=== PATIENT | male | born 1945 | race Caucasian/White ===

== ENCOUNTER 2016-04-30 01:26 | Inpatient (IN) | payer OTHER, BC ==
[2016-04-30 01:40] VITALS: BMI 26.6
--- NOTE | 2016-04-30 01:59 | PDOC ---
History of Present Illness - General Chief Complaint: Shortness of Breath Stated Complaint: DIFFICULTY BREATHING Time Seen by Provider: 04/30/16 01:44 History Source: Patient Exam Limitations: No Limitations - History of Present Illness Initial Comments: CHIEF COMPLAINT: 70 y/o afebrile male with PMH HTN, HLD c/o worsening SOB for the past few days. HISTORY OF PRESENT ILLNESS: He states he's had a dry cough and his legs are becoming more swollen. He denies f/c, n/v/d, CP, palpitations, abd pain, back pain, hematuria, dysuria. Vital signs on arrival are notable for RR of 28. REVIEW OF SYSTEMS: GENERAL/CONSTITUTIONAL: No fever/chills. No weakness. No weight change. HEAD, EYES, EARS, NOSE AND THROAT: No change in vision. No ear pain or discharge. No sore throat. CARDIOVASCULAR: No chest pain. +SOB RESPIRATORY: +cough. No wheezing, or hemoptysis. GASTROINTESTINAL: no abd pain, nausea, vomiting, diarrhea. GENITOURINARY: No dysuria, frequency, or change in urination. MUSCULOSKELETAL: +lower extremity swelling. No neck or back pain. SKIN: No rash or easy bruising. NEUROLOGIC: No headache, vertigo, loss of consciousness, or loss of sensation. PSYCHIATRIC: No depression or anxiety. ENDOCRINE: No increased thirst. No abnormal weight change. HEMATOLOGIC/LYMPHATIC: No anemia, easy bleeding, or history of blood clots. ALLERGIC/IMMUNOLOGIC: No hives or skin allergy. No latex allergy. PHYSICAL EXAM: GENERAL: The patient is awake, alert, and fully oriented, in moderate respiratory distress. He can speak 3 words per sentence. HEAD: Normal with no signs of trauma. ENT: Pupils equal, round and reactive to light, extraocular movements intact, sclera anicteric, conjunctiva clear. Neck supple. LUNGS: Clear to auscultation bilaterally. Normal excursion. No respiratory distress or use of accessory muscles. CV: RRR, S1/S2, no MRG. Cap refill < 2 sec. ABDOMEN: Soft, non-distended, non-tender even to deep palpation, no hepatomegaly or splenomegaly, no masses. EXTREMITIES: Normal range of motion. 2+ pitting edema b/l LEs. NEUROLOGICAL: Normal speech, normal gait. CN II-XII grossly intact. PSYCH: Normal mood, normal affect. SKIN: Warm, dry, normal turgor, no rashes or lesions noted. Past History - Past Medical History Allergies/Adverse Reactions: Allergies Allergy/AdvReac Type Severity Reaction Status Date / Time No Known Allergies Allergy Verified 04/30/16 01:35 Home Medications: Ambulatory Orders Colchicine [Colcrys -] 10 mg PO DAILY 04/30/16 Naproxen/Esomeprazole Mag [Vimovo Dr 375-20 mg Tablet] 1 each PO ASDIR PRN 04/30 Rosuvastatin Calcium [Crestor] 10 mg PO DAILY 04/30/16 HTN: Yes - Immunization History Immunization Up to Date: Yes - Psycho/Social/Smoking Cessation Hx Suicidal Ideation: No Smoking History: Unknown if ever smoked Information on smoking cessation initiated: No Hx Alcohol Use: No Drug/Substance Use Hx: No Substance Use Type: None *Physical Exam - Vital Signs Last Vital Signs Temp Pulse Resp BP Pulse Ox 97.8 F 96 H 25 H 166/79 97 04/30/16 01:48 04/30/16 01:48 04/30/16 01:48 04/30/16 01:48 04/30/16 01:48 Heart Score/ECG Review - History History: Slightly suspicious - Electrocardiogram EKG: Non specific repolarization disturbance - Age Age: >/= 65 - Risk Factors Risk Factors Heart Score: Yes Hx Hypercholesterolemia, Yes Hx Hypertension, Yes Smoking History Based on the list above the patient has:: >/=3 risk factors or Hx atherosclerotic disease - Troponin Troponin: </= normal limit - Score Heart Score - Total: 5 - ECG Intrepretation Comment:: Twelve-lead EKG was performed and reviewed by Dr. Orozco. There is atrial fibrillation. Nonspecific ST and T wave abnormality. Impression: Abnormal twelve-lead EKG ED Treatment Course - LABORATORY CBC & Chemistry Diagram: 04/30/16 02:29 04/30/16 04:52 Medical Decision Making - Medical Decision Making A/p: 70 y/o male with possible new onset CHF. Plan is as follows: 1. EKG 2. CXR 3. Labs 4. O2 via NRB EKG shows afib. Pt states he has no hx of afib and is not on blood thinner. CXR IMPRESSION: Moderate right and small left pleural effusion. Underlying consolidation cannot be excluded. Perihilar and interstitial lung markings suggestive of pulmonary vascular congestion. Ordered IV lasix CHEST CT IMPRESSION: Moderate to large right and [id number] left pleural effusion with adjacent atelectasis. Consolidative changes seen in bilateral lower lobes posteriorly. Coexisting pneumonia cannot be excluded. There is no pneumothorax. Mediastinal lipomatosis. Heart is upper limits of normal in size. No pathologic pericardial effusion.. Coronary artery calcifications. Prominent central pulmonary arteries. Correlate for possible pulmonary care hypertension. Aorta is normal in caliber. No mediastinal hematoma. Right renal cyst is partially imaged. Bilateral renal cortical atrophy. No hydronephrosis. BNP - 5300 New onset afib and CHF Will admit to [facility]. Spoke with Dr. Nathan, enterprise application administrator for Dr. Centeno, and he accepts admission. he requested Dr. Ward as Cardiology consult. Informed the patient and his of the plan. the patient states he feels better. His RR has decreased. *DC/Admit/Observation/Transfer Diagnosis at time of Disposition: New onset a-fib, SOB (shortness of breath) CHF, acute Qualifiers: Congestive heart failure type: unspecified congestive heart failure type Qualified Code(s): I50.9 - Heart failure, unspecified - Discharge Dispostion Admit: Yes - Referrals Referrals: Cindy Centeno MD [Primary Care Provider] -
[2016-04-30 02:49] LABS: BASOPHIL 0.8 % (0-2.0); EOSINOPHIL 0.5 % (0-4.5); MCH 31.8 pg (25.7-33.7); MCHC 34.5 g/dl (32.0-35.9); MEAN CELL VOLUME 92.2 fl (80-96); PLATELET COUNT 215 K/MM3 (134-434); RDW 13.2 % (11.9-15.9)
--- NOTE | 2016-04-30 04:44 | PDOC ---
*Physical Exam - Vital Signs Last Vital Signs Temp Pulse Resp BP Pulse Ox 97.8 F 88 22 163/77 98 04/30/16 01:48 04/30/16 04:21 04/30/16 04:21 04/30/16 04:21 04/30/16 04:21 ED Treatment Course - LABORATORY CBC & Chemistry Diagram: 05/03/16 05:35 05/03/16 05:35 - ADDITIONAL ORDERS Additional order review: Laboratory Results 04/30/16 02:07 Sodium Cancelled Potassium Cancelled Chloride Cancelled Carbon Dioxide Cancelled Anion Gap Cancelled BUN Cancelled Creatinine Cancelled Creat Clearance w eGFR Cancelled Random Glucose Cancelled Calcium Cancelled Total Bilirubin Cancelled AST Cancelled ALT Cancelled Alkaline Phosphatase Cancelled Creatine Kinase Cancelled Troponin I Cancelled B-Natriuretic Peptide Cancelled Total Protein Cancelled Albumin Cancelled 04/30/16 02:29 RBC 4.00 MCV 92.2 MCHC 34.5 RDW 13.2 MPV 7.0 L Neutrophils % 91.0 H Lymphocytes % 4.3 L Monocytes % 3.4 L Eosinophils % 0.5 Basophils % 0.8 Medical Decision Making - Medical Decision Making 04/30/16 04:43 agree with care from ABHI Napoles *DC/Admit/Observation/Transfer Diagnosis at time of Disposition: New onset a-fib, SOB (shortness of breath), CHF, acute - Discharge Dispostion Disposition: HOME - Prescriptions
[2016-04-30] MEDS ORDERED: FUROSEMIDE 40 MG/4 ML INJECTABLE VIAL IVPUSH ONE (04:50)
[2016-04-30] MEDS ORDERED: FUROSEMIDE 40 MG/4 ML INJECTABLE VIAL ONE (05:00)
[2016-04-30 05:39] LABS: ALBUMIN 3.8 g/dl (3.4-5.0); ANION GAP 14 (8-16); CALCIUM 8.5 mg/dL (8.5-10.1); CO2 20 mmol/L (21-32); GLUCOSE,RANDOM 111 mg/dL (74-106); SGOT/AST 27 U/L (15-37); SGPT/ALT 25 U/L (12-78)
[2016-04-30 05:42] LABS: ALK PHOS 89 U/L (45-117); TROPONIN I < 0.02 ng/ml (0.00-0.05)
[2016-04-30 06:22] LABS: URINE APPEARANCE CLEAR; URINE BILIRUBIN NEGATIVE (NEGATIVE); URINE BLOOD 2+ (NEGATIVE); URINE COLOR STRAW; URINE GLUCOSE (UA) NEGATIVE (NEGATIVE); URINE KETONE NEGATIVE (NEGATIVE); URINE LEUK ESTERASE NEGATIVE (NEGATIVE); URINE NITRITE NEGATIVE (NEGATIVE); URINE PROTEIN 2+ (NEGATIVE); URINE UROBILINOGEN NEGATIVE E.U./dl (0.2-1.0)
[2016-04-30 06:24] LABS: URINE RBC 9 /hpf (0-3); URINE WBC 1 /hpf (3-5)
[2016-04-30] MEDS ORDERED: ACETAMINOPHEN 325 MG TABLET (FP) PO PRN (06:47)
[2016-04-30] MEDS ORDERED: HEPARIN NA (PORCINE) 5,000 UNITS/ML 1ML VIAL IVPUSH PRN ×2 (06:52)
--- NOTE | 2016-04-30 06:54 | HP ---
Admitting History and Physical - Primary Care Physician PCP: Cindy Centeno - Admission Chief Complaint: NEW ONSET AFIB & AE CHF History Source: Medical Record - Smoking History Smoking history: Unknown if ever smoked - Alcohol/Substance Use Hx Alcohol Use: No Home Medications - Allergies Allergies/Adverse Reactions: Allergies Allergy/AdvReac Type Severity Reaction Status Date / Time No Known Allergies Allergy Verified 04/30/16 01:35 - Home Medications Home Medications: Ambulatory Orders Colchicine [Colcrys -] 10 mg PO DAILY 04/30/16 Naproxen/Esomeprazole Mag [Vimovo Dr 375-20 mg Tablet] 1 each PO ASDIR PRN 04/30 Rosuvastatin Calcium [Crestor] 10 mg PO DAILY 04/30/16 Review of Systems - Review of Systems Constitutional: denies: Chills, Fever Cardiovascular: denies: Chest Pain Respiratory: reports: SOB Gastrointestinal: denies: Abdominal Pain Physical Examination Vital Signs: Vital Signs Temperature 97.8 F 04/30/16 01:48 Pulse Rate 76 04/30/16 06:45 Respiratory Rate 20 04/30/16 06:45 Blood Pressure 158/69 04/30/16 06:45 O2 Sat by Pulse Oximetry (%) 100 04/30/16 06:45 Constitutional: Yes: Calm Cardiovascular: Yes: Regular Rate and Rhythm, S1, S2 Respiratory: Yes: CTA Bilaterally Gastrointestinal: Yes: Normal Bowel Sounds, Soft Edema: No Imaging - Results Chest X-ray: Report Reviewed Cat Scan: Report Reviewed Problem List - Problems (1) CHF, acute Code(s): I50.9 - HEART FAILURE, UNSPECIFIED Qualifiers: Congestive heart failure type: unspecified congestive heart failure type Qualified Code(s): I50.9 - Heart failure, unspecified (2) New onset a-fib Code(s): I48.91 - UNSPECIFIED ATRIAL FIBRILLATION (3) SOB (shortness of breath) Code(s): R06.02 - SHORTNESS OF BREATH (4) HTN (hypertension) Code(s): I10 - ESSENTIAL (PRIMARY) HYPERTENSION (5) Gout Code(s): M10.9 - GOUT, UNSPECIFIED (6) Pleural effusion Code(s): J90 - PLEURAL EFFUSION, NOT ELSEWHERE CLASSIFIED Assessment/Plan CHIEF COMPLAINT: 70 y/o afebrile male with PMH HTN, HLD c/o worsening SOB for the past few days. HISTORY OF PRESENT ILLNESS: He states he's had a dry cough and his legs are becoming more swollen. He denies f/c, n/v/d, CP, palpitations, abd pain, back pain, hematuria, dysuria. (1) CHF, acute Code(s): I50.9 - HEART FAILURE, UNSPECIFIED Qualifiers: Congestive heart failure type: unspecified congestive heart failure type Qualified Code(s): I50.9 - Heart failure, unspecified BNP 5400 TROP NEG -> F/U CARDIO CONSULTED TELE (2) New onset a-fib Code(s): I48.91 - UNSPECIFIED ATRIAL FIBRILLATION - FOBT -> THEN START IV HEPARIN (3) SOB (shortness of breath) Code(s): R06.02 - SHORTNESS OF BREATH (4) HTN (hypertension) Code(s): I10 - ESSENTIAL (PRIMARY) HYPERTENSION (5) Gout Code(s): M10.9 - GOUT, UNSPECIFIED COLCHICINE (6) Pleural effusion Code(s): J90 - PLEURAL EFFUSION, NOT ELSEWHERE CLASSIFIED CXr & CT NOTE PULM & CARDIO CONSULTED PASTOR CHAPARRO
[2016-04-30] MEDS ORDERED: HEPARIN INFUSION - 500 ML IVPB SCH (07:00)
[2016-04-30] MEDS ORDERED: HEPARIN INFUSION - 500 ML IVPB ONE (07:45)
--- NOTE | 2016-04-30 10:27 | EKG ---
Test Reason : Blood Pressure : / mmHG Vent. Rate : 073 BPM Atrial Rate : 067 BPM P-R Int : 000 ms QRS Dur : 080 ms QT Int : 390 ms P-R-T Axes : 000 091 093 degrees QTc Int : 429 ms POOR DATA QUALITY, INTERPRETATION MAY BE ADVERSELY AFFECTED ATRIAL FIBRILLATION RIGHTWARD AXIS NONSPECIFIC ST AND T WAVE ABNORMALITY ABNORMAL ECG WHEN COMPARED WITH ECG OF 12-NOV-2010 20:11, ATRIAL FIBRILLATION HAS REPLACED SINUS RHYTHM NONSPECIFIC T WAVE ABNORMALITY NOW EVIDENT IN INFERIOR LEADS NONSPECIFIC T WAVE ABNORMALITY, WORSE IN LATERAL LEADS Confirmed by VILMA MCLAIN MD ([id number]) on 04/30/2016 10:26:35 AM Referred By: Confirmed By:VILMA MCLAIN MD
[2016-04-30] MEDS: RAMIPRIL 2.5 MG CAPSULE (FP) PO SCH (10:54)
[2016-04-30] MEDS: COLCHICINE 0.6 MG TABLET (FP) PO SCH (10:54)
[2016-04-30] MEDS: FUROSEMIDE 40 MG/4 ML INJECTABLE VIAL IVPB SCH ×2 (10:54→12:13)
[2016-04-30 11:49] LABS: TROPONIN I < 0.02 ng/ml (0.00-0.05)
[2016-04-30 11:51] LABS: OSMOLALITY,SERUM 261 mosm/kg (278-305)
--- NOTE | 2016-04-30 12:30 | CONSULT ---
Consultation: REQUESTING PROVIDER: CONSULT REQUEST: We have been asked to medically evaluate this patient for ( hyponatremia). HISTORY OF PRESENT ILLNESS: Patient came to hospital with a complaint of difficulty in breathing from few days which was progressively increasing. He also states that he has hyponatremia before and his pcp asked him to increase salt intake. Denies lightheadedness, chest pain. REVIEW OF SYSTEMS: CONSTITUTIONAL: Absent: fever, chills, diaphoresis, generalized weakness, malaise, loss of appetite, HEENT: Absent: rhinorrhea, nasal congestion, throat pain, throat swelling, difficulty swallowing, mouth swelling, ear pain, eye pain, visual changes CARDIOVASCULAR: palpitations present Absent: chest pain, syncope, lightheadedness, peripheral edema RESPIRATORY: present dry cough, sob, orthopnea Absent: dyspnea with exertion, wheezing, stridor, hemoptysis GASTROINTESTINAL: Absent: abdominal pain, abdominal distension, nausea, vomiting, diarrhea, constipation, melena, hematochezia GENITOURINARY: Absent: dysuria, frequency, urgency, hesitancy, hematuria, flank pain, genital pain MUSCULOSKELETAL: Absent: myalgia, arthralgia, joint swelling, back pain, neck pain NEUROLOGIC: Absent: headache, focal weakness or paresthesias, dizziness, unsteady gait, seizure, mental status changes, bladder or bowel incontinence PHYSICAL EXAMINATION Vital Signs - 24 hr 04/30/16 04/30/16 04/30/16 06:43 06:45 07:30 Pulse Rate [ 78 Apical] Pulse Rate [ 79 76 Radial] Respiratory 18 20 26 H Rate Blood Pressure 158/69 158/69 153/84 [Right Arm] O2 Sat by Pulse 99 100 93 L Oximetry (%) 04/30/16 04/30/16 08:50 09:30 Pulse Rate [ 83 75 Apical] Pulse Rate [ Radial] Respiratory 20 20 Rate Blood Pressure 148/81 146/85 [Right Arm] O2 Sat by Pulse 99 99 Oximetry (%) PHYSICAL EXAM: GENERAL: The patient is awake, alert, and fully oriented, in moderate respiratory distress. He can speak 3 words per sentence. HEAD: Normal with no signs of trauma. ENT: Pupils equal, round and reactive to light, extraocular movements intact, sclera anicteric, conjunctiva clear. Neck supple. LUNGS: Clear to auscultation bilaterally. Normal excursion. No respiratory distress or use of accessory muscles. CV: RRR, S1/S2, no MRG. Cap refill < 2 sec. ABDOMEN: Soft, non-distended, non-tender even to deep palpation, no hepatomegaly or splenomegaly, no masses. EXTREMITIES: Normal range of motion. 2+ pitting edema b/l LEs. NEUROLOGICAL: Normal speech, normal gait. CN II-XII grossly intact. PSYCH: Normal mood, normal affect. SKIN: Warm, dry, normal turgor, no rashes or lesions noted. Laboratory Results - last 24 hr 04/30/16 04/30/16 04/30/16 07:45 10:55 10:55 Serum Osmolality 261 L Cancelled Creatine Kinase 170 Creatine Kinase Index 3.1 CK-MB (CK-2) 5.271 H CK-MB (CK-2) Rel Index Troponin I < 0.02 Stool Occult Blood Negative 04/30/16 10:55 Serum Osmolality Creatine Kinase Creatine Kinase Index CK-MB (CK-2) CK-MB (CK-2) Rel Index Cancelled Troponin I Stool Occult Blood Active Medications Generic Name Dose Route Start Last Admin Trade Name Freq PRN Reason Stop Dose Admin Acetaminophen 650 mg 04/30/16 06:47 Tylenol - PO Q6H PRN FEVER OR PAIN Colchicine 0.6 mg 04/30/16 10:00 04/30/16 10:54 Colcrys - PO 0.6 mg DAILY ILYA Administration Furosemide 40 mg 04/30/16 10:00 04/30/16 12:13 Lasix Injection - IVPB 40 mg DAILY ILYA Administration Heparin Sodium (Porcine) 1,000 unit 04/30/16 06:52 Heparin - IVPUSH PRN PRN Heparin Heparin Sodium (Porcine) 5,000 unit 04/30/16 06:52 Heparin - IVPUSH PRN PRN Heparin Heparin Sodium/Dextrose 500 mls @ 20 mls/hr 04/30/16 07:00 04/30/16 08:15 Heparin Infusion - IVPB 20 mls/hr TITR ILYA Administration Protocol 1,000 UNITS/HR Ramipril 2.5 mg 04/30/16 10:00 04/30/16 10:54 Altace - PO 2.5 mg DAILY ILYA Administration Rosuvastatin Calcium 10 mg 04/30/16 22:00 Crestor - PO HS ILYA ASSESSMENT/PLAN: impression new onset afib, chf HTN HLD Hyponatremia pleural effusion Plan continue with lasix 40mg Iv daily Keep free water intake below 1L increase Na at rate of 0.5meq/hr follow urine electrolyte, urine creat, urine osmo hyponatremia is probably due to hypervolemic hyponatremia serum osmo 261 daily weight repeat sodium after six hour Dispo: We will continue to follow the patient. Thank you for this consultative opportunity. Visit type - Emergency Visit Emergency Visit: Yes ED Registration Date: 04/30/16 Care time: The patient presented to the Emergency Department on the above date and was hospitalized for further evaluation of their emergent condition. - New Patient This patient is new to me today: Yes Date on this admission: 04/30/16 - Critical Care Critical Care patient: No
[2016-04-30] MEDS ORDERED: ALBUTEROL SO4 2.5/IPRATROPIUM 0.5 INH SOL 3 ML VIAL.NEB. NEB PRN (12:52)
--- NOTE | 2016-04-30 12:52 | PN ---
Progress Note (short form) - Note Progress Note: PULMONARY CONSULTATION DICTATED 04/30/16 IMP CHF NEW ONSET A-FIB BILATERAL PLEURAL EFFUSIONS HYPONATREMIA HTN HLD GOUT PLAN IV LASIX SUPPLEMENTAL O2 INHALED BRONCHODILATORS DAILY WTS ECHO RATE CONTROL F/U CHEST X-RAY IF NO CHANGE PLEURAL EFFUSIONS THORACENTESIS MONITOR VIRGEN DEMARCO DR Problem List - Problems (1) CHF, acute Code(s): I50.9 - HEART FAILURE, UNSPECIFIED Qualifiers: Congestive heart failure type: unspecified congestive heart failure type Qualified Code(s): I50.9 - Heart failure, unspecified (2) Gout Code(s): M10.9 - GOUT, UNSPECIFIED (3) HTN (hypertension) Code(s): I10 - ESSENTIAL (PRIMARY) HYPERTENSION (4) New onset a-fib Code(s): I48.91 - UNSPECIFIED ATRIAL FIBRILLATION (5) Pleural effusion Code(s): J90 - PLEURAL EFFUSION, NOT ELSEWHERE CLASSIFIED (6) SOB (shortness of breath) Code(s): R06.02 - SHORTNESS OF BREATH (7) Hyponatremia Code(s): E87.1 - HYPO-OSMOLALITY AND HYPONATREMIA
--- NOTE | 2016-04-30 14:02 | CONS ---
DATE OF CONSULTATION: 04/30/2016 REFERRING PHYSICIAN: Vishal Dennis MD The patient is a 70-year-old white male with past medical history of hypertension, hyperlipidemia, history of tobacco use approximately 1 pack per day, about 20 years, quit in 1981, admitted to [facility] with complaint of 1-week history of increasing shortness of breath, cough, and lower extremity edema. The patient states that he started developing shortness of breath on Tuesday. He started to notice progressive dyspnea on exertion. He also noted that his legs were becoming more and more swollen. He initially did not seek medical attention. Yesterday his symptoms continued to worsen, at which time he presented to the emergency room. He also complains of some wheezing when he laid down. He denied any chest pain or palpitations, nausea, vomiting, or diaphoresis. In the emergency room he is noted to be tachypneic, but a respiratory rate is 22. He is also noted to be in atrial fibrillation, which is new. He had chest x-ray performed which revealed bilateral pleural effusions, right greater than left, with bilateral pulmonary vascular congestion. BNP was greater than 5000. He was admitted to the telemetry unit for further monitoring. He denies any history of atrial fibrillation. He denies any history of ASHD, denies any history of occupational exposure to chemicals or fumes. Denies any fevers, weight loss, night sweats. No history of recent URI. PAST MEDICAL HISTORY: Again includes hypertension, hyperlipidemia. REVIEW OF SYSTEMS: Positive dyspnea, positive orthopnea, positive palpitations, positive wheezing. No chest pain, no nausea, no vomiting, no abdominal pain. Positive lower extremity edema. CURRENT MEDICATIONS: Include heparin, Altace, Lasix, Crestor, and colchicine. PHYSICAL EXAMINATION: General: The patient is a well-developed, well-nourished male, awake, alert, in no acute distress. Vital Signs: He is afebrile. Blood pressure is 146/85. Respiratory rate is 20. O2 saturation is 99% on 4 L. HEENT: His head is normocephalic, atraumatic. Neck: Supple. Heart: Irregularly irregular with normal S1, S2. Chest: Bilateral crackles and diminished breath sounds in the right base. Abdomen: Soft. Bowel sounds are positive. Extremities: Bilateral lower extremity edema. LABORATORY: WBCs 8, hemoglobin 12.7, hematocrit 36.9, platelet count of 215, 000. There are 91 polys, 4 lymphs, and 3 monos. Sodium is 125. BUN is 9, creatinine 1.0. BNP is 5393. MB fraction 7.178. Troponin is less than 0.2. Chest x-ray reveals bilateral pulmonary vascular congestion. Chest CT reveals compressive atelectasis, bilateral pleural effusions. IMPRESSION: 1. Dyspnea, most likely secondary to diastolic congestive heart failure. 2. New-onset atrial fibrillation. 3. Bilateral pleural effusions, likely secondary to congestive heart failure. 4. Hypertension. 5. Hyperlipidemia. PLAN: Continue IV Lasix. Daily weights. Follow up chest x-ray. Rate control. Echocardiogram. Supplemental O2. BEBETO BROWNE M.D. [id number] MTDD
--- NOTE | 2016-04-30 14:59 | CONSULT ---
Consult Consult Specialty:: Cardiology Referred by:: Dr Dennis Reason for Consultation:: New afib, CHF - History of Present Illness Chief Complaint: Dyspnea, wheezing, edema History of Present Illness: 70 yo male, remote smoker, hx of HTN, HLD, hyponatremia, gout, here with 2 wk history of dyspnea, wheezing and worsening MESFIN. Patient has no hx of KS, CHF or CP syndrome. However, he has had mild MESFIN. He also has had intermittent palpitations/tachycardia for years, but never kavitha dhe had afib. Over the last 2 weeks, he's noticed worsening MILLER/wheezing. He denies worsening MESFIN, PND or orthopnea. He denies any recent illness. Here, he's found in afib and congestion/effusion. He's received IV lasix and feels better. - History Source History Provided By: Patient - Past Medical History Cardio/Vascular: Yes: HTN, Hyperlipdemia, Other (edema) Musculoskeletal: Yes: Osteoarthritis Additional Medical History: gout - Past Surgical History Past Surgical History: Yes: Cataract Removal (b/l), Joint Replacement (right hip replacement X 3), Tonsillectomy - Alcohol/Substance Use Hx Alcohol Use: Yes (4-5 beers daily) History of Substance Use: reports: None - Smoking History Smoking history: Former smoker (quit in 1981, smoked a ppd for 25-30 yrs) Have you smoked in the past 12 months: No If you are a former smoker, when did you quit?: 1981 - Social History Usual Living Arrangement: With Spouse 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 Home Medications - Allergies Allergies/Adverse Reactions: Allergies Allergy/AdvReac Type Severity Reaction Status Date / Time No Known Allergies Allergy Verified 04/30/16 01:35 - Home Medications Home Medications: Ambulatory Orders Colchicine [Colcrys -] 10 mg PO DAILY 04/30/16 Naproxen/Esomeprazole Mag [Vimovo Dr 375-20 mg Tablet] 1 each PO ASDIR PRN 04/30 Rosuvastatin Calcium [Crestor] 10 mg PO DAILY 04/30/16 Family Disease History - Family Disease History Family History: Denies (premature CAD) Review of Systems - Review of Systems Constitutional: reports: Weakness Eyes: reports: No Symptoms HENT: reports: No Symptoms Neck: reports: No Symptoms Cardiovascular: reports: Edema, Shortness of Breath Respiratory: reports: SOB, SOB on Exertion, Wheezing Gastrointestinal: reports: No Symptoms Genitourinary: reports: No Symptoms Musculoskeletal: reports: Other Neurological: reports: Unsteady Gait Endocrine: reports: No Symptoms Psychiatric: reports: No Symptoms Physical Exam Vital Signs: Vital Signs Temperature 98.2 F 04/30/16 06:10 Pulse Rate 88 04/30/16 14:00 Respiratory Rate 20 04/30/16 14:00 Blood Pressure 125/70 04/30/16 14:00 O2 Sat by Pulse Oximetry (%) 99 04/30/16 09:30 Constitutional: Yes: No Distress Eyes: Yes: Conjunctiva Clear HENT: Yes: Atraumatic Neck: Yes: Supple Cardiovascular: Yes: Regular Rate and Rhythm. No: Murmur Respiratory: Yes: Other (decreased BS at bases). No: Rales, Rhonchi, Wheezes Gastrointestinal: Yes: Normal Bowel Sounds, Soft. No: Tenderness Edema: Yes Edema: LLE: Trace, RLE: Trace Peripheral Pulses WNL: Yes Neurological: Yes: Alert, Oriented Psychiatric: Yes: Alert, Oriented Imaging - Results Chest X-ray: Report Reviewed, Image Reviewed EKG: Report Reviewed, Image Reviewed, Other (afib) Other: Other (Echo(04/30/16) -> Mild LVE with normal EF, Mild LAE, mild MR, mild- mod TR, PASP 50-60) Assessment/Plan 70 yo male wit the above history, here with new onset afib and CHF. There is no evidence of ACS. The CHF may be from diastolic dysfunction in setting of rapid afib. Pt with mild LVE on echo -. ? from rapid afib (though rate has been controlled, likely because of bystolic) vs etoh. He is responding to IV lasix He has mild hyponatremaia (reports prior history) -. hypervolemic hyponatremia?\ Rec: Continue lasix 40 IV daily -> follow Is/Os, renal function and lytes Follow CXR Cont BOBBY-I Defer BB for today as pt was wheezing -. should be on it once stabalizes Check TFTs Cont crestor. Check lipids and adjust prn Switch to lovenox (pt with nl renal function) Once comfortable that pt wont need thoracentesis, start eliquis 5 bid Thanks! we'll follow! D/w pt and at bedside
[2016-04-30] MEDS ORDERED: ENOXAPARIN NA (PORCINE) 80 MG/0.8 ML DISP.SYRIN SQ SCH (16:00)
[2016-04-30 17:48] LABS: TROPONIN I < 0.02 ng/ml (0.00-0.05)
--- NOTE | 2016-04-30 19:09 | PN ---
Teaching Attending Note Name of Resident: Uriel London (Nephrology) ATTENDING PHYSICIAN STATEMENT I saw and evaluated the patient. I reviewed the resident's note and discussed the case with the resident. I agree with the resident's findings and plan as documented. Nephrology Consult Pt is a 70 year old male with pmhx of CHF, HTN and cholesterol who presents to the ER with worsening shortness of breath. He was found to be hyponatremic and I was called to evaluate him. He says he has had hyponatremia in the past. He complains of lower extremity edema. He tries not to drink much water. He denies chest pain. He was also found to be in a-fib. PMHX chf htn chol gout hyponatremia nkda ros shortness of breath family hx denies Current Active Problems CHF, acute (Acute) Gout (Acute) HTN (hypertension) (Acute) Hyponatremia (Acute) New onset a-fib (Acute) Pleural effusion (Acute) SOB (shortness of breath) (Acute) Last Vital Signs Temp Pulse Resp BP Pulse Ox 98.2 F 88 20 125/70 99 04/30/16 06:10 04/30/16 14:00 04/30/16 14:00 04/30/16 14:00 04/30/16 09:30 Laboratory Tests 04/30/16 04/30/16 04/30/16 04:52 10:55 16:15 Sodium 125 L Potassium 4.7 Chloride 91 L Carbon Dioxide 20 L Anion Gap 14 Serum Osmolality 261 L Troponin I < 0.02 < 0.02 Current Medications Generic Name Dose Route Start Last Admin Trade Name Freq PRN Reason Stop Dose Admin Acetaminophen 650 mg 04/30/16 06:47 Tylenol - PO Q6H PRN FEVER OR PAIN Albuterol/Ipratropium 1 amp 04/30/16 12:52 Duoneb - NEB Q4H PRN SHORTNESS OF BREATH Colchicine 0.6 mg 04/30/16 10:00 04/30/16 10:54 Colcrys - PO 0.6 mg DAILY ILYA Administration Enoxaparin Sodium 80 mg 04/30/16 16:00 04/30/16 15:48 Lovenox - SQ 80 mg Q12H ILYA Administration Furosemide 40 mg 04/30/16 10:00 04/30/16 12:13 Lasix Injection - IVPB 40 mg DAILY ILYA Administration Ramipril 2.5 mg 04/30/16 10:00 04/30/16 10:54 Altace - PO 2.5 mg DAILY ILYA Administration Rosuvastatin Calcium 10 mg 04/30/16 22:00 Crestor - PO HS ILYA cardio s1s2 irreg pulm crackles GI soft extplus 2 edema skin venous stasis changes neuro awake and alert Impression 1. Hyponatremia 2. new onset a-fib 3. pleural effusion 4. HLD 5. CHF 6. HTN 7. Gout Plan - check urine osm, urine sodium (will likely be affected from diuretics) - restric free water intake - check cortisol and tsh - repeat sodium in am - mix heparin in saline instead of d5w - etiology of hyponatremia is likely from CHF and fluid overload - will follow Dr Rodríguez
[2016-04-30] MEDS: ROSUVASTATIN CA 10 MG TABLET (FP) PO SCH (22:00)
[2016-05-01 07:47] LABS: BASOPHIL 1.1 % (0-2.0); EOSINOPHIL 5.5 % (0-4.5); MCH 32.1 pg (25.7-33.7); MCHC 34.2 g/dl (32.0-35.9); MEAN CELL VOLUME 93.7 fl (80-96); MEAN PLT VOLUME 6.9 fl (7.5-11.1); NEUTROPHILS 70.3 % (42.8-82.8); PLATELET COUNT 184 K/MM3 (134-434); RDW 13.5 % (11.9-15.9); WHITE BLOOD COUNT 5.3 K/mm3 (4.0-10.0)
[2016-05-01 08:21] LABS: ALBUMIN 3.4 g/dl (3.4-5.0); ANION GAP 11 (8-16); CALCIUM 8.6 mg/dL (8.5-10.1); CO2 26 mmol/L (21-32); GLUCOSE,RANDOM 87 mg/dL (74-106); MAGNESIUM 1.8 mg/dL (1.8-2.4)
[2016-05-01 08:33] LABS: ALK PHOS 82 U/L (45-117); BILIRUBIN,TOTAL 0.8 mg/dL (0.2-1.0); CREATININE 0.9 mg/dL (0.7-1.3); SGOT/AST 28 U/L (15-37); SGPT/ALT 25 U/L (12-78); THYROID STIMULATING HORMONE 1.75 uIU/ml (0.358-3.74); TOT PROT 7.2 g/dl (6.4-8.2)
[2016-05-01] MEDS: ENOXAPARIN NA (PORCINE) 80 MG/0.8 ML DISP.SYRIN SQ SCH ×2 (09:23→21:50)
[2016-05-01] MEDS: RAMIPRIL 2.5 MG CAPSULE (FP) PO SCH (09:23)
[2016-05-01] MEDS: COLCHICINE 0.6 MG TABLET (FP) PO SCH (09:23)
[2016-05-01] MEDS: FUROSEMIDE 40 MG/4 ML INJECTABLE VIAL IVPB SCH (09:23)
[2016-05-01 09:25] LABS: CHOLESTEROL 160 mg/dL (50-200); LDL CHOLESTEROL (ONLY SJRH) 64 mg/dL (5-100)
--- NOTE | 2016-05-01 09:41 | PN ---
Progress Note, Physician History of Present Illness: SOB improved. Denies chest pain or palpitations. - Current Medication List Current Medications: Active Medications Acetaminophen (Tylenol -) 650 mg PO Q6H PRN PRN Reason: FEVER OR PAIN Albuterol/Ipratropium (Duoneb -) 1 amp NEB Q4H PRN PRN Reason: SHORTNESS OF BREATH Colchicine (Colcrys -) 0.6 mg PO DAILY [facility] Last Admin: 05/01/16 09:23 Dose: 0.6 mg Enoxaparin Sodium (Lovenox -) 80 mg SQ BID [facility] Last Admin: 05/01/16 09:23 Dose: 80 mg Furosemide (Lasix Injection -) 40 mg IVPB DAILY [facility] Last Admin: 05/01/16 09:23 Dose: 40 mg Metoprolol Succinate (Toprol Xl -) 25 mg PO DAILY [facility] Rosuvastatin Calcium (Crestor -) 10 mg PO HS [facility] Last Admin: 04/30/16 22:00 Dose: 10 mg - Objective Vital Signs: Vital Signs Temperature 97.7 F 05/01/16 05:30 Pulse Rate 88 05/01/16 05:30 Respiratory Rate 18 05/01/16 05:30 Blood Pressure 142/77 05/01/16 05:30 O2 Sat by Pulse Oximetry (%) 99 04/30/16 21:00 Constitutional: Yes: Well Nourished, No Distress Eyes: Yes: Conjunctiva Clear, EOM Intact Cardiovascular: Yes: Regular Rate and Rhythm. No: JVD Respiratory: Yes: CTA Bilaterally Gastrointestinal: Yes: Normal Bowel Sounds, Soft. No: Tenderness Edema: No Neurological: Yes: Alert, Oriented, Cran Nerves II-XII Intact Labs: CBC, BMP 05/01/16 05:55 05/01/16 05:55 Assessment/Plan 70 yo male, remote smoker, hx of HTN, HLD, hyponatremia, gout. Admitted with 2 wk history of dyspnea and worsening leg edema. Found to be in new onset atrial fibrillation and acute diastolic CHF. Clinically improved with IV lasix. Afib currently rate controlled. Moderate bilateral pleural effusions per 2/ chest CT. 04/30/16 Echo: Midly dilated LV. Normal LV systolic function. Mild LAE. Mild MR. Mild to mod TR. RVSP 50-60 mmHg. Mild MI. Trivial pericardial effusion. Patient with history of mild hyponatremaia -> hypervolemic hyponatremia? RECS: Will continue lasix 40 IV daily for now. Follow renal function and lytes. Will increase ramipril to 5 mg po daily. Will start metoprolol succinate 25 mg po daily. Continue Crestor. Currently on Lovenox for afib thromboembolic prophylaxis. If no plans for thoracentesis, may start Eliquis 5 mg po bid (if patient's insurance covers this medication or other NOACs). Otherwise patient will need coumadin.
[2016-05-01] MEDS: METOPROLOL SUCCINATE 25 MG TAB.SR.24H (FP) PO SCH (10:15)
[2016-05-01] MEDS: RAMIPRIL 5 MG CAPSULE (FP) PO SCH (10:16)
--- NOTE | 2016-05-01 11:07 | PN ---
Progress Note, Physician Chief Complaint: FEELS BETTER LOOKS BETTER - Current Medication List Current Medications: Active Medications Acetaminophen (Tylenol -) 650 mg PO Q6H PRN PRN Reason: FEVER OR PAIN Albuterol/Ipratropium (Duoneb -) 1 amp NEB Q4H PRN PRN Reason: SHORTNESS OF BREATH Colchicine (Colcrys -) 0.6 mg PO DAILY [facility] Last Admin: 05/01/16 09:23 Dose: 0.6 mg Enoxaparin Sodium (Lovenox -) 80 mg SQ BID [facility] Last Admin: 05/01/16 09:23 Dose: 80 mg Furosemide (Lasix Injection -) 40 mg IVPB DAILY [facility] Last Admin: 05/01/16 09:23 Dose: 40 mg Metoprolol Succinate (Toprol Xl -) 25 mg PO DAILY [facility] Last Admin: 05/01/16 10:15 Dose: 25 mg Ramipril (Altace -) 5 mg PO DAILY [facility] Last Admin: 05/01/16 10:16 Dose: Not Given Rosuvastatin Calcium (Crestor -) 10 mg PO [facility] Last Admin: 04/30/16 22:00 Dose: 10 mg - Objective Vital Signs: Vital Signs Temperature 98.2 F 05/01/16 10:00 Pulse Rate 95 H 05/01/16 10:00 Respiratory Rate 20 05/01/16 10:00 Blood Pressure 146/71 05/01/16 10:00 O2 Sat by Pulse Oximetry (%) 97 05/01/16 09:00 Constitutional: Yes: Calm Cardiovascular: Yes: S1, S2 Respiratory: Yes: CTA Bilaterally Gastrointestinal: Yes: Normal Bowel Sounds, Soft Edema: Yes Labs: CBC, BMP 05/01/16 05:55 05/01/16 05:55 Problem List - Problems (1) CHF, acute Code(s): I50.9 - HEART FAILURE, UNSPECIFIED Qualifiers: Congestive heart failure type: unspecified congestive heart failure type Qualified Code(s): I50.9 - Heart failure, unspecified (2) New onset a-fib Code(s): I48.91 - UNSPECIFIED ATRIAL FIBRILLATION (3) SOB (shortness of breath) Code(s): R06.02 - SHORTNESS OF BREATH (4) HTN (hypertension) Code(s): I10 - ESSENTIAL (PRIMARY) HYPERTENSION (5) Gout Code(s): M10.9 - GOUT, UNSPECIFIED (6) Pleural effusion Code(s): J90 - PLEURAL EFFUSION, NOT ELSEWHERE CLASSIFIED (7) Hyponatremia Code(s): E87.1 - HYPO-OSMOLALITY AND HYPONATREMIA Assessment/Plan CHIEF COMPLAINT: 70 y/o afebrile male with PMH HTN, HLD c/o worsening SOB for the past few days. HISTORY OF PRESENT ILLNESS: He states he's had a dry cough and his legs are becoming more swollen. He denies f/c, n/v/d, CP, palpitations, abd pain, back pain, hematuria, dysuria. (1) CHF, acute Code(s): I50.9 - HEART FAILURE, UNSPECIFIED Qualifiers: Congestive heart failure type: unspecified congestive heart failure type Qualified Code(s): I50.9 - Heart failure, unspecified BNP 5400 NO ACS CARDIO CONSULT APPRECIATED BP Rx ADJUSTED TELE ECHO SHOW NL LVEF (2) New onset a-fib Code(s): I48.91 - UNSPECIFIED ATRIAL FIBRILLATION FOBT -jaxson LOVENOX CARDIO RECOMMEND ELIQUIS IF PULM NOT DOING PLEURAL TAP (3) SOB (shortness of breath) Code(s): R06.02 - SHORTNESS OF BREATH (4) HTN (hypertension) Code(s): I10 - ESSENTIAL (PRIMARY) HYPERTENSION (5) Gout Code(s): M10.9 - GOUT, UNSPECIFIED COLCHICINE (6) Pleural effusion Code(s): J90 - PLEURAL EFFUSION, NOT ELSEWHERE CLASSIFIED CXr & CT NOTED PULM & CARDIO CONSULTS APRRECIATED F/U REPEAT CXr -> POSSIBLE TAP IF DEPENDING ON REPEAT CXr NO FEVER WBC NEG (7) Hyponatremia Code(s): E87.1 - HYPO-OSMOLALITY AND HYPONATREMIA APPRECIATE RENAL CONSULT -> 2/2 CHF and fluid overload Na 130 F/U RENAL W/U DISCHARGE PLANNING IF NO PLEURAL TAP 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
--- NOTE | 2016-05-01 12:21 | PN ---
Progress Note (short form) - Note Progress Note: Feels better. No wheezing today. Ambulating on RA. Intake & Output 04/28/16 04/29/16 04/30/16 05/01/16 23:59 23:59 23:59 23:59 Intake Total 200 265 Output Total 950 1150 Balance -750 -885 Weight 180 lb 184 lb 9.6 oz Last Vital Signs Temp Pulse Resp BP Pulse Ox 98.2 F 95 H 20 146/71 97 05/01/16 10:00 05/01/16 10:00 05/01/16 10:00 05/01/16 10:00 05/01/16 09:00 Active Medications Acetaminophen (Tylenol -) 650 mg PO Q6H PRN PRN Reason: FEVER OR PAIN Albuterol/Ipratropium (Duoneb -) 1 amp NEB Q4H PRN PRN Reason: SHORTNESS OF BREATH Colchicine (Colcrys -) 0.6 mg PO DAILY [facility] Last Admin: 05/01/16 09:23 Dose: 0.6 mg Enoxaparin Sodium (Lovenox -) 80 mg SQ BID [facility] Last Admin: 05/01/16 09:23 Dose: 80 mg Furosemide (Lasix Injection -) 40 mg IVPB DAILY [facility] Last Admin: 05/01/16 09:23 Dose: 40 mg Metoprolol Succinate (Toprol Xl -) 25 mg PO DAILY [facility] Last Admin: 05/01/16 10:15 Dose: 25 mg Ramipril (Altace -) 5 mg PO DAILY [facility] Last Admin: 05/01/16 10:16 Dose: Not Given Rosuvastatin Calcium (Crestor -) 10 mg PO [facility] Last Admin: 04/30/16 22:00 Dose: 10 mg Constitutional: Yes: No Distress Eyes: Yes: Conjunctiva Clear, EOM Intact Cardiovascular: Yes: Regular Rate and Rhythm. No: JVD Respiratory: Yes: basilar rhonchi Gastrointestinal: Yes: Normal Bowel Sounds, Soft. No: Tenderness Edema: No Neurological: Yes: non-focal Labs: Problem List - Problems (1) CHF, acute Code(s): I50.9 - HEART FAILURE, UNSPECIFIED Qualifiers: Congestive heart failure type: unspecified congestive heart failure type Qualified Code(s): I50.9 - Heart failure, unspecified (2) Gout Code(s): M10.9 - GOUT, UNSPECIFIED (3) HTN (hypertension) Code(s): I10 - ESSENTIAL (PRIMARY) HYPERTENSION (4) New onset a-fib Code(s): I48.91 - UNSPECIFIED ATRIAL FIBRILLATION (5) Pleural effusion Code(s): J90 - PLEURAL EFFUSION, NOT ELSEWHERE CLASSIFIED (6) SOB (shortness of breath) Code(s): R06.02 - SHORTNESS OF BREATH (7) Hyponatremia Code(s): E87.1 - HYPO-OSMOLALITY AND HYPONATREMIA IMP CHF NEW ONSET A-FIB BILATERAL PLEURAL EFFUSIONS HYPONATREMIA HTN HLD GOUT PLAN IV LASIX SUPPLEMENTAL O2 INHALED BRONCHODILATORS DAILY WTS RATE CONTROL DO NOT FEEL THERE IS AN INDICATION FOR THORACENTESIS PATIENT IS CLINICALLY IMPROVING WITH DIURETICS NO PULMONARY CONTRAINDICATION FOR D/C DR GODINEZ
--- NOTE | 2016-05-01 19:54 | PN ---
Progress Note, Physician History of Present Illness: Pt seen and examined at bedside. He is awake and alert. He says he feels better today. His shortness of breath is improving. - Current Medication List Current Medications: Active Medications Acetaminophen (Tylenol -) 650 mg PO Q6H PRN PRN Reason: FEVER OR PAIN Albuterol/Ipratropium (Duoneb -) 1 amp NEB Q4H PRN PRN Reason: SHORTNESS OF BREATH Colchicine (Colcrys -) 0.6 mg PO DAILY [facility] Last Admin: 05/01/16 09:23 Dose: 0.6 mg Enoxaparin Sodium (Lovenox -) 80 mg SQ BID [facility] Last Admin: 05/01/16 09:23 Dose: 80 mg Furosemide (Lasix Injection -) 40 mg IVPB DAILY [facility] Last Admin: 05/01/16 09:23 Dose: 40 mg Metoprolol Succinate (Toprol Xl -) 25 mg PO DAILY [facility] Last Admin: 05/01/16 10:15 Dose: 25 mg Ramipril (Altace -) 5 mg PO DAILY [facility] Last Admin: 05/01/16 10:16 Dose: Not Given Rosuvastatin Calcium (Crestor -) 10 mg PO HS [facility] Last Admin: 04/30/16 22:00 Dose: 10 mg - Objective Vital Signs: Vital Signs Temperature 97.9 F 05/01/16 17:00 Pulse Rate 90 05/01/16 17:00 Respiratory Rate 20 05/01/16 17:00 Blood Pressure 156/89 05/01/16 17:00 O2 Sat by Pulse Oximetry (%) 97 05/01/16 09:00 Constitutional: Yes: Calm Eyes: Yes: Conjunctiva Clear HENT: Yes: Atraumatic Neck: Yes: Supple Cardiovascular: Yes: Pulse Irregular, S1, S2 Respiratory: Yes: CTA Bilaterally Gastrointestinal: Yes: Normal Bowel Sounds, Soft Genitourinary: Yes: WNL Musculoskeletal: Yes: WNL Edema: Yes Edema: LLE: 2+, RLE: 2+ Neurological: Yes: Oriented Psychiatric: Yes: Oriented Labs: CBC, BMP 05/01/16 05:55 05/01/16 05:55 Assessment/Plan Current Medications Generic Name Dose Route Start Last Admin Trade Name Freq PRN Reason Stop Dose Admin Acetaminophen 650 mg 04/30/16 06:47 Tylenol - PO Q6H PRN FEVER OR PAIN Albuterol/Ipratropium 1 amp 04/30/16 12:52 Duoneb - NEB Q4H PRN SHORTNESS OF BREATH Colchicine 0.6 mg 04/30/16 10:00 05/01/16 09:23 Colcrys - PO 0.6 mg DAILY ILYA Administration Enoxaparin Sodium 80 mg 04/30/16 22:19 05/01/16 09:23 Lovenox - SQ 80 mg BID ILYA Administration Furosemide 40 mg 04/30/16 10:00 05/01/16 09:23 Lasix Injection - IVPB 40 mg DAILY ILYA Administration Metoprolol Succinate 25 mg 05/01/16 10:00 05/01/16 10:15 Toprol Xl - PO 25 mg DAILY ILYA Administration Ramipril 5 mg 05/01/16 10:00 05/01/16 10:16 Altace - PO Not Given DAILY ILYA Rosuvastatin Calcium 10 mg 04/30/16 22:00 04/30/16 22:00 Crestor - PO 10 mg HS ILYA Administration Impression 1. Hyponatremia 2. new onset a-fib 3. pleural effusion 4. HLD 5. CHF 6. HTN 7. Gout Plan - cont with lasix, will re-assess dose in am - cont fluid restriction - hypervolemic hyponatremia likely from CHF - repeat labs in am - check cortisol and tsh - mix heparin in saline instead of d5w - etiology of hyponatremia is likely from CHF and fluid overload - will follow Dr Rodríguez
[2016-05-01] MEDS: ROSUVASTATIN CA 10 MG TABLET (FP) PO SCH (21:47)
[2016-05-02 08:19] LABS: BASOPHIL 0.7 % (0-2.0); EOSINOPHIL 8.4 % (0-4.5); MCHC 34.2 g/dl (32.0-35.9); MEAN CELL VOLUME 93.5 fl (80-96); MEAN PLT VOLUME 6.8 fl (7.5-11.1); NEUTROPHILS 67.9 % (42.8-82.8); PLATELET COUNT 194 K/MM3 (134-434); RDW 13.5 % (11.9-15.9)
[2016-05-02 08:47] LABS: CALCIUM 8.6 mg/dL (8.5-10.1)
[2016-05-02 08:53] LABS: ALBUMIN 3.4 g/dl (3.4-5.0); ALK PHOS 80 U/L (45-117); ANION GAP 13 (8-16); BILIRUBIN,TOTAL 0.7 mg/dL (0.2-1.0); CO2 24 mmol/L (21-32); GLUCOSE,RANDOM 81 mg/dL (74-106); SGOT/AST 23 U/L (15-37); SGPT/ALT 26 U/L (12-78); TOT PROT 7.2 g/dl (6.4-8.2)
--- NOTE | 2016-05-02 08:58 | PN ---
Progress Note, Physician Chief Complaint: C/O R ANKLE AE GOUT FEELS BETTER VERY CONCERNED ABOUT HEART CONDITION - Current Medication List Current Medications: Active Medications Acetaminophen (Tylenol -) 650 mg PO Q6H PRN PRN Reason: FEVER OR PAIN Albuterol/Ipratropium (Duoneb -) 1 amp NEB Q4H PRN PRN Reason: SHORTNESS OF BREATH Colchicine (Colcrys -) 0.6 mg PO DAILY [facility] Last Admin: 05/01/16 09:23 Dose: 0.6 mg Enoxaparin Sodium (Lovenox -) 80 mg SQ BID [facility] Last Admin: 05/01/16 21:50 Dose: 80 mg Furosemide (Lasix Injection -) 40 mg IVPB DAILY [facility] Last Admin: 05/01/16 09:23 Dose: 40 mg Metoprolol Succinate (Toprol Xl -) 25 mg PO DAILY [facility] Last Admin: 05/01/16 10:15 Dose: 25 mg Ramipril (Altace -) 5 mg PO DAILY [facility] Last Admin: 05/01/16 10:16 Dose: Not Given Rosuvastatin Calcium (Crestor -) 10 mg PO [facility] Last Admin: 05/01/16 21:47 Dose: 10 mg - Objective Vital Signs: Vital Signs Temperature 97.0 F L 05/02/16 01:38 Pulse Rate 92 H 05/02/16 08:32 Respiratory Rate 20 05/02/16 08:32 Blood Pressure 130/80 05/02/16 08:32 O2 Sat by Pulse Oximetry (%) 97 05/01/16 21:00 Constitutional: Yes: Calm Cardiovascular: Yes: WNL Respiratory: Yes: WNL Gastrointestinal: Yes: WNL Musculoskeletal: Yes: Joint Swelling (R ANKLE WARM & TENDER) Edema: Yes Labs: CBC, BMP 05/02/16 05:50 Problem List - Problems (1) CHF, acute Code(s): I50.9 - HEART FAILURE, UNSPECIFIED Qualifiers: Congestive heart failure type: unspecified congestive heart failure type Qualified Code(s): I50.9 - Heart failure, unspecified (2) New onset a-fib Code(s): I48.91 - UNSPECIFIED ATRIAL FIBRILLATION (3) SOB (shortness of breath) Code(s): R06.02 - SHORTNESS OF BREATH (4) HTN (hypertension) Code(s): I10 - ESSENTIAL (PRIMARY) HYPERTENSION (5) Gout Code(s): M10.9 - GOUT, UNSPECIFIED (6) Pleural effusion Code(s): J90 - PLEURAL EFFUSION, NOT ELSEWHERE CLASSIFIED (7) Hyponatremia Code(s): E87.1 - HYPO-OSMOLALITY AND HYPONATREMIA Assessment/Plan CHIEF COMPLAINT: 70 y/o afebrile male with PMH HTN, HLD c/o worsening SOB for the past few days. HISTORY OF PRESENT ILLNESS: He states he's had a dry cough and his legs are becoming more swollen. He denies f/c, n/v/d, CP, palpitations, abd pain, back pain, hematuria, dysuria. (1) CHF, acute Code(s): I50.9 - HEART FAILURE, UNSPECIFIED Qualifiers: Congestive heart failure type: unspecified congestive heart failure type Qualified Code(s): I50.9 - Heart failure, unspecified BNP 5400 NO ACS CARDIO CONSULT APPRECIATED BP Rx ADJUSTED TELE ECHO SHOW NL LVEF TACHY WHEN AMBULATE (2) New onset a-fib Code(s): I48.91 - UNSPECIFIED ATRIAL FIBRILLATION FOBT -jaxson LAST LOVENOX DOSE THIS AM -> THEN WILL START ELIQUIS TONIGHT CARDIO RECOMMEND ELIQUIS IF PULM NOT DOING PLEURAL TAP -> NOAC ORDERED (3) SOB (shortness of breath) Code(s): R06.02 - SHORTNESS OF BREATH (4) HTN (hypertension) Code(s): I10 - ESSENTIAL (PRIMARY) HYPERTENSION (5) Gout Code(s): M10.9 - GOUT, UNSPECIFIED COLCHICINE (6) Pleural effusion Code(s): J90 - PLEURAL EFFUSION, NOT ELSEWHERE CLASSIFIED CXr & CT NOTED PULM & CARDIO CONSULTS APRRECIATED NO PLEURAL TAP PLANNED NO FEVER WBC NEG (7) Hyponatremia Code(s): E87.1 - HYPO-OSMOLALITY AND HYPONATREMIA APPRECIATE RENAL CONSULT -> 2/2 CHF and fluid overload F/U RENAL W/U DISCHARGE PLANNING IF NO PLEURAL TAP 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
[2016-05-02] MEDS ORDERED: ENOXAPARIN NA (PORCINE) 80 MG/0.8 ML DISP.SYRIN SQ SCH (09:06)
[2016-05-02] MEDS: COLCHICINE 0.6 MG TABLET (FP) PO SCH (09:33)
[2016-05-02] MEDS: RAMIPRIL 5 MG CAPSULE (FP) PO SCH (09:33)
[2016-05-02] MEDS: METOPROLOL SUCCINATE 25 MG TAB.SR.24H (FP) PO SCH (09:33)
[2016-05-02] MEDS: FUROSEMIDE 40 MG/4 ML INJECTABLE VIAL IVPB SCH (09:34)
--- NOTE | 2016-05-02 10:32 | PN ---
Progress Note, Physician History of Present Illness: SOB improved. Denies chest pain or palpitations. - Current Medication List Current Medications: Active Medications Acetaminophen (Tylenol -) 650 mg PO Q6H PRN PRN Reason: FEVER OR PAIN Albuterol/Ipratropium (Duoneb -) 1 amp NEB Q4H PRN PRN Reason: SHORTNESS OF BREATH Apixaban (Eliquis -) 5 mg PO BID [facility] Colchicine (Colcrys -) 0.6 mg PO DAILY [facility] Last Admin: 05/02/16 09:33 Dose: 0.6 mg Furosemide (Lasix Injection -) 40 mg IVPB DAILY [facility] Last Admin: 05/02/16 09:34 Dose: 40 mg Metoprolol Succinate (Toprol Xl -) 50 mg PO DAILY [facility] Ramipril (Altace -) 5 mg PO DAILY [facility] Last Admin: 05/02/16 09:33 Dose: 5 mg Rosuvastatin Calcium (Crestor -) 10 mg PO HS [facility] Last Admin: 05/01/16 21:47 Dose: 10 mg - Objective Vital Signs: Vital Signs Temperature 97.0 F L 05/02/16 01:38 Pulse Rate 92 H 05/02/16 08:32 Respiratory Rate 20 05/02/16 08:32 Blood Pressure 130/80 05/02/16 08:32 O2 Sat by Pulse Oximetry (%) 97 05/01/16 21:00 Constitutional: Yes: No Distress Eyes: Yes: Conjunctiva Clear, EOM Intact Cardiovascular: Yes: Regular Rate and Rhythm. No: JVD Respiratory: Yes: CTA Bilaterally Gastrointestinal: Yes: Normal Bowel Sounds, Soft. No: Tenderness Edema: No Neurological: Yes: Alert, Oriented, Cran Nerves II-XII Intact Labs: CBC, BMP 05/02/16 05:50 05/02/16 05:50 Assessment/Plan 70 yo male, remote smoker, hx of HTN, HLD, hyponatremia, gout. Admitted with 2 wk history of dyspnea and worsening leg edema. Found to be in new onset atrial fibrillation and acute diastolic CHF. Clinically improved with IV lasix. Afib currently rate controlled. Moderate bilateral pleural effusions per 2/ chest CT. 04/30/16 Echo: Midly dilated LV. Normal LV systolic function. Mild LAE. Mild MR. Mild to mod TR. RVSP 50-60 mmHg. Mild DE. Trivial pericardial effusion. Patient with history of mild hyponatremaia -> hypervolemic hyponatremia? RECS: Will discontinue lasix 40 IV daily. Will start furosemide 20 mg po daily. Follow renal function and lytes. Will increase ramipril to 5 mg po daily. Will increase metoprolol to 50 mg po daily given elevated HR when patient walking to bathroom with HR 140s. Continue Crestor. No plans for thoracentesis. Will start Eliquis 5 mg po bid. However, if patient is unable to afford this medication based on insurance coverage, will need to change to coumadin.
[2016-05-02] MEDS ORDERED: METOPROLOL SUCCINATE 25 MG TAB.SR.24H (FP) PO ONE (11:00)
[2016-05-02] MEDS ORDERED: NAPROXEN 500 MG TABLET (FP) PO SCH (12:00)
[2016-05-02] MEDS: predniSONE 20 MG TABLET (UD) PO SCH (12:39)
[2016-05-02] MEDS ORDERED: POTASSIUM CHLORIDE TABS 20 MEQ TABLET.ER (FP) PO ONE (13:15)
--- NOTE | 2016-05-02 13:49 | PN ---
Progress Note (short form) - Note Progress Note: Breathing feels better. (+) gout attack. Intake & Output 04/29/16 04/30/16 05/01/16 05/02/16 23:59 23:59 23:59 23:59 Intake Total 200 565 Output Total 950 2200 800 Balance -750 -1635 -800 Weight 180 lb 184 lb 9.6 oz 181 lb 9.6 oz Last Vital Signs Temp Pulse Resp BP Pulse Ox 97.0 F L 92 H 20 130/80 97 05/02/16 01:38 05/02/16 08:32 05/02/16 08:32 05/02/16 08:32 05/01/16 21:00 Active Medications Acetaminophen (Tylenol -) 650 mg PO Q6H PRN PRN Reason: FEVER OR PAIN Albuterol/Ipratropium (Duoneb -) 1 amp NEB Q4H PRN PRN Reason: SHORTNESS OF BREATH Apixaban (Eliquis -) 5 mg PO BID [facility] Colchicine (Colcrys -) 0.6 mg PO DAILY [facility] Last Admin: 05/02/16 09:33 Dose: 0.6 mg Furosemide (Lasix -) 20 mg PO DAILY [facility] Metoprolol Succinate (Toprol Xl -) 50 mg PO DAILY [facility] Naproxen (Naprosyn -) 500 mg PO BID [facility] Stop: 05/02/16 22:01 Prednisone (Deltasone -) 40 mg PO DAILY [facility] Stop: 05/04/16 10:01 Last Admin: 05/02/16 12:39 Dose: 40 mg Ramipril (Altace -) 5 mg PO DAILY [facility] Last Admin: 05/02/16 09:33 Dose: 5 mg Rosuvastatin Calcium (Crestor -) 10 mg PO [facility] Last Admin: 05/01/16 21:47 Dose: 10 mg Constitutional: Yes: No Distress Eyes: Yes: Conjunctiva Clear, EOM Intact Cardiovascular: Yes: Regular Rate and Rhythm. No: JVD Respiratory: Yes: few basilar rhonchi Gastrointestinal: Yes: Normal Bowel Sounds, Soft. No: Tenderness Edema: No Neurological: Yes: non-focal Labs: Laboratory Results - last 24 hr 05/01/16 05/02/16 05/02/16 05:55 05:50 05:50 WBC RBC Hgb Hct MCV MCHC RDW Plt Count MPV Neutrophils % Lymphocytes % Monocytes % Eosinophils % Basophils % PTT (Actin FS) 36.9 H D Sodium 134 L Potassium 3.3 L Chloride 97 L Carbon Dioxide 24 Anion Gap 13 BUN 16 D Creatinine 1.0 Creat Clearance w eGFR > 60 Random Glucose 81 Calcium 8.6 Total Bilirubin 0.7 AST 23 ALT 26 Alkaline Phosphatase 80 Total Protein 7.2 Albumin 3.4 Cortisol AM Sample 14.7 05/02/16 05:50 WBC 7.0 D RBC 3.96 L Hgb 12.7 Hct 37.0 MCV 93.5 MCHC 34.2 RDW 13.5 Plt Count 194 MPV 6.8 L Neutrophils % 67.9 Lymphocytes % 11.3 Monocytes % 11.7 H Eosinophils % 8.4 H Basophils % 0.7 PTT (Actin FS) Sodium Potassium Chloride Carbon Dioxide Anion Gap BUN Creatinine Creat Clearance w eGFR Random Glucose Calcium Total Bilirubin AST ALT Alkaline Phosphatase Total Protein Albumin Cortisol AM Sample Problem List - Problems (1) CHF, acute Code(s): I50.9 - HEART FAILURE, UNSPECIFIED Qualifiers: Congestive heart failure type: unspecified congestive heart failure type Qualified Code(s): I50.9 - Heart failure, unspecified (2) Gout Code(s): M10.9 - GOUT, UNSPECIFIED (3) HTN (hypertension) Code(s): I10 - ESSENTIAL (PRIMARY) HYPERTENSION (4) New onset a-fib Code(s): I48.91 - UNSPECIFIED ATRIAL FIBRILLATION (5) Pleural effusion Code(s): J90 - PLEURAL EFFUSION, NOT ELSEWHERE CLASSIFIED (6) SOB (shortness of breath) Code(s): R06.02 - SHORTNESS OF BREATH (7) Hyponatremia Code(s): E87.1 - HYPO-OSMOLALITY AND HYPONATREMIA IMP CHF NEW ONSET A-FIB BILATERAL PLEURAL EFFUSIONS HYPONATREMIA HTN HLD GOUT PLAN LASIX NEEDED SUPPLEMENTAL O2 INHALED BRONCHODILATORS DAILY WTS RATE CONTROL GOUT TREATMENT DO NOT FEEL THERE IS AN INDICATION FOR THORACENTESIS PATIENT IS CLINICALLY IMPROVING WITH DIURETICS NO PULMONARY CONTRAINDICATION FOR D/C DR GODINEZ
--- NOTE | 2016-05-02 15:51 | PN ---
Progress Note, Physician History of Present Illness: Pt seen and examined at bedside. He feels that his breathing is improved. He feels that the lower extremity edema is improving. - Current Medication List Current Medications: Active Medications Acetaminophen (Tylenol -) 650 mg PO Q6H PRN PRN Reason: FEVER OR PAIN Albuterol/Ipratropium (Duoneb -) 1 amp NEB Q4H PRN PRN Reason: SHORTNESS OF BREATH Apixaban (Eliquis -) 5 mg PO BID [facility] Colchicine (Colcrys -) 0.6 mg PO DAILY [facility] Last Admin: 05/02/16 09:33 Dose: 0.6 mg Furosemide (Lasix -) 20 mg PO DAILY [facility] Metoprolol Succinate (Toprol Xl -) 50 mg PO DAILY [facility] Naproxen (Naprosyn -) 500 mg PO BID [facility] Stop: 05/02/16 22:01 Prednisone (Deltasone -) 40 mg PO DAILY [facility] Stop: 05/04/16 10:01 Last Admin: 05/02/16 12:39 Dose: 40 mg Ramipril (Altace -) 5 mg PO DAILY [facility] Last Admin: 05/02/16 09:33 Dose: 5 mg Rosuvastatin Calcium (Crestor -) 10 mg PO HS [facility] Last Admin: 05/01/16 21:47 Dose: 10 mg - Objective Vital Signs: Vital Signs Temperature 98 F 05/02/16 14:25 Pulse Rate 101 H 05/02/16 14:25 Respiratory Rate 20 05/02/16 14:25 Blood Pressure 132/74 05/02/16 14:25 O2 Sat by Pulse Oximetry (%) 97 05/01/16 21:00 Constitutional: Yes: Calm Eyes: Yes: Conjunctiva Clear HENT: Yes: Atraumatic Neck: Yes: Supple Cardiovascular: Yes: S1, S2 Respiratory: Yes: On Nasal O2 Gastrointestinal: Yes: Soft Genitourinary: Yes: WNL Musculoskeletal: Yes: WNL Edema: Yes Edema: LLE: 1+, RLE: 1+ Neurological: Yes: Oriented Psychiatric: Yes: Oriented Labs: CBC, BMP 05/02/16 05:50 05/02/16 05:50 Assessment/Plan Current Medications Generic Name Dose Route Start Last Admin Trade Name Freq PRN Reason Stop Dose Admin Acetaminophen 650 mg 04/30/16 06:47 Tylenol - PO Q6H PRN FEVER OR PAIN Albuterol/Ipratropium 1 amp 04/30/16 12:52 Duoneb - NEB Q4H PRN SHORTNESS OF BREATH Apixaban 5 mg 05/02/16 22:00 Eliquis - PO BID [facility] Colchicine 0.6 mg 04/30/16 10:00 05/02/16 09:33 Colcrys - PO 0.6 mg DAILY [facility] Administration Furosemide 20 mg 05/03/16 10:00 Lasix - PO DAILY [facility] Metoprolol Succinate 50 mg 05/03/16 10:00 Toprol Xl - PO DAILY [facility] Naproxen 500 mg 05/02/16 12:00 Naprosyn - PO 05/02/16 22:01 BID [facility] Prednisone 40 mg 05/02/16 12:00 05/02/16 12:39 Deltasone - PO 05/04/16 10:01 40 mg DAILY [facility] Administration Ramipril 5 mg 05/01/16 10:00 05/02/16 09:33 Altace - PO 5 mg DAILY [facility] Administration Rosuvastatin Calcium 10 mg 04/30/16 22:00 05/01/16 21:47 Crestor - PO 10 mg HS [facility] Administration Laboratory Tests 05/01/16 05/01/16 05:55 05:55 TSH 1.75 Cortisol AM Sample 14.7 Impression 1. Hyponatremia 2. new onset a-fib 3. pleural effusion 4. HLD 5. CHF 6. HTN 7. Gout Plan - cont with lasix. will likely need a higher dose than 20 mg - please stop naproxen and avoid nsaids - cont fluid restriction - hypervolemic hyponatremia likely from CHF - mix heparin in saline instead of d5w - etiology of hyponatremia is likely from CHF and fluid overload - will follow Dr Rodríguez
[2016-05-02] MEDS: APIXABAN 5 MG TABLET PO SCH (22:08)
[2016-05-02] MEDS: ROSUVASTATIN CA 10 MG TABLET (FP) PO SCH (22:08)
[2016-05-03 06:12] VITALS: PULSE 92
[2016-05-03 07:09] LABS: BASOPHIL 0.5 % (0-2.0); EOSINOPHIL 1.5 % (0-4.5); MCH 31.7 pg (25.7-33.7); MCHC 33.5 g/dl (32.0-35.9); MEAN CELL VOLUME 94.6 fl (80-96); MEAN PLT VOLUME 6.7 fl (7.5-11.1); NEUTROPHILS 77.2 % (42.8-82.8); PLATELET COUNT 211 K/MM3 (134-434); RDW 13.3 % (11.9-15.9); WHITE BLOOD COUNT 6.6 K/mm3 (4.0-10.0)
[2016-05-03 07:45] LABS: ALBUMIN 3.6 g/dl (3.4-5.0); ANION GAP 12 (8-16); CO2 25 mmol/L (21-32); GLUCOSE,RANDOM 107 mg/dL (74-106)
[2016-05-03 07:49] LABS: ALK PHOS 76 U/L (45-117); BILIRUBIN,TOTAL 0.6 mg/dL (0.2-1.0); CREATININE 1.1 mg/dL (0.7-1.3); SGOT/AST 22 U/L (15-37); SGPT/ALT 26 U/L (12-78); TOT PROT 7.9 g/dl (6.4-8.2)
[2016-05-03] MEDS: APIXABAN 5 MG TABLET PO SCH (09:27)
[2016-05-03] MEDS: RAMIPRIL 5 MG CAPSULE (FP) PO SCH (09:27)
[2016-05-03] MEDS: predniSONE 20 MG TABLET (UD) PO SCH (09:27)
[2016-05-03] MEDS: COLCHICINE 0.6 MG TABLET (FP) PO SCH (09:27)
--- NOTE | 2016-05-03 09:47 | CONSULT ---
Consultation: REQUESTING PROVIDER: CONSULT REQUEST: We have been asked to medically evaluate this patient for ( hyponatremia). HISTORY OF PRESENT ILLNESS: patient feels better, breathing has improved swelling in b/l legs has decreased REVIEW OF SYSTEMS: CONSTITUTIONAL: Absent: fever, chills, diaphoresis, generalized weakness, malaise, loss of appetite, HEENT: Absent: rhinorrhea, nasal congestion, throat pain, throat swelling, difficulty swallowing, mouth swelling, ear pain, eye pain, visual changes CARDIOVASCULAR: palpitations present Absent: chest pain, syncope, lightheadedness, peripheral edema RESPIRATORY: Absent: dyspnea with exertion, wheezing, stridor, hemoptysis GASTROINTESTINAL: Absent: abdominal pain, abdominal distension, nausea, vomiting, diarrhea, constipation, melena, hematochezia GENITOURINARY: Absent: dysuria, frequency, urgency, hesitancy, hematuria, flank pain, genital pain MUSCULOSKELETAL: Absent: myalgia, arthralgia, joint swelling, back pain, neck pain NEUROLOGIC: Absent: headache, focal weakness or paresthesias, dizziness, unsteady gait, seizure, mental status changes, bladder or bowel incontinence PHYSICAL EXAMINATION Vital Signs - 24 hr 05/02/16 05/02/16 05/02/16 14:25 17:00 20:24 Temperature 98 F 97.0 F L Pulse Rate 101 H 108 H Respiratory 20 20 Rate Blood Pressure 132/74 144/98 O2 Sat by Pulse 98 Oximetry (%) 05/02/16 05/03/16 05/03/16 22:00 02:00 06:00 Temperature 97.7 F 98 F Pulse Rate 101 H 99 H 92 H Respiratory 20 20 20 Rate Blood Pressure 146/89 156/87 136/75 O2 Sat by Pulse Oximetry (%) PHYSICAL EXAM: GENERAL: The patient is awake, alert, and fully oriented, in moderate respiratory distress. He can speak 3 words per sentence. HEAD: Normal with no signs of trauma. ENT: Pupils equal, round and reactive to light, extraocular movements intact, sclera anicteric, conjunctiva clear. Neck supple. LUNGS: Clear to auscultation bilaterally. Normal excursion. No respiratory distress or use of accessory muscles. CV: RRR, S1/S2, no MRG. Cap refill < 2 sec. ABDOMEN: Soft, non-distended, non-tender even to deep palpation, no hepatomegaly or splenomegaly, no masses. EXTREMITIES: Normal range of motion. b/l pitting edema decreased NEUROLOGICAL: Normal speech, normal gait. CN II-XII grossly intact. PSYCH: Normal mood, normal affect. SKIN: Warm, dry, normal turgor, no rashes or lesions n Laboratory Results - last 24 hr 05/03/16 05/03/16 05/03/16 05:35 05:35 05:35 WBC 6.6 RBC 4.25 Hgb 13.5 Hct 40.2 MCV 94.6 MCHC 33.5 RDW 13.3 Plt Count 211 MPV 6.7 L Neutrophils % 77.2 Lymphocytes % 10.1 Monocytes % 10.7 H Eosinophils % 1.5 D Basophils % 0.5 PTT (Actin FS) 37.9 H Sodium 136 Potassium 3.4 L Chloride 99 Carbon Dioxide 25 Anion Gap 12 BUN 24 H D Creatinine 1.1 Creat Clearance w eGFR > 60 Random Glucose 107 H D Calcium 9.0 Total Bilirubin 0.6 AST 22 ALT 26 Alkaline Phosphatase 76 Total Protein 7.9 Albumin 3.6 Active Medications Generic Name Dose Route Start Last Admin Trade Name Freq PRN Reason Stop Dose Admin Acetaminophen 650 mg 04/30/16 06:47 Tylenol - PO Q6H PRN FEVER OR PAIN Albuterol/Ipratropium 1 amp 04/30/16 12:52 Duoneb - NEB Q4H PRN SHORTNESS OF BREATH Apixaban 5 mg 05/02/16 22:00 05/03/16 09:27 Eliquis - PO 5 mg BID [facility] Administration Colchicine 0.6 mg 04/30/16 10:00 05/03/16 09:27 Colcrys - PO 0.6 mg DAILY [facility] Administration Furosemide 40 mg 05/03/16 10:00 05/03/16 09:27 Lasix - PO 40 mg DAILY [facility] Administration Metoprolol Succinate 50 mg 05/03/16 10:00 05/03/16 09:27 Toprol Xl - PO 50 mg DAILY [facility] Administration Prednisone 40 mg 05/02/16 12:00 05/03/16 09:27 Deltasone - PO 05/04/16 10:01 40 mg DAILY [facility] Administration Ramipril 5 mg 05/01/16 10:00 05/03/16 09:27 Altace - PO 5 mg DAILY [facility] Administration Rosuvastatin Calcium 10 mg 04/30/16 22:00 05/02/16 22:08 Crestor - PO 10 mg HS [facility] Administration ASSESSMENT/PLAN: impression new onset afib, chf HTN HLD Hyponatremia pleural effusion Plan continue with lasix 40mg Iv daily Keep free water intake below 1L hyponatremia resolved Na 136 hyponatremia is probably due to chf causing hypervolemic hyponatremia daily weight 80.51 kg repeat labs in morning Dispo: We will continue to follow the patient. Thank you for this consultative opportunity. Visit type - Emergency Visit Emergency Visit: Yes ED Registration Date: 04/30/16 Care time: The patient presented to the Emergency Department on the above date and was hospitalized for further evaluation of their emergent condition. - New Patient This patient is new to me today: No - Critical Care Critical Care patient: No
[2016-05-03] MEDS ORDERED: METOPROLOL SUCCINATE 50 MG TAB.SR.24H (FP) PO SCH (10:00)
[2016-05-03] MEDS ORDERED: FUROSEMIDE 40 MG TABLET (FP) PO SCH (10:00)
[2016-05-03] MEDS ORDERED: FUROSEMIDE 20 MG TABLET (FP) PO SCH (10:00)
[2016-05-03] MEDS ORDERED: METOPROLOL SUCCINATE 50 MG TAB.SR.24H (FP) PO ONE (10:40)
--- NOTE | 2016-05-03 10:45 | PN ---
Progress Note, Physician History of Present Illness: Doing well. Denies dyspnea, chest pain, or palpitations. - Current Medication List Current Medications: Active Medications Acetaminophen (Tylenol -) 650 mg PO Q6H PRN PRN Reason: FEVER OR PAIN Albuterol/Ipratropium (Duoneb -) 1 amp NEB Q4H PRN PRN Reason: SHORTNESS OF BREATH Apixaban (Eliquis -) 5 mg PO BID [facility] Last Admin: 05/03/16 09:27 Dose: 5 mg Colchicine (Colcrys -) 0.6 mg PO DAILY [facility] Last Admin: 05/03/16 09:27 Dose: 0.6 mg Furosemide (Lasix -) 40 mg PO DAILY [facility] Last Admin: 05/03/16 09:27 Dose: 40 mg Metoprolol Succinate (Toprol Xl -) 50 mg PO DAILY [facility] Last Admin: 05/03/16 09:27 Dose: 50 mg Prednisone (Deltasone -) 40 mg PO DAILY [facility] Stop: 05/04/16 10:01 Last Admin: 05/03/16 09:27 Dose: 40 mg Ramipril (Altace -) 5 mg PO DAILY [facility] Last Admin: 05/03/16 09:27 Dose: 5 mg Rosuvastatin Calcium (Crestor -) 10 mg PO HS [facility] Last Admin: 05/02/16 22:08 Dose: 10 mg - Objective Vital Signs: Vital Signs Temperature 98 F 05/03/16 02:00 Pulse Rate 92 H 05/03/16 06:00 Respiratory Rate 20 05/03/16 06:00 Blood Pressure 136/75 05/03/16 06:00 O2 Sat by Pulse Oximetry (%) 98 05/02/16 20:24 Constitutional: Yes: Well Nourished, No Distress Eyes: Yes: Conjunctiva Clear, EOM Intact HENT: Yes: Atraumatic, Normocephalic Neck: Yes: Trachea Midline Cardiovascular: Yes: Regular Rate and Rhythm, Pulse Irregular, JVD. No: Murmur Respiratory: Yes: CTA Bilaterally Gastrointestinal: Yes: Normal Bowel Sounds, Soft. No: Tenderness Edema: No Neurological: Yes: Alert, Oriented ...Motor Strength: WNL Labs: CBC, BMP 05/03/16 05:35 05/03/16 05:35 Assessment/Plan 70 yo male, remote smoker, hx of HTN, HLD, hyponatremia, gout. Admitted with 2 wk history of dyspnea and worsening leg edema. Found to be in new onset atrial fibrillation and acute diastolic CHF. Clinically improved with IV lasix. Afib currently rate controlled. Moderate bilateral pleural effusions per 04/[address] 04/30/16 Echo: Midly dilated LV. Normal LV systolic function. Mild LAE. Mild MR. Mild to mod TR. RVSP 50-60 mmHg. Mild MT. Trivial pericardial effusion. Patient with history of mild hyponatremaia -> hypervolemic hyponatremia? RECS: Continue furosemide 40 mg po daily, ramipril 5 mg po daily, and Crestor. Patient with HR 90s at rest, but increases to 120s with walking. Will increase metoprolol succinate to 100 mg po daily given elevated HR when walking. Continue Eliquis 5 mg po bid. However, if patient is unable to afford this medication based on insurance coverage, may change to coumadin. Patient may be discharged with outpatient cardiology follow-up on current medications as noted above. Patient is requesting to see a music engraver closer to [place] in [place]. Will defer referral to closer music engraver to patient's PMD (Dr. Centeno)/primary team. Will see prn. Call with questions.
--- NOTE | 2016-05-03 10:46 | PN ---
Progress Note, Physician History of Present Illness: PULMONARY ALERT,NO C/O CP,-SOB - Current Medication List Current Medications: Active Medications Acetaminophen (Tylenol -) 650 mg PO Q6H PRN PRN Reason: FEVER OR PAIN Albuterol/Ipratropium (Duoneb -) 1 amp NEB Q4H PRN PRN Reason: SHORTNESS OF BREATH Apixaban (Eliquis -) 5 mg PO BID [facility] Last Admin: 05/03/16 09:27 Dose: 5 mg Colchicine (Colcrys -) 0.6 mg PO DAILY [facility] Last Admin: 05/03/16 09:27 Dose: 0.6 mg Furosemide (Lasix -) 40 mg PO DAILY [facility] Last Admin: 05/03/16 09:27 Dose: 40 mg Metoprolol Succinate (Toprol Xl -) 50 mg PO ONCE ONE Stop: 05/03/16 10:41 Prednisone (Deltasone -) 40 mg PO DAILY [facility] Stop: 05/04/16 10:01 Last Admin: 05/03/16 09:27 Dose: 40 mg Ramipril (Altace -) 5 mg PO DAILY [facility] Last Admin: 05/03/16 09:27 Dose: 5 mg Rosuvastatin Calcium (Crestor -) 10 mg PO HS [facility] Last Admin: 05/02/16 22:08 Dose: 10 mg - Objective Vital Signs: Vital Signs Temperature 98 F 05/03/16 02:00 Pulse Rate 92 H 05/03/16 06:00 Respiratory Rate 20 05/03/16 06:00 Blood Pressure 136/75 05/03/16 06:00 O2 Sat by Pulse Oximetry (%) 98 05/02/16 20:24 Constitutional: Yes: Well Nourished, Calm Eyes: Yes: WNL HENT: Yes: WNL Neck: Yes: WNL Cardiovascular: Yes: Pulse Irregular, S1, S2 Respiratory: Yes: CTA Bilaterally Gastrointestinal: Yes: WNL Extremities: Yes: WNL Edema: No Labs: CBC, BMP 05/03/16 05:35 05/03/16 05:35 - ....Imaging Chest X-ray: Report Reviewed, Image Reviewed (IMPROVED CONGESTION,-EFFUSION,- INFITRATES) Problem List - Problems (1) CHF, acute Code(s): I50.9 - HEART FAILURE, UNSPECIFIED Qualifiers: Qualified Code(s): I50.9 - Heart failure, unspecified (2) Gout Code(s): M10.9 - GOUT, UNSPECIFIED (3) HTN (hypertension) Code(s): I10 - ESSENTIAL (PRIMARY) HYPERTENSION (4) New onset a-fib Code(s): I48.91 - UNSPECIFIED ATRIAL FIBRILLATION (5) Pleural effusion Code(s): J90 - PLEURAL EFFUSION, NOT ELSEWHERE CLASSIFIED (6) SOB (shortness of breath) Code(s): R06.02 - SHORTNESS OF BREATH (7) Hyponatremia Code(s): E87.1 - HYPO-OSMOLALITY AND HYPONATREMIA Assessment/Plan IMP CHF NEW ONSET A-FIB BILATERAL PLEURAL EFFUSIONS IMPROVED HYPONATREMIA IMPROVED HTN HLD GOUT PLAN LASIX PO SUPPLEMENTAL O2 INHALED BRONCHODILATORS DAILY WTS RATE CONTROL MONITOR VIRGEN DEMARCO DR Problem List - Problems (1) CHF, acute Code(s): I50.9 - HEART FAILURE, UNSPECIFIED Qualifiers: Congestive heart failure type: unspecified congestive heart failure type Qualified Code(s): I50.9 - Heart failure, unspecified (2) Gout Code(s): M10.9 - GOUT, UNSPECIFIED (3) HTN (hypertension) Code(s): I10 - ESSENTIAL (PRIMARY) HYPERTENSION (4) New onset a-fib Code(s): I48.91 - UNSPECIFIED ATRIAL FIBRILLATION (5) Pleural effusion Code(s): J90 - PLEURAL EFFUSION, NOT ELSEWHERE CLASSIFIED (6) SOB (shortness of breath) Code(s): R06.02 - SHORTNESS OF BREATH (7) Hyponatremia Code(s): E87.1 - HYPO-OSMOLALITY AND HYPONATREMIA
[2016-05-03] MEDS ORDERED: POTASSIUM CHLORIDE TABS 20 MEQ TABLET.ER (FP) PO ONE (12:00)
[2016-05-03 12:09] VITALS: BP 137/78; TEMP 97.4
--- NOTE | 2016-05-03 13:11 | PN ---
Teaching Attending Note Name of Resident: Uriel London (Nephrology) ATTENDING PHYSICIAN STATEMENT I saw and evaluated the patient. I reviewed the resident's note and discussed the case with the resident. I agree with the resident's findings and plan as documented. cardio s1s2 pulm clear GI soft ext plus 1 edema neuro awake and alert Impression 1. Hyponatremia 2. new onset a-fib 3. pleural effusion 4. HLD 5. CHF 6. HTN 7. Gout Plan - sodium improving - will see on office - cont with lasix - please stop naproxen and avoid nsaids - cont fluid restriction - hypervolemic hyponatremia likely from CHF - will follow
[2016-05-04] MEDS ORDERED: METOPROLOL SUCCINATE 100 MG TAB.SR.24H (FP) PO SCH (10:00)
== END 2016-05-03 12:51 | disposition home or self-care (01) | DRG 308 ==
LOC: JER 01:26 → JERBED 06:10 → J4W 10:05
PROVIDERS: ADMIT Family Medicine; ATTEND Family Medicine
DX: I48.91 Unspecified atrial fibrillation (principal); I50.31 Acute diastolic (congestive) heart failure; E87.1 Hypo-osmolality and hyponatremia; I11.0 Hypertensive heart disease with heart failure; I10 Essential (primary) hypertension; M10.9 Gout, unspecified; E78.5 Hyperlipidemia, unspecified
CPT/HCPCS: 36415; 71010-TC; 71250-TC; 80048; 80053; 80061; 81003; 81015; 82272; 82533; 82550; 82553; 83721; 83735; 83880; 83930; 83935; 84443; 84484; 85025; 85730; 87040; 93005; 93010; 93306-TC; 99285-25; J1644

== ENCOUNTER 2018-05-08 10:07 | Emergency (ER) | payer OTHER, BC | END 2018-05-08 13:37 | disposition home or self-care (01) | LOC: JER 10:07 ==

== ENCOUNTER 2018-05-10 09:57 | Inpatient (IN) | payer OTHER, BC ==
--- NOTE | 2018-05-10 10:07 | PDOC ---
History of Present Illness - General History Source: Patient Exam Limitations: No Limitations - History of Present Illness Initial Comments: 05/10/18 12:08 The patient is a 72-year-old male, with a past medical history of HTN, afib, CHF , and gout, who was sent to the ED via EMS for lightheadedness. The was seen in the ED recently for an infected bunion to his LT great toe. Patient was planning to come in today for a wound recheck and reports that every time he stands up he feels like he is going to pass out. He also reports experiencing black stools since Tuesday. He has not taken his Eliquis since Tuesday. On exam, patient is complaining of nausea. The patient denies any fever, chills, cough, vomiting or abdominal pain. Denies any chest pain or shortness of breath. Denies any urinary symptoms. Allergies: NKA Social History: None reported. Surgical history: right total hip replacement (x3), tonsillectomy. PCP: Dr. Centeno <Patricia Wilhelm - Last Filed: 05/10/18 14:34> <Navi Ha - Last Filed: 05/10/18 16:29> - General Chief Complaint: Weakness Stated Complaint: DIZZINESS Time Seen by Provider: 05/10/18 10:07 Past History <Patricia Wilhelm - Last Filed: 05/10/18 14:34> - Past Medical History Cardiac Disorders: Yes COPD: No HTN: Yes Hypercholesterolemia: Yes - Surgical History Orthopedic Surgery: Yes (R Hip x3) - Immunization History Immunization Up to Date: Yes - Suicide/Smoking/Psychosocial Hx Smoking History: Never smoked Have you smoked in the past 12 months: No If you are a former smoker, when did you quit?: 1981 Hx Alcohol Use: No Drug/Substance Use Hx: No Substance Use Type: None <Navi Ha - Last Filed: 05/10/18 16:29> - Past Medical History Allergies/Adverse Reactions: Allergies Allergy/AdvReac Type Severity Reaction Status Date / Time No Known Allergies Allergy Verified 04/30/16 01:35 Home Medications: Ambulatory Orders Apixaban [Eliquis] 5 mg PO DAILY 05/10/18 Diltiazem HCl [Cartia Xt] 180 mg PO BID 05/10/18 Furosemide 40 mg PO DAILY 05/10/18 Hydroxyzine HCl 25 mg PO HS 05/10/18 Metoprolol Succinate 25 mg PO DAILY 05/10/18 Sulfamethoxazole/Trimethoprim [Sulfamethoxazole-Tmp Ds Tablet] 1 each PO DAILY 05/10/18 Review of Systems - Review of Systems Able to Perform ROS?: Yes Comments:: 05/10/18 12:09 CONSTITUTIONAL: No fever, no chills, no fatigue EYES: No visual changes ENT: No ear pain, no sore throat CARDIOVASCULAR: (+)Lightheadedness. No chest pain, no palpitations RESPIRATORY: No cough, no SOB GI: (+)Nausea. No abdominal pain, no vomiting, no constipation, no diarrhea GENITOURINARY: No dysuria, no frequency, no hematuria MUSKULOSKELETAL: No backpain, no joint pain, no myalgias SKIN: (+)LT great toe wound. NEURO: No headache <Patricia Wilhelm - Last Filed: 05/10/18 14:34> *Physical Exam - Vital Signs Last Vital Signs Temp Pulse Resp BP Pulse Ox 99.2 F 123 H 24 H 128/66 100 05/10/18 10:11 05/10/18 10:06 05/10/18 10:06 05/10/18 10:06 05/10/18 10:09 <Patricia Wilhelm - Last Filed: 05/10/18 14:34> - Physical Exam Comments: 05/10/18 16:17 Patient seen and evaluated immediately upon arrival. This physical exam is being recorded prior to transfer up to telemetry. EXAMINATION CONSTITUTIONAL: Alert and awake; well-nourished; in no apparent distress HEAD: Normocephalic; atraumatic EYES: PERRL; EOM intact; conjunctiva are pink ENMT: External appears normal; normal oropharynx NECK: Supple; non-tender; no cervical lymphadenopathy CARD: Irregularly irregular, tachycardic Normal S1, S2; no murmurs, rubs, or gallops RESP: Normal chest excursion with respiration; breath sounds clear and equal bilaterally; no wheezes, rhonchi, or rales ABD: Soft, non-distended; non-tender; no palpable organomegaly, no palpable hernias VA: No external lesions, melena noted. EXT: Normal ROM in all four extremities; non-tender to palpation; distal pulses intact SKIN: Warm, dry, no rash NEURO: No focal neurological deficiencies. <Navi Ha - Last Filed: 05/10/18 16:29> Moderate Sedation - Procedure Monitoring Vital Signs: Procedure Monitoring Vital Signs Temperature 99.2 F 05/10/18 10:11 Pulse Rate 123 H 05/10/18 10:06 Respiratory Rate 24 H 05/10/18 10:06 Blood Pressure 128/66 05/10/18 10:06 O2 Sat by Pulse Oximetry (%) 100 05/10/18 10:09 <Patricia Wilhelm - Last Filed: 05/10/18 14:34> ED Treatment Course - LABORATORY CBC & Chemistry Diagram: 05/10/18 11:00 05/10/18 11:00 - ADDITIONAL ORDERS Additional order review: Laboratory Results 05/10/18 05/10/18 05/10/18 11:00 11:00 11:00 PT with INR INR Sodium 135 L Potassium 5.3 H Chloride 104 Carbon Dioxide 20 L Anion Gap 12 BUN 67 H Creatinine 2.5 H Creat Clearance w eGFR 25.37 Random Glucose 112 H Lactic Acid 4.3 H* Calcium 9.0 Total Bilirubin 0.3 AST 10 L ALT 15 Alkaline Phosphatase 102 Creatine Kinase 132 Troponin I < 0.02 C-Reactive Protein 3.7 H Total Protein 7.5 Albumin 3.5 05/10/18 11:00 PT with INR 13.50 H INR 1.14 H Sodium Potassium Chloride Carbon Dioxide Anion Gap BUN Creatinine Creat Clearance w eGFR Random Glucose Lactic Acid Calcium Total Bilirubin AST ALT Alkaline Phosphatase Creatine Kinase Troponin I C-Reactive Protein Total Protein Albumin - Medications Given in the ED: ED Medications Discontinued Medications Generic Name Dose Route Start Last Admin Trade Name Freq PRN Reason Stop Dose Admin Sodium Chloride 500 mls @ 500 mls/hr 05/10/18 10:56 05/10/18 11:15 Normal Saline - IV 05/10/18 11:55 500 mls/hr ASDIR STA Administration Ondansetron HCl 4 mg 05/10/18 11:27 05/10/18 11:36 Zofran Injection IVPUSH 05/10/18 11:28 4 mg ONCE ONE Administration <Patricia Wilhelm - Last Filed: 05/10/18 14:34> - LABORATORY CBC & Chemistry Diagram: 05/10/18 11:00 05/10/18 11:00 <Navi Ha - Last Filed: 05/10/18 16:29> Medical Decision Making - Medical Decision Making 05/10/18 14:34 Dr. Hendrickson was paged and notified via phone service. <Patricia Wilhelm - Last Filed: 05/10/18 14:34> - Medical Decision Making 05/10/18 16:18 Patient is a 72-year-old male with multiple comorbidities, history of atrial fibrillation on and liquids who presents to the ER with painful left foot, dark stools for the past 3 days, dizziness and weakness. Patient has a low-grade fever and is intermittently tachycardic with underlying rhythm being atrial fibrillation. EKG shows no evidence of acute ischemia. Chest x-ray reveals cardiomegaly but no evidence of CHF. Patient's hematocrit is noted to be 34 ( baseline 44). BUN and creatinine also noted to be elevated. Patient is noted to be stool guaiac positive. I suspect upper GI bleed. We'll administer protonix. We'll consult GI. No indications for packed RBCs at this time. Patient endorses that he has not taken eliquis and 72 hours. Will withhold eliquis at this time given upper GI bleeding. We'll cover the diabetic foot ulcer to the left foot with IV Zosyn. Will admit to telemetry. 05/10/18 16:29 Patient having several episodes of coffee-ground emesis. He had no further episodes of melena in the ED. Case discussed with Dr. Hendrickson. He agrees with the plan of care. Will repeat CBC. <Navi Ha - Last Filed: 05/10/18 16:29> *DC/Admit/Observation/Transfer - Attestations Scribe Attestion: 05/10/18 12:10 Documentation prepared by Patricia Wilhelm, acting as medical education coordinator for Navi Ha MD. 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
[2018-05-10] MEDS ORDERED: SODIUM CHLORIDE 500 ML IV STA (10:56)
[2018-05-10] MEDS ORDERED: ONDANSETRON 4 MG/2 ML VIAL ONE (11:12)
[2018-05-10 11:18] LABS: BASO % 0.4 % (0-2.0); EOS % 0.7 % (0-4.5); HEMATOCRIT 34.4 % (35.4-49); HEMOGLOBIN 11.4 GM/dL (11.7-16.9); LYMPH % 11.4 % (8-40); MCH 29.7 pg (25.7-33.7); MCHC 33.2 g/dl (32.0-35.9); MEAN CELL VOLUME 89.3 fl (80-96); MEAN PLT VOLUME 7.4 fl (7.5-11.1); MONO % 4.7 % (3.8-10.2); NEUT % 82.8 % (42.8-82.8); PLATELET COUNT 310 K/MM3 (134-434); RBC 3.85 M/mm3 (4.00-5.60); RDW 14.3 % (11.9-15.9); WHITE BLOOD COUNT 14.1 K/mm3 (4.0-10.0)
[2018-05-10] MEDS ORDERED: ONDANSETRON 4 MG/2 ML VIAL IVPUSH ONE (11:27)
[2018-05-10 11:30] LABS: INR 1.14 (0.83-1.09); PROTHROMBIN TIME (PATIENT) 13.5 SEC (9.7-13.0)
[2018-05-10 11:47] LABS: ALBUMIN 3.5 g/dl (3.4-5.0); ALK PHOS 102 U/L (45-117); ANION GAP 12 MMOL/L (8-16); BILIRUBIN,TOTAL 0.3 mg/dL (0.2-1); BLOOD UREA NITROGEN 67 mg/dL (7-18); CHLORIDE 104 mmol/L (98-107); CO2 20 mmol/L (21-32); CREATININE 2.5 mg/dL (0.55-1.3); GLUCOSE,RANDOM 112 mg/dL (74-106); POTASSIUM 5.3 mmol/L (3.5-5.1); SGOT/AST 10 U/L (15-37); SGPT/ALT 15 U/L (13-61); SODIUM 135 mmol/L (136-145); TOT PROT 7.5 g/dl (6.4-8.2)
[2018-05-10] MEDS ORDERED: PANTOPRAZOLE SODIUM 40 MG VIAL IVPUSH ONE (12:29)
[2018-05-10 14:32] LABS: ERYTHROCYTE SEDIMENTATION RATE 68 mm/hr (0-20)
[2018-05-10] MEDS ORDERED: PANTOPRAZOLE SODIUM 40 MG/100 ML BAG IVPB ONE ×2 (14:41→19:39)
--- NOTE | 2018-05-10 14:55 | EKG ---
Test Reason : Blood Pressure : / mmHG Vent. Rate : 125 BPM Atrial Rate : 100 BPM P-R Int : 000 ms QRS Dur : 076 ms QT Int : 312 ms P-R-T Axes : 000 046 -54 degrees QTc Int : 450 ms ATRIAL FIBRILLATION WITH RAPID VENTRICULAR RESPONSE WITH PREMATURE VENTRICULAR OR ABERRANTLY CONDUCTED COMPLEXES CANNOT RULE OUT ANTERIOR INFARCT , AGE UNDETERMINED ABNORMAL ECG WHEN COMPARED WITH ECG OF 30-APR-2016 01:48, VENT. RATE HAS INCREASED BY 52 BPM NONSPECIFIC T WAVE ABNORMALITY, WORSE IN INFERIOR LEADS NONSPECIFIC T WAVE ABNORMALITY, IMPROVED IN ANTERIOR LEADS Confirmed by JEAN CLAUDE SCHAFER MD ([id number]) on 05/10/2018 2:54:48 PM Referred By: Confirmed By:JEAN CLAUDE SCHAFER MD
[2018-05-10] MEDS ORDERED: METOCLOPRAMIDE HCL INJECTION 10 MG/2 ML VIAL IVPUSH ONE (15:55)
[2018-05-10] MEDS ORDERED: METOCLOPRAMIDE HCL INJECTION 10 MG/2 ML VIAL ONE (15:58)
--- NOTE | 2018-05-10 16:21 | HP ---
Admitting History and Physical - Primary Care Physician PCP: Cindy Centeno - Admission Chief Complaint: ABDOMINAL PAIN AND BURNING History of Present Illness: The patient is a 72-year-old male, with a past medical history of HTN, afib, CHF , and gout, who was sent to the ED via EMS for lightheadedness. The was seen in the ED recently for an infected bunion to his LT great toe. Patient was planning to come in today for a wound recheck and reports that every time he stands up he feels like he is going to pass out. He also reports experiencing black stools since Tuesday. He has not taken his Eliquis since Tuesday. On exam, patient is complaining of nausea. The patient denies any fever, chills, cough, vomiting or abdominal pain. Denies any chest pain or shortness of breath. Denies any urinary symptoms. 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 Home Medications - Allergies Allergies/Adverse Reactions: Allergies Allergy/AdvReac Type Severity Reaction Status Date / Time No Known Allergies Allergy Verified 04/30/16 01:35 - Home Medications Home Medications: Ambulatory Orders Apixaban [Eliquis] 5 mg PO DAILY 05/10/18 Diltiazem HCl [Cartia Xt] 180 mg PO BID 05/10/18 Furosemide 40 mg PO DAILY 05/10/18 Hydroxyzine HCl 25 mg PO HS 05/10/18 Metoprolol Succinate 25 mg PO DAILY 05/10/18 Sulfamethoxazole/Trimethoprim [Sulfamethoxazole-Tmp Ds Tablet] 1 each PO DAILY 05/10/18 Review of Systems - Review of Systems Constitutional: reports: Diaphoresis, Weakness Eyes: reports: No Symptoms HENT: reports: No Symptoms Neck: reports: No Symptoms Cardiovascular: reports: Palpitations, Shortness of Breath Respiratory: reports: Orthopnea Gastrointestinal: reports: Abdominal Pain, Indigestion, Melena Genitourinary: reports: No Symptoms Musculoskeletal: reports: No Symptoms Integumentary: reports: No Symptoms Neurological: reports: No Symptoms Endocrine: reports: No Symptoms Hematology/Lymphatic: reports: No Symptoms Psychiatric: reports: No Symptoms Physical Examination Vital Signs: Vital Signs Temperature 99.2 F 05/10/18 10:11 Pulse Rate 96 H 05/10/18 11:03 Respiratory Rate 20 05/10/18 11:03 Blood Pressure 115/72 05/10/18 11:03 O2 Sat by Pulse Oximetry (%) 100 05/10/18 11:03 Constitutional: Yes: Mild Distress Eyes: Yes: WNL HENT: Yes: WNL Neck: Yes: WNL Cardiovascular: Yes: Pulse Irregular Respiratory: Yes: WNL Gastrointestinal: Yes: Tenderness ...Rectal Exam: Yes: Guaiac Positive Musculoskeletal: Yes: Muscle Weakness Extremities: Yes: Deformity Edema: Yes Integumentary: Yes: Pressure Ulcer, Rash Wound/Incision: Yes: Dressing Dry and Intact (LEFT FOOT) Neurological: Yes: Pre-Existing Deficit ...Motor Strength: LLE Psychiatric: Yes: WNL Labs: CBC, BMP 05/10/18 11:00 05/10/18 11:00 Problem List - Problems (1) Atrial fibrillation Code(s): I48.91 - UNSPECIFIED ATRIAL FIBRILLATION Qualifiers: Atrial fibrillation type: chronic Qualified Code(s): I48.2 - Chronic atrial fibrillation (2) GI bleed Code(s): K92.2 - GASTROINTESTINAL HEMORRHAGE, UNSPECIFIED Qualifiers: GI bleed type/associated pathology: melena Qualified Code(s): K92.1 - Melena (3) Bunion of great toe of left foot Code(s): M21.612 - BUNION OF LEFT FOOT (4) Cellulitis of left foot Code(s): L03.116 - CELLULITIS OF LEFT LOWER LIMB (5) Gout Code(s): M10.9 - GOUT, UNSPECIFIED (6) HTN (hypertension) Code(s): I10 - ESSENTIAL (PRIMARY) HYPERTENSION Assessment/Plan GI CONSULT NPO PROTONIX IV ID/PODIATRY EVAL LEFT FOOT ULCER WOUND CARE HOLD CARDIO EVAL DR HENRY
[2018-05-10] MEDS ORDERED: ONDANSETRON 4 MG/2 ML VIAL IVPUSH PRN (16:23)
[2018-05-10] MEDS: DEXTROSE 5%-LACTATED RINGERS 1,000 ML IV SCH (16:38)
[2018-05-10 17:09] LABS: URINE APPEARANCE CLEAR; URINE BILIRUBIN NEGATIVE (<2.0 mg/dL); URINE COLOR LTYELLOW; URINE GLUCOSE (UA) NEGATIVE (NEGATIVE); URINE KETONE TRACE (NEGATIVE); URINE LEUK ESTERASE NEGATIVE (NEGATIVE); URINE NITRITE NEGATIVE (NEGATIVE); URINE PROTEIN NEGATIVE (NEGATIVE); URINE UROBILINOGEN NEGATIVE mg/dL (0.2-1.0)
[2018-05-10] MEDS ORDERED: morphine SULFATE 4 MG/ML VIAL IVPUSH PRN (18:50)
--- NOTE | 2018-05-10 19:07 | CON.GI ---
Consult Consult Specialty:: GI - History of Present Illness History of Present Illness: 72 y/o male with history of afib on Eliquis was dooing well until this 2 days ago when he developed recurrent episodes of melena associated with progressive nausea and weakness,and SOB. He denies LOC, chest pain, In the ER he had episodes of rapid ventricular rate. His hematocrit was 34, On rectal examination he was noted to have black stool. 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 Home Medications - Allergies Allergies/Adverse Reactions: Allergies Allergy/AdvReac Type Severity Reaction Status Date / Time No Known Allergies Allergy Verified 04/30/16 01:35 - Home Medications Home Medications: Ambulatory Orders Apixaban [Eliquis] 5 mg PO DAILY 05/10/18 Diltiazem HCl [Cartia Xt] 180 mg PO BID 05/10/18 Furosemide 40 mg PO DAILY 05/10/18 Hydroxyzine HCl 25 mg PO HS 05/10/18 Metoprolol Succinate 25 mg PO DAILY 05/10/18 Sulfamethoxazole/Trimethoprim [Sulfamethoxazole-Tmp Ds Tablet] 1 each PO DAILY 05/10/18 Physical Exam-GI Vital Signs: Vital Signs Temperature 99.2 F 05/10/18 10:11 Pulse Rate 96 H 05/10/18 11:03 Respiratory Rate 20 05/10/18 11:03 Blood Pressure 115/72 05/10/18 11:03 O2 Sat by Pulse Oximetry (%) 100 05/10/18 11:03 Constitutional: Yes: Obese Eyes: Yes: Conjunctiva Clear HENT: Yes: Atraumatic Neck: Yes: Trachea Midline Cardiovascular: Yes: Regular Rate and Rhythm Respiratory: Yes: Diminished (at bases) ...Palpate: Yes: Soft. No: Firm/Rigid, Guarding, Hepatomegaly, Mass, Pulsatile Mass, Splenomegaly, Tenderness Labs: CBC, BMP 05/10/18 11:00 05/10/18 11:00 INR, PTT INR 1.14 (0.83-1.09) H 05/10/18 11:00 Hepatic Panel Total Bilirubin 0.3 mg/dL (0.2-1) 05/10/18 11:00 AST 10 U/L (15-37) L 05/10/18 11:00 ALT 15 U/L (13-61) 05/10/18 11:00 Alkaline Phosphatase 102 U/L (45-117) 05/10/18 11:00 Albumin 3.5 g/dl (3.4-5.0) 05/10/18 11:00 Problem List - Problems (1) GI bleed Code(s): K92.2 - GASTROINTESTINAL HEMORRHAGE, UNSPECIFIED Qualifiers: GI bleed type/associated pathology: melena Qualified Code(s): K92.1 - Melena (2) Osteomyelitis of ankle and foot Code(s): M86.9 - OSTEOMYELITIS, UNSPECIFIED (3) Cellulitis of left foot Code(s): L03.116 - CELLULITIS OF LEFT LOWER LIMB
[2018-05-10 19:09] LABS: HEMATOCRIT 30.6 % (35.4-49); HEMOGLOBIN 10.4 GM/dL (11.7-16.9); MCH 30.8 pg (25.7-33.7); MCHC 34.1 g/dl (32.0-35.9); MEAN CELL VOLUME 90.4 fl (80-96); MEAN PLT VOLUME 7.4 fl (7.5-11.1); PLATELET COUNT 272 K/MM3 (134-434); RBC 3.39 M/mm3 (4.00-5.60); RDW 14.8 % (11.9-15.9); WHITE BLOOD COUNT 14.4 K/mm3 (4.0-10.0)
[2018-05-10] MEDS ORDERED: PANTOPRAZOLE SODIUM 80 MG in SODIUM CHLORIDE 100 ML IVPB SCH (19:15)
[2018-05-10] MEDS ORDERED: PANTOPRAZOLE SODIUM 40 MG VIAL ONE (19:41)
[2018-05-10] MEDS ORDERED: CEFAZOLIN 1 GM in DEXTROSE 5%-WATER - 50 ML IVPB ONE (21:04)
[2018-05-10] MEDS ORDERED: CEFAZOLIN 1 GM/D5W 1 GM/50 ML BAG ONE (21:08)
[2018-05-10] MEDS ORDERED: PANTOPRAZOLE SODIUM 40 MG VIAL IVPUSH SCH (22:00)
[2018-05-11] MEDS: DEXTROSE 5%-LACTATED RINGERS 1,000 ML IV SCH ×2 (04:00→15:55)
[2018-05-11] MEDS: PANTOPRAZOLE SODIUM 80 MG in SODIUM CHLORIDE 100 ML IVPB SCH ×2 (04:00→15:55)
[2018-05-11] MEDS ORDERED: METOPROLOL TARTRATE 5 MG/5 ML VIAL IVPUSH ONE (06:10)
[2018-05-11 06:12] LABS: ALBUMIN 3.2 g/dl (3.4-5.0); ALK PHOS 85 U/L (45-117); ANION GAP 9 MMOL/L (8-16); BILIRUBIN,TOTAL 0.2 mg/dL (0.2-1); BLOOD UREA NITROGEN 50 mg/dL (7-18); CALCIUM 7.9 mg/dL (8.5-10.1); CHLORIDE 112 mmol/L (98-107); CO2 19 mmol/L (21-32); GLUCOSE,RANDOM 138 mg/dL (74-106); POTASSIUM 4.5 mmol/L (3.5-5.1); SGOT/AST 16 U/L (15-37); SGPT/ALT 17 U/L (13-61); SODIUM 140 mmol/L (136-145); TOT PROT 6.7 g/dl (6.4-8.2)
[2018-05-11 06:50] LABS: HEMATOCRIT 27.2 % (35.4-49); HEMOGLOBIN 9.1 GM/dL (11.7-16.9); MCH 30.2 pg (25.7-33.7); MCHC 33.6 g/dl (32.0-35.9); MEAN PLT VOLUME 7.7 fl (7.5-11.1); PLATELET COUNT 242 K/MM3 (134-434); RBC 3.02 M/mm3 (4.00-5.60); RDW 14.6 % (11.9-15.9); WHITE BLOOD COUNT 13.5 K/mm3 (4.0-10.0)
[2018-05-11] MEDS ORDERED: METOCLOPRAMIDE HCL INJECTION 10 MG/2 ML VIAL IVPB PRN (08:21)
--- NOTE | 2018-05-11 08:21 | PN ---
Progress Note, Physician History of Present Illness: Patient examined and case discussed with Dr. Hendrickson GI FOLLOW UP NOTE Patient examined lying in bed. As per night RN no episodes of melena or hematemesis reported. Hg dropped from 10.4 to 9.1. Patient states nausea has subsided from yesterday. Denies abdominal pain, nausea, vomiting, diarrhea. - Current Medication List Current Medications: Active Medications Acetaminophen (Ofirmev Injection -) 1,000 mg IVPB Q6H PRN PRN Reason: PAIN OR FEVER Dextrose/Lactated Ringer's (D5-Lr -) 1,000 mls @ 100 mls/hr IV ASDIR [facility] Last Admin: 05/11/18 04:00 Dose: 100 mls/hr Pantoprazole Sodium 80 mg/ (Sodium Chloride) 100 mls @ 10 mls/hr IVPB Q10H [facility] Last Admin: 05/11/18 04:00 Dose: 10 mls/hr Metoprolol Tartrate (Lopressor Injection -) 5 mg IVPUSH Q6H PRN PRN Reason: TACHYCARDIA (HR OVER 120) Morphine Sulfate (Morphine Sulfate) 4 mg IVPUSH Q6H PRN PRN Reason: PAIN LEVEL 7 - 10 Ondansetron HCl (Zofran Injection) 4 mg IVPUSH Q6H PRN PRN Reason: NAUSEA AND/OR VOMITING - Objective Vital Signs: Vital Signs Temperature 98.2 F 05/11/18 03:34 Pulse Rate 103 H 05/11/18 06:33 Respiratory Rate 16 05/11/18 06:33 Blood Pressure 107/73 05/11/18 06:33 O2 Sat by Pulse Oximetry (%) 100 05/11/18 04:00 Constitutional: Yes: No Distress, Calm Eyes: Yes: Conjunctiva Clear Cardiovascular: Yes: Tachycardia, Pulse Irregular Respiratory: Yes: Regular, Diminished Gastrointestinal: Yes: Normal Bowel Sounds, Soft, Other (tympany). No: WNL, Abdomen, Obese, Ascites, Distention, Hematemesis, Hemorrhoids, Hepatomegaly, Hernia, Hyperactive Bowel Sounds, Hypoactive Bowel Sounds, Melena, Palpable Mass , Pulsatile Mass, Rectal Bleeding, Splenomegaly, Tenderness, Tenderness, Epigastrium, Tenderness, Rebound, Vomiting ...Rectal Exam: Yes: Guaiac Positive Wound/Incision: Yes: Open to air (L foot bunion) Neurological: Yes: Alert, Oriented Psychiatric: Yes: Alert, Oriented Labs: CBC, BMP 05/11/18 05:15 05/11/18 05:15 INR, PTT INR 1.14 (0.83-1.09) H 05/10/18 11:00 Home Medication List Medication Instructions Recorded Confirmed Type Apixaban [Eliquis] 5 mg PO DAILY 05/10/18 05/10/18 History Diltiazem HCl [Cartia Xt] 180 mg PO BID 05/10/18 05/10/18 History Furosemide 40 mg PO DAILY 05/10/18 05/10/18 History Hydroxyzine HCl 25 mg PO HS 05/10/18 05/10/18 History Metoprolol Succinate 25 mg PO DAILY 05/10/18 05/10/18 History Sulfamethoxazole/Trimethoprim 1 each PO DAILY 05/10/18 05/10/18 History [Sulfamethoxazole-Tmp Ds Tablet] Active Medications Generic Name Dose Route Start Last Admin Trade Name Freq PRN Reason Stop Dose Admin Acetaminophen 1,000 mg 05/10/18 16:23 Ofirmev Injection - IVPB Q6H PRN PAIN OR FEVER Dextrose/Lactated Ringer's 1,000 mls @ 100 mls/hr 05/10/18 16:00 05/11/18 04: 00 D5-Lr - IV 100 mls/hr ASDIR ILYA Administration Pantoprazole Sodium 80 mg/ 100 mls @ 10 mls/hr 05/11/18 04:00 05/11/18 04:00 Sodium Chloride IVPB 10 mls/hr Q10H ILYA Administration 8 MG/HR Metoprolol Tartrate 5 mg 05/11/18 06:12 Lopressor Injection - IVPUSH Q6H PRN TACHYCARDIA (HR OVER 120) Morphine Sulfate 4 mg 05/10/18 18:50 Morphine Sulfate IVPUSH Q6H PRN PAIN LEVEL 7 - 10 Ondansetron HCl 4 mg 05/10/18 16:23 Zofran Injection IVPUSH Q6H PRN NAUSEA AND/OR VOMITING Problem List - Problems (1) GI bleed Assessment/Plan: -will start on Ancef 1g IVPB q8h -advance diet to clear liquids -pending cardiac clearance for endoscopy -start on reglan 10mg IVPB q8h prn for nausea -continue pantoprazole drip -monitor H/H trend Code(s): K92.2 - GASTROINTESTINAL HEMORRHAGE, UNSPECIFIED Qualifiers: GI bleed type/associated pathology: melena Qualified Code(s): K92.1 - Melena
--- NOTE | 2018-05-11 09:01 | PN ---
Progress Note, Physician Chief Complaint: IN ICU BED AWAKE ALERT TACHYCARDIA/IRREGULAR DENIES CHEST PAIN OR SOB B/L FOOT PAIN - Current Medication List Current Medications: Active Medications Acetaminophen (Ofirmev Injection -) 1,000 mg IVPB Q6H PRN PRN Reason: PAIN OR FEVER Dextrose/Lactated Ringer's (D5-Lr -) 1,000 mls @ 100 mls/hr IV ASDIR [facility] Last Admin: 05/11/18 04:00 Dose: 100 mls/hr Pantoprazole Sodium 80 mg/ (Sodium Chloride) 100 mls @ 10 mls/hr IVPB Q10H [facility] Last Admin: 05/11/18 04:00 Dose: 10 mls/hr Cefazolin Sodium (Ancef 1 Gm Premixed Ivpb -) 1 gm in 50 mls @ 100 mls/hr IVPB DAILY [facility] Cefazolin Sodium (Ancef 1 Gm Premixed Ivpb -) 1 gm in 50 mls @ 100 mls/hr IVPB ONCE ONE Stop: 05/11/18 10:29 Metoclopramide HCl (Reglan Injection -) 10 mg IVPB Q8H PRN PRN Reason: NAUSEA AND/OR VOMITING Metoprolol Tartrate (Lopressor Injection -) 5 mg IVPUSH Q6H PRN PRN Reason: TACHYCARDIA (HR OVER 120) Morphine Sulfate (Morphine Sulfate) 4 mg IVPUSH Q6H PRN PRN Reason: PAIN LEVEL 7 - 10 Ondansetron HCl (Zofran Injection) 4 mg IVPUSH Q6H PRN PRN Reason: NAUSEA AND/OR VOMITING - Objective Vital Signs: Vital Signs Temperature 98.2 F 05/11/18 03:34 Pulse Rate 103 H 05/11/18 06:33 Respiratory Rate 16 05/11/18 06:33 Blood Pressure 107/73 05/11/18 06:33 O2 Sat by Pulse Oximetry (%) 100 05/11/18 04:00 Constitutional: Yes: Mild Distress Eyes: Yes: WNL HENT: Yes: WNL Neck: Yes: WNL Cardiovascular: Yes: Tachycardia, Pulse Irregular Respiratory: Yes: WNL Gastrointestinal: Yes: Soft, Abdomen, Obese Genitourinary: Yes: WNL Musculoskeletal: Yes: WNL Extremities: Yes: Deformity Edema: Yes Integumentary: Yes: Pressure Ulcer Wound/Incision: Yes: Open to air (LEFT FOOT BUNYON INFECTION) Neurological: Yes: Pre-Existing Deficit ...Motor Strength: LLE Psychiatric: Yes: WNL Labs: CBC, BMP 05/11/18 05:15 05/11/18 05:15 INR, PTT INR 1.14 (0.83-1.09) H 05/10/18 11:00 Problem List - Problems (1) Atrial fibrillation Code(s): I48.91 - UNSPECIFIED ATRIAL FIBRILLATION Qualifiers: Atrial fibrillation type: chronic Qualified Code(s): I48.2 - Chronic atrial fibrillation (2) GI bleed Code(s): K92.2 - GASTROINTESTINAL HEMORRHAGE, UNSPECIFIED Qualifiers: GI bleed type/associated pathology: melena Qualified Code(s): K92.1 - Melena (3) Bunion of great toe of left foot Code(s): M21.612 - BUNION OF LEFT FOOT (4) Cellulitis of left foot Code(s): L03.116 - CELLULITIS OF LEFT LOWER LIMB (5) Gout Code(s): M10.9 - GOUT, UNSPECIFIED (6) HTN (hypertension) Code(s): I10 - ESSENTIAL (PRIMARY) HYPERTENSION Assessment/Plan IV CARDIZEM 5MG X [address] MONITOR BP GI BLE[address] DURBIN FOLLOWING ON PPI IV PROTONIX HOLD AC ELIQUIS PODIATRY CONSULT WITH ID FOR LEFT FOOT INFECTION CHECK BLOOD AND URINE CX
[2018-05-11] MEDS ORDERED: dilTIAZem HCL 125 MG/25 ML - 25 ML VIAL ONE (09:14)
[2018-05-11] MEDS ORDERED: dilTIAZem HCL 25 MG/5 ML - 5 ML VIAL IVPUSH ONE (09:15)
[2018-05-11] MEDS ORDERED: CEFAZOLIN 1 GM/D5W 1 GM/50 ML BAG IVPB SCH ×2 (10:00)
[2018-05-11] MEDS ORDERED: CEFAZOLIN 1 GM/D5W 1 GM/50 ML BAG IVPB ONE (10:00)
--- NOTE | 2018-05-11 11:49 | CON.CARD ---
Cardiology Consult (text) - Consultation Consultation Note: cc: lightheaded hpi: 72 m hx htn, hld, dchf, afib, here with lightheadedness. Has LH sx for few days and noticed dark stool as well. Came to ER and found to have anemia, likely GIB. No cp sob palps loc pnd orthopnea le edema. Sees dr olea for cardio. pmh: per hpi psh: hip surgery social: ex tob fam: no premature cad, scd ros: per hpi, no nvd hematuria dysuira wt loss vision changes abd pain meds: Home Medications Medication Instructions Recorded Apixaban [Eliquis] 5 mg PO DAILY 05/10/18 Diltiazem HCl [Cartia Xt] 180 mg PO BID 05/10/18 Furosemide 40 mg PO DAILY 05/10/18 Hydroxyzine HCl 25 mg PO HS 05/10/18 Metoprolol Succinate 25 mg PO DAILY 05/10/18 Sulfamethoxazole/Trimethoprim 1 each PO DAILY 05/10/18 [Sulfamethoxazole-Tmp Ds Tablet] pe: Vital Signs Period Temp Pulse Resp BP Sys/Lomeli Pulse Ox Last 24 Hr 98.1 F-99.1 F 98-138 13-20 107-149/67-89 100-100 nad no jvd irreg, s1s2 no mrg cta bl nl eff aao3 no le e/c/c abd nt nd pos bs no jaundice diaphoresis pos dp pt Laboratory Last Values WBC 13.5 K/mm3 (4.0-10.0) H 05/11/18 05:15 RBC 3.02 M/mm3 (4.00-5.60) L 05/11/18 05:15 Hgb 9.1 GM/dL (11.7-16.9) L 05/11/18 05:15 Hct 27.2 % (35.4-49) L 05/11/18 05:15 MCV 90.0 fl (80-96) 05/11/18 05:15 MCH 30.2 pg (25.7-33.7) 05/11/18 05:15 MCHC 33.6 g/dl (32.0-35.9) 05/11/18 05:15 RDW 14.6 % (11.9-15.9) 05/11/18 05:15 Plt Count 242 K/MM3 (134-434) 05/11/18 05:15 MPV 7.7 fl (7.5-11.1) 05/11/18 05:15 Absolute Neuts (auto) 11.6 K/mm3 (1.5-8.0) H 05/10/18 11:00 Neutrophils % 82.8 % (42.8-82.8) 05/10/18 11:00 Lymphocytes % 11.4 % (8-40) 05/10/18 11:00 Monocytes % 4.7 % (3.8-10.2) 05/10/18 11:00 Eosinophils % 0.7 % (0-4.5) 05/10/18 11:00 Basophils % 0.4 % (0-2.0) 05/10/18 11:00 Nucleated RBC % 0 % (0-0) 05/10/18 11:00 ESR 68 mm/hr (0-20) H 05/10/18 11:00 PT with INR 13.50 SEC (9.7-13.0) H 05/10/18 11:00 INR 1.14 (0.83-1.09) H 05/10/18 11:00 Sodium 140 mmol/L (136-145) 05/11/18 05:15 Potassium 4.5 mmol/L (3.5-5.1) 05/11/18 05:15 Chloride 112 mmol/L (98-107) H 05/11/18 05:15 Carbon Dioxide 19 mmol/L (21-32) L 05/11/18 05:15 Anion Gap 9 MMOL/L (8-16) 05/11/18 05:15 BUN 50 mg/dL (7-18) H 05/11/18 05:15 Creatinine 2.0 mg/dL (0.55-1.3) H 05/11/18 05:15 Creat Clearance w eGFR 32.82 (>60) 05/11/18 05:15 Random Glucose 138 mg/dL (74-106) H 05/11/18 05:15 Lactic Acid 4.3 mmol/L (0.4-2.0) H* 05/10/18 11:00 Calcium 7.9 mg/dL (8.5-10.1) L 05/11/18 05:15 Total Bilirubin 0.2 mg/dL (0.2-1) 05/11/18 05:15 AST 16 U/L (15-37) 05/11/18 05:15 ALT 17 U/L (13-61) 05/11/18 05:15 Alkaline Phosphatase 85 U/L (45-117) 05/11/18 05:15 Creatine Kinase 132 U/L (26-308) 05/10/18 11:00 Troponin I < 0.02 ng/ml (0.00-0.05) 05/11/18 05:15 C-Reactive Protein 3.7 MG/DL (0.00-0.3) H 05/10/18 11:00 Total Protein 6.7 g/dl (6.4-8.2) 05/11/18 05:15 Albumin 3.2 g/dl (3.4-5.0) L 05/11/18 05:15 Urine Color Ltyellow 05/10/18 16:51 Urine Appearance Clear 05/10/18 16:51 Urine pH 7.0 (5.0-8.0) D 05/10/18 16:51 Ur Specific [place] 1.018 (1.010-1.035) 05/10/18 16:51 Urine Protein Negative (NEGATIVE) 05/10/18 16:51 Urine Glucose (UA) Negative (NEGATIVE) 05/10/18 16:51 Urine Ketones Trace (NEGATIVE) H 05/10/18 16:51 Urine Blood Negative (NEGATIVE) 05/10/18 16:51 Urine Nitrite Negative (NEGATIVE) 05/10/18 16:51 Urine Bilirubin Negative (<2.0 mg/dL) 05/10/18 16:51 Urine Urobilinogen Negative mg/dL (0.2-1.0) 05/10/18 16:51 Ur Leukocyte Esterase Negative (NEGATIVE) 05/10/18 16:51 Stool Occult Blood Positive (NEGATIVE) 05/10/18 11:58 Influenza A (Rapid) Negative 05/10/18 11:08 Influenza B (Rapid) Negative 05/10/18 11:08 Blood Type B POSITIVE 05/10/18 11:00 Antibody Screen Positive 05/10/18 11:00 Antibody Identification Anti-k 05/10/18 11:00 Antigen Identification No Result Required. 05/10/18 11:00 cxr: clear lungs ecg: afib 120s, nl qtc, nonspec tw chagnes tele: afib, 110s-120s echo 04/2016: mild lve, nl lvef, mild lae, mild mr, mild-mod tr, mild pr, rvsp 50-60 a/p: 72 m hx htn, hld, dchf, afib, here with lightheadedness. dizzy, anemia, gib: -holding AC for now, npo -GI following -no cardiac contradindications to egd, foc htn: -home meds on hold as he is npo, monitor bp for now chronic diastolic chf: -vol stable. holding po lasix 2/2 npo, gib. kaveh: -improving with ivfs afib: -npo so holding home meds, cont iv bb prn -holding eliquis due to gib
--- NOTE | 2018-05-11 11:52 | CONSULT ---
Consult Consult Specialty:: Nephrology Reason for Consultation:: PHILL - History of Present Illness Chief Complaint: sent to ER with light headedness and black stool History of Present Illness: Pt is a 72 year old male with pmhx of htn, a-fib, chf, and gout who was sent in for light-headness. He reports having black stools as well. He was found to be in acute renal failure and I was called to evaluate him. He denies lower ext edema or shortness of breath. He denies dysuria or hematuria. He was started on fluids and his renal function started to improve. He had held his eliquis prior to a podiatry procedure. He denies abdominal pain. - History Source History Provided By: Patient, Medical Record - Past Medical History Cardio/Vascular: Yes: HTN, Hyperlipdemia, Other (edema) Musculoskeletal: Yes: Osteoarthritis Additional Medical History: gout - Past Surgical History Past Surgical History: Yes: Cataract Removal (b/l), Joint Replacement (right hip replacement X 3), Tonsillectomy - Alcohol/Substance Use Hx Alcohol Use: No History of Substance Use: reports: None - Smoking History Smoking history: Former smoker Have you smoked in the past 12 months: No If you are a former smoker, when did you quit?: 1981 - Social History Usual Living Arrangement: With Spouse 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 Home Medications - Allergies Allergies/Adverse Reactions: Allergies Allergy/AdvReac Type Severity Reaction Status Date / Time No Known Allergies Allergy Verified 04/30/16 01:35 - Home Medications Home Medications: Ambulatory Orders Apixaban [Eliquis] 5 mg PO DAILY 05/10/18 Diltiazem HCl [Cartia Xt] 180 mg PO BID 05/10/18 Furosemide 40 mg PO DAILY 05/10/18 Hydroxyzine HCl 25 mg PO HS 05/10/18 Metoprolol Succinate 25 mg PO DAILY 05/10/18 Sulfamethoxazole/Trimethoprim [Sulfamethoxazole-Tmp Ds Tablet] 1 each PO DAILY 05/10/18 Family Disease History - Family Disease History Family History: Denies Review of Systems - Review of Systems Constitutional: reports: Loss of Appetite, Malaise. denies: Chills, Fever Eyes: reports: No Symptoms HENT: reports: No Symptoms Neck: reports: No Symptoms Cardiovascular: reports: No Symptoms Respiratory: reports: No Symptoms Gastrointestinal: reports: No Symptoms Genitourinary: reports: No Symptoms Musculoskeletal: reports: No Symptoms Integumentary: reports: No Symptoms Neurological: reports: No Symptoms Endocrine: reports: No Symptoms Hematology/Lymphatic: reports: No Symptoms Psychiatric: reports: No Symptoms Physical Exam Vital Signs: Vital Signs Temperature 98.2 F 05/11/18 03:34 Pulse Rate 102 H 05/11/18 10:17 Respiratory Rate 16 05/11/18 10:17 Blood Pressure 120/67 05/11/18 10:17 O2 Sat by Pulse Oximetry (%) 100 05/11/18 04:00 Constitutional: Yes: Calm Eyes: Yes: Conjunctiva Clear HENT: Yes: Atraumatic Cardiovascular: Yes: Tachycardia, Pulse Irregular, S1, S2 Respiratory: Yes: CTA Bilaterally Gastrointestinal: Yes: Soft Renal/: Yes: WNL Musculoskeletal: Yes: WNL Edema: No Neurological: Yes: Oriented Psychiatric: Yes: Oriented Labs: CBC, BMP 05/11/18 05:15 05/11/18 05:15 Laboratory Tests 05/01/16 05/02/16 05/03/16 05:55 05:50 05:35 WBC Hgb Sodium Potassium Chloride Carbon Dioxide Anion Gap BUN Creatinine 0.9 1.0 1.1 Lactic Acid Creatine Kinase Urine Protein Urine Ketones Urine Blood Stool Occult Blood Influenza A (Rapid) Influenza B (Rapid) 05/10/18 05/10/18 05/10/18 11:00 11:00 11:00 WBC Hgb 11.4 L Sodium Potassium Chloride Carbon Dioxide Anion Gap BUN Creatinine 2.5 H Lactic Acid 4.3 H* Creatine Kinase Urine Protein Urine Ketones Urine Blood Stool Occult Blood Influenza A (Rapid) Influenza B (Rapid) 05/10/18 05/10/18 05/10/18 11:00 11:08 11:58 WBC Hgb Sodium Potassium Chloride Carbon Dioxide Anion Gap BUN Creatinine Lactic Acid Creatine Kinase 132 Urine Protein Urine Ketones Urine Blood Stool Occult Blood Positive Influenza A (Rapid) Negative Influenza B (Rapid) Negative 05/10/18 05/10/18 05/11/18 16:51 18:50 05:15 WBC 13.5 H Hgb 10.4 L 9.1 L Sodium Potassium Chloride Carbon Dioxide Anion Gap BUN Creatinine Lactic Acid Creatine Kinase Urine Protein Negative Urine Ketones Trace H Urine Blood Negative Stool Occult Blood Influenza A (Rapid) Influenza B (Rapid) 05/11/18 05:15 WBC Hgb Sodium 140 Potassium 4.5 Chloride 112 H Carbon Dioxide 19 L Anion Gap 9 BUN 50 H Creatinine 2.0 H Lactic Acid Creatine Kinase Urine Protein Urine Ketones Urine Blood Stool Occult Blood Influenza A (Rapid) Influenza B (Rapid) Imaging - Results Chest X-ray: Report Reviewed Problem List - Problems (1) PHILL (acute kidney injury) Code(s): N17.9 - ACUTE KIDNEY FAILURE, UNSPECIFIED (2) Atrial fibrillation Code(s): I48.91 - UNSPECIFIED ATRIAL FIBRILLATION Qualifiers: Atrial fibrillation type: chronic Qualified Code(s): I48.2 - Chronic atrial fibrillation (3) GI bleed Code(s): K92.2 - GASTROINTESTINAL HEMORRHAGE, UNSPECIFIED Qualifiers: GI bleed type/associated pathology: melena Qualified Code(s): K92.1 - Melena (4) Gout Code(s): M10.9 - GOUT, UNSPECIFIED (5) HTN (hypertension) Code(s): I10 - ESSENTIAL (PRIMARY) HYPERTENSION Assessment/Plan Current Medications Generic Name Dose Route Start Last Admin Trade Name Freq PRN Reason Stop Dose Admin Acetaminophen 1,000 mg 05/10/18 16:23 Ofirmev Injection - IVPB Q6H PRN PAIN OR FEVER Dextrose/Lactated Ringer's 1,000 mls @ 100 mls/hr 05/10/18 16:00 05/11/18 04: 00 D5-Lr - IV 100 mls/hr ASDIR ILYA Administration Pantoprazole Sodium 80 mg/ 100 mls @ 10 mls/hr 05/11/18 04:00 05/11/18 04:00 Sodium Chloride IVPB 10 mls/hr Q10H ILYA Administration 8 MG/HR Cefazolin Sodium 1 gm in 50 mls @ 100 mls/hr 05/11/18 10:00 05/11/18 09:19 Ancef 1 Gm Premixed Ivpb - IVPB 100 mls/hr Q8H-IV ILYA Administration Metoclopramide HCl 10 mg 05/11/18 08:21 Reglan Injection - IVPB Q8H PRN NAUSEA AND/OR VOMITING Metoprolol Tartrate 5 mg 05/11/18 06:12 Lopressor Injection - IVPUSH Q6H PRN TACHYCARDIA (HR OVER 120) Morphine Sulfate 4 mg 05/10/18 18:50 Morphine Sulfate IVPUSH Q6H PRN PAIN LEVEL 7 - 10 Ondansetron HCl 4 mg 05/10/18 16:23 Zofran Injection IVPUSH Q6H PRN NAUSEA AND/OR VOMITING Impression 1. PHILL 2. a-fib 3. hx pleural effusion 4. HLD 5. CHF 6. HTN 7. Gout 8. gi bleed 9. hyperkalemia 10. lactic acidosis Plan - ua neg for blood or protein - check renal ultrasound - cont fluids, monitor volume status closely as he has chf - check urine lytes and job honer - repeat lactic acid level - GI workup in progress - potassium im proved - renal function improving Dr Rodríguez
[2018-05-11] MEDS: ACETAMINOPHEN 1000 MG/100 ML VIAL (NON FORMULARY) IVPB PRN ×2 (14:39→22:29)
--- NOTE | 2018-05-11 14:46 | PN ---
Progress Note (short form) - Note Progress Note: ID CONSULT DICTATED INFECTED L FOOT WOUND R/O UNDERLYING OSTEOMYELITIS R/O SEPSIS SECONDARY TO SKIN SOURCE LEUKOCYTOSIS LACTIC ACIDOSIS AZOTEMIA AWAIT C/S PODIATRY EVALUATION ? MRI EMPIRIC CEFRIAXONE + VANCOMYCIN ADJUSTED FOR AZOTEMIA
[2018-05-11] MEDS ORDERED: VANCOMYCIN 1 GRAM (PRE-DOCKED) 1,000 MG/250 ML BAG IVPB ONE (15:30)
[2018-05-11] MEDS ORDERED: DEXTROSE 5%-WATER 100 ML IVPB ONE (15:33)
[2018-05-11] MEDS: CEFTRIAXONE 2 GM in DEXTROSE 5%-WATER 100 ML IVPB SCH (15:38)
--- NOTE | 2018-05-11 16:06 | CONS ---
DATE OF CONSULTATION: DATE OF DICTATION: 05/11/2018 HISTORY OF PRESENT ILLNESS: The patient is a 72-year-old non-diabetic male with a history of gouty arthritis, evaluated for possible osteomyelitis of the left foot. The patient has a long-standing history of gouty arthritis. His initial attack was in the great toe. However, he has subsequently had other joints involved, primarily the elbow. He reports not having had another attack in the great toe. He developed a bunion on the base of the left great toe which became progressively more swollen, red and painful. He presented to the emergency room on May 08, 2018 after four days. He underwent incision and drainage of the bunion. He reports that pus was obtained and sent for culture. He was empirically treated with Bactrim. The patient took Bactrim as an outpatient. He is now admitted to the hospital after a near-syncopal episode. The patient felt lightheaded and developed melenic stool. He stopped his Eliquis out of concern for possible GI bleeding. He is now admitted to the telemetry unit. He continues to complain of pain in the left foot. He denies any associated fever or chills. He denies prior history of serious soft tissue infection requiring hospitalization or a history of MRSA. PAST MEDICAL HISTORY: Positive for atrial fibrillation, hypertension, congestive heart failure, gouty arthritis. ALLERGIES: No known drug allergies. MEDICATIONS: Eliquis, Cartia, Lasix, metoprolol, Bactrim. SOCIAL HISTORY: He is retired. He previously worked for the [employer]. He is a former smoker. REVIEW OF SYSTEMS: Neurologic: Positive for near-syncopal episode. No loss of consciousness, seizure activity or focal weakness. Cardiac: Negative for chest pain or palpitations. Respiratory: Negative for cough or sputum production. Gastrointestinal: As per HPI. Genitourinary: Negative for urinary tract infection. LABORATORY DATA: White count 13.5, hematocrit 27.2, platelet count 242, sed rate 68. Chemistries: creatinine 2.0. Liver enzymes normal. Lactic acid 4.3. Urinalysis is negative. Flu swab is negative. Blood culture is pending. Wound culture is preliminarily negative. An x-ray shows erosion of the proximal aspect of the first phalanx and the distal aspect of the first metatarsal. PHYSICAL EXAMINATION: General: He is awake and alert. He is in no acute distress. Vital Signs: Temperature 98.2, pulse 126, blood pressure 120/67, respiratory rate 16 per minute. HEENT:: Sclerae anicteric. Heart: Heart sounds irregular, S1, S2. Lungs: Clear. Abdomen: Soft and nontender. Extremities: On examination of the left foot, there is hallux valgus with swelling of the dorsum of the foot as well as an ulceration over the left first metatarsal head. It is tender to touch. There is no erythema or expressible pus. IMPRESSION: 1. Infected left foot wound. 2. Rule out underlying osteomyelitis. 3. Leukocytosis; rule out sepsis. 4. Lactic acidosis. 5. Azotemia. PLAN: 1. Await cultures. 2. Advised podiatry evaluation. 3. Will likely require an MRI to rule out underlying osteomyelitis. 4. Empiric antibiotic coverage with vancomycin and ceftriaxone. 5. Local wound care. 6. Will follow. Thank you for the kind referral. VILMA COSME M.D. [id number]
--- NOTE | 2018-05-11 16:12 | CONSULT ---
Consult Consult Specialty:: Podiatry Reason for Consultation:: draining wound ound left foot 1st MPJ. Onychomycosis with hypertrophic nails. - History of Present Illness Chief Complaint: pain left big toe joint. painful elongated thickened toe nails. History of Present Illness: pain left big toe joint has history of gout. uncut toe nails with fungus for over 6 months. - History Source History Provided By: Patient, Medical Record - Past Medical History Cardio/Vascular: Yes: HTN, Hyperlipdemia, Other (edema) Musculoskeletal: Yes: Osteoarthritis Additional Medical History: gout - Past Surgical History Past Surgical History: Yes: Cataract Removal (b/l), Joint Replacement (right hip replacement X 3), Tonsillectomy - Alcohol/Substance Use Hx Alcohol Use: No History of Substance Use: reports: None - Smoking History Smoking history: Former smoker Have you smoked in the past 12 months: No If you are a former smoker, when did you quit?: 1981 - Social History Usual Living Arrangement: With Spouse 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 Home Medications - Allergies Allergies/Adverse Reactions: Allergies Allergy/AdvReac Type Severity Reaction Status Date / Time No Known Allergies Allergy Verified 04/30/16 01:35 - Home Medications Home Medications: Ambulatory Orders Apixaban [Eliquis] 5 mg PO DAILY 05/10/18 Diltiazem HCl [Cartia Xt] 180 mg PO BID 05/10/18 Furosemide 40 mg PO DAILY 05/10/18 Hydroxyzine HCl 25 mg PO HS 05/10/18 Metoprolol Succinate 25 mg PO DAILY 05/10/18 Sulfamethoxazole/Trimethoprim [Sulfamethoxazole-Tmp Ds Tablet] 1 each PO DAILY 05/10/18 Physical Exam Vital Signs: Vital Signs Temperature 97.8 F 05/11/18 14:00 Pulse Rate 126 H 05/11/18 14:00 Respiratory Rate 16 05/11/18 14:00 Blood Pressure 124/77 05/11/18 14:00 O2 Sat by Pulse Oximetry (%) 100 05/11/18 09:00 Extremities: Yes: Other (+tender dystrophic mycotic nails with subungual debris b/l feet) Wound/Incision: Yes: Draining (wound left big toe joint with ulceration and creamy white drainage and gouty tophi noted, +tender, +grade 2-3 wound, +tophi on xray noted) Labs: CBC, BMP 05/11/18 05:15 05/11/18 05:15 Imaging - Results X-ray: Image Reviewed Assessment/Plan cellulitis secondary to ulcerated 1st mpj from gouty tophi Pain Onychomycosis r/o OM DJD Aspirated 1st MPJ joint. Culture 1st MPJ joint. Will debride nails tomorrow. Betadine dressing to left 1st mpj. Xray reviewed. most likely tophi present.
[2018-05-11] MEDS: METOPROLOL TARTRATE 5 MG/5 ML VIAL IVPUSH PRN (20:38)
[2018-05-11] MEDS ORDERED: dilTIAZem HCL 30 MG TABLET (FP) PO ONE (22:12)
[2018-05-11] MEDS ORDERED: METOPROLOL TARTRATE 25 MG TABLET (FP) PO ONE (22:13)
[2018-05-12] MEDS: PANTOPRAZOLE SODIUM 80 MG in SODIUM CHLORIDE 100 ML IVPB SCH ×4 (00:34→20:57)
[2018-05-12] MEDS: dilTIAZem HCL 30 MG TABLET (FP) PO SCH ×2 (05:10→12:18)
[2018-05-12] MEDS: ACETAMINOPHEN 1000 MG/100 ML VIAL (NON FORMULARY) IVPB PRN (05:14)
[2018-05-12] MEDS: DEXTROSE 5%-LACTATED RINGERS 1,000 ML IV SCH ×2 (05:15→18:19)
[2018-05-12 06:42] LABS: ALBUMIN 2.8 g/dl (3.4-5.0); ALK PHOS 86 U/L (45-117); ANION GAP 6 MMOL/L (8-16); BILIRUBIN,TOTAL 0.2 mg/dL (0.2-1); BLOOD UREA NITROGEN 28 mg/dL (7-18); CALCIUM 7.8 mg/dL (8.5-10.1); CHLORIDE 113 mmol/L (98-107); CO2 22 mmol/L (21-32); CREATININE 1.7 mg/dL (0.55-1.3); GLUCOSE,RANDOM 103 mg/dL (74-106); POTASSIUM 4.6 mmol/L (3.5-5.1); SGOT/AST 20 U/L (15-37); SGPT/ALT 18 U/L (13-61); SODIUM 140 mmol/L (136-145); TOT PROT 6.3 g/dl (6.4-8.2); URIC ACID 8.5 mg/dL (2.6-7.2)
[2018-05-12] MEDS ORDERED: DEXTROSE 5%-WATER 100 ML IVPB ONE (09:27)
[2018-05-12] MEDS: CEFTRIAXONE 2 GM in DEXTROSE 5%-WATER 100 ML IVPB SCH (09:28)
[2018-05-12] MEDS ORDERED: METOPROLOL TARTRATE 25 MG TABLET (FP) PO SCH (10:00)
--- NOTE | 2018-05-12 10:31 | PN ---
Progress Note (short form) - Note Progress Note: s: no cp sob palps dizzy o: Vital Signs Period Temp Pulse Resp BP Sys/Lomeli Pulse Ox Last 24 Hr 97.8 F-98.6 F 120-147 14-22 112-138/56-80 96 nad no jvd irreg, s1s2 no mrg cta bl nl eff aao3 no le e/c/c abd nt nd pos bs no jaundice diaphoresis Current Medications Generic Name Dose Route Start Last Admin Trade Name Freq PRN Reason Stop Dose Admin Acetaminophen 1,000 mg 05/10/18 16:23 05/12/18 05:14 Ofirmev Injection - IVPB 1,000 mg Q6H PRN Administration PAIN OR FEVER Diltiazem HCl 30 mg 05/12/18 06:00 05/12/18 05:10 Cardizem - PO 30 mg Q6HPO ILYA Administration Dextrose/Lactated Ringer's 1,000 mls @ 100 mls/hr 05/10/18 16:00 05/12/18 05: 15 D5-Lr - IV 100 mls/hr ASDIR ILYA Administration Pantoprazole Sodium 80 mg/ 100 mls @ 10 mls/hr 05/11/18 04:00 05/12/18 05:15 Sodium Chloride IVPB 10 mls/hr Q10H ILYA Administration 8 MG/HR Ceftriaxone Sodium 2 gm/ 100 mls @ 200 mls/hr 05/11/18 15:00 05/12/18 09:28 Dextrose IVPB 200 mls/hr DAILY ILYA Administration Protocol Metoclopramide HCl 10 mg 05/11/18 08:21 Reglan Injection - IVPB Q8H PRN NAUSEA AND/OR VOMITING Metoprolol Tartrate 5 mg 05/11/18 06:12 05/11/18 20:38 Lopressor Injection - IVPUSH 5 mg Q6H PRN Administration TACHYCARDIA (HR OVER 120) Metoprolol Tartrate 12.5 mg 05/12/18 10:00 05/12/18 09:29 Lopressor - PO 12.5 mg BID ILYA Administration Morphine Sulfate 4 mg 05/10/18 18:50 Morphine Sulfate IVPUSH Q6H PRN PAIN LEVEL 7 - 10 Ondansetron HCl 4 mg 05/10/18 16:23 Zofran Injection IVPUSH Q6H PRN NAUSEA AND/OR VOMITING CBC, BMP 05/12/18 05:30 05/12/18 05:30 cxr: clear lungs ecg: afib 120s, nl qtc, nonspec tw chagnes tele: afib, 110s-120s echo 04/2016: mild lve, nl lvef, mild lae, mild mr, mild-mod tr, mild pr, rvsp 50-60 a/p: 72 m hx htn, hld, dchf, afib, here with lightheadedness. dizzy, anemia, gib: -holding AC for now -GI following -no cardiac contradindications to egd, foc htn: -cont home bb, ccb chronic diastolic chf: -vol stable. holding po lasix 2/2 npo, gib. kaveh: -improving with ivfs afib: -cont home bb, ccb -holding eliquis due to gib
--- NOTE | 2018-05-12 11:34 | PN ---
Progress Note, Physician History of Present Illness: Pt seen and examined at bedside. He is awake and alert. He has not had any bowel movements. - Current Medication List Current Medications: Active Medications Acetaminophen (Ofirmev Injection -) 1,000 mg IVPB Q6H PRN PRN Reason: PAIN OR FEVER Last Admin: 05/12/18 05:14 Dose: 1,000 mg Diltiazem HCl (Cardizem -) 30 mg PO Q6HPO [facility] Last Admin: 05/12/18 05:10 Dose: 30 mg Dextrose/Lactated Ringer's (D5-Lr -) 1,000 mls @ 100 mls/hr IV ASDIR [facility] Last Admin: 05/12/18 05:15 Dose: 100 mls/hr Pantoprazole Sodium 80 mg/ (Sodium Chloride) 100 mls @ 10 mls/hr IVPB Q10H [facility] Last Admin: 05/12/18 05:15 Dose: 10 mls/hr Ceftriaxone Sodium 2 gm/ (Dextrose) 100 mls @ 200 mls/hr IVPB DAILY [facility]; Protocol Last Admin: 05/12/18 09:28 Dose: 200 mls/hr Metoclopramide HCl (Reglan Injection -) 10 mg IVPB Q8H PRN PRN Reason: NAUSEA AND/OR VOMITING Metoprolol Tartrate (Lopressor Injection -) 5 mg IVPUSH Q6H PRN PRN Reason: TACHYCARDIA (HR OVER 120) Last Admin: 05/11/18 20:38 Dose: 5 mg Metoprolol Tartrate (Lopressor -) 12.5 mg PO BID [facility] Last Admin: 05/12/18 09:29 Dose: 12.5 mg Morphine Sulfate (Morphine Sulfate) 4 mg IVPUSH Q6H PRN PRN Reason: PAIN LEVEL 7 - 10 Ondansetron HCl (Zofran Injection) 4 mg IVPUSH Q6H PRN PRN Reason: NAUSEA AND/OR VOMITING - Objective Vital Signs: Vital Signs Temperature 98.3 F 05/12/18 10:00 Pulse Rate 105 H 05/12/18 10:00 Respiratory Rate 20 05/12/18 10:00 Blood Pressure 122/64 05/12/18 10:00 O2 Sat by Pulse Oximetry (%) 96 05/12/18 09:00 Constitutional: Yes: Calm Eyes: Yes: Conjunctiva Clear HENT: Yes: Atraumatic Cardiovascular: Yes: S1, S2 Respiratory: Yes: CTA Bilaterally Gastrointestinal: Yes: Soft Genitourinary: Yes: WNL Musculoskeletal: Yes: WNL Edema: No Neurological: Yes: Oriented Psychiatric: Yes: Oriented Labs: CBC, BMP 05/12/18 05:30 05/12/18 05:30 INR, PTT INR 1.14 (0.83-1.09) H 05/10/18 11:00 Problem List - Problems (1) PHILL (acute kidney injury) Code(s): N17.9 - ACUTE KIDNEY FAILURE, UNSPECIFIED (2) Atrial fibrillation Code(s): I48.91 - UNSPECIFIED ATRIAL FIBRILLATION Qualifiers: Atrial fibrillation type: chronic Qualified Code(s): I48.2 - Chronic atrial fibrillation (3) GI bleed Code(s): K92.2 - GASTROINTESTINAL HEMORRHAGE, UNSPECIFIED Qualifiers: GI bleed type/associated pathology: melena Qualified Code(s): K92.1 - Melena (4) Gout Code(s): M10.9 - GOUT, UNSPECIFIED (5) HTN (hypertension) Code(s): I10 - ESSENTIAL (PRIMARY) HYPERTENSION Assessment/Plan Current Medications Generic Name Dose Route Start Last Admin Trade Name Freq PRN Reason Stop Dose Admin Acetaminophen 1,000 mg 05/10/18 16:23 05/12/18 05:14 Ofirmev Injection - IVPB 1,000 mg Q6H PRN Administration PAIN OR FEVER Diltiazem HCl 30 mg 05/12/18 06:00 05/12/18 05:10 Cardizem - PO 30 mg Q6HPO ILYA Administration Dextrose/Lactated Ringer's 1,000 mls @ 100 mls/hr 05/10/18 16:00 05/12/18 05: 15 D5-Lr - IV 100 mls/hr ASDIR ILYA Administration Pantoprazole Sodium 80 mg/ 100 mls @ 10 mls/hr 05/11/18 04:00 05/12/18 05:15 Sodium Chloride IVPB 10 mls/hr Q10H ILYA Administration 8 MG/HR Ceftriaxone Sodium 2 gm/ 100 mls @ 200 mls/hr 05/11/18 15:00 05/12/18 09:28 Dextrose IVPB 200 mls/hr DAILY ILYA Administration Protocol Metoclopramide HCl 10 mg 05/11/18 08:21 Reglan Injection - IVPB Q8H PRN NAUSEA AND/OR VOMITING Metoprolol Tartrate 5 mg 05/11/18 06:12 05/11/18 20:38 Lopressor Injection - IVPUSH 5 mg Q6H PRN Administration TACHYCARDIA (HR OVER 120) Metoprolol Tartrate 12.5 mg 05/12/18 10:00 05/12/18 09:29 Lopressor - PO 12.5 mg BID ILYA Administration Morphine Sulfate 4 mg 05/10/18 18:50 Morphine Sulfate IVPUSH Q6H PRN PAIN LEVEL 7 - 10 Ondansetron HCl 4 mg 05/10/18 16:23 Zofran Injection IVPUSH Q6H PRN NAUSEA AND/OR VOMITING Impression 1. PHILL 2. a-fib 3. hx pleural effusion 4. HLD 5. CHF 6. HTN 7. Gout 8. gi bleed 9. hyperkalemia 10. lactic acidosis Plan - renal function is improving - repeat labs in am - cortical thinning on ultrasound - will need follow up after discharge - GI workup in progress - potassium im proved Dr Rodríguez
--- NOTE | 2018-05-12 12:50 | PN ---
Progress Note, Physician History of Present Illness: AWAKE, ALERT NO C/O FOOT PAIN AFEBRILE WBC REMAINS ELEVATED BC (-) WOUND C/S PENDING AZOTEMIA IMPROVED - Current Medication List Current Medications: Active Medications Acetaminophen (Ofirmev Injection -) 1,000 mg IVPB Q6H PRN PRN Reason: PAIN OR FEVER Last Admin: 05/12/18 05:14 Dose: 1,000 mg Diltiazem HCl (Cardizem -) 30 mg PO Q6HPO [facility] Last Admin: 05/12/18 12:18 Dose: 30 mg Dextrose/Lactated Ringer's (D5-Lr -) 1,000 mls @ 100 mls/hr IV ASDIR [facility] Last Admin: 05/12/18 05:15 Dose: 100 mls/hr Pantoprazole Sodium 80 mg/ (Sodium Chloride) 100 mls @ 10 mls/hr IVPB Q10H [facility] Last Admin: 05/12/18 05:15 Dose: 10 mls/hr Ceftriaxone Sodium 2 gm/ (Dextrose) 100 mls @ 200 mls/hr IVPB DAILY [facility]; Protocol Last Admin: 05/12/18 09:28 Dose: 200 mls/hr Metoclopramide HCl (Reglan Injection -) 10 mg IVPB Q8H PRN PRN Reason: NAUSEA AND/OR VOMITING Metoprolol Tartrate (Lopressor Injection -) 5 mg IVPUSH Q6H PRN PRN Reason: TACHYCARDIA (HR OVER 120) Last Admin: 05/11/18 20:38 Dose: 5 mg Metoprolol Tartrate (Lopressor -) 12.5 mg PO BID [facility] Last Admin: 05/12/18 09:29 Dose: 12.5 mg Morphine Sulfate (Morphine Sulfate) 4 mg IVPUSH Q6H PRN PRN Reason: PAIN LEVEL 7 - 10 Ondansetron HCl (Zofran Injection) 4 mg IVPUSH Q6H PRN PRN Reason: NAUSEA AND/OR VOMITING - Objective Vital Signs: Vital Signs Temperature 98.3 F 05/12/18 10:00 Pulse Rate 105 H 05/12/18 10:00 Respiratory Rate 20 05/12/18 10:00 Blood Pressure 122/64 05/12/18 10:00 O2 Sat by Pulse Oximetry (%) 96 05/12/18 09:00 Constitutional: Yes: No Distress Cardiovascular: Yes: Regular Rate and Rhythm, S1, S2 Respiratory: Yes: CTA Bilaterally Gastrointestinal: Yes: Normal Bowel Sounds, Soft. No: Tenderness Extremities: Yes: Other (+ ULCER L 1ST MT NO PURULENT DRAINAGE) Labs: CBC, BMP 05/12/18 05:30 05/12/18 05:30 INR, PTT INR 1.14 (0.83-1.09) H 05/10/18 11:00 Assessment/Plan INFECTED FOOT ULCER R/O SEPSIS SECONDARY TO SKIN SOURCE LEUKOCYTOSIS LACTIC ACIDOSIS AZOTEMIA AWAIT WOUND C/S REDOSE VANCOMYCIN CONTINUE CEFTRIAXONE I SUSPECT BONE EROSION SEEN ON FOOT XRAY MORE LIKELY SECONDARY TO TOPHACEOUS GOUT THAN OSTEOMYELITIS WILL DEFER FURTHER IMAGING STUDIES TO PODIATRY
[2018-05-12] MEDS ORDERED: PT OWN MED DRAWER 7, Y5N ONE (13:08)
--- NOTE | 2018-05-12 13:14 | PN ---
Progress Note (short form) - Note Progress Note: FUV b/l feet and wound left foot. vss Tmax 98.6 +tender dystrophic mycotic nails with subungual debris left greater than right, +gouty arthritis 1st mpj with tophi, +grade 2 ulcer left, wbc=16.5, uric acid = 8.5 onychomcyosis pain gout wound left foot Debride nails x 10. IVABX as per ID. Betadine dressing to left foot wound. Awaiting culture and sensitivity and cytology for tophi/-bifrigent crystals. Will follow.
[2018-05-12] MEDS ORDERED: VANCOMYCIN 1 GRAM (PRE-DOCKED) 1,000 MG/250 ML BAG IVPB ONE (13:15)
--- NOTE | 2018-05-12 14:40 | PN ---
Progress Note, Physician Chief Complaint: SCHEDULED FOR EGD TODAY HOWEVER PATIENT WAS IN RAPID AFIB 170/MIN AND PROCEDURE WAS CANCELED - Current Medication List Current Medications: Active Medications Acetaminophen (Ofirmev Injection -) 1,000 mg IVPB Q6H PRN PRN Reason: PAIN OR FEVER Last Admin: 05/12/18 05:14 Dose: 1,000 mg Diltiazem HCl (Cardizem -) 30 mg PO Q6HPO [facility] Last Admin: 05/12/18 12:18 Dose: 30 mg Dextrose/Lactated Ringer's (D5-Lr -) 1,000 mls @ 100 mls/hr IV ASDIR [facility] Last Admin: 05/12/18 05:15 Dose: 100 mls/hr Pantoprazole Sodium 80 mg/ (Sodium Chloride) 100 mls @ 10 mls/hr IVPB Q10H [facility] Last Admin: 05/12/18 13:31 Dose: 10 mls/hr Ceftriaxone Sodium 2 gm/ (Dextrose) 100 mls @ 200 mls/hr IVPB DAILY [facility]; Protocol Last Admin: 05/12/18 09:28 Dose: 200 mls/hr Vancomycin HCl (Vancomycin (Pre-Docked)) 1,000 mg in 250 mls @ 166.667 mls/hr IVPB ONCE ONE; Protocol Stop: 05/12/18 14:44 Metoclopramide HCl (Reglan Injection -) 10 mg IVPB Q8H PRN PRN Reason: NAUSEA AND/OR VOMITING Metoprolol Tartrate (Lopressor Injection -) 5 mg IVPUSH Q6H PRN PRN Reason: TACHYCARDIA (HR OVER 120) Last Admin: 05/11/18 20:38 Dose: 5 mg Metoprolol Tartrate (Lopressor -) 12.5 mg PO BID [facility] Last Admin: 05/12/18 09:29 Dose: 12.5 mg Morphine Sulfate (Morphine Sulfate) 4 mg IVPUSH Q6H PRN PRN Reason: PAIN LEVEL 7 - 10 Ondansetron HCl (Zofran Injection) 4 mg IVPUSH Q6H PRN PRN Reason: NAUSEA AND/OR VOMITING - Objective Vital Signs: Vital Signs Temperature 98.3 F 05/12/18 10:00 Pulse Rate 105 H 05/12/18 10:00 Respiratory Rate 20 05/12/18 10:00 Blood Pressure 122/64 05/12/18 10:00 O2 Sat by Pulse Oximetry (%) 96 05/12/18 09:00 Constitutional: Yes: Mild Distress Eyes: Yes: WNL HENT: Yes: WNL Neck: Yes: WNL Cardiovascular: Yes: Pulse Irregular Respiratory: Yes: WNL Gastrointestinal: Yes: Abdomen, Obese Musculoskeletal: Yes: WNL Extremities: Yes: Deformity Edema: Yes Peripheral Pulses WNL: Yes Integumentary: Yes: Erythema, Pressure Ulcer Wound/Incision: Yes: Dressing Dry and Intact (LEFT FOOT TOPHI WITH CELLULITIS) ...Motor Strength: LLE Psychiatric: Yes: WNL Labs: CBC, BMP 05/12/18 05:30 05/12/18 05:30 INR, PTT INR 1.14 (0.83-1.09) H 05/10/18 11:00 Problem List - Problems (1) Atrial fibrillation Code(s): I48.91 - UNSPECIFIED ATRIAL FIBRILLATION Qualifiers: Atrial fibrillation type: chronic Qualified Code(s): I48.2 - Chronic atrial fibrillation (2) GI bleed Code(s): K92.2 - GASTROINTESTINAL HEMORRHAGE, UNSPECIFIED Qualifiers: GI bleed type/associated pathology: melena Qualified Code(s): K92.1 - Melena (3) Bunion of great toe of left foot Code(s): M21.612 - BUNION OF LEFT FOOT (4) Cellulitis of left foot Code(s): L03.116 - CELLULITIS OF LEFT LOWER LIMB (5) Gout Code(s): M10.9 - GOUT, UNSPECIFIED (6) HTN (hypertension) Code(s): I10 - ESSENTIAL (PRIMARY) HYPERTENSION Assessment/Plan OPTIMIZE MEDICALLY FOR RAPID AFIB D/W CARDIOLOGY REPEAT EGD ATTEMPT TUESDAY IV ABX PODIATRY/ID F/U PPI IV ICU MONITORING
--- NOTE | 2018-05-12 16:46 | PN ---
GI Progress Note Subjective: patient heart rate very labile. Thsi ranged from 90 to 180 just prior to EGD associated with SOB. Becasue of this the proceduere was cancelled. Dr Centeno was made aware. No further evidence of GI bleeding. Hgb is 12 - Objective Vital Signs: Vital Signs Temperature 98.8 F 05/12/18 14:00 Pulse Rate 102 H 05/12/18 14:00 Respiratory Rate 20 05/12/18 14:00 Blood Pressure 122/85 05/12/18 14:00 O2 Sat by Pulse Oximetry (%) 96 05/12/18 09:00 Constitutional: Well Nourished Eyes: Yes: Conjunctiva Clear HENT: Yes: Atraumatic Neck: Yes: Supple Cardiovascular: Yes: Regular Rate and Rhythm Respiratory: Yes: CTA Bilaterally Gastrointestinal Inspection: No: Distention ...Palpate: Yes: Soft. No: Guarding, Hepatomegaly, Mass, Pulsatile Mass, Splenomegaly, Tenderness, Tenderness, Epigastium Labs: CBC, BMP 05/12/18 05:30 05/12/18 05:30 INR, PTT INR 1.14 (0.83-1.09) H 05/10/18 11:00 Home Medications Medication Instructions Recorded Apixaban [Eliquis] 5 mg PO DAILY 05/10/18 Diltiazem HCl [Cartia Xt] 180 mg PO BID 05/10/18 Furosemide 40 mg PO DAILY 05/10/18 Hydroxyzine HCl 25 mg PO HS 05/10/18 Metoprolol Succinate 25 mg PO DAILY 05/10/18 Sulfamethoxazole/Trimethoprim 1 each PO DAILY 05/10/18 [Sulfamethoxazole-Tmp Ds Tablet] Active Medications Generic Name Dose Route Start Last Admin Trade Name Freq PRN Reason Stop Dose Admin Acetaminophen 1,000 mg 05/10/18 16:23 05/12/18 05:14 Ofirmev Injection - IVPB 1,000 mg Q6H PRN Administration PAIN OR FEVER Diltiazem HCl 180 mg 05/12/18 22:00 Cardizem Cd - PO BID IL[facility] Dextrose/Lactated Ringer's 1,000 mls @ 100 mls/hr 05/10/18 16:00 05/12/18 05: 15 D5-Lr - IV 100 mls/hr ASDIR IL[facility] Administration Pantoprazole Sodium 80 mg/ 100 mls @ 10 mls/hr 05/11/18 04:00 05/12/18 13:31 Sodium Chloride IVPB 10 mls/hr Q10H [facility] Administration 8 MG/HR Ceftriaxone Sodium 2 gm/ 100 mls @ 200 mls/hr 05/11/18 15:00 05/12/18 09:28 Dextrose IVPB 200 mls/hr DAILY [facility] Administration Protocol Metoclopramide HCl 10 mg 05/11/18 08:21 Reglan Injection - IVPB Q8H PRN NAUSEA AND/OR VOMITING Metoprolol Succinate 25 mg 05/13/18 10:00 Toprol Xl - PO DAILY IL[facility] Metoprolol Tartrate 5 mg 05/11/18 06:12 05/11/18 20:38 Lopressor Injection - IVPUSH 5 mg Q6H PRN Administration TACHYCARDIA (HR OVER 120) Morphine Sulfate 4 mg 05/10/18 18:50 Morphine Sulfate IVPUSH Q6H PRN PAIN LEVEL 7 - 10 Ondansetron HCl 4 mg 05/10/18 16:23 Zofran Injection IVPUSH Q6H PRN NAUSEA AND/OR VOMITING CBC,CMP WBC 16.5 K/mm3 (4.0-10.0) H 05/12/18 05:30 RBC 4.30 M/mm3 (4.00-5.60) 05/12/18 05:30 Hgb 12.7 GM/dL (11.7-16.9) 05/12/18 05:30 Hct 37.8 % (35.4-49) D 05/12/18 05:30 MCV 87.9 fl (80-96) 05/12/18 05:30 MCH 29.5 pg (25.7-33.7) 05/12/18 05:30 MCHC 33.6 g/dl (32.0-35.9) 05/12/18 05:30 RDW 14.5 % (11.9-15.9) 05/12/18 05:30 Plt Count 355 K/MM3 (134-434) D 05/12/18 05:30 MPV 8.2 fl (7.5-11.1) 05/12/18 05:30 Absolute Neuts (auto) 11.6 K/mm3 (1.5-8.0) H 05/10/18 11:00 Neutrophils % 82.8 % (42.8-82.8) 05/10/18 11:00 Lymphocytes % 11.4 % (8-40) 05/10/18 11:00 Monocytes % 4.7 % (3.8-10.2) 05/10/18 11:00 Eosinophils % 0.7 % (0-4.5) 05/10/18 11:00 Basophils % 0.4 % (0-2.0) 05/10/18 11:00 Nucleated RBC % 0 % (0-0) 05/10/18 11:00 ESR 68 mm/hr (0-20) H 05/10/18 11:00 Sodium 140 mmol/L (136-145) 05/12/18 05:30 Potassium 4.6 mmol/L (3.5-5.1) 05/12/18 05:30 Chloride 113 mmol/L (98-107) H 05/12/18 05:30 Carbon Dioxide 22 mmol/L (21-32) 05/12/18 05:30 Anion Gap 6 MMOL/L (8-16) L 05/12/18 05:30 BUN 28 mg/dL (7-18) H 05/12/18 05:30 Creatinine 1.7 mg/dL (0.55-1.3) H 05/12/18 05:30 Creat Clearance w eGFR 39.60 (>60) 05/12/18 05:30 Random Glucose 103 mg/dL (74-106) 05/12/18 05:30 Lactic Acid 4.3 mmol/L (0.4-2.0) H* 05/10/18 11:00 Uric Acid 8.5 mg/dL (2.6-7.2) H 05/12/18 05:30 Calcium 7.8 mg/dL (8.5-10.1) L 05/12/18 05:30 Total Bilirubin 0.2 mg/dL (0.2-1) 05/12/18 05:30 AST 20 U/L (15-37) 05/12/18 05:30 ALT 18 U/L (13-61) 05/12/18 05:30 Alkaline Phosphatase 86 U/L (45-117) 05/12/18 05:30 Creatine Kinase 132 U/L (26-308) 05/10/18 11:00 Troponin I < 0.02 ng/ml (0.00-0.05) 05/11/18 05:15 C-Reactive Protein 3.7 MG/DL (0.00-0.3) H 05/10/18 11:00 Total Protein 6.3 g/dl (6.4-8.2) L 05/12/18 05:30 Albumin 2.8 g/dl (3.4-5.0) L 05/12/18 05:30 Problem List - Problems (1) GI bleed Assessment/Plan: resolved R> will reschedule EGC once AFIB is contolled Code(s): K92.2 - GASTROINTESTINAL HEMORRHAGE, UNSPECIFIED Qualifiers: GI bleed type/associated pathology: melena Qualified Code(s): K92.1 - Melena (2) Osteomyelitis of ankle and foot Code(s): M86.9 - OSTEOMYELITIS, UNSPECIFIED (3) Cellulitis of left foot Code(s): L03.116 - CELLULITIS OF LEFT LOWER LIMB
[2018-05-12] MEDS: METOPROLOL TARTRATE 5 MG/5 ML VIAL IVPUSH PRN (22:32)
[2018-05-13] MEDS: PANTOPRAZOLE SODIUM 80 MG in SODIUM CHLORIDE 100 ML IVPB SCH ×4 (00:58→23:02)
[2018-05-13] MEDS: METOPROLOL TARTRATE 5 MG/5 ML VIAL IVPUSH PRN (05:16)
[2018-05-13] MEDS: DEXTROSE 5%-LACTATED RINGERS 1,000 ML IV SCH (06:43)
[2018-05-13] MEDS ORDERED: ALPRAZolam 0.25 MG TABLET PO PRN (08:08)
--- NOTE | 2018-05-13 08:08 | PN ---
Progress Note, Physician Chief Complaint: AWAKE ALERT AGITATED WANTS TO LEAVE DENIES CHEST PAIN - Current Medication List Current Medications: Active Medications Acetaminophen (Ofirmev Injection -) 1,000 mg IVPB Q6H PRN PRN Reason: PAIN OR FEVER Last Admin: 05/12/18 05:14 Dose: 1,000 mg Diltiazem HCl (Cardizem Cd -) 180 mg PO BID [facility] Last Admin: 05/12/18 21:01 Dose: 180 mg Dextrose/Lactated Ringer's (D5-Lr -) 1,000 mls @ 100 mls/hr IV ASDIR [facility] Last Admin: 05/13/18 06:43 Dose: 100 mls/hr Pantoprazole Sodium 80 mg/ (Sodium Chloride) 100 mls @ 10 mls/hr IVPB Q10H [facility] Last Admin: 05/13/18 06:10 Dose: Not Given Ceftriaxone Sodium 2 gm/ (Dextrose) 100 mls @ 200 mls/hr IVPB DAILY [facility]; Protocol Last Admin: 05/12/18 09:28 Dose: 200 mls/hr Metoclopramide HCl (Reglan Injection -) 10 mg IVPB Q8H PRN PRN Reason: NAUSEA AND/OR VOMITING Metoprolol Succinate (Toprol Xl -) 25 mg PO DAILY [facility] Metoprolol Tartrate (Lopressor Injection -) 5 mg IVPUSH Q6H PRN PRN Reason: TACHYCARDIA (HR OVER 120) Last Admin: 05/13/18 05:16 Dose: 5 mg Morphine Sulfate (Morphine Sulfate) 4 mg IVPUSH Q6H PRN PRN Reason: PAIN LEVEL 7 - 10 Last Admin: 05/12/18 22:47 Dose: 4 mg Ondansetron HCl (Zofran Injection) 4 mg IVPUSH Q6H PRN PRN Reason: NAUSEA AND/OR VOMITING - Objective Vital Signs: Vital Signs Temperature 98.1 F 05/13/18 06:00 Pulse Rate 118 H 05/13/18 06:00 Respiratory Rate 17 05/13/18 06:00 Blood Pressure 109/83 05/13/18 06:00 O2 Sat by Pulse Oximetry (%) 97 05/12/18 21:00 Constitutional: Yes: Mild Distress Eyes: Yes: WNL HENT: Yes: WNL Neck: Yes: WNL Cardiovascular: Yes: Tachycardia, Pulse Irregular Respiratory: Yes: WNL Gastrointestinal: Yes: Soft, Abdomen, Obese Genitourinary: Yes: WNL Musculoskeletal: Yes: WNL Extremities: Yes: WNL Edema: Yes Integumentary: Yes: Pressure Ulcer Wound/Incision: Yes: Dressing Dry and Intact Neurological: Yes: Pre-Existing Deficit ...Motor Strength: LLE Psychiatric: Yes: Agitated Labs: CBC, BMP 05/12/18 05:30 05/12/18 05:30 INR, PTT INR 1.14 (0.83-1.09) H 05/10/18 11:00 Problem List - Problems (1) Atrial fibrillation Code(s): I48.91 - UNSPECIFIED ATRIAL FIBRILLATION Qualifiers: Atrial fibrillation type: chronic Qualified Code(s): I48.2 - Chronic atrial fibrillation (2) GI bleed Code(s): K92.2 - GASTROINTESTINAL HEMORRHAGE, UNSPECIFIED Qualifiers: GI bleed type/associated pathology: melena Qualified Code(s): K92.1 - Melena (3) Bunion of great toe of left foot Code(s): M21.612 - BUNION OF LEFT FOOT (4) Cellulitis of left foot Code(s): L03.116 - CELLULITIS OF LEFT LOWER LIMB (5) Gout Code(s): M10.9 - GOUT, UNSPECIFIED (6) HTN (hypertension) Code(s): I10 - ESSENTIAL (PRIMARY) HYPERTENSION Assessment/Plan RAPID AFIB STILL CARDIOLOGY F/U NEED TO OPTIMIZE PRIOR TO EGD TUESDAY TRANSFER TO [facility] FLOOR CHECK LABS CRI IMPROVING IV ABX FOR LEFT FOOT CELLULITIS XANAX PRN
[2018-05-13] MEDS ORDERED: oxyCODONE HCL 5 MG TABLET PO PRN (08:09)
[2018-05-13] MEDS ORDERED: ONDANSETRON *ODT* 4 MG TABLET SL PRN (08:09)
[2018-05-13] MEDS ORDERED: DOCUSATE SODIUM 100 MG CAPSULE (FP) PO PRN (08:09)
--- NOTE | 2018-05-13 08:38 | PN ---
Progress Note, Physician Chief Complaint: anemia History of Present Illness: denies palpitations or sob no cp no leg swelling - Current Medication List Current Medications: Active Medications Acetaminophen (Ofirmev Injection -) 1,000 mg IVPB Q6H PRN PRN Reason: PAIN OR FEVER Last Admin: 05/12/18 05:14 Dose: 1,000 mg Alprazolam (Xanax -) 0.25 mg PO Q8H PRN PRN Reason: ANXIETY Diltiazem HCl (Cardizem Cd -) [address] [facility] Last Admin: 05/12/18 21:01 Dose: 180 mg Docusate Sodium (Colace -) 100 mg PO Q8H PRN PRN Reason: CONSTIPATION Pantoprazole Sodium 80 mg/ (Sodium Chloride) 100 mls @ 10 mls/hr IVPB Q10H [facility] Last Admin: 05/13/18 06:10 Dose: Not Given Ceftriaxone Sodium 2 gm/ (Dextrose) 100 mls @ 200 mls/hr IVPB DAILY [facility]; Protocol Last Admin: 05/12/18 09:28 Dose: 200 mls/hr Metoprolol Succinate (Toprol Xl -) [address] [facility] Metoprolol Tartrate (Lopressor Injection -) 5 mg IVPUSH Q6H PRN PRN Reason: TACHYCARDIA (HR OVER 120) Last Admin: 05/13/18 05:16 Dose: 5 mg Ondansetron HCl (Zofran Odt -) 4 mg SL Q6H PRN PRN Reason: NAUSEA AND/OR VOMITING Oxycodone HCl (Roxicodone -) 5 mg PO Q6H PRN PRN Reason: PAIN LEVEL 7 - 10 - Objective Vital Signs: Vital Signs Temperature 98.1 F 05/13/18 06:00 Pulse Rate 140 H 05/13/18 08:00 Respiratory Rate 21 H 05/13/18 08:00 Blood Pressure 108/45 L 05/13/18 08:00 O2 Sat by Pulse Oximetry (%) 97 05/12/18 21:00 Constitutional: Yes: Well Nourished, No Distress, Calm Cardiovascular: Yes: Pulse Irregular, S1, S2. No: JVD, Gallop, Murmur Respiratory: Yes: Regular, CTA Bilaterally. No: Accessory Muscle Use, Rales Extremities: No: Cold Edema: No Neurological: Yes: Alert, Oriented Psychiatric: No: Agitated Labs: CBC, BMP 05/12/18 05:30 05/12/18 05:30 INR, PTT INR 1.14 (0.83-1.09) H 05/10/18 11:00 Assessment/Plan cxr: clear lungs ecg: afib 120s, nl qtc, nonspec tw chagnes tele: afib to 170s-->currently 110s-130 echo 04/2016: mild lve, nl lvef, mild lae, mild mr, mild-mod tr, mild pr, rvsp 50-60 a/p: 72 m hx htn, hld, dchf, afib, here with lightheadedness. gib: -holding AC for now -GI following -no cardiac contradindications to egd, foc--once HR better controlled afib: -tachycardic to 170s yest hence GI scopes postponed. bp's at times soft to 100 syst. -HR improved signif this AM with po propranolol dose, remains mildly reapid -cont home diltiazem 180 bid -change metopr 25 to propranolol 60 TID--expect he will respond well -monitor tele -holding eliquis due to gib htn: -no signs of active large-volume bleeding ongoing -cont AF meds, observe trend chronic diastolic chf: -vol stable. holding po lasix 2/2 npo, gib. kaveh: -improving with ivfs
[2018-05-13] MEDS ORDERED: DEXTROSE 5%-WATER 100 ML IVPB ONE (08:58)
[2018-05-13] MEDS: CEFTRIAXONE 2 GM in DEXTROSE 5%-WATER 100 ML IVPB SCH (09:12)
[2018-05-13 09:25] LABS: HEMATOCRIT 25.4 % (35.4-49); HEMOGLOBIN 8.4 GM/dL (11.7-16.9); MCH 30.5 pg (25.7-33.7); MCHC 33.2 g/dl (32.0-35.9); MEAN CELL VOLUME 91.9 fl (80-96); MEAN PLT VOLUME 7.9 fl (7.5-11.1); PLATELET COUNT 233 K/MM3 (134-434); RBC 2.77 M/mm3 (4.00-5.60); RDW 15.1 % (11.9-15.9); WHITE BLOOD COUNT 11.8 K/mm3 (4.0-10.0)
[2018-05-13] MEDS ORDERED: metoPROLOL SUCCINATE 25 MG TAB.SR.24H (FP) PO SCH (10:00)
[2018-05-13 10:07] LABS: ANION GAP 7 MMOL/L (8-16); BLOOD UREA NITROGEN 17 mg/dL (7-18); CALCIUM 7.6 mg/dL (8.5-10.1); CHLORIDE 110 mmol/L (98-107); CO2 23 mmol/L (21-32); CREATININE 1.6 mg/dL (0.55-1.3); GLUCOSE,RANDOM 120 mg/dL (74-106); PHOSPHOROUS 3.5 mg/dL (2.5-4.9); POTASSIUM 4.6 mmol/L (3.5-5.1); SODIUM 140 mmol/L (136-145)
--- NOTE | 2018-05-13 11:35 | PN ---
Progress Note (short form) - Note Progress Note: no complaints Vital Signs Period Temp Pulse Resp BP Sys/Lomeli Pulse Ox Last 24 Hr 98.1 F-98.8 F 102-165 17-23 108-159/45-102 97-97 cor-rrr lungs decreased bs at bases abd soft,nt ext wound with creamy drainage ?gout CBC, BMP 05/13/18 05:15 05/13/18 05:15 Microbiology 05/11/18 16:20 Foot - Left Gram Stain - Final 05/11/18 16:20 Foot - Left Wound Culture - Preliminary NO GROWTH OBTAINED AFTER 24 HOURS INCUBATION, REINCUBATED. 05/10/18 10:56 Blood - Peripheral Venous Blood Culture - Preliminary NO GROWTH OBTAINED AFTER 72 HOURS, INCUBATION TO CONTINUE FOR 2 DAYS. 05/10/18 10:40 Blood - Peripheral Venous Blood Culture - Preliminary NO GROWTH OBTAINED AFTER 72 HOURS, INCUBATION TO CONTINUE FOR 2 DAYS. 05/10/18 16:51 Urine - Urine Clean Catch Urine Culture - Final a/p probable infected tophus f/u cytology f/u cultures continue florentin
--- NOTE | 2018-05-13 12:54 | EKG ---
Test Reason : Blood Pressure : / mmHG Vent. Rate : 143 BPM Atrial Rate : 086 BPM P-R Int : 000 ms QRS Dur : 074 ms QT Int : 314 ms P-R-T Axes : 000 067 -40 degrees QTc Int : 484 ms ATRIAL FIBRILLATION WITH RAPID VENTRICULAR RESPONSE WITH PREMATURE VENTRICULAR OR ABERRANTLY CONDUCTED COMPLEXES NONSPECIFIC ST AND T WAVE ABNORMALITY ABNORMAL ECG Confirmed by VILMA MCLAIN MD ([id number]) on 05/13/2018 12:54:19 PM Referred By: Daniel CRISOSTOMO Confirmed By:VILMA MCLAIN MD
--- NOTE | 2018-05-13 13:19 | PN ---
Progress Note, Physician History of Present Illness: Pt seen and examined at bedside. He is awake and alert. He was started on a solid diet. - Current Medication List Current Medications: Active Medications Acetaminophen (Ofirmev Injection -) 1,000 mg IVPB Q6H PRN PRN Reason: PAIN OR FEVER Last Admin: 05/12/18 05:14 Dose: 1,000 mg Alprazolam (Xanax -) 0.25 mg PO Q8H PRN PRN Reason: ANXIETY Last Admin: 05/13/18 08:48 Dose: 0.25 mg Diltiazem HCl (Cardizem Cd -) 180 mg PO BID [facility] Last Admin: 05/13/18 09:00 Dose: 180 mg Docusate Sodium (Colace -) 100 mg PO Q8H PRN PRN Reason: CONSTIPATION Pantoprazole Sodium 80 mg/ (Sodium Chloride) 100 mls @ 10 mls/hr IVPB Q10H [facility] Last Admin: 05/13/18 06:10 Dose: Not Given Ceftriaxone Sodium 2 gm/ (Dextrose) 100 mls @ 200 mls/hr IVPB DAILY [facility]; Protocol Last Admin: 05/13/18 09:12 Dose: 200 mls/hr Metoprolol Tartrate (Lopressor Injection -) 5 mg IVPUSH Q6H PRN PRN Reason: TACHYCARDIA (HR OVER 120) Last Admin: 05/13/18 05:16 Dose: 5 mg Ondansetron HCl (Zofran Odt -) 4 mg SL Q6H PRN PRN Reason: NAUSEA AND/OR VOMITING Oxycodone HCl (Roxicodone -) 5 mg PO Q6H PRN PRN Reason: PAIN LEVEL 7 - 10 Propranolol HCl (Inderal -) 60 mg PO TID [facility] - Objective Vital Signs: Vital Signs Temperature 98.5 F 05/13/18 10:00 Pulse Rate 119 H 05/13/18 12:00 Respiratory Rate 17 05/13/18 12:00 Blood Pressure 130/49 L 05/13/18 12:00 O2 Sat by Pulse Oximetry (%) 97 05/13/18 08:34 Constitutional: Yes: Calm Eyes: Yes: Conjunctiva Clear HENT: Yes: Atraumatic Cardiovascular: Yes: S1, S2 Respiratory: Yes: CTA Bilaterally Gastrointestinal: Yes: Soft Genitourinary: Yes: WNL Musculoskeletal: Yes: WNL Edema: No Neurological: Yes: Oriented Psychiatric: Yes: Oriented Labs: CBC, BMP 05/13/18 05:15 05/13/18 05:15 INR, PTT INR 1.14 (0.83-1.09) H 05/10/18 11:00 Problem List - Problems (1) PHILL (acute kidney injury) Code(s): N17.9 - ACUTE KIDNEY FAILURE, UNSPECIFIED (2) Atrial fibrillation Code(s): I48.91 - UNSPECIFIED ATRIAL FIBRILLATION Qualifiers: Atrial fibrillation type: chronic Qualified Code(s): I48.2 - Chronic atrial fibrillation (3) GI bleed Code(s): K92.2 - GASTROINTESTINAL HEMORRHAGE, UNSPECIFIED Qualifiers: GI bleed type/associated pathology: melena Qualified Code(s): K92.1 - Melena (4) Gout Code(s): M10.9 - GOUT, UNSPECIFIED (5) HTN (hypertension) Code(s): I10 - ESSENTIAL (PRIMARY) HYPERTENSION Assessment/Plan Current Medications Generic Name Dose Route Start Last Admin Trade Name Jude PRN Reason Stop Dose Admin Acetaminophen 1,000 mg 05/10/18 16:23 05/12/18 05:14 Ofirmev Injection - IVPB 1,000 mg Q6H PRN Administration PAIN OR FEVER Alprazolam 0.25 mg 05/13/18 08:08 05/13/18 08:48 Xanax - PO 0.25 mg Q8H PRN Administration ANXIETY Diltiazem HCl 180 mg 05/12/18 22:00 05/13/18 09:00 Cardizem Cd - PO 180 mg BID [facility] Administration Docusate Sodium 100 mg 05/13/18 08:09 Colace - PO Q8H PRN CONSTIPATION Pantoprazole Sodium 80 mg/ 100 mls @ 10 mls/hr 05/11/18 04:00 05/13/18 06:10 Sodium Chloride IVPB Not Given Q10H IL[facility] 8 MG/HR Ceftriaxone Sodium 2 gm/ 100 mls @ 200 mls/hr 05/11/18 15:00 05/13/18 09:12 Dextrose IVPB 200 mls/hr DAILY [facility] Administration Protocol Metoprolol Tartrate 5 mg 05/11/18 06:12 05/13/18 05:16 Lopressor Injection - IVPUSH 5 mg Q6H PRN Administration TACHYCARDIA (HR OVER 120) Ondansetron HCl 4 mg 05/13/18 08:09 Zofran Odt - SL Q6H PRN NAUSEA AND/OR VOMITING Oxycodone HCl 5 mg 05/13/18 08:09 Roxicodone - PO Q6H PRN PAIN LEVEL 7 - 10 Propranolol HCl 60 mg 05/13/18 14:00 Inderal - PO TID [facility] Impression 1. PHILL 2. a-fib 3. hx pleural effusion 4. HLD 5. CHF 6. HTN 7. Gout 8. gi bleed 9. hyperkalemia 10. lactic acidosis Plan - creatinine continues to improve - pt started on diet - d/c fluids - repeat labs in am Dr Rodríguez
--- NOTE | 2018-05-13 17:25 | PN ---
GI Progress Note Subjective: patient has episodes of rapid afib and persistently SOB, no active bleeding noted - Objective Vital Signs: Vital Signs Temperature 98.4 F 05/13/18 14:00 Pulse Rate 80 05/13/18 16:00 Respiratory Rate 24 H 05/13/18 16:00 Blood Pressure 113/65 05/13/18 16:00 O2 Sat by Pulse Oximetry (%) 97 05/13/18 08:34 Constitutional: Well Nourished Eyes: Yes: Conjunctiva Clear HENT: Yes: Atraumatic Neck: Yes: Supple Cardiovascular: Yes: Pulse Irregular Respiratory: Yes: CTA Bilaterally Genitourinary: Yes: Oliguria Labs: CBC, BMP 05/13/18 05:15 05/13/18 05:15 INR, PTT INR 1.14 (0.83-1.09) H 05/10/18 11:00 Problem List - Problems (1) GI bleed Assessment/Plan: no melena noted but has progressive anemia R>patient is high risk for upper endoscopy, discussed with patient the risk of anesthesia including possibility of intubation post procedure. He would discuss his options with Dr Centeno Code(s): K92.2 - GASTROINTESTINAL HEMORRHAGE, UNSPECIFIED Qualifiers: GI bleed type/associated pathology: melena Qualified Code(s): K92.1 - Melena (2) Osteomyelitis of ankle and foot Code(s): M86.9 - OSTEOMYELITIS, UNSPECIFIED (3) Cellulitis of left foot Code(s): L03.116 - CELLULITIS OF LEFT LOWER LIMB
[2018-05-13] MEDS ORDERED: PT OWN MED DRAWER 7, Y5N ONE (21:21)
[2018-05-14] MEDS: ACETAMINOPHEN 1000 MG/100 ML VIAL (NON FORMULARY) IVPB PRN (01:07)
[2018-05-14] MEDS ORDERED: SODIUM CHLORIDE 500 ML IV STA (01:49)
[2018-05-14] MEDS: PANTOPRAZOLE SODIUM 80 MG in SODIUM CHLORIDE 100 ML IVPB SCH ×3 (02:06→19:47)
--- NOTE | 2018-05-14 02:35 | HOSP ---
Subjective - Review of Symptoms Events since last encounter: Hospitalist Encounter Was notified via microblog that the patient was bradycardic 30s-60, and hypotensive 86/47 and symptomatic. Subjective: Arrived to bedside, patient is asleep but arousable, denies CP, palpitations, dizziness or lightheadedness at present. Assessment: The patient is a 72-year-old male, with a past medical history of HTN, A-fib, CHF, and Gout, who was sent to the ED via EMS for lightheadedness. Admitted for GI Bleed. Plan: Pacer Pads at bedside Gentle Fluid Bolus Continue cardiac monitoring Physical Examination Vital Signs: Vital Signs Temperature 98.9 F 05/13/18 22:00 Pulse Rate 94 H 05/13/18 22:00 Respiratory Rate 25 H 05/13/18 22:00 Blood Pressure 115/73 05/13/18 22:00 O2 Sat by Pulse Oximetry (%) 97 05/13/18 21:00 Constitutional: Yes: Well Nourished, No Distress, Calm Eyes: Yes: WNL, Conjunctiva Clear, EOM Intact, PERRL HENT: Yes: WNL, Atraumatic, Normocephalic Neck: Yes: WNL, Supple, Trachea Midline Cardiovascular: Yes: Bradycardia, Pulse Irregular Respiratory: Yes: CTA Bilaterally, On Nasal O2 Gastrointestinal: Yes: Normal Bowel Sounds, Soft, Abdomen, Obese Edema: No Wound/Incision: Yes: Dressing Dry and Intact (left foot) Neurological: Yes: WNL, Alert, Oriented, Cran Nerves II-XII Intact ...Motor Strength: WNL Psychiatric: Yes: WNL, Alert, Oriented Labs: CBC, BMP 05/13/18 05:15 05/13/18 05:15 Laboratory Results - last 24 hr 05/12/18 05/13/18 05/13/18 05:30 05:15 05:15 WBC 11.8 H Corrected WBC (auto) RBC 2.77 L Hgb 8.4 L Hct 25.4 L MCV 91.9 MCH 30.5 MCHC 33.2 RDW 15.1 Plt Count 233 MPV 7.9 Sodium 140 Potassium 4.6 Chloride 110 H Carbon Dioxide 23 Anion Gap 7 L BUN 17 Creatinine 1.6 H Creat Clearance w eGFR 42.46 Random Glucose 120 H Calcium 7.6 L Phosphorus 3.5 Magnesium 2.0 Random Vancomycin 05/13/18 05:25 WBC Corrected WBC (auto) RBC Hgb Hct MCV MCH MCHC RDW Plt Count MPV Sodium Potassium Chloride Carbon Dioxide Anion Gap BUN Creatinine Creat Clearance w eGFR Random Glucose Calcium Phosphorus Magnesium Random Vancomycin 12.8 L Current Medications Generic Name Dose Route Start Last Admin Trade Name Freq PRN Reason Stop Dose Admin Alprazolam 0.25 mg 05/13/18 08:08 05/13/18 08:48 Xanax - PO 0.25 mg Q8H PRN Administration ANXIETY Diltiazem HCl 180 mg 05/12/18 22:00 05/13/18 21:22 Cardizem Cd - PO 180 mg BID ILYA Administration Docusate Sodium 100 mg 05/13/18 08:09 Colace - PO Q8H PRN CONSTIPATION Pantoprazole Sodium 80 mg/ 100 mls @ 10 mls/hr 05/11/18 04:00 05/14/18 02:06 Sodium Chloride IVPB Not Given Q10H ILYA 8 MG/HR Ceftriaxone Sodium 2 gm/ 100 mls @ 200 mls/hr 05/11/18 15:00 05/13/18 09:12 Dextrose IVPB 200 mls/hr DAILY ILYA Administration Protocol Sodium Chloride 500 mls @ 500 mls/hr 05/14/18 01:49 05/14/18 01:55 Normal Saline - IV 05/14/18 02:48 500 mls/hr ASDIR STA Administration Metoprolol Tartrate 5 mg 05/11/18 06:12 05/13/18 05:16 Lopressor Injection - IVPUSH 5 mg Q6H PRN Administration TACHYCARDIA (HR OVER 120) Ondansetron HCl 4 mg 05/13/18 08:09 Zofran Odt - SL Q6H PRN NAUSEA AND/OR VOMITING Oxycodone HCl 5 mg 05/13/18 08:09 Roxicodone - PO Q6H PRN PAIN LEVEL 7 - 10 Propranolol HCl 60 mg 05/13/18 14:00 05/13/18 21:23 Inderal - PO 60 mg TID ILYA Administration Intake & Output 05/11/18 05/12/18 05/13/18 05/14/18 23:59 23:59 23:59 23:59 Intake Total 1790 3670 1600 Output Total 600 2200 1400 Balance 1190 1470 200
[2018-05-14 06:04] LABS: BASO % 0.3 % (0-2.0); EOS % 2.7 % (0-4.5); HEMATOCRIT 21.9 % (35.4-49); HEMOGLOBIN 7.4 GM/dL (11.7-16.9); MCH 30.6 pg (25.7-33.7); MCHC 33.8 g/dl (32.0-35.9); MEAN CELL VOLUME 90.6 fl (80-96); MEAN PLT VOLUME 7.6 fl (7.5-11.1); MONO % 8.8 % (3.8-10.2); NEUT % 77.2 % (42.8-82.8); PLATELET COUNT 200 K/MM3 (134-434); RBC 2.42 M/mm3 (4.00-5.60); RDW 15.1 % (11.9-15.9); WHITE BLOOD COUNT 12.1 K/mm3 (4.0-10.0)
[2018-05-14 06:36] LABS: ANION GAP 9 MMOL/L (8-16); BLOOD UREA NITROGEN 22 mg/dL (7-18); CHLORIDE 106 mmol/L (98-107); CO2 21 mmol/L (21-32); GLUCOSE,RANDOM 106 mg/dL (74-106); POTASSIUM 4.3 mmol/L (3.5-5.1); SODIUM 135 mmol/L (136-145)
--- NOTE | 2018-05-14 09:10 | PN ---
Progress Note, Physician Chief Complaint: GIB History of Present Illness: hgb down today, very small amt of melena this AM per RN no more tachycardia, HR down into 36-40s range at times overnight. dropped BP to 80s overnight--came up with IVF denies rectal bleeding no palpit, sob, cp no cigs - Current Medication List Current Medications: Active Medications Alprazolam (Xanax -) 0.25 mg PO Q8H PRN PRN Reason: ANXIETY Last Admin: 05/13/18 08:48 Dose: 0.25 mg Docusate Sodium (Colace -) 100 mg PO Q8H PRN PRN Reason: CONSTIPATION Pantoprazole Sodium 80 mg/ (Sodium Chloride) 100 mls @ 10 mls/hr IVPB Q10H [facility] Last Admin: 05/14/18 02:06 Dose: Not Given Ceftriaxone Sodium 2 gm/ (Dextrose) 100 mls @ 200 mls/hr IVPB DAILY [facility]; Protocol Last Admin: 05/13/18 09:12 Dose: 200 mls/hr Metoprolol Tartrate (Lopressor Injection -) 5 mg IVPUSH Q6H PRN PRN Reason: TACHYCARDIA (HR OVER 120) Last Admin: 05/13/18 05:16 Dose: 5 mg Ondansetron HCl (Zofran Odt -) 4 mg SL Q6H PRN PRN Reason: NAUSEA AND/OR VOMITING Oxycodone HCl (Roxicodone -) 5 mg PO Q6H PRN PRN Reason: PAIN LEVEL 7 - 10 Propranolol HCl (Inderal -) 60 mg PO TID [facility] Last Admin: 05/14/18 06:22 Dose: Not Given - Objective Vital Signs: Vital Signs Temperature 99.9 F H 05/14/18 02:00 Pulse Rate 76 05/14/18 08:00 Respiratory Rate 20 05/14/18 08:00 Blood Pressure 117/82 05/14/18 08:00 O2 Sat by Pulse Oximetry (%) 97 05/13/18 21:00 Constitutional: Yes: No Distress, Calm Eyes: No: Sclera Icterus HENT: No: Nasal Congestion Cardiovascular: Yes: Pulse Irregular, S1, S2, Other (PMI non diplaced). No: Gallop, Murmur Respiratory: Yes: CTA Bilaterally. No: Accessory Muscle Use, Rales, Wheezes Gastrointestinal: Yes: Normal Bowel Sounds, Soft. No: Tenderness Musculoskeletal: Yes: Other (No kyphosis) Extremities: No: Cold Edema: No Integumentary: No: Jaundice Neurological: Yes: Alert, Oriented (x3) Psychiatric: No: Agitated Labs: CBC, BMP 05/14/18 05:10 05/14/18 05:10 INR, PTT INR 1.14 (0.83-1.09) H 05/10/18 11:00 Assessment/Plan cxr: clear lungs ecg: afib 120s, nl qtc, nonspec tw chagnes tele: afib with controlled HRs, at times slow conduction to high 30s-40s echo 04/2016: mild lve, nl lvef, mild lae, mild mr, mild-mod tr, mild pr, rvsp 50-60 a/p: 72 m hx htn, hld, dchf, afib, here with lightheadedness. gib: -holding AC for now -GI following -no cardiac contradindications to egd, foc -hgb drifting down 05/14--for transufsions today afib: -tachycardic to 170s hence GI scopes postponed. bp's at times soft to 100 syst. -HR improved signif with po propranolol--continue -BP to 80s at times, HRs to around 40 at times--decr diltiazem CD 180 bid to 120 qd -monitor tele -holding eliquis due to gib hypotension: -transient overnight, improved with IVF -likely med induced (propranolol added to diltiazem)--doses adjusted as above -appears clinically stable/non-toxic; BPs stable today; no signif melenic stool output or acute blood being passed htn: -no signs of active large-volume bleeding ongoing -cont AF meds, observe trend chronic diastolic chf: -vol stable. holding po lasix 2/ npo, gib. kaveh: -improved with ivfs, now worsening -for PRBCs today--monitor trend. low threshold for IVF bolus
[2018-05-14] MEDS ORDERED: DEXTROSE 5%-WATER 100 ML IVPB ONE (09:48)
[2018-05-14] MEDS ORDERED: PT OWN MED DRAWER 7, Y5N ONE ×3 (09:48→21:22)
[2018-05-14] MEDS: CEFTRIAXONE 2 GM in DEXTROSE 5%-WATER 100 ML IVPB SCH (09:50)
--- NOTE | 2018-05-14 10:19 | PN ---
Progress Note, Physician Chief Complaint: IN BED MILD DISTRESS AGREEING TO EGD - Current Medication List Current Medications: Active Medications Alprazolam (Xanax -) 0.25 mg PO Q8H PRN PRN Reason: ANXIETY Last Admin: 05/13/18 08:48 Dose: 0.25 mg Diltiazem HCl (Cardizem Cd -) 120 mg PO BID [facility] Last Admin: 05/14/18 09:50 Dose: 120 mg Docusate Sodium (Colace -) 100 mg PO Q8H PRN PRN Reason: CONSTIPATION Pantoprazole Sodium 80 mg/ (Sodium Chloride) 100 mls @ 10 mls/hr IVPB Q10H [facility] Last Admin: 05/14/18 02:06 Dose: Not Given Ceftriaxone Sodium 2 gm/ (Dextrose) 100 mls @ 200 mls/hr IVPB DAILY [facility]; Protocol Last Admin: 05/14/18 09:50 Dose: 200 mls/hr Metoprolol Tartrate (Lopressor Injection -) 5 mg IVPUSH Q6H PRN PRN Reason: TACHYCARDIA (HR OVER 120) Last Admin: 05/13/18 05:16 Dose: 5 mg Ondansetron HCl (Zofran Odt -) 4 mg SL Q6H PRN PRN Reason: NAUSEA AND/OR VOMITING Oxycodone HCl (Roxicodone -) 5 mg PO Q6H PRN PRN Reason: PAIN LEVEL 7 - 10 Propranolol HCl (Inderal -) 60 mg PO TID [facility] Last Admin: 05/14/18 06:22 Dose: Not Given - Objective Vital Signs: Vital Signs Temperature 99.9 F H 05/14/18 02:00 Pulse Rate 76 05/14/18 08:00 Respiratory Rate 20 05/14/18 08:00 Blood Pressure 117/82 05/14/18 08:00 O2 Sat by Pulse Oximetry (%) 97 05/13/18 21:00 Constitutional: Yes: Mild Distress Eyes: Yes: WNL HENT: Yes: WNL Neck: Yes: WNL Cardiovascular: Yes: Pulse Irregular Respiratory: Yes: WNL Gastrointestinal: Yes: Abdomen, Obese Genitourinary: Yes: WNL Musculoskeletal: Yes: Muscle Weakness Extremities: Yes: Deformity Edema: Yes Peripheral Pulses WNL: Yes Integumentary: Yes: Rash, Venous Stasis Changes Wound/Incision: Yes: Dressing Dry and Intact Neurological: Yes: Pre-Existing Deficit ...Motor Strength: LLE Psychiatric: Yes: WNL Labs: CBC, BMP 05/14/18 05:10 05/14/18 05:10 INR, PTT INR 1.14 (0.83-1.09) H 05/10/18 11:00 Problem List - Problems (1) Atrial fibrillation Code(s): I48.91 - UNSPECIFIED ATRIAL FIBRILLATION Qualifiers: Atrial fibrillation type: chronic Qualified Code(s): I48.2 - Chronic atrial fibrillation (2) GI bleed Code(s): K92.2 - GASTROINTESTINAL HEMORRHAGE, UNSPECIFIED Qualifiers: GI bleed type/associated pathology: melena Qualified Code(s): K92.1 - Melena (3) Bunion of great toe of left foot Code(s): M21.612 - BUNION OF LEFT FOOT (4) Cellulitis of left foot Code(s): L03.116 - CELLULITIS OF LEFT LOWER LIMB (5) Gout Code(s): M10.9 - GOUT, UNSPECIFIED (6) HTN (hypertension) Code(s): I10 - ESSENTIAL (PRIMARY) HYPERTENSION Assessment/Plan TRANSFUSE PRBC 2 UNITS FEVERS, CHECK CULTURES AND CXR/UA INSENTIVE SPIROMETRY ID F/U AGREEING TO EGD WHEN STABLE IV ABX PER ID WOUND CARE LEFT FOOT CELLULITIS
[2018-05-14 12:16] LABS: CALCIUM 6.9 mg/dL (8.5-10.1)
[2018-05-14] MEDS ORDERED: CALCIUM GLUCONATE 10% - 1,000 MG/10 ML VIAL IVPB ONE (13:30)
--- NOTE | 2018-05-14 14:09 | PN ---
Progress Note, Physician History of Present Illness: Pt seen and examined at bedside. He is not tolerating PO intake. He denies shortness of breath. He denies lower ext edema. - Current Medication List Current Medications: Active Medications Acetaminophen (Ofirmev Injection -) 1,000 mg IVPB Q6H PRN PRN Reason: FEVER Alprazolam (Xanax -) 0.25 mg PO Q8H PRN PRN Reason: ANXIETY Last Admin: 05/13/18 08:48 Dose: 0.25 mg Diltiazem HCl (Cardizem Cd -) 120 mg PO DAILY [facility] Docusate Sodium (Colace -) 100 mg PO Q8H PRN PRN Reason: CONSTIPATION Pantoprazole Sodium 80 mg/ (Sodium Chloride) 100 mls @ 10 mls/hr IVPB Q10H [facility] Last Admin: 05/14/18 12:00 Dose: 10 mls/hr Ceftriaxone Sodium 2 gm/ (Dextrose) 100 mls @ 200 mls/hr IVPB DAILY [facility]; Protocol Last Admin: 05/14/18 09:50 Dose: 200 mls/hr Metoprolol Tartrate (Lopressor Injection -) 5 mg IVPUSH Q6H PRN PRN Reason: TACHYCARDIA (HR OVER 120) Last Admin: 05/13/18 05:16 Dose: 5 mg Ondansetron HCl (Zofran Odt -) 4 mg SL Q6H PRN PRN Reason: NAUSEA AND/OR VOMITING Oxycodone HCl (Roxicodone -) 5 mg PO Q6H PRN PRN Reason: PAIN LEVEL 7 - 10 Propranolol HCl (Inderal -) 60 mg PO TID [facility] Last Admin: 05/14/18 13:39 Dose: 60 mg - Objective Vital Signs: Vital Signs Temperature 100.9 F H 05/14/18 13:58 Pulse Rate 97 H 05/14/18 13:58 Respiratory Rate 28 H 05/14/18 12:48 Blood Pressure 122/88 05/14/18 12:48 O2 Sat by Pulse Oximetry (%) 98 05/14/18 09:00 Constitutional: Yes: Calm Eyes: Yes: Conjunctiva Clear HENT: Yes: Atraumatic Cardiovascular: Yes: S1, S2 Respiratory: Yes: CTA Bilaterally, On Nasal O2 Gastrointestinal: Yes: Normal Bowel Sounds, Soft Genitourinary: Yes: WNL Musculoskeletal: Yes: WNL Edema: No Neurological: Yes: Oriented Psychiatric: Yes: Oriented Labs: CBC, BMP 05/14/18 05:10 05/14/18 05:10 INR, PTT INR 1.14 (0.83-1.09) H 05/10/18 11:00 - ....Imaging Chest X-ray: Report Reviewed Problem List - Problems (1) PHILL (acute kidney injury) Code(s): N17.9 - ACUTE KIDNEY FAILURE, UNSPECIFIED (2) Atrial fibrillation Code(s): I48.91 - UNSPECIFIED ATRIAL FIBRILLATION Qualifiers: Atrial fibrillation type: chronic Qualified Code(s): I48.2 - Chronic atrial fibrillation (3) GI bleed Code(s): K92.2 - GASTROINTESTINAL HEMORRHAGE, UNSPECIFIED Qualifiers: GI bleed type/associated pathology: melena Qualified Code(s): K92.1 - Melena (4) Gout Code(s): M10.9 - GOUT, UNSPECIFIED (5) HTN (hypertension) Code(s): I10 - ESSENTIAL (PRIMARY) HYPERTENSION Assessment/Plan Current Medications Generic Name Dose Route Start Last Admin Trade Name Freq PRN Reason Stop Dose Admin Acetaminophen 1,000 mg 05/14/18 13:01 Ofirmev Injection - IVPB Q6H PRN FEVER Alprazolam 0.25 mg 05/13/18 08:08 05/13/18 08:48 Xanax - PO 0.25 mg Q8H PRN Administration ANXIETY Diltiazem HCl 120 mg 05/15/18 10:00 Cardizem Cd - PO DAILY [facility] Docusate Sodium 100 mg 05/13/18 08:09 Colace - PO Q8H PRN CONSTIPATION Pantoprazole Sodium 80 mg/ 100 mls @ 10 mls/hr 05/11/18 04:00 05/14/18 12:00 Sodium Chloride IVPB 10 mls/hr Q10H [facility] Administration 8 MG/HR Ceftriaxone Sodium 2 gm/ 100 mls @ 200 mls/hr 05/11/18 15:00 05/14/18 09:50 Dextrose IVPB 200 mls/hr DAILY [facility] Administration Protocol Metoprolol Tartrate 5 mg 05/11/18 06:12 05/13/18 05:16 Lopressor Injection - IVPUSH 5 mg Q6H PRN Administration TACHYCARDIA (HR OVER 120) Ondansetron HCl 4 mg 05/13/18 08:09 Zofran Odt - SL Q6H PRN NAUSEA AND/OR VOMITING Oxycodone HCl 5 mg 05/13/18 08:09 Roxicodone - PO Q6H PRN PAIN LEVEL 7 - 10 Propranolol HCl 60 mg 05/14/18 10:57 05/14/18 13:39 Inderal - PO 60 mg TID [facility] Administration Impression 1. PHILL 2. a-fib 3. hx pleural effusion 4. HLD 5. CHF 6. HTN 7. Gout 8. gi bleed 9. hyperkalemia 10. lactic acidosis Plan - renal function worse today - hg is lower today and he is getting a prbc transfusion - will restart fluids after he gets prbc - monitor renal function - bladder scan does not show obstruction Dr Rodríguez
[2018-05-14] MEDS ORDERED: SODIUM CHLORIDE 1,000 ML IV SCH (14:15)
--- NOTE | 2018-05-14 14:54 | PN ---
Progress Note (short form) - Note Progress Note: chills and rigors earlier today then fever to 101.1 c/o pain in right ankle alert Vital Signs Period Temp Pulse Resp BP Sys/Lomeli Pulse Ox Last 24 Hr 98.9 F-101.1 F 57-102 20-28 86-123/47-88 97-98 cor-rrr lungs decreased bs at bases abd soft,nt ext left foot ulcer with cheesy white thick drainage- tophus right ankle no erythema, slightly tender to touch CBC, BMP 05/14/18 05:10 05/14/18 05:10 Microbiology 05/10/18 10:56 Blood - Peripheral Venous Blood Culture - Preliminary NO GROWTH OBTAINED AFTER 96 HOURS, INCUBATION TO CONTINUE FOR 1 DAYS. 05/10/18 10:40 Blood - Peripheral Venous Blood Culture - Preliminary NO GROWTH OBTAINED AFTER 96 HOURS, INCUBATION TO CONTINUE FOR 1 DAYS. 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
[2018-05-14] MEDS ORDERED: VANCOMYCIN 1 GM in D5W (PRE-DOCKED) 1,000 MG/250 ML IVPB ONE (14:57)
[2018-05-14 15:52] LABS: URINE APPEARANCE CLEAR; URINE BILIRUBIN NEGATIVE (<2.0 mg/dL); URINE COLOR YELLOW; URINE GLUCOSE (UA) NEGATIVE (NEGATIVE); URINE KETONE NEGATIVE (NEGATIVE); URINE LEUK ESTERASE NEGATIVE (NEGATIVE); URINE NITRITE NEGATIVE (NEGATIVE); URINE PROTEIN 1+ (NEGATIVE); URINE UROBILINOGEN NEGATIVE mg/dL (0.2-1.0)
[2018-05-14] MEDS ORDERED: PIPERACILLIN/TAZOBACTAM 3.375 GM VIAL IVPB ONE (16:00)
[2018-05-14] MEDS ORDERED: DEXTROSE 5%-WATER - 50 ML IVPB ONE (16:00)
[2018-05-14] MEDS: PIPERACILLIN/TAZOB 3.375 GM 3.375 GM in DEXTROSE 5%-WATER - 50 ML IVPB SCH (16:04)
[2018-05-14 16:05] LABS: URINE MUCUS RARE
[2018-05-15] MEDS: PANTOPRAZOLE SODIUM 80 MG in SODIUM CHLORIDE 100 ML IVPB SCH ×4 (00:54→21:29)
[2018-05-15] MEDS ORDERED: DEXTROSE 5%-WATER - 50 ML IVPB ONE ×3 (01:02→18:04)
[2018-05-15] MEDS ORDERED: PIPERACILLIN/TAZOBACTAM 3.375 GM VIAL IVPB ONE ×3 (01:02→18:04)
[2018-05-15] MEDS: PIPERACILLIN/TAZOB 3.375 GM 3.375 GM in DEXTROSE 5%-WATER - 50 ML IVPB SCH ×3 (01:02→18:05)
[2018-05-15] MEDS: ACETAMINOPHEN 1000 MG/100 ML VIAL (NON FORMULARY) IVPB PRN ×2 (03:34→11:31)
[2018-05-15] MEDS ORDERED: PT OWN MED DRAWER 7, Y5N ONE ×2 (06:01→21:23)
[2018-05-15 06:43] LABS: HEMATOCRIT 27.4 % (35.4-49); HEMOGLOBIN 9.4 GM/dL (11.7-16.9); MCH 30.6 pg (25.7-33.7); MCHC 34.5 g/dl (32.0-35.9); MEAN CELL VOLUME 88.8 fl (80-96); MEAN PLT VOLUME 7.9 fl (7.5-11.1); PLATELET COUNT 225 K/MM3 (134-434); RBC 3.08 M/mm3 (4.00-5.60); RDW 14.6 % (11.9-15.9); WHITE BLOOD COUNT 13.7 K/mm3 (4.0-10.0)
[2018-05-15 07:08] LABS: ANION GAP 12 MMOL/L (8-16); BLOOD UREA NITROGEN 25 mg/dL (7-18); CALCIUM 7.2 mg/dL (8.5-10.1); CHLORIDE 104 mmol/L (98-107); CO2 18 mmol/L (21-32); CREATININE 1.8 mg/dL (0.55-1.3); GLUCOSE,RANDOM 100 mg/dL (74-106); SODIUM 134 mmol/L (136-145)
--- NOTE | 2018-05-15 08:43 | PN ---
Progress Note, Physician Chief Complaint: AWAKE ALERT HAD BOWEL MOVEMENT WITH BLOOD OVERNIGHT - Current Medication List Current Medications: Active Medications Acetaminophen (Ofirmev Injection -) 1,000 mg IVPB Q6H PRN PRN Reason: FEVER Last Admin: 05/15/18 03:34 Dose: 1,000 mg Alprazolam (Xanax -) 0.25 mg PO Q8H PRN PRN Reason: ANXIETY Last Admin: 05/13/18 08:48 Dose: 0.25 mg Diltiazem HCl (Cardizem Cd -) 120 mg PO DAILY [facility] Docusate Sodium (Colace -) 100 mg PO Q8H PRN PRN Reason: CONSTIPATION Pantoprazole Sodium 80 mg/ (Sodium Chloride) 100 mls @ 10 mls/hr IVPB Q10H [facility] Last Admin: 05/15/18 06:03 Dose: 10 mls/hr Sodium Chloride (Normal Saline -) 1,000 mls @ 42 mls/hr IV ASDIR [facility] Last Admin: 05/14/18 22:00 Dose: 42 mls/hr Piperacillin Sod/Tazobactam (Sod 3.375 gm/ Dextrose) 50 mls @ 100 mls/hr IVPB Q8H-IV [facility]; Protocol Last Admin: 05/15/18 01:02 Dose: 100 mls/hr Metoprolol Tartrate (Lopressor Injection -) 5 mg IVPUSH Q6H PRN PRN Reason: TACHYCARDIA (HR OVER 120) Last Admin: 05/13/18 05:16 Dose: 5 mg Ondansetron HCl (Zofran Odt -) 4 mg SL Q6H PRN PRN Reason: NAUSEA AND/OR VOMITING Oxycodone HCl (Roxicodone -) 5 mg PO Q6H PRN PRN Reason: PAIN LEVEL 7 - 10 Propranolol HCl (Inderal -) 60 mg PO TID [facility] Last Admin: 05/15/18 06:03 Dose: 60 mg - Objective Vital Signs: Vital Signs Temperature 98.2 F 05/15/18 06:00 Pulse Rate 85 05/15/18 08:00 Respiratory Rate 18 05/15/18 08:00 Blood Pressure 135/83 05/15/18 08:00 O2 Sat by Pulse Oximetry (%) 95 05/15/18 08:35 Constitutional: Yes: Mild Distress Eyes: Yes: WNL HENT: Yes: WNL Neck: Yes: WNL Cardiovascular: Yes: Pulse Irregular Respiratory: Yes: WNL Gastrointestinal: Yes: Abdomen, Obese Genitourinary: Yes: WNL Musculoskeletal: Yes: Joint Stiffness, Joint Swelling Extremities: Yes: Deformity Edema: Yes Peripheral Pulses WNL: Yes Integumentary: Yes: Pressure Ulcer, Other (LEFT FOOT) Neurological: Yes: Pre-Existing Deficit ...Motor Strength: LLE Psychiatric: Yes: WNL Labs: CBC, BMP 05/15/18 05:30 05/15/18 05:30 INR, PTT INR 1.14 (0.83-1.09) H 05/10/18 11:00 Problem List - Problems (1) Atrial fibrillation Code(s): I48.91 - UNSPECIFIED ATRIAL FIBRILLATION Qualifiers: Atrial fibrillation type: chronic Qualified Code(s): I48.2 - Chronic atrial fibrillation (2) GI bleed Code(s): K92.2 - GASTROINTESTINAL HEMORRHAGE, UNSPECIFIED Qualifiers: GI bleed type/associated pathology: melena Qualified Code(s): K92.1 - Melena (3) Bunion of great toe of left foot Code(s): M21.612 - BUNION OF LEFT FOOT (4) Cellulitis of left foot Code(s): L03.116 - CELLULITIS OF LEFT LOWER LIMB (5) Gout Code(s): M10.9 - GOUT, UNSPECIFIED (6) HTN (hypertension) Code(s): I10 - ESSENTIAL (PRIMARY) HYPERTENSION Assessment/Plan TRANSFUSE PRBC 2 UNITS FEVERS, CHECK CULTURES AND CXR/UA INSENTIVE SPIROMETRY ID F/U AGREEING TO EGD WHEN STABLE IV ABX PER ID WOUND CARE LEFT FOOT CELLULITIS RHEUMATOLGY EVAL GOUT
--- NOTE | 2018-05-15 08:57 | PN ---
Progress Note, Physician History of Present Illness: Patient examined and case discussed with Dr. Hendrickson GI FOLLOW UP NOTE Patient examined lying in bed. As per night RN no episodes of melena or hematemesis reported. HR more controlled with HR on exam in 80s. During exam patient noted to be out of breathe while speaking. Current H/H 9.4/27.4. Denies abdominal pain, nausea, vomiting, diarrhea. - Current Medication List Current Medications: Active Medications Acetaminophen (Ofirmev Injection -) 1,000 mg IVPB Q6H PRN PRN Reason: FEVER Last Admin: 05/15/18 03:34 Dose: 1,000 mg Alprazolam (Xanax -) 0.25 mg PO Q8H PRN PRN Reason: ANXIETY Last Admin: 05/13/18 08:48 Dose: 0.25 mg Diltiazem HCl (Cardizem Cd -) 120 mg PO DAILY [facility] Docusate Sodium (Colace -) 100 mg PO Q8H PRN PRN Reason: CONSTIPATION Pantoprazole Sodium 80 mg/ (Sodium Chloride) 100 mls @ 10 mls/hr IVPB Q10H [facility] Last Admin: 05/15/18 06:03 Dose: 10 mls/hr Sodium Chloride (Normal Saline -) 1,000 mls @ 42 mls/hr IV ASDIR [facility] Last Admin: 05/14/18 22:00 Dose: 42 mls/hr Piperacillin Sod/Tazobactam (Sod 3.375 gm/ Dextrose) 50 mls @ 100 mls/hr IVPB Q8H-IV [facility]; Protocol Last Admin: 05/15/18 01:02 Dose: 100 mls/hr Metoprolol Tartrate (Lopressor Injection -) 5 mg IVPUSH Q6H PRN PRN Reason: TACHYCARDIA (HR OVER 120) Last Admin: 05/13/18 05:16 Dose: 5 mg Ondansetron HCl (Zofran Odt -) 4 mg SL Q6H PRN PRN Reason: NAUSEA AND/OR VOMITING Oxycodone HCl (Roxicodone -) 5 mg PO Q6H PRN PRN Reason: PAIN LEVEL 7 - 10 Propranolol HCl (Inderal -) 60 mg PO TID [facility] Last Admin: 05/15/18 06:03 Dose: 60 mg - Objective Vital Signs: Vital Signs Temperature 98.2 F 05/15/18 06:00 Pulse Rate 85 05/15/18 08:00 Respiratory Rate 18 05/15/18 08:00 Blood Pressure 135/83 05/15/18 08:00 O2 Sat by Pulse Oximetry (%) 95 05/15/18 08:35 Constitutional: Yes: Calm, Mild Distress Eyes: Yes: Conjunctiva Clear HENT: Yes: Normocephalic Cardiovascular: Yes: Pulse Irregular Respiratory: Yes: Regular, CTA Bilaterally Gastrointestinal: Yes: Normal Bowel Sounds, Soft, Other (non-tender, mild distention) Musculoskeletal: Yes: Muscle Weakness Neurological: Yes: Alert, Oriented Psychiatric: Yes: Alert, Oriented Labs: CBC, BMP 05/15/18 05:30 05/15/18 05:30 INR, PTT INR 1.14 (0.83-1.09) H 05/10/18 11:00 Laboratory Results - last 24 hr 05/14/18 05/14/18 05/14/18 05:10 11:30 13:30 WBC RBC Hgb Hct MCV MCH MCHC RDW Plt Count MPV Sodium Potassium Chloride Carbon Dioxide Anion Gap BUN Creatinine Creat Clearance w eGFR Random Glucose Lactic Acid 1.9 Calcium 6.9 L* Urine Color Urine Appearance Urine pH Ur Specific [place] Urine Protein Urine Glucose (UA) Urine Ketones Urine Blood Urine Nitrite Urine Bilirubin Urine Urobilinogen Ur Leukocyte Esterase Urine WBC (Auto) Urine RBC (Auto) Urine Mucus Blood Type B POSITIVE Antibody Screen Positive Antibody Identification K Crossmatch See Detail 05/14/18 05/15/18 05/15/18 15:05 05:30 05:30 WBC 13.7 H RBC 3.08 L Hgb 9.4 L Hct 27.4 L D MCV 88.8 MCH 30.6 MCHC 34.5 RDW 14.6 Plt Count 225 MPV 7.9 Sodium 134 L Potassium 4.0 Chloride 104 Carbon Dioxide 18 L Anion Gap 12 BUN 25 H Creatinine 1.8 H Creat Clearance w eGFR 37.07 Random Glucose 100 Lactic Acid Calcium 7.2 L Urine Color Yellow Urine Appearance Clear Urine pH 5.0 D Ur Specific [place] 1.020 Urine Protein 1+ H Urine Glucose (UA) Negative Urine Ketones Negative Urine Blood Negative Urine Nitrite Negative Urine Bilirubin Negative Urine Urobilinogen Negative Ur Leukocyte Esterase Negative Urine WBC (Auto) 1 Urine RBC (Auto) None Urine Mucus Rare Blood Type Antibody Screen Antibody Identification Crossmatch Active Medications Generic Name Dose Route Start Last Admin Trade Name Freq PRN Reason Stop Dose Admin Acetaminophen 1,000 mg 05/14/18 13:01 05/15/18 03:34 Ofirmev Injection - IVPB 1,000 mg Q6H PRN Administration FEVER Alprazolam 0.25 mg 05/13/18 08:08 05/13/18 08:48 Xanax - PO 0.25 mg Q8H PRN Administration ANXIETY Diltiazem HCl 120 mg 05/15/18 10:00 Cardizem Cd - PO DAILY [facility] Docusate Sodium 100 mg 05/13/18 08:09 Colace - PO Q8H PRN CONSTIPATION Pantoprazole Sodium 80 mg/ 100 mls @ 10 mls/hr 05/11/18 04:00 05/15/18 06:03 Sodium Chloride IVPB 10 mls/hr Q10H [facility] Administration 8 MG/HR Sodium Chloride 1,000 mls @ 42 mls/hr 05/14/18 14:15 05/14/18 22:00 Normal Saline - IV 42 mls/hr ASDIR [facility] Administration Piperacillin Sod/Tazobactam 50 mls @ 100 mls/hr 05/14/18 15:00 05/15/18 01:02 Sod 3.375 gm/ Dextrose IVPB 100 mls/hr Q8H-IV [facility] Administration Protocol Metoprolol Tartrate 5 mg 05/11/18 06:12 05/13/18 05:16 Lopressor Injection - IVPUSH 5 mg Q6H PRN Administration TACHYCARDIA (HR OVER 120) Ondansetron HCl 4 mg 05/13/18 08:09 Zofran Odt - SL Q6H PRN NAUSEA AND/OR VOMITING Oxycodone HCl 5 mg 05/13/18 08:09 Roxicodone - PO Q6H PRN PAIN LEVEL 7 - 10 Propranolol HCl 60 mg 05/14/18 10:57 05/15/18 06:03 Inderal - PO 60 mg TID [facility] Administration Problem List - Problems (1) GI bleed Assessment/Plan: -Upper GI series ordered -continue pantoprazole drip -continue with zofran PO prn for nausea -monitor H/H trend Code(s): K92.2 - GASTROINTESTINAL HEMORRHAGE, UNSPECIFIED Qualifiers: GI bleed type/associated pathology: melena
--- NOTE | 2018-05-15 09:12 | PN ---
Progress Note (short form) - Note Progress Note: no further fevers now with right wrist and right ankle pain Vital Signs Period Temp Pulse Resp BP Sys/Lomeli Pulse Ox Last 24 Hr 98 F-101.1 F 74-97 17-28 102-142/55-88 95-98 cor-rrr crackles right lung abd soft,nt ext right wrist and ankle are tender to touch left foot unchanged- +white drainage CBC, BMP 05/15/18 05:30 05/15/18 05:30 Microbiology 05/10/18 10:56 Blood - Peripheral Venous Blood Culture - Preliminary NO GROWTH OBTAINED AFTER 96 HOURS, INCUBATION TO CONTINUE FOR 1 DAYS. 05/10/18 10:40 Blood - Peripheral Venous Blood Culture - Preliminary NO GROWTH OBTAINED AFTER 96 HOURS, INCUBATION TO CONTINUE FOR 1 DAYS. 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
--- NOTE | 2018-05-15 11:23 | PN ---
Progress Note, Physician Chief Complaint: GIB History of Present Illness: chills and shivers this AM. had fever, with CXR dx of PNA--abx started denies cp, palp, sob no cigs - Current Medication List Current Medications: Active Medications Acetaminophen (Ofirmev Injection -) 1,000 mg IVPB Q6H PRN PRN Reason: FEVER Last Admin: 05/15/18 03:34 Dose: 1,000 mg Alprazolam (Xanax -) 0.25 mg PO Q8H PRN PRN Reason: ANXIETY Last Admin: 05/13/18 08:48 Dose: 0.25 mg Diltiazem HCl (Cardizem Cd -) 120 mg PO DAILY [facility] Last Admin: 05/15/18 10:01 Dose: 120 mg Docusate Sodium (Colace -) 100 mg PO Q8H PRN PRN Reason: CONSTIPATION Pantoprazole Sodium 80 mg/ (Sodium Chloride) 100 mls @ 10 mls/hr IVPB Q10H [facility] Last Admin: 05/15/18 06:03 Dose: 10 mls/hr Sodium Chloride (Normal Saline -) 1,000 mls @ 42 mls/hr IV ASDIR [facility] Last Admin: 05/14/18 22:00 Dose: 42 mls/hr Piperacillin Sod/Tazobactam (Sod 3.375 gm/ Dextrose) 50 mls @ 100 mls/hr IVPB Q8H-IV [facility]; Protocol Last Admin: 05/15/18 10:01 Dose: 100 mls/hr Metoprolol Tartrate (Lopressor Injection -) 5 mg IVPUSH Q6H PRN PRN Reason: TACHYCARDIA (HR OVER 120) Last Admin: 05/13/18 05:16 Dose: 5 mg Ondansetron HCl (Zofran Odt -) 4 mg SL Q6H PRN PRN Reason: NAUSEA AND/OR VOMITING Oxycodone HCl (Roxicodone -) 5 mg PO Q6H PRN PRN Reason: PAIN LEVEL 7 - 10 Propranolol HCl (Inderal -) 60 mg PO TID [facility] Last Admin: 05/15/18 06:03 Dose: 60 mg - Objective Vital Signs: Vital Signs Temperature 97.8 F 05/15/18 10:00 Pulse Rate 88 05/15/18 10:00 Respiratory Rate 24 H 05/15/18 10:00 Blood Pressure 120/55 L 05/15/18 10:00 O2 Sat by Pulse Oximetry (%) 95 05/15/18 08:35 Constitutional: Yes: No Distress, Calm Eyes: No: Sclera Icterus HENT: No: Nasal Congestion Cardiovascular: Yes: Pulse Irregular, S1, S2, Other (PMI non diplaced). No: Gallop, Murmur Respiratory: Yes: CTA Bilaterally. No: Accessory Muscle Use, Rales, Wheezes Gastrointestinal: Yes: Normal Bowel Sounds, Soft. No: Tenderness Musculoskeletal: Yes: Other (No kyphosis) Extremities: No: Cold, Cyanosis Edema: No Integumentary: No: Jaundice Neurological: Yes: Alert, Oriented (x3) Psychiatric: No: Agitated Labs: CBC, BMP 05/15/18 05:30 05/15/18 05:30 INR, PTT INR 1.14 (0.83-1.09) H 05/10/18 11:00 Assessment/Plan cxr: clear lungs ecg: afib 120s, nl qtc, nonspec tw chagnes tele: afib with controlled HRs echo 04/2016: mild lve, nl lvef, mild lae, mild mr, mild-mod tr, mild pr, rvsp 50-60 a/p: 72 m hx htn, hld, dchf, afib, here with lightheadedness. gib: -holding AC for now -GI following -no cardiac contradindications to egd, foc -medically optimized from CV standpoint -hgb drifted down 05/14-PRBCs--H/H stable afib: -tachycardic to 170s hence GI scopes postponed. bp's at times soft to 100 syst. -HR controlled with no more chris, bp good no hypotension: cont propranolol 60 TID, diltiazem CD 120 qd -monitor tele -holding eliquis due to gib hypotension, fever/chills, PNA: -likely sec to SIRS with fever/PNA -stable now, tolerating AF med regimen htn: -no signs of active large-volume bleeding ongoing -cont AF meds, observe trend chronic diastolic chf: -vol stable. holding po lasix 2/2 npo, gib. kaveh: -improved with ivfs, now worsening -for PRBCs today--monitor trend. low threshold for IVF bolus
[2018-05-15] MEDS ORDERED: methylPREDNISolone NA SUCC 40 MG/1 ML VIAL IVPB SCH (11:45)
[2018-05-15] MEDS ORDERED: methylPREDNISolone NA SUCC 125 MG/2 ML VIAL ONE (11:47)
--- NOTE | 2018-05-15 11:51 | PN ---
Progress Note (short form) - Note Progress Note: patient spiking fever blood cultures redordered rheum consult posible infected topheous gout PHILL , afib will start solumedrol on iv abx for pneumonia will stop ivf given slight congestin on cxr and renal fucntion is improving
--- NOTE | 2018-05-15 13:03 | CONSULT ---
Consult Consult Specialty:: Rheumatology - History of Present Illness History of Present Illness: 72-year-old male, with a past medical history of HTN, afib, diastolic CHF, chronic kidney disease and gout admitted with pain and drainage tophi from the right 1st toe, episode of lightheadedness and was found to have [place] positive.. Gout. The patient is a poor historian. He has 20 year history of gouty arthritis. At some point he had more than 20 episodes of acute arthritis per year. He was treated for many years with Uloric - it is not clear if he was compliant with the medication and presently he is on Allopurinol and Colchicine PRN. He reports having now 2 episodes of acute arthritis per month. He follows a low purine diet to some extent and he reports he takes Allopurinol, however he cannot remember the dose and on admission he did not have the medication. Since admission he has had pain in the right 1st toe and drainage from a tophi and pain in the right ankle and right wrist, Yesterday he had fever up to 101.1., now it is 99.2. Today he received Solumedrol 40 mg Iv. Work-up in the hospital revealed creatinine of 1.8, initial UA had no blood or protein and yesterday had protein 1+. Uric acid was 8.5. - History Source History Provided By: Patient, Medical Record - Past Medical History Cardio/Vascular: Yes: HTN, Hyperlipdemia, Other (edema) Musculoskeletal: Yes: Osteoarthritis Additional Medical History: gout - Past Surgical History Past Surgical History: Yes: Cataract Removal (b/l), Joint Replacement (right hip replacement X 3), Tonsillectomy - Alcohol/Substance Use Hx Alcohol Use: No History of Substance Use: reports: None - Smoking History Smoking history: Former smoker Have you smoked in the past 12 months: No If you are a former smoker, when did you quit?: 1981 - Social History Usual Living Arrangement: With Spouse 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 Home Medications - Allergies Allergies/Adverse Reactions: Allergies Allergy/AdvReac Type Severity Reaction Status Date / Time No Known Allergies Allergy Verified 04/30/16 01:35 - Home Medications Home Medications: Ambulatory Orders Apixaban [Eliquis] 5 mg PO DAILY 05/10/18 Diltiazem HCl [Cartia Xt] 180 mg PO BID 05/10/18 Furosemide 40 mg PO DAILY 05/10/18 Hydroxyzine HCl 25 mg PO HS 05/10/18 Metoprolol Succinate 25 mg PO DAILY 05/10/18 Sulfamethoxazole/Trimethoprim [Sulfamethoxazole-Tmp Ds Tablet] 1 each PO DAILY 05/10/18 Family Disease History - Family Disease History Family History: Denies (The patient denies family history of gout.) Review of Systems - Review of Systems Constitutional: reports: Malaise Eyes: reports: No Symptoms HENT: reports: No Symptoms Neck: reports: No Symptoms Cardiovascular: reports: Shortness of Breath Respiratory: reports: No Symptoms Gastrointestinal: reports: Melena Genitourinary: reports: No Symptoms Musculoskeletal: reports: Other (See HPI) Physical Exam Vital Signs: Vital Signs Temperature 99.2 F 05/15/18 12:08 Pulse Rate 102 H 05/15/18 12:08 Respiratory Rate 28 H 05/15/18 12:08 Blood Pressure 121/74 05/15/18 12:08 O2 Sat by Pulse Oximetry (%) 96 05/15/18 12:14 Constitutional: Yes: Mild Distress Eyes: Yes: WNL HENT: Yes: WNL Neck: Yes: WNL Cardiovascular: Yes: WNL Respiratory: Yes: WNL Gastrointestinal: Yes: WNL Musculoskeletal: Yes: Other (Tenderness and smalle effusion in the right wrist, tenderness in both ankles and tenderness with drainage from tophi in the right 1st toe.) Labs: CBC, BMP 05/15/18 05:30 05/15/18 05:30 Problem List - Problems (1) Gout Assessment/Plan: Acute polyarticular, tophaceous gouty arthritis. Episode of fever was probably related to acute gouty arthritis. Continue Solumedrol 40 mg IV per day for 2 more days. If no GI contraindication , can switch to Prednisone PO. Then decrease to 20 mg/d for 3 days, 10 mg/d for 3 days then 5 mg/d daily -until stable. In 5 days start Allopurinol 100 mg/ d to be increased in 1 week to 300 mg. I will follow-up as outpatient and adjust dose until Uric acid less than 6 mg/dl. Code(s): M10.9 - GOUT, UNSPECIFIED
--- NOTE | 2018-05-15 13:36 | CON.PULM ---
Consult Consult Specialty:: PULM/CCM Referred by:: ALEX Reason for Consultation:: SOB - History of Present Illness Chief Complaint: SOB History of Present Illness: 72 M, HTN, AFib on Eliquis, CHF, and gout. Initially admitted via the ER due to light headness. He noted having black stools for a few days. Noted to have ARF and was started on IVF resuscitation. During the hospital course being treated for GI Bleed and started on IV PPI. Noted to develop SOB and some dry cough. No hemoptysis. CXR: mild but diffuse increase in pulmonary vascular congestion: Right > left, with possible minimal fluid in the fissure. - History Source History Provided By: Patient Limitations to Obtaining History: No Limitations - Past Medical History Cardio/Vascular: Yes: HTN, Hyperlipdemia, Other (edema) Pulmonary: Yes: Other ((+) snoring and risk for OSAS ). No: Asthma, Bronchitis , O2 Dependent, Pneumonia, Previously Intubated, Pulmonary Embolus, Pulmonary Fibrosis Musculoskeletal: Yes: Osteoarthritis Additional Medical History: gout - Past Surgical History Past Surgical History: Yes: Cataract Removal (b/l), Joint Replacement (right hip replacement X 3), Tonsillectomy - Alcohol/Substance Use Hx Alcohol Use: No History of Substance Use: reports: None - Smoking History Smoking history: Former smoker Have you smoked in the past 12 months: No If you are a former smoker, when did you quit?: 1981 - Social History Usual Living Arrangement: With Spouse 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 Home Medications - Allergies Allergies/Adverse Reactions: Allergies Allergy/AdvReac Type Severity Reaction Status Date / Time No Known Allergies Allergy Verified 04/30/16 01:35 - Home Medications Home Medications: Ambulatory Orders Apixaban [Eliquis] 5 mg PO DAILY 05/10/18 Diltiazem HCl [Cartia Xt] 180 mg PO BID 05/10/18 Furosemide 40 mg PO DAILY 05/10/18 Hydroxyzine HCl 25 mg PO HS 05/10/18 Metoprolol Succinate 25 mg PO DAILY 05/10/18 Sulfamethoxazole/Trimethoprim [Sulfamethoxazole-Tmp Ds Tablet] 1 each PO DAILY 05/10/18 Review of Systems - Review of Systems Constitutional: reports: Chills, Fever, Malaise. denies: Night Sweats, Unintentional Wgt. Loss Eyes: reports: No Symptoms HENT: reports: No Symptoms Neck: reports: No Symptoms Cardiovascular: reports: Edema, Shortness of Breath. denies: Chest Pain, Palpitations Respiratory: reports: Cough, Snoring, SOB, SOB on Exertion. denies: Hemoptysis , Wheezing Gastrointestinal: reports: No Symptoms Genitourinary: reports: No Symptoms Breasts: reports: No Symptoms Reported Musculoskeletal: reports: Extremity Pain, Joint Pain, Joint Swelling, Muscle Pain Integumentary: reports: Blister, Change in Color, Erythema, Pruritis, Rash, Wound Neurological: reports: No Symptoms Endocrine: reports: No Symptoms Hematology/Lymphatic: reports: No Symptoms Psychiatric: reports: No Symptoms Physical Exam Vital Sings: Vital Signs Temperature 99.2 F 05/15/18 12:08 Pulse Rate 102 H 05/15/18 12:08 Respiratory Rate 28 H 05/15/18 12:08 Blood Pressure 121/74 05/15/18 12:08 O2 Sat by Pulse Oximetry (%) 96 05/15/18 12:14 Constitutional: Yes: No Distress, Anxious, Obese Eyes: Yes: Conjunctiva Clear, EOM Intact HENT: Yes: Atraumatic, Normocephalic Neck: Yes: Supple, Trachea Midline Cardiovascular: Yes: Pulse Irregular Respiratory: Yes: Cough, Diminished, On Nasal O2, Rales, Rhonchi, SOB, SOB on Exertion. No: Accessory Muscle Use, On BiPap, Stridor, Tachypnea, Wheezes ...Inspection: Yes: WNL ...Clubbing: No Gastrointestinal: Yes: Normal Bowel Sounds, Soft, Abdomen, Obese Renal/: Yes: WNL Musculoskeletal: Yes: Joint Stiffness, Joint Swelling Extremities: Yes: Cool Edema: Yes Peripheral Pulses WNL: No Integumentary: Yes: Erythema, Other (tophi formation LLE ) Neurological: Yes: WNL, Alert, Oriented ...Motor Strength: WNL Psychiatric: Yes: WNL, Alert, Oriented Labs: CBC, BMP 05/15/18 05:30 05/15/18 05:30 Imaging - Results Chest X-ray: Report Reviewed, Image Reviewed Problem List - Problems (1) Pneumonia Code(s): J18.9 - PNEUMONIA, UNSPECIFIED ORGANISM (2) Pulmonary vascular congestion Code(s): R09.89 - OTH SYMPTOMS AND SIGNS INVOLVING THE CIRC AND RESP SYSTEMS (3) PHILL (acute kidney injury) Code(s): N17.9 - ACUTE KIDNEY FAILURE, UNSPECIFIED (4) Atrial fibrillation Code(s): I48.91 - UNSPECIFIED ATRIAL FIBRILLATION Qualifiers: Atrial fibrillation type: chronic Qualified Code(s): I48.2 - Chronic atrial fibrillation (5) GI bleed Code(s): K92.2 - GASTROINTESTINAL HEMORRHAGE, UNSPECIFIED Qualifiers: GI bleed type/associated pathology: melena Qualified Code(s): K92.1 - Melena (6) Bunion of great toe of left foot Code(s): M21.612 - BUNION OF LEFT FOOT (7) Gout Code(s): M10.9 - GOUT, UNSPECIFIED (8) HTN (hypertension) Code(s): I10 - ESSENTIAL (PRIMARY) HYPERTENSION (9) SOB (shortness of breath) Code(s): R06.02 - SHORTNESS OF BREATH Assessment/Plan ABX per ID Suspect CXR changes more consistent with pulmonary vascular congestion but cannot rule out infiltrates in the RLL O2 as needed D/C IVF for now Solumedrol for gout flair Strict I & O Will repeat CXR in AM Pain control Check urine antigen Check sputum Will follow Thank you. Dr Jovel
--- NOTE | 2018-05-15 15:19 | PN ---
Progress Note, Physician History of Present Illness: Pt seen and examined at bedside. He is awake and alert. He complains of poor PO intake. He denies shortness of breath. He denies dysuria. - Current Medication List Current Medications: Active Medications Acetaminophen (Ofirmev Injection -) 1,000 mg IVPB Q6H PRN PRN Reason: FEVER Last Admin: 05/15/18 11:31 Dose: 1,000 mg Alprazolam (Xanax -) 0.25 mg PO Q8H PRN PRN Reason: ANXIETY Last Admin: 05/13/18 08:48 Dose: 0.25 mg Diltiazem HCl (Cardizem Cd -) 120 mg PO DAILY [facility] Last Admin: 05/15/18 10:01 Dose: 120 mg Docusate Sodium (Colace -) 100 mg PO Q8H PRN PRN Reason: CONSTIPATION Pantoprazole Sodium 80 mg/ (Sodium Chloride) 100 mls @ 10 mls/hr IVPB Q10H [facility] Last Admin: 05/15/18 14:53 Dose: 10 mls/hr Sodium Chloride (Normal Saline -) 1,000 mls @ 42 mls/hr IV ASDIR ILYA Last Admin: 05/14/18 22:00 Dose: 42 mls/hr Piperacillin Sod/Tazobactam (Sod 3.375 gm/ Dextrose) 50 mls @ 100 mls/hr IVPB Q8H-IV ILYA; Protocol Last Admin: 05/15/18 10:01 Dose: 100 mls/hr Methylprednisolone Sodium Succinate (Solu-Medrol -) 40 mg IVPB DAILY [facility] Metoprolol Tartrate (Lopressor Injection -) 5 mg IVPUSH Q6H PRN PRN Reason: TACHYCARDIA (HR OVER 120) Last Admin: 05/13/18 05:16 Dose: 5 mg Ondansetron HCl (Zofran Odt -) 4 mg SL Q6H PRN PRN Reason: NAUSEA AND/OR VOMITING Oxycodone HCl (Roxicodone -) 5 mg PO Q6H PRN PRN Reason: PAIN LEVEL 7 - 10 Propranolol HCl (Inderal -) 60 mg PO TID [facility] Last Admin: 05/15/18 13:29 Dose: 60 mg - Objective Vital Signs: Vital Signs Temperature 98.2 F 05/15/18 14:54 Pulse Rate 81 05/15/18 14:54 Respiratory Rate 20 05/15/18 14:54 Blood Pressure 111/60 05/15/18 14:54 O2 Sat by Pulse Oximetry (%) 96 05/15/18 12:14 Constitutional: Yes: Calm Eyes: Yes: Conjunctiva Clear HENT: Yes: Atraumatic Neck: Yes: Supple Cardiovascular: Yes: S1, S2 Respiratory: Yes: CTA Bilaterally, On Nasal O2 Gastrointestinal: Yes: Soft Genitourinary: Yes: WNL Musculoskeletal: Yes: WNL Edema: No Neurological: Yes: Oriented Psychiatric: Yes: Oriented Labs: CBC, BMP 05/15/18 05:30 05/15/18 05:30 INR, PTT INR 1.14 (0.83-1.09) H 05/10/18 11:00 Problem List - Problems (1) PHILL (acute kidney injury) Code(s): N17.9 - ACUTE KIDNEY FAILURE, UNSPECIFIED (2) Atrial fibrillation Code(s): I48.91 - UNSPECIFIED ATRIAL FIBRILLATION Qualifiers: Atrial fibrillation type: chronic Qualified Code(s): I48.2 - Chronic atrial fibrillation (3) GI bleed Code(s): K92.2 - GASTROINTESTINAL HEMORRHAGE, UNSPECIFIED Qualifiers: GI bleed type/associated pathology: melena Qualified Code(s): K92.1 - Melena (4) Gout Code(s): M10.9 - GOUT, UNSPECIFIED (5) HTN (hypertension) Code(s): I10 - ESSENTIAL (PRIMARY) HYPERTENSION Assessment/Plan Current Medications Generic Name Dose Route Start Last Admin Trade Name Freq PRN Reason Stop Dose Admin Acetaminophen 1,000 mg 05/14/18 13:01 05/15/18 11:31 Ofirmev Injection - IVPB 1,000 mg Q6H PRN Administration FEVER Alprazolam 0.25 mg 05/13/18 08:08 05/13/18 08:48 Xanax - PO 0.25 mg Q8H PRN Administration ANXIETY Diltiazem HCl 120 mg 05/15/18 10:00 05/15/18 10:01 Cardizem Cd - PO 120 mg DAILY ILYA Administration Docusate Sodium 100 mg 05/13/18 08:09 Colace - PO Q8H PRN CONSTIPATION Pantoprazole Sodium 80 mg/ 100 mls @ 10 mls/hr 05/11/18 04:00 05/15/18 14:53 Sodium Chloride IVPB 10 mls/hr Q10H ILYA Administration 8 MG/HR Sodium Chloride 1,000 mls @ 42 mls/hr 05/14/18 14:15 05/14/18 22:00 Normal Saline - IV 42 mls/hr ASDIR ILYA Administration Piperacillin Sod/Tazobactam 50 mls @ 100 mls/hr 05/14/18 15:00 05/15/18 10:01 Sod 3.375 gm/ Dextrose IVPB 100 mls/hr Q8H-IV ILYA Administration Protocol Methylprednisolone Sodium Succinate 40 mg 05/16/18 10:00 Solu-Medrol - IVPB DAILY ILYA Metoprolol Tartrate 5 mg 05/11/18 06:12 05/13/18 05:16 Lopressor Injection - IVPUSH 5 mg Q6H PRN Administration TACHYCARDIA (HR OVER 120) Ondansetron HCl 4 mg 05/13/18 08:09 Zofran Odt - SL Q6H PRN NAUSEA AND/OR VOMITING Oxycodone HCl 5 mg 05/13/18 08:09 Roxicodone - PO Q6H PRN PAIN LEVEL 7 - 10 Propranolol HCl 60 mg 05/14/18 10:57 05/15/18 13:29 Inderal - PO 60 mg TID ILYA Administration Impression 1. PHILL 2. a-fib 3. hx pleural effusion 4. HLD 5. CHF 6. HTN 7. Gout 8. gi bleed 9. hyperkalemia 10. lactic acidosis 11. gout Plan - renal function is improving - rheum input appreciated - repeat bmp in am - monitor hg - pt is voiding Dr Rodríguez
[2018-05-16] MEDS ORDERED: PIPERACILLIN/TAZOBACTAM 3.375 GM VIAL IVPB ONE ×3 (02:11→18:04)
[2018-05-16] MEDS ORDERED: DEXTROSE 5%-WATER - 50 ML IVPB ONE ×3 (02:11→18:04)
[2018-05-16] MEDS: PIPERACILLIN/TAZOB 3.375 GM 3.375 GM in DEXTROSE 5%-WATER - 50 ML IVPB SCH ×3 (02:15→18:51)
[2018-05-16] MEDS ORDERED: PT OWN MED DRAWER 7, Y5N ONE ×4 (03:50→21:48)
[2018-05-16] MEDS: PANTOPRAZOLE SODIUM 80 MG in SODIUM CHLORIDE 100 ML IVPB SCH ×2 (05:17→14:19)
[2018-05-16 05:50] LABS: HEMATOCRIT 27.8 % (35.4-49); HEMOGLOBIN 9.6 GM/dL (11.7-16.9); MCH 30.9 pg (25.7-33.7); MCHC 34.4 g/dl (32.0-35.9); MEAN CELL VOLUME 89.6 fl (80-96); MEAN PLT VOLUME 7.8 fl (7.5-11.1); PLATELET COUNT 239 K/MM3 (134-434); RDW 14.6 % (11.9-15.9); WHITE BLOOD COUNT 12.3 K/mm3 (4.0-10.0)
[2018-05-16 06:16] LABS: ANION GAP 10 MMOL/L (8-16); BLOOD UREA NITROGEN 26 mg/dL (7-18); CALCIUM 7.4 mg/dL (8.5-10.1); CHLORIDE 108 mmol/L (98-107); CO2 18 mmol/L (21-32); CREATININE 1.6 mg/dL (0.55-1.3); GLUCOSE,RANDOM 133 mg/dL (74-106); POTASSIUM 4.2 mmol/L (3.5-5.1); SODIUM 137 mmol/L (136-145)
--- NOTE | 2018-05-16 09:05 | PN ---
GI Progress Note Subjective: Patient states feeling better. No reports of melena or hematemesis. Denies abdominal pain, nausea, vomiting. Current H/H 9.6/27.8 and WBC is trending down from 13.7 to 12.3. Patient spiked temp 100.5F on 05/14/17 and CXR shows congestive changes and patchy airspace opacities in R parahilar region. - Objective Vital Signs: Vital Signs Temperature 97.5 F L 05/16/18 05:31 Pulse Rate 88 05/16/18 05:31 Respiratory Rate 22 H 05/16/18 05:31 Blood Pressure 133/74 05/16/18 05:31 O2 Sat by Pulse Oximetry (%) 96 05/15/18 22:00 Constitutional: Calm, Mild Distress Eyes: Yes: Conjunctiva Clear Neck: Yes: Supple Cardiovascular: Yes: Pulse Irregular Respiratory: Yes: On Nasal O2, Rhonchi Gastrointestinal Inspection: No: WNL, Ascites, Distention, Hernia, Scars, Other ...Auscultate: Yes: Normoactive Bowel Sounds. No: Hyperactive Bowel Sounds, Hypoactive Bowel Sounds, No Bowel Sounds, Other ...Palpate: Yes: Soft. No: Firm/Rigid, Guarding, Hepatomegaly, Mass, Pulsatile Mass, Splenomegaly, Tenderness, Tenderness, Epigastium, Tenderness, Rebound, Other ...Percussion: Yes: Tympanitic. No: Dullness, Fluid Wave, Other Neurological: Yes: Alert, Oriented Labs: CBC, BMP 05/16/18 05:30 05/16/18 05:30 INR, PTT INR 1.14 (0.83-1.09) H 05/10/18 11:00 Active Medications Generic Name Dose Route Start Last Admin Trade Name Freq PRN Reason Stop Dose Admin Acetaminophen 1,000 mg 05/14/18 13:01 05/15/18 11:31 Ofirmev Injection - IVPB 1,000 mg Q6H PRN Administration FEVER Alprazolam 0.25 mg 05/13/18 08:08 05/13/18 08:48 Xanax - PO 0.25 mg Q8H PRN Administration ANXIETY Diltiazem HCl 120 mg 05/15/18 10:00 05/15/18 10:01 Cardizem Cd - PO 120 mg DAILY ILYA Administration Docusate Sodium 100 mg 05/13/18 08:09 Colace - PO Q8H PRN CONSTIPATION Pantoprazole Sodium 80 mg/ 100 mls @ 10 mls/hr 05/11/18 04:00 05/16/18 05:17 Sodium Chloride IVPB 10 mls/hr Q10H ILYA Administration 8 MG/HR Sodium Chloride 1,000 mls @ 42 mls/hr 05/14/18 14:15 05/14/18 22:00 Normal Saline - IV 42 mls/hr ASDIR ILYA Administration Piperacillin Sod/Tazobactam 50 mls @ 100 mls/hr 05/14/18 15:00 05/16/18 02:15 Sod 3.375 gm/ Dextrose IVPB 100 mls/hr Q8H-IV ILYA Administration Protocol Methylprednisolone Sodium Succinate 40 mg 05/16/18 10:00 Solu-Medrol - IVPB DAILY ILYA Metoprolol Tartrate 5 mg 05/11/18 06:12 05/13/18 05:16 Lopressor Injection - IVPUSH 5 mg Q6H PRN Administration TACHYCARDIA (HR OVER 120) Ondansetron HCl 4 mg 05/13/18 08:09 Zofran Odt - SL Q6H PRN NAUSEA AND/OR VOMITING Oxycodone HCl 5 mg 05/13/18 08:09 Roxicodone - PO Q6H PRN PAIN LEVEL 7 - 10 Propranolol HCl 60 mg 05/14/18 10:57 05/16/18 05:18 Inderal - PO 60 mg TID ILYA Administration Problem List - Problems (1) GI bleed Assessment/Plan: no melena noted but has progressive anemia R>patient is high risk for upper endoscopy, discussed with patient the risk of anesthesia including possibility of intubation post procedure. He would discuss his options with Dr Centeno >Patient was scheduled for Upper GI series in place of endoscopy but will hold off until medical condition improves Code(s): K92.2 - GASTROINTESTINAL HEMORRHAGE, UNSPECIFIED Qualifiers: GI bleed type/associated pathology: melena (2) Osteomyelitis of ankle and foot Code(s): M86.9 - OSTEOMYELITIS, UNSPECIFIED (3) Cellulitis of left foot Code(s): L03.116 - CELLULITIS OF LEFT LOWER LIMB
--- NOTE | 2018-05-16 09:09 | PN ---
Progress Note (short form) - Note Progress Note: s: no cp, sob, dizziness, palps Current Medications Acetaminophen (Ofirmev Injection -) 1,000 mg IVPB Q6H PRN PRN Reason: FEVER Last Admin: 05/15/18 11:31 Dose: 1,000 mg Alprazolam (Xanax -) 0.25 mg PO Q8H PRN PRN Reason: ANXIETY Last Admin: 05/13/18 08:48 Dose: 0.25 mg Diltiazem HCl (Cardizem Cd -) 120 mg PO DAILY [facility] Last Admin: 05/15/18 10:01 Dose: 120 mg Docusate Sodium (Colace -) 100 mg PO Q8H PRN PRN Reason: CONSTIPATION Pantoprazole Sodium 80 mg/ (Sodium Chloride) 100 mls @ 10 mls/hr IVPB Q10H [facility] Last Admin: 05/16/18 05:17 Dose: 10 mls/hr Sodium Chloride (Normal Saline -) 1,000 mls @ 42 mls/hr IV ASDIR [facility] Last Admin: 05/14/18 22:00 Dose: 42 mls/hr Piperacillin Sod/Tazobactam (Sod 3.375 gm/ Dextrose) 50 mls @ 100 mls/hr IVPB Q8H-IV ILYA; Protocol Last Admin: 05/16/18 02:15 Dose: 100 mls/hr Methylprednisolone Sodium Succinate (Solu-Medrol -) 40 mg IVPB DAILY [facility] Metoprolol Tartrate (Lopressor Injection -) 5 mg IVPUSH Q6H PRN PRN Reason: TACHYCARDIA (HR OVER 120) Last Admin: 05/13/18 05:16 Dose: 5 mg Ondansetron HCl (Zofran Odt -) 4 mg SL Q6H PRN PRN Reason: NAUSEA AND/OR VOMITING Oxycodone HCl (Roxicodone -) 5 mg PO Q6H PRN PRN Reason: PAIN LEVEL 7 - 10 Propranolol HCl (Inderal -) 60 mg PO TID [facility] Last Admin: 05/16/18 05:18 Dose: 60 mg - Objective Vital Signs Period Temp Pulse Resp BP Sys/Lomeli Pulse Ox Last 24 Hr 97.5 F-99.2 F 81-102 18-28 111-137/60-95 96-99 Constitutional: Yes: No Distress, Calm Eyes: No: Sclera Icterus HENT: No: Nasal Congestion Cardiovascular: Yes: Pulse Irregular, S1, S2, Other (PMI non diplaced). No: Gallop, Murmur Respiratory: Yes: CTA Bilaterally. No: Accessory Muscle Use, Rales, Wheezes Gastrointestinal: Yes: Normal Bowel Sounds, Soft. No: Tenderness Musculoskeletal: Yes: Other (No kyphosis) Extremities: No: Cold, Cyanosis Edema: No Integumentary: No: Jaundice Neurological: Yes: Alert, Oriented (x3) Psychiatric: No: Agitated Assessment/Plan cxr: clear lungs ecg: afib 120s, nl qtc, nonspec tw chagnes tele: afib with controlled HRs echo 04/2016: mild lve, nl lvef, mild lae, mild mr, mild-mod tr, mild pr, rvsp 50-60 a/p: 72 m hx htn, hld, dchf, afib, here with lightheadedness. gib: -holding AC for now -GI following -no cardiac contradindications to egd, foc -medically optimized from CV standpoint -hgb drifted down 05/14-PRBCs--H/H stable afib: -tachycardic to 170s hence GI scopes postponed. bp's at times soft to 100 syst. -HR controlled with no more chris, bp good no hypotension: cont propranolol 60 TID, diltiazem CD 120 qd -monitor tele -holding eliquis due to gib hypotension, fever/chills, PNA: -likely sec to SIRS with fever/PNA -stable now, tolerating AF med regimen htn: -no signs of active large-volume bleeding ongoing -cont AF meds, observe trend chronic diastolic chf: -vol stable on exam, congestion on cxr with no so - holding po lasix 2/2 npo, gib. kaveh: -improving after IVF, PRBC
--- NOTE | 2018-05-16 09:57 | PN ---
Progress Note, Physician History of Present Illness: AWAKE, ALERT NO COMPLAINTS DENIES DYSPNEA/ COUGH NO C/O FOOT PAIN TEMPS DOWN AFEBRILE WBC REMAINS SLIGHTLY ELEVATED BC PENDING AZOTEMIA - Current Medication List Current Medications: Active Medications Acetaminophen (Ofirmev Injection -) 1,000 mg IVPB Q6H PRN PRN Reason: FEVER Last Admin: 05/15/18 11:31 Dose: 1,000 mg Alprazolam (Xanax -) 0.25 mg PO Q8H PRN PRN Reason: ANXIETY Last Admin: 05/13/18 08:48 Dose: 0.25 mg Diltiazem HCl (Cardizem Cd -) 120 mg PO DAILY [facility] Last Admin: 05/15/18 10:01 Dose: 120 mg Docusate Sodium (Colace -) 100 mg PO Q8H PRN PRN Reason: CONSTIPATION Pantoprazole Sodium 80 mg/ (Sodium Chloride) 100 mls @ 10 mls/hr IVPB Q10H [facility] Last Admin: 05/16/18 05:17 Dose: 10 mls/hr Sodium Chloride (Normal Saline -) 1,000 mls @ 42 mls/hr IV ASDIR ILYA Last Admin: 05/14/18 22:00 Dose: 42 mls/hr Piperacillin Sod/Tazobactam (Sod 3.375 gm/ Dextrose) 50 mls @ 100 mls/hr IVPB Q8H-IV ILYA; Protocol Last Admin: 05/16/18 02:15 Dose: 100 mls/hr Methylprednisolone Sodium Succinate (Solu-Medrol -) 40 mg IVPB DAILY [facility] Metoprolol Tartrate (Lopressor Injection -) 5 mg IVPUSH Q6H PRN PRN Reason: TACHYCARDIA (HR OVER 120) Last Admin: 05/13/18 05:16 Dose: 5 mg Ondansetron HCl (Zofran Odt -) 4 mg SL Q6H PRN PRN Reason: NAUSEA AND/OR VOMITING Oxycodone HCl (Roxicodone -) 5 mg PO Q6H PRN PRN Reason: PAIN LEVEL 7 - 10 Propranolol HCl (Inderal -) 60 mg PO TID [facility] Last Admin: 05/16/18 05:18 Dose: 60 mg - Objective Vital Signs: Vital Signs Temperature 97.5 F L 05/16/18 05:31 Pulse Rate 88 05/16/18 05:31 Respiratory Rate 22 H 05/16/18 05:31 Blood Pressure 133/74 05/16/18 05:31 O2 Sat by Pulse Oximetry (%) 96 05/15/18 22:00 Constitutional: Yes: No Distress Eyes: Yes: Conjunctiva Clear Neck: Yes: Trachea Midline Cardiovascular: Yes: Regular Rate and Rhythm, S1, S2 Respiratory: Yes: Other (+ CREPITATIONS BASES BILATERALLY) Gastrointestinal: Yes: Normal Bowel Sounds, Soft. No: Tenderness Extremities: Yes: Other (R WRIST, L ANKLE SWELLING. L FOOT WOUND NO DRAINAGE) Labs: CBC, BMP 05/16/18 05:30 05/16/18 05:30 INR, PTT INR 1.14 (0.83-1.09) H 05/10/18 11:00 Assessment/Plan HCAP INFECTED FOOT ULCER LEUKOCYTOSIS AZOTEMIA AWAIT C/S CONTINUE EMPIRIC ZOSYN LOCAL WOUND CARE
[2018-05-16] MEDS: methylPREDNISolone NA SUCC 40 MG/1 ML VIAL IVPB SCH (10:01)
--- NOTE | 2018-05-16 13:59 | PN ---
Progress Note, Physician History of Present Illness: Pt seen and examined at bedside. He is awake and alert. He denies shortness of breath. He denies dysuria. - Current Medication List Current Medications: Active Medications Acetaminophen (Ofirmev Injection -) 1,000 mg IVPB Q6H PRN PRN Reason: FEVER Last Admin: 05/15/18 11:31 Dose: 1,000 mg Alprazolam (Xanax -) 0.25 mg PO Q8H PRN PRN Reason: ANXIETY Last Admin: 05/13/18 08:48 Dose: 0.25 mg Diltiazem HCl (Cardizem Cd -) 120 mg PO DAILY [facility] Last Admin: 05/16/18 10:01 Dose: 120 mg Docusate Sodium (Colace -) 100 mg PO Q8H PRN PRN Reason: CONSTIPATION Pantoprazole Sodium 80 mg/ (Sodium Chloride) 100 mls @ 10 mls/hr IVPB Q10H [facility] Last Admin: 05/16/18 05:17 Dose: 10 mls/hr Sodium Chloride (Normal Saline -) 1,000 mls @ 42 mls/hr IV ASDIR ILYA Last Admin: 05/14/18 22:00 Dose: 42 mls/hr Piperacillin Sod/Tazobactam (Sod 3.375 gm/ Dextrose) 50 mls @ 100 mls/hr IVPB Q8H-IV ILYA; Protocol Last Admin: 05/16/18 10:01 Dose: 100 mls/hr Methylprednisolone Sodium Succinate (Solu-Medrol -) 40 mg IVPB DAILY [facility] Last Admin: 05/16/18 10:01 Dose: 40 mg Metoprolol Tartrate (Lopressor Injection -) 5 mg IVPUSH Q6H PRN PRN Reason: TACHYCARDIA (HR OVER 120) Last Admin: 05/13/18 05:16 Dose: 5 mg Ondansetron HCl (Zofran Odt -) 4 mg SL Q6H PRN PRN Reason: NAUSEA AND/OR VOMITING Oxycodone HCl (Roxicodone -) 5 mg PO Q6H PRN PRN Reason: PAIN LEVEL 7 - 10 Propranolol HCl (Inderal -) 60 mg PO TID [facility] Last Admin: 05/16/18 05:18 Dose: 60 mg - Objective Vital Signs: Vital Signs Temperature 97.5 F L 05/16/18 05:31 Pulse Rate 79 02/19/19 12:00 Respiratory Rate 20 05/16/18 12:00 Blood Pressure 133/76 05/16/18 12:00 O2 Sat by Pulse Oximetry (%) 99 05/16/18 10:00 Constitutional: Yes: Calm Eyes: Yes: Conjunctiva Clear HENT: Yes: Atraumatic Neck: Yes: Supple Cardiovascular: Yes: S1, S2 Respiratory: Yes: CTA Bilaterally Gastrointestinal: Yes: Normal Bowel Sounds, Soft, Abdomen, Obese Genitourinary: Yes: WNL Musculoskeletal: Yes: WNL Edema: No Neurological: Yes: Oriented Psychiatric: Yes: Oriented Labs: CBC, BMP 05/16/18 05:30 05/16/18 05:30 INR, PTT INR 1.14 (0.83-1.09) H 05/10/18 11:00 Problem List - Problems (1) PHILL (acute kidney injury) Code(s): N17.9 - ACUTE KIDNEY FAILURE, UNSPECIFIED (2) Atrial fibrillation Code(s): I48.91 - UNSPECIFIED ATRIAL FIBRILLATION Qualifiers: Atrial fibrillation type: chronic Qualified Code(s): I48.2 - Chronic atrial fibrillation (3) GI bleed Code(s): K92.2 - GASTROINTESTINAL HEMORRHAGE, UNSPECIFIED Qualifiers: GI bleed type/associated pathology: melena Qualified Code(s): K92.1 - Melena (4) Gout Code(s): M10.9 - GOUT, UNSPECIFIED (5) HTN (hypertension) Code(s): I10 - ESSENTIAL (PRIMARY) HYPERTENSION Assessment/Plan Current Medications Generic Name Dose Route Start Last Admin Trade Name Jude PRN Reason Stop Dose Admin Acetaminophen 1,000 mg 05/14/18 13:01 05/15/18 11:31 Ofirmev Injection - IVPB 1,000 mg Q6H PRN Administration FEVER Alprazolam 0.25 mg 05/13/18 08:08 05/13/18 08:48 Xanax - PO 0.25 mg Q8H PRN Administration ANXIETY Diltiazem HCl 120 mg 05/15/18 10:00 05/16/18 10:01 Cardizem Cd - PO 120 mg DAILY IL[facility] Administration Docusate Sodium 100 mg 05/13/18 08:09 Colace - PO Q8H PRN CONSTIPATION Pantoprazole Sodium 80 mg/ 100 mls @ 10 mls/hr 05/11/18 04:00 05/16/18 05:17 Sodium Chloride IVPB 10 mls/hr Q10H ILYA Administration 8 MG/HR Sodium Chloride 1,000 mls @ 42 mls/hr 05/14/18 14:15 05/14/18 22:00 Normal Saline - IV 42 mls/hr ASDIR ILYA Administration Piperacillin Sod/Tazobactam 50 mls @ 100 mls/hr 05/14/18 15:00 05/16/18 10:01 Sod 3.375 gm/ Dextrose IVPB 100 mls/hr Q8H-IV ILYA Administration Protocol Methylprednisolone Sodium Succinate 40 mg 05/16/18 10:00 05/16/18 10:01 Solu-Medrol - IVPB 40 mg DAILY ILYA Administration Metoprolol Tartrate 5 mg 05/11/18 06:12 05/13/18 05:16 Lopressor Injection - IVPUSH 5 mg Q6H PRN Administration TACHYCARDIA (HR OVER 120) Ondansetron HCl 4 mg 05/13/18 08:09 Zofran Odt - SL Q6H PRN NAUSEA AND/OR VOMITING Oxycodone HCl 5 mg 05/13/18 08:09 Roxicodone - PO Q6H PRN PAIN LEVEL 7 - 10 Propranolol HCl 60 mg 05/14/18 10:57 05/16/18 05:18 Inderal - PO 60 mg TID ILYA Administration Impression 1. PHILL 2. a-fib 3. hx pleural effusion 4. HLD 5. CHF 6. HTN 7. Gout 8. gi bleed 9. hyperkalemia 10. lactic acidosis Plan - renal function is improving - cont to monitor renal function - GI workup in progress - monitor hg - pt is voiding Dr Rodríguez
--- NOTE | 2018-05-16 14:05 | PN ---
Progress Note (short form) - Note Progress Note: FUV wound left foot. Pain improved. vss Tmax 97.5 +gouty arthritis 1st mpj with tophi, +negative bifringent crystals consistent with uric acid, +grade 2 ulcer left, wbc=12.3, uric acid =8.5, -growth on wound c&s, pain gout wound left foot no growth Betadine dressing to left foot wound. Discussed surgery to repair 1st mpj left from bunion and tophi in 1st MPJ medially. Will follow. Relative presents throughout.
--- NOTE | 2018-05-16 14:19 | PN ---
Progress Note (short form) - Note Progress Note: Breathing feels slightly better today. Some dry cough. No CP. CXR: under penetrated, bilateral congestive changes Intake & Output 05/13/18 05/14/18 05/15/18 05/16/18 23:59 23:59 23:59 23:59 Intake Total 1600 1680 3223 320 Output Total 2558 204 0573 400 Balance 555 652 8614 -80 Weight 203 lb 201 lb 9.6 oz Last Vital Signs Temp Pulse Resp BP Pulse Ox 97.5 F L 79 20 133/76 99 05/16/18 05:31 05/16/18 12:00 05/16/18 12:00 05/16/18 12:00 05/16/18 10:00 Active Medications Acetaminophen (Ofirmev Injection -) 1,000 mg IVPB Q6H PRN PRN Reason: FEVER Last Admin: 05/15/18 11:31 Dose: 1,000 mg Alprazolam (Xanax -) 0.25 mg PO Q8H PRN PRN Reason: ANXIETY Last Admin: 05/13/18 08:48 Dose: 0.25 mg Diltiazem HCl (Cardizem Cd -) 120 mg PO DAILY [facility] Last Admin: 05/16/18 10:01 Dose: 120 mg Docusate Sodium (Colace -) 100 mg PO Q8H PRN PRN Reason: CONSTIPATION Pantoprazole Sodium 80 mg/ (Sodium Chloride) 100 mls @ 10 mls/hr IVPB Q10H [facility] Last Admin: 05/16/18 05:17 Dose: 10 mls/hr Sodium Chloride (Normal Saline -) 1,000 mls @ 42 mls/hr IV ASDIR ILYA Last Admin: 05/14/18 22:00 Dose: 42 mls/hr Piperacillin Sod/Tazobactam (Sod 3.375 gm/ Dextrose) 50 mls @ 100 mls/hr IVPB Q8H-IV ILYA; Protocol Last Admin: 05/16/18 10:01 Dose: 100 mls/hr Methylprednisolone Sodium Succinate (Solu-Medrol -) 40 mg IVPB DAILY [facility] Last Admin: 05/16/18 10:01 Dose: 40 mg Metoprolol Tartrate (Lopressor Injection -) 5 mg IVPUSH Q6H PRN PRN Reason: TACHYCARDIA (HR OVER 120) Last Admin: 05/13/18 05:16 Dose: 5 mg Ondansetron HCl (Zofran Odt -) 4 mg SL Q6H PRN PRN Reason: NAUSEA AND/OR VOMITING Oxycodone HCl (Roxicodone -) 5 mg PO Q6H PRN PRN Reason: PAIN LEVEL 7 - 10 Propranolol HCl (Inderal -) 60 mg PO TID [facility] Last Admin: 05/16/18 05:18 Dose: 60 mg Constitutional: Yes: No Distress, Obese Eyes: Yes: Conjunctiva Clear, EOM Intact HENT: Yes: Atraumatic, Normocephalic Neck: Yes: Supple, Trachea Midline Cardiovascular: Yes: Pulse Irregular Respiratory: Yes: Cough, Diminished, On Nasal O2, Rales, Rhonchi, SOB, SOB on Exertion. No: Accessory Muscle Use, On BiPap, Stridor, Tachypnea, Wheezes ...Inspection: Yes: WNL ...Clubbing: No Gastrointestinal: Yes: Normal Bowel Sounds, Soft, Abdomen, Obese Renal/: Yes: WNL Musculoskeletal: Yes: Joint Stiffness, Joint Swelling Extremities: Yes: Cool Edema: Yes Peripheral Pulses WNL: No Integumentary: Yes: Erythema, Other (tophi formation LLE ) Neurological: Yes: WNL, Alert, Oriented ...Motor Strength: WNL Psychiatric: Yes: WNL, Alert, Oriented Labs: Laboratory Results - last 24 hr 05/14/18 05/16/18 05/16/18 11:30 05:30 05:30 WBC 12.3 H RBC 3.10 L Hgb 9.6 L Hct 27.8 L MCV 89.6 MCH 30.9 MCHC 34.4 RDW 14.6 Plt Count 239 MPV 7.8 Sodium Potassium Chloride Carbon Dioxide Anion Gap BUN Creatinine Creat Clearance w eGFR Random Glucose Calcium Random Vancomycin 6.0 L Antibody Identification Anti-K Antigen Identification No Result Required. 05/16/18 05:30 WBC RBC Hgb Hct MCV MCH MCHC RDW Plt Count MPV Sodium 137 Potassium 4.2 Chloride 108 H Carbon Dioxide 18 L Anion Gap 10 BUN 26 H Creatinine 1.6 H Creat Clearance w eGFR 42.46 Random Glucose 133 H Calcium 7.4 L Random Vancomycin Antibody Identification Antigen Identification Problem List - Problems (1) Pneumonia Code(s): J18.9 - PNEUMONIA, UNSPECIFIED ORGANISM (2) Pulmonary vascular congestion Code(s): R09.89 - OTH SYMPTOMS AND SIGNS INVOLVING THE CIRC AND RESP SYSTEMS (3) PHILL (acute kidney injury) Code(s): N17.9 - ACUTE KIDNEY FAILURE, UNSPECIFIED (4) Atrial fibrillation Code(s): I48.91 - UNSPECIFIED ATRIAL FIBRILLATION Qualifiers: Atrial fibrillation type: chronic Qualified Code(s): I48.2 - Chronic atrial fibrillation (5) GI bleed Code(s): K92.2 - GASTROINTESTINAL HEMORRHAGE, UNSPECIFIED Qualifiers: GI bleed type/associated pathology: melena Qualified Code(s): K92.1 - Melena (6) Bunion of great toe of left foot Code(s): M21.612 - BUNION OF LEFT FOOT (7) Gout Code(s): M10.9 - GOUT, UNSPECIFIED (8) HTN (hypertension) Code(s): I10 - ESSENTIAL (PRIMARY) HYPERTENSION (9) SOB (shortness of breath) Code(s): R06.02 - SHORTNESS OF BREATH Assessment/Plan ABX per ID May need diuresis if respiratory status O2 as needed Solumedrol for gout flair Strict I & O Pain control Dr Jovel Problem List - Problems (1) Pneumonia Code(s): J18.9 - PNEUMONIA, UNSPECIFIED ORGANISM (2) Pulmonary vascular congestion Code(s): R09.89 - OTH SYMPTOMS AND SIGNS INVOLVING THE CIRC AND RESP SYSTEMS (3) PHILL (acute kidney injury) Code(s): N17.9 - ACUTE KIDNEY FAILURE, UNSPECIFIED (4) Atrial fibrillation Code(s): I48.91 - UNSPECIFIED ATRIAL FIBRILLATION Qualifiers: Atrial fibrillation type: chronic Qualified Code(s): I48.2 - Chronic atrial fibrillation (5) GI bleed Code(s): K92.2 - GASTROINTESTINAL HEMORRHAGE, UNSPECIFIED Qualifiers: GI bleed type/associated pathology: melena Qualified Code(s): K92.1 - Melena (6) Bunion of great toe of left foot Code(s): M21.612 - BUNION OF LEFT FOOT (7) Gout Code(s): M10.9 - GOUT, UNSPECIFIED (8) HTN (hypertension) Code(s): I10 - ESSENTIAL (PRIMARY) HYPERTENSION (9) SOB (shortness of breath) Code(s): R06.02 - SHORTNESS OF BREATH
--- NOTE | 2018-05-16 16:34 | PN ---
Progress Note, Physician History of Present Illness: Previous notes and events reviewed awake and alert NAD denies chest pain or SOB. - Current Medication List Current Medications: Active Medications Acetaminophen (Ofirmev Injection -) 1,000 mg IVPB Q6H PRN PRN Reason: FEVER Last Admin: 05/15/18 11:31 Dose: 1,000 mg Alprazolam (Xanax -) 0.25 mg PO Q8H PRN PRN Reason: ANXIETY Last Admin: 05/13/18 08:48 Dose: 0.25 mg Diltiazem HCl (Cardizem Cd -) 120 mg PO DAILY [facility] Last Admin: 05/16/18 10:01 Dose: 120 mg Docusate Sodium (Colace -) 100 mg PO Q8H PRN PRN Reason: CONSTIPATION Pantoprazole Sodium 80 mg/ (Sodium Chloride) 100 mls @ 10 mls/hr IVPB Q10H [facility] Last Admin: 05/16/18 14:19 Dose: 10 mls/hr Sodium Chloride (Normal Saline -) 1,000 mls @ 42 mls/hr IV ASDIR ILYA Last Admin: 05/14/18 22:00 Dose: 42 mls/hr Piperacillin Sod/Tazobactam (Sod 3.375 gm/ Dextrose) 50 mls @ 100 mls/hr IVPB Q8H-IV ILYA; Protocol Last Admin: 05/16/18 10:01 Dose: 100 mls/hr Methylprednisolone Sodium Succinate (Solu-Medrol -) 40 mg IVPB DAILY [facility] Last Admin: 05/16/18 10:01 Dose: 40 mg Metoprolol Tartrate (Lopressor Injection -) 5 mg IVPUSH Q6H PRN PRN Reason: TACHYCARDIA (HR OVER 120) Last Admin: 05/13/18 05:16 Dose: 5 mg Ondansetron HCl (Zofran Odt -) 4 mg SL Q6H PRN PRN Reason: NAUSEA AND/OR VOMITING Oxycodone HCl (Roxicodone -) 5 mg PO Q6H PRN PRN Reason: PAIN LEVEL 7 - 10 Propranolol HCl (Inderal -) 60 mg PO TID [facility] Last Admin: 05/16/18 14:19 Dose: 60 mg - Objective Vital Signs: Vital Signs Temperature 97.5 F L 05/16/18 05:31 Pulse Rate 87 05/16/18 16:00 Respiratory Rate 20 02/19/19 16:00 Blood Pressure 156/93 05/16/18 16:00 O2 Sat by Pulse Oximetry (%) 99 05/16/18 10:00 Constitutional: Yes: No Distress, Calm Eyes: Yes: Conjunctiva Clear HENT: Yes: Normocephalic Cardiovascular: Yes: Pulse Irregular Respiratory: Yes: Rhonchi Gastrointestinal: Yes: Normal Bowel Sounds, Soft, Other (nontender) Musculoskeletal: Yes: Muscle Weakness Extremities: Yes: WNL Edema: No Wound/Incision: Yes: Open to air (l foot) Neurological: Yes: Alert, Oriented Psychiatric: Yes: Alert, Oriented Labs: CBC, BMP 05/16/18 05:30 05/16/18 05:30 INR, PTT INR 1.14 (0.83-1.09) H 05/10/18 11:00 Microbiology 05/14/18 13:50 Blood - Peripheral Venous Blood Culture - Preliminary NO GROWTH OBTAINED AFTER 48 HOURS, INCUBATION TO CONTINUE FOR 3 DAYS. 05/14/18 13:20 Blood - Peripheral Venous Blood Culture - Preliminary NO GROWTH OBTAINED AFTER 48 HOURS, INCUBATION TO CONTINUE FOR 3 DAYS. 05/15/18 11:55 Blood - Peripheral Venous Blood Culture - Preliminary NO GROWTH OBTAINED AFTER 24 HOURS, INCUBATION TO CONTINUE FOR 4 DAYS. 05/15/18 12:02 Blood - Peripheral Venous Blood Culture - Preliminary NO GROWTH OBTAINED AFTER 24 HOURS, INCUBATION TO CONTINUE FOR 4 DAYS. 05/14/18 15:05 Urine - Urine Clean Catch Urine Culture - Final NO GROWTH OBTAINED 05/14/18 15:05 Urine For Antigen Detection Legionella Antigen - Final 05/14/18 15:05 Urine For Antigen Detection Streptococcus pneumoniae Antigen (M - Final <Lupe Mcfarlane - Last Filed: 05/17/18 08:37> - Current Medication List Current Medications: Active Medications Acetaminophen (Tylenol -) 650 mg PO Q6H PRN PRN Reason: PAIN SCALE 1-5 Diltiazem HCl (Cardizem Cd -) 180 mg PO DAILY [facility] Last Admin: 05/19/18 10:04 Dose: 180 mg Docusate Sodium (Colace -) 100 mg PO Q8H PRN PRN Reason: CONSTIPATION Pantoprazole Sodium 80 mg/ (Sodium Chloride) 100 mls @ 10 mls/hr IVPB Q10H [facility] Last Admin: 05/19/18 11:26 Dose: 10 mls/hr Piperacillin Sod/Tazobactam (Sod 3.375 gm/ Dextrose) 50 mls @ 100 mls/hr IVPB Q8H-IV [facility]; Protocol Last Admin: 05/19/18 18:20 Dose: 100 mls/hr Methylprednisolone Sodium Succinate (Solu-Medrol -) 40 mg IVPB DAILY [facility] Last Admin: 05/19/18 10:03 Dose: 40 mg Metoprolol Tartrate (Lopressor Injection -) 5 mg IVPUSH Q6H PRN PRN Reason: TACHYCARDIA (HR OVER 120) Last Admin: 05/18/18 00:09 Dose: 5 mg Ondansetron HCl (Zofran Odt -) 4 mg SL Q6H PRN PRN Reason: NAUSEA AND/OR VOMITING Oxycodone HCl (Roxicodone -) 5 mg PO Q6H PRN PRN Reason: PAIN LEVEL 7 - 10 Pancrelipase (Creon Dr 36,000 Units Capsule) 1 cap PO TIDCM [facility] Last Admin: 05/19/18 18:20 Dose: 1 cap Polyethylene Glycol (Miralax (For Daily Use) -) 17 gm PO BID [facility] Last Admin: 05/19/18 22:02 Dose: 17 grams Propranolol HCl (Inderal -) 60 mg PO TID [facility] Last Admin: 05/19/18 22:03 Dose: 60 mg Rifaximin (Xifaxan -) 550 mg PO TID [facility] Last Admin: 05/19/18 22:01 Dose: 550 mg - Objective Vital Signs: Vital Signs Temperature 98.1 F 05/19/18 18:00 Pulse Rate 88 05/19/18 16:26 Respiratory Rate 15 05/19/18 19:59 Blood Pressure 128/65 05/19/18 16:26 O2 Sat by Pulse Oximetry (%) 96 05/19/18 19:59 Labs: CBC, BMP 05/18/18 05:30 05/18/18 05:30 INR, PTT INR 1.14 (0.83-1.09) H 05/10/18 11:00 <Cindy Centeno - Last Filed: 05/19/18 22:26> Problem List - Problems (1) GI bleed Assessment/Plan: -upper GI series when condition improves -continue pantoprazole drip -continue with zofran PO prn for nausea -monitor H/H trend Code(s): K92.2 - GASTROINTESTINAL HEMORRHAGE, UNSPECIFIED Qualifiers: GI bleed type/associated pathology: melena Qualified Code(s): K92.1 - Melena (2) PHILL (acute kidney injury) Assessment/Plan: -current BUN/Cr 26/1.6 -continue to monitor renal function -renal on board Code(s): N17.9 - ACUTE KIDNEY FAILURE, UNSPECIFIED (3) Atrial fibrillation Assessment/Plan: -continue tele monitoring -continue cardizem and propanolol for rate control -cardio on board -eliquis held due to gi bleed Code(s): I48.91 - UNSPECIFIED ATRIAL FIBRILLATION Qualifiers: Atrial fibrillation type: chronic Qualified Code(s): I48.2 - Chronic atrial fibrillation (4) Pneumonia Assessment/Plan: -CXR shows patchy airspace opacities notedin right parahilar region, RLL without effacement of the right heart border or right diaphram- -ID on board -IV zosyn -keep spo2 >90% -O2 via NC prn for SOB Code(s): J18.9 - PNEUMONIA, UNSPECIFIED ORGANISM (5) HTN (hypertension) Assessment/Plan: -cont propanolol and cardizem -Low Na diet Code(s): I10 - ESSENTIAL (PRIMARY) HYPERTENSION (6) Bunion of great toe of left foot Assessment/Plan: -podiatry on board -daily dressing changes Code(s): M21.612 - BUNION OF LEFT FOOT <Lupe Mcfarlane - Last Filed: 05/17/18 08:37> - Problems (1) Atrial fibrillation Code(s): I48.91 - UNSPECIFIED ATRIAL FIBRILLATION Qualifiers: Atrial fibrillation type: chronic Qualified Code(s): I48.2 - Chronic atrial fibrillation (2) GI bleed Code(s): K92.2 - GASTROINTESTINAL HEMORRHAGE, UNSPECIFIED Qualifiers: GI bleed type/associated pathology: melena Qualified Code(s): K92.1 - Melena (3) Bunion of great toe of left foot Code(s): M21.612 - BUNION OF LEFT FOOT (4) Cellulitis of left foot Code(s): L03.116 - CELLULITIS OF LEFT LOWER LIMB (5) Gout Code(s): M10.9 - GOUT, UNSPECIFIED (6) HTN (hypertension) Code(s): I10 - ESSENTIAL (PRIMARY) HYPERTENSION <Cindy Centeno - Last Filed: 05/19/18 22:26>
[2018-05-16] MEDS ORDERED: INSULIN (NOVOLOG MIX 70/30) 100 UNITS/ML MDV SQ ONE (18:05)
[2018-05-17] MEDS ORDERED: PIPERACILLIN/TAZOBACTAM 3.375 GM VIAL IVPB ONE ×3 (01:56→16:08)
[2018-05-17] MEDS ORDERED: DEXTROSE 5%-WATER - 50 ML IVPB ONE ×3 (01:57→16:08)
[2018-05-17] MEDS: PANTOPRAZOLE SODIUM 80 MG in SODIUM CHLORIDE 100 ML IVPB SCH ×2 (02:15→13:25)
[2018-05-17] MEDS: PIPERACILLIN/TAZOB 3.375 GM 3.375 GM in DEXTROSE 5%-WATER - 50 ML IVPB SCH ×3 (02:15→17:48)
[2018-05-17] MEDS ORDERED: PT OWN MED DRAWER 7, Y5N ONE ×4 (05:17→19:49)
--- NOTE | 2018-05-17 08:27 | PN ---
GI Progress Note Subjective: Patient denies abdominal pain, nausea, vomiting, diarrhea. Patient states having regular bowel movements. No reports of melena or hematemesis. Current H /H 9.6/27.8 and WBC trending down currently at 12.3. - Objective Vital Signs: Vital Signs Temperature 98.3 F 05/16/18 20:00 Pulse Rate 90 05/17/18 04:00 Respiratory Rate 05/17/18 04:00 Blood Pressure 149/82 05/17/18 04:00 O2 Sat by Pulse Oximetry (%) 96 05/16/18 20:21 Constitutional: No Distress, Calm Eyes: Yes: Conjunctiva Clear HENT: Yes: Normocephalic Cardiovascular: Yes: Pulse Irregular Respiratory: Yes: Rhonchi Gastrointestinal Inspection: Yes: Distention. No: WNL, Ascites, Hernia, Scars, Other ...Auscultate: Yes: Normoactive Bowel Sounds. No: Hyperactive Bowel Sounds, Hypoactive Bowel Sounds, No Bowel Sounds, Other ...Palpate: Yes: Soft, Other (non tender). No: Firm/Rigid, Guarding, Hepatomegaly, Mass, Pulsatile Mass, Splenomegaly, Tenderness, Tenderness, Epigastium, Tenderness, Rebound ...Percussion: Yes: Other (high tympany) Wound/Incision: Yes: Open to air (left foot) Neurological: Yes: Alert, Oriented Labs: CBC, BMP 05/16/18 05:30 05/16/18 05:30 INR, PTT INR 1.14 (0.83-1.09) H 05/10/18 11:00 Active Medications Generic Name Dose Route Start Last Admin Trade Name Agustinq PRN Reason Stop Dose Admin Acetaminophen 1,000 mg 05/14/18 13:01 05/15/18 11:31 Ofirmev Injection - IVPB 1,000 mg Q6H PRN Administration FEVER Alprazolam 0.25 mg 05/13/18 08:08 05/13/18 08:48 Xanax - PO 0.25 mg Q8H PRN Administration ANXIETY Diltiazem HCl 120 mg 05/15/18 10:00 05/16/18 10:01 Cardizem Cd - PO 120 mg DAILY [facility] Administration Docusate Sodium 100 mg 05/13/18 08:09 Colace - PO Q8H PRN CONSTIPATION Pantoprazole Sodium 80 mg/ 100 mls @ 10 mls/hr 05/11/18 04:00 05/17/18 02:15 Sodium Chloride IVPB 10 mls/hr Q10H [facility] Administration 8 MG/HR Sodium Chloride 1,000 mls @ 42 mls/hr 05/14/18 14:15 05/14/18 22:00 Normal Saline - IV 42 mls/hr ASDIR ILYA Administration Piperacillin Sod/Tazobactam 50 mls @ 100 mls/hr 05/14/18 15:00 05/17/18 02:15 Sod 3.375 gm/ Dextrose IVPB 100 mls/hr Q8H-IV [facility] Administration Protocol Methylprednisolone Sodium Succinate 40 mg 05/16/18 10:00 05/16/18 10:01 Solu-Medrol - IVPB 40 mg DAILY [facility] Administration Metoprolol Tartrate 5 mg 05/11/18 06:12 05/13/18 05:16 Lopressor Injection - IVPUSH 5 mg Q6H PRN Administration TACHYCARDIA (HR OVER 120) Ondansetron HCl 4 mg 05/13/18 08:09 Zofran Odt - SL Q6H PRN NAUSEA AND/OR VOMITING Oxycodone HCl 5 mg 05/13/18 08:09 Roxicodone - PO Q6H PRN PAIN LEVEL 7 - 10 Propranolol HCl 60 mg 05/14/18 10:57 05/17/18 06:05 Inderal - PO 60 mg TID [facility] Administration Problem List - Problems (1) GI bleed Assessment/Plan: no melena noted but has progressive anemia R>patient is high risk for upper endoscopy, discussed with patient the risk of anesthesia including possibility of intubation post procedure. He would discuss his options with Dr Centeno >Patient was scheduled for Upper GI series in place of endoscopy but will hold off until medical condition improves Code(s): K92.2 - GASTROINTESTINAL HEMORRHAGE, UNSPECIFIED Qualifiers: GI bleed type/associated pathology: melena Qualified Code(s): K92.1 - Melena (2) Osteomyelitis of ankle and foot Code(s): M86.9 - OSTEOMYELITIS, UNSPECIFIED (3) Cellulitis of left foot Code(s): L03.116 - CELLULITIS OF LEFT LOWER LIMB (4) Abdominal distension Assessment/Plan: >FUA ---no air fluid levels, no impaction >on oxycodone for pain will add miralax BID to bowel regimen Code(s): R14.0 - ABDOMINAL DISTENSION (GASEOUS)
[2018-05-17] MEDS: methylPREDNISolone NA SUCC 40 MG/1 ML VIAL IVPB SCH (09:10)
[2018-05-17] MEDS: POLYETHYLENE GLYCOL 3350 119 GM BTL PO SCH ×3 (09:13→21:35)
[2018-05-17 09:36] LABS: BASO % 0.1 % (0-2.0); HEMATOCRIT 29.2 % (35.4-49); HEMOGLOBIN 10.2 GM/dL (11.7-16.9); LYMPH % 5.2 % (8-40); MCH 31.7 pg (25.7-33.7); MCHC 34.9 g/dl (32.0-35.9); MEAN CELL VOLUME 90.8 fl (80-96); MEAN PLT VOLUME 7.5 fl (7.5-11.1); MONO % 7.4 % (3.8-10.2); NEUT % 87.3 % (42.8-82.8); PLATELET COUNT 293 K/MM3 (134-434); RBC 3.21 M/mm3 (4.00-5.60); RDW 14.8 % (11.9-15.9); WHITE BLOOD COUNT 11.5 K/mm3 (4.0-10.0)
[2018-05-17 09:56] LABS: ALBUMIN 2.4 g/dl (3.4-5.0); ALK PHOS 107 U/L (45-117); ANION GAP 9 MMOL/L (8-16); BILIRUBIN,TOTAL 0.2 mg/dL (0.2-1); BLOOD UREA NITROGEN 28 mg/dL (7-18); CALCIUM 7.3 mg/dL (8.5-10.1); CHLORIDE 111 mmol/L (98-107); CO2 20 mmol/L (21-32); CREATININE 1.4 mg/dL (0.55-1.3); GLUCOSE,RANDOM 141 mg/dL (74-106); POTASSIUM 4.3 mmol/L (3.5-5.1); SGOT/AST 50 U/L (15-37); SGPT/ALT 58 U/L (13-61); SODIUM 140 mmol/L (136-145); TOT PROT 6.3 g/dl (6.4-8.2)
--- NOTE | 2018-05-17 10:17 | PN ---
Progress Note (short form) - Note Progress Note: s: no cp, sob, dizziness, palps Current Medications Acetaminophen (Ofirmev Injection -) 1,000 mg IVPB Q6H PRN PRN Reason: FEVER Last Admin: 05/15/18 11:31 Dose: 1,000 mg Alprazolam (Xanax -) 0.25 mg PO Q8H PRN PRN Reason: ANXIETY Last Admin: 05/13/18 08:48 Dose: 0.25 mg Diltiazem HCl (Cardizem Cd -) 120 mg PO DAILY [facility] Last Admin: 05/16/18 10:01 Dose: 120 mg Docusate Sodium (Colace -) 100 mg PO Q8H PRN PRN Reason: CONSTIPATION Pantoprazole Sodium 80 mg/ (Sodium Chloride) 100 mls @ 10 mls/hr IVPB Q10H [facility] Last Admin: 05/17/18 02:15 Dose: 10 mls/hr Sodium Chloride (Normal Saline -) 1,000 mls @ 42 mls/hr IV ASDIR [facility] Last Admin: 05/14/18 22:00 Dose: 42 mls/hr Piperacillin Sod/Tazobactam (Sod 3.375 gm/ Dextrose) 50 mls @ 100 mls/hr IVPB Q8H-IV [facility]; Protocol Last Admin: 05/17/18 09:10 Dose: 100 mls/hr Methylprednisolone Sodium Succinate (Solu-Medrol -) 40 mg IVPB DAILY [facility] Last Admin: 05/17/18 09:10 Dose: 40 mg Metoprolol Tartrate (Lopressor Injection -) 5 mg IVPUSH Q6H PRN PRN Reason: TACHYCARDIA (HR OVER 120) Last Admin: 05/13/18 05:16 Dose: 5 mg Ondansetron HCl (Zofran Odt -) 4 mg SL Q6H PRN PRN Reason: NAUSEA AND/OR VOMITING Oxycodone HCl (Roxicodone -) 5 mg PO Q6H PRN PRN Reason: PAIN LEVEL 7 - 10 Polyethylene Glycol (Miralax (For Daily Use) -) 17 gm PO BID [facility] Last Admin: 05/17/18 09:13 Dose: 17 grams Propranolol HCl (Inderal -) 60 mg PO TID [facility] Last Admin: 05/17/18 06:05 Dose: 60 mg - Objective Vital Signs Period Temp Pulse Resp BP Sys/Lomeli Pulse Ox Last 24 Hr 98.3 F 79-101 18-20 122-156/76-105 96-99 Constitutional: Yes: No Distress, Calm Eyes: No: Sclera Icterus HENT: No: Nasal Congestion Cardiovascular: Yes: Pulse Irregular, S1, S2, Other (PMI non diplaced). No: Gallop, Murmur Respiratory: Yes: CTA Bilaterally. No: Accessory Muscle Use, Rales, Wheezes Gastrointestinal: Yes: Normal Bowel Sounds, Soft. No: Tenderness Musculoskeletal: Yes: Other (No kyphosis) Extremities: No: Cold, Cyanosis Edema: No Integumentary: No: Jaundice Neurological: Yes: Alert, Oriented (x3) Psychiatric: No: Agitated Assessment/Plan cxr: clear lungs ecg: afib 120s, nl qtc, nonspec tw chagnes tele: afib with controlled HRs echo 04/2016: mild lve, nl lvef, mild lae, mild mr, mild-mod tr, mild pr, rvsp 50-60 a/p: 72 m hx htn, hld, dchf, afib, here with lightheadedness. gib: -holding AC for now -GI following -no cardiac contradindications to egd, foc -medically optimized from CV standpoint -hgb drifted down 05/14-PRBCs--H/H stable afib: -tachycardic to 170s hence GI scopes postponed. bp's at times soft to 100 syst. -HR controlled with no more chris, bp good no hypotension: cont propranolol 60 TID, diltiazem CD 120 qd -monitor tele -holding eliquis due to gib hypotension, fever/chills, PNA: -likely sec to SIRS with fever/PNA -stable now, tolerating AF med regimen htn: -no signs of active large-volume bleeding ongoing -cont AF meds, observe trend chronic diastolic chf: -vol stable on exam, congestion on cxr with no sob - holding po lasix 2/2 npo, gib. kaveh: -improving after IVF, PRBC
--- NOTE | 2018-05-17 11:04 | PN ---
Progress Note, Physician History of Present Illness: AWAKE, ALERT NO COMPLAINTS DENIES DYSPNEA/ COUGH NO C/O FOOT PAIN TEMPS DOWN AFEBRILE WBC IMPROVED BC NO GROWTH AZOTEMIA IMPROVED - Current Medication List Current Medications: Active Medications Acetaminophen (Ofirmev Injection -) 1,000 mg IVPB Q6H PRN PRN Reason: FEVER Last Admin: 05/15/18 11:31 Dose: 1,000 mg Alprazolam (Xanax -) 0.25 mg PO Q8H PRN PRN Reason: ANXIETY Last Admin: 05/13/18 08:48 Dose: 0.25 mg Diltiazem HCl (Cardizem Cd -) 120 mg PO DAILY [facility] Last Admin: 05/16/18 10:01 Dose: 120 mg Docusate Sodium (Colace -) 100 mg PO Q8H PRN PRN Reason: CONSTIPATION Pantoprazole Sodium 80 mg/ (Sodium Chloride) 100 mls @ 10 mls/hr IVPB Q10H [facility] Last Admin: 05/17/18 02:15 Dose: 10 mls/hr Sodium Chloride (Normal Saline -) 1,000 mls @ 42 mls/hr IV ASDIR [facility] Last Admin: 05/14/18 22:00 Dose: 42 mls/hr Piperacillin Sod/Tazobactam (Sod 3.375 gm/ Dextrose) 50 mls @ 100 mls/hr IVPB Q8H-IV [facility]; Protocol Last Admin: 05/17/18 09:10 Dose: 100 mls/hr Methylprednisolone Sodium Succinate (Solu-Medrol -) 40 mg IVPB DAILY [facility] Last Admin: 05/17/18 09:10 Dose: 40 mg Metoprolol Tartrate (Lopressor Injection -) 5 mg IVPUSH Q6H PRN PRN Reason: TACHYCARDIA (HR OVER 120) Last Admin: 05/13/18 05:16 Dose: 5 mg Ondansetron HCl (Zofran Odt -) 4 mg SL Q6H PRN PRN Reason: NAUSEA AND/OR VOMITING Oxycodone HCl (Roxicodone -) 5 mg PO Q6H PRN PRN Reason: PAIN LEVEL 7 - 10 Polyethylene Glycol (Miralax (For Daily Use) -) 17 gm PO BID [facility] Last Admin: 05/17/18 09:13 Dose: 17 grams Propranolol HCl (Inderal -) 60 mg PO TID [facility] Last Admin: 05/17/18 06:05 Dose: 60 mg - Objective Vital Signs: Vital Signs Temperature 98.3 F 05/16/18 20:00 Pulse Rate 86 05/17/18 08:00 Respiratory Rate 20 05/17/18 08:33 Blood Pressure 153/99 05/17/18 08:00 O2 Sat by Pulse Oximetry (%) 96 05/17/18 08:33 Constitutional: Yes: No Distress Eyes: Yes: Conjunctiva Clear Cardiovascular: Yes: Regular Rate and Rhythm, S1, S2 Respiratory: Yes: Rhonchi Gastrointestinal: Yes: Normal Bowel Sounds, Soft, Abdomen, Obese. No: Tenderness Extremities: Yes: Other (FOOT WOUND NO DRAINAGE) Labs: CBC, BMP 05/17/18 09:00 05/17/18 09:00 INR, PTT INR 1.14 (0.83-1.09) H 05/10/18 11:00 Assessment/Plan HCAP INFECTED FOOT ULCER LEUKOCYTOSIS AZOTEMIA CONTINUE EMPIRIC ZOSYN LOCAL WOUND CARE
--- NOTE | 2018-05-17 11:25 | PN ---
Progress Note (short form) - Note Progress Note: Breathing continues to improve. Some minimal dry cough. No CP. Intake & Output 05/14/18 05/15/18 05/16/18 05/17/18 23:59 23:59 23:59 23:59 Intake Total 1680 3223 1220 220 Output Total 750 1250 800 400 Balance 930 1973 420 -180 Weight 203 lb 201 lb 9.6 oz 201 lb 8 oz Last Vital Signs Temp Pulse Resp BP Pulse Ox 98.3 F 86 20 153/99 96 05/16/18 20:00 05/17/18 08:00 05/17/18 08:33 05/17/18 08:00 05/17/18 08:33 Active Medications Acetaminophen (Ofirmev Injection -) 1,000 mg IVPB Q6H PRN PRN Reason: FEVER Last Admin: 05/15/18 11:31 Dose: 1,000 mg Alprazolam (Xanax -) 0.25 mg PO Q8H PRN PRN Reason: ANXIETY Last Admin: 05/13/18 08:48 Dose: 0.25 mg Diltiazem HCl (Cardizem Cd -) 120 mg PO DAILY [facility] Last Admin: 05/16/18 10:01 Dose: 120 mg Docusate Sodium (Colace -) 100 mg PO Q8H PRN PRN Reason: CONSTIPATION Pantoprazole Sodium 80 mg/ (Sodium Chloride) 100 mls @ 10 mls/hr IVPB Q10H [facility] Last Admin: 05/17/18 02:15 Dose: 10 mls/hr Sodium Chloride (Normal Saline -) 1,000 mls @ 42 mls/hr IV ASDIR [facility] Last Admin: 05/14/18 22:00 Dose: 42 mls/hr Piperacillin Sod/Tazobactam (Sod 3.375 gm/ Dextrose) 50 mls @ 100 mls/hr IVPB Q8H-IV [facility]; Protocol Last Admin: 05/17/18 09:10 Dose: 100 mls/hr Methylprednisolone Sodium Succinate (Solu-Medrol -) 40 mg IVPB DAILY [facility] Last Admin: 05/17/18 09:10 Dose: 40 mg Metoprolol Tartrate (Lopressor Injection -) 5 mg IVPUSH Q6H PRN PRN Reason: TACHYCARDIA (HR OVER 120) Last Admin: 05/13/18 05:16 Dose: 5 mg Ondansetron HCl (Zofran Odt -) 4 mg SL Q6H PRN PRN Reason: NAUSEA AND/OR VOMITING Oxycodone HCl (Roxicodone -) 5 mg PO Q6H PRN PRN Reason: PAIN LEVEL 7 - 10 Polyethylene Glycol (Miralax (For Daily Use) -) 17 gm PO BID [facility] Last Admin: 05/17/18 09:13 Dose: 17 grams Propranolol HCl (Inderal -) 60 mg PO TID [facility] Last Admin: 05/17/18 06:05 Dose: 60 mg Constitutional: Yes: No Distress, Obese Eyes: Yes: Conjunctiva Clear, EOM Intact HENT: Yes: Atraumatic, Normocephalic Neck: Yes: Supple, Trachea Midline Cardiovascular: Yes: Pulse Irregular Respiratory: Yes: Cough, Diminished, On Nasal O2, Rales, Rhonchi. No: Accessory Muscle Use, On BiPap, Stridor, Tachypnea, Wheezes ...Inspection: Yes: WNL ...Clubbing: No Gastrointestinal: Yes: Normal Bowel Sounds, Soft, Abdomen, Obese Renal/: Yes: WNL Musculoskeletal: Yes: Joint Stiffness, Joint Swelling Extremities: Yes: Cool Edema: Yes Peripheral Pulses WNL: No Integumentary: Yes: Erythema, Other (tophi formation LLE ) Neurological: Yes: WNL, Alert, Oriented ...Motor Strength: WNL Psychiatric: Yes: WNL, Alert, Oriented Labs: Laboratory Results - last 24 hr 05/17/18 05/17/18 09:00 09:00 WBC 11.5 H RBC 3.21 L Hgb 10.2 L Hct 29.2 L MCV 90.8 MCH 31.7 MCHC 34.9 RDW 14.8 Plt Count 293 D MPV 7.5 Absolute Neuts (auto) 10.0 H Neutrophils % 87.3 H Lymphocytes % 5.2 L D Monocytes % 7.4 Eosinophils % 0.0 D Basophils % 0.1 Nucleated RBC % 0 Sodium 140 Potassium 4.3 Chloride 111 H Carbon Dioxide 20 L Anion Gap 9 BUN 28 H Creatinine 1.4 H Creat Clearance w eGFR 49.54 Random Glucose 141 H Calcium 7.3 L Total Bilirubin 0.2 AST 50 H ALT 58 Alkaline Phosphatase 107 Total Protein 6.3 L Albumin 2.4 L Problem List - Problems (1) Pneumonia Code(s): J18.9 - PNEUMONIA, UNSPECIFIED ORGANISM (2) Pulmonary vascular congestion Code(s): R09.89 - OTH SYMPTOMS AND SIGNS INVOLVING THE CIRC AND RESP SYSTEMS (3) PHILL (acute kidney injury) Code(s): N17.9 - ACUTE KIDNEY FAILURE, UNSPECIFIED (4) Atrial fibrillation Code(s): I48.91 - UNSPECIFIED ATRIAL FIBRILLATION Qualifiers: Atrial fibrillation type: chronic Qualified Code(s): I48.2 - Chronic atrial fibrillation (5) GI bleed Code(s): K92.2 - GASTROINTESTINAL HEMORRHAGE, UNSPECIFIED Qualifiers: GI bleed type/associated pathology: melena Qualified Code(s): K92.1 - Melena (6) Bunion of great toe of left foot Code(s): M21.612 - BUNION OF LEFT FOOT (7) Gout Code(s): M10.9 - GOUT, UNSPECIFIED (8) HTN (hypertension) Code(s): I10 - ESSENTIAL (PRIMARY) HYPERTENSION (9) SOB (shortness of breath) Code(s): R06.02 - SHORTNESS OF BREATH Assessment/Plan ABX per ID May need diuresis if develops SOB/MILLER O2 as needed Solumedrol for gout flair Strict I & O Pain control Dr Jovel Problem List - Problems (1) Pneumonia Code(s): J18.9 - PNEUMONIA, UNSPECIFIED ORGANISM (2) Pulmonary vascular congestion Code(s): R09.89 - OTH SYMPTOMS AND SIGNS INVOLVING THE CIRC AND RESP SYSTEMS (3) PHILL (acute kidney injury) Code(s): N17.9 - ACUTE KIDNEY FAILURE, UNSPECIFIED (4) Atrial fibrillation Code(s): I48.91 - UNSPECIFIED ATRIAL FIBRILLATION Qualifiers: Atrial fibrillation type: chronic Qualified Code(s): I48.2 - Chronic atrial fibrillation (5) GI bleed Code(s): K92.2 - GASTROINTESTINAL HEMORRHAGE, UNSPECIFIED Qualifiers: GI bleed type/associated pathology: melena Qualified Code(s): K92.1 - Melena (6) Bunion of great toe of left foot Code(s): M21.612 - BUNION OF LEFT FOOT (7) Gout Code(s): M10.9 - GOUT, UNSPECIFIED (8) HTN (hypertension) Code(s): I10 - ESSENTIAL (PRIMARY) HYPERTENSION (9) SOB (shortness of breath) Code(s): R06.02 - SHORTNESS OF BREATH
--- NOTE | 2018-05-17 11:33 | PN ---
Progress Note, Physician - Current Medication List Current Medications: Active Medications Acetaminophen (Ofirmev Injection -) 1,000 mg IVPB Q6H PRN PRN Reason: FEVER Last Admin: 05/15/18 11:31 Dose: 1,000 mg Alprazolam (Xanax -) 0.25 mg PO Q8H PRN PRN Reason: ANXIETY Last Admin: 05/13/18 08:48 Dose: 0.25 mg Diltiazem HCl (Cardizem Cd -) 120 mg PO DAILY [facility] Last Admin: 05/16/18 10:01 Dose: 120 mg Docusate Sodium (Colace -) 100 mg PO Q8H PRN PRN Reason: CONSTIPATION Pantoprazole Sodium 80 mg/ (Sodium Chloride) 100 mls @ 10 mls/hr IVPB Q10H [facility] Last Admin: 05/17/18 02:15 Dose: 10 mls/hr Sodium Chloride (Normal Saline -) 1,000 mls @ 42 mls/hr IV ASDIR [facility] Last Admin: 05/14/18 22:00 Dose: 42 mls/hr Piperacillin Sod/Tazobactam (Sod 3.375 gm/ Dextrose) 50 mls @ 100 mls/hr IVPB Q8H-IV [facility]; Protocol Last Admin: 05/17/18 09:10 Dose: 100 mls/hr Methylprednisolone Sodium Succinate (Solu-Medrol -) 40 mg IVPB DAILY [facility] Last Admin: 05/17/18 09:10 Dose: 40 mg Metoprolol Tartrate (Lopressor Injection -) 5 mg IVPUSH Q6H PRN PRN Reason: TACHYCARDIA (HR OVER 120) Last Admin: 05/13/18 05:16 Dose: 5 mg Ondansetron HCl (Zofran Odt -) 4 mg SL Q6H PRN PRN Reason: NAUSEA AND/OR VOMITING Oxycodone HCl (Roxicodone -) 5 mg PO Q6H PRN PRN Reason: PAIN LEVEL 7 - 10 Polyethylene Glycol (Miralax (For Daily Use) -) 17 gm PO BID [facility] Last Admin: 05/17/18 09:13 Dose: 17 grams Propranolol HCl (Inderal -) 60 mg PO TID [facility] Last Admin: 05/17/18 06:05 Dose: 60 mg - Objective Vital Signs: Vital Signs Temperature 98.3 F 05/16/18 20:00 Pulse Rate 86 02/20/19 08:00 Respiratory Rate 20 05/17/18 08:33 Blood Pressure 153/99 05/17/18 08:00 O2 Sat by Pulse Oximetry (%) 96 05/17/18 08:33 Cardiovascular: Yes: S1, S2 Respiratory: Yes: Regular, CTA Bilaterally Gastrointestinal: Yes: Normal Bowel Sounds, Soft Labs: CBC, BMP 05/17/18 09:00 05/17/18 09:00 INR, PTT INR 1.14 (0.83-1.09) H 05/10/18 11:00 Problem List - Problems (1) Atrial fibrillation Assessment/Plan: -ac on hold till cleared by gi monitor rate Code(s): I48.91 - UNSPECIFIED ATRIAL FIBRILLATION Qualifiers: Atrial fibrillation type: chronic Qualified Code(s): I48.2 - Chronic atrial fibrillation (2) PHILL (acute kidney injury) Assessment/Plan: monitor renal function Code(s): N17.9 - ACUTE KIDNEY FAILURE, UNSPECIFIED (3) GI bleed Assessment/Plan: follow hemoglobin endoscopy per gi Code(s): K92.2 - GASTROINTESTINAL HEMORRHAGE, UNSPECIFIED Qualifiers: GI bleed type/associated pathology: melena Qualified Code(s): K92.1 - Melena (4) Pneumonia Assessment/Plan: -IV abx -ID on board Code(s): J18.9 - PNEUMONIA, UNSPECIFIED ORGANISM (5) Gout Assessment/Plan: -monitor Code(s): M10.9 - GOUT, UNSPECIFIED
--- NOTE | 2018-05-17 12:19 | PN ---
Progress Note, Physician History of Present Illness: Pt seen and examined at bedside. He is awake and alert. He denies shortness of breath. - Current Medication List Current Medications: Active Medications Acetaminophen (Ofirmev Injection -) 1,000 mg IVPB Q6H PRN PRN Reason: FEVER Last Admin: 05/15/18 11:31 Dose: 1,000 mg Alprazolam (Xanax -) 0.25 mg PO Q8H PRN PRN Reason: ANXIETY Last Admin: 05/13/18 08:48 Dose: 0.25 mg Diltiazem HCl (Cardizem Cd -) 120 mg PO DAILY [facility] Last Admin: 05/16/18 10:01 Dose: 120 mg Docusate Sodium (Colace -) 100 mg PO Q8H PRN PRN Reason: CONSTIPATION Pantoprazole Sodium 80 mg/ (Sodium Chloride) 100 mls @ 10 mls/hr IVPB Q10H [facility] Last Admin: 05/17/18 02:15 Dose: 10 mls/hr Sodium Chloride (Normal Saline -) 1,000 mls @ 42 mls/hr IV ASDIR [facility] Last Admin: 05/14/18 22:00 Dose: 42 mls/hr Piperacillin Sod/Tazobactam (Sod 3.375 gm/ Dextrose) 50 mls @ 100 mls/hr IVPB Q8H-IV [facility]; Protocol Last Admin: 05/17/18 09:10 Dose: 100 mls/hr Methylprednisolone Sodium Succinate (Solu-Medrol -) 40 mg IVPB DAILY [facility] Last Admin: 05/17/18 09:10 Dose: 40 mg Metoprolol Tartrate (Lopressor Injection -) 5 mg IVPUSH Q6H PRN PRN Reason: TACHYCARDIA (HR OVER 120) Last Admin: 05/13/18 05:16 Dose: 5 mg Ondansetron HCl (Zofran Odt -) 4 mg SL Q6H PRN PRN Reason: NAUSEA AND/OR VOMITING Oxycodone HCl (Roxicodone -) 5 mg PO Q6H PRN PRN Reason: PAIN LEVEL 7 - 10 Polyethylene Glycol (Miralax (For Daily Use) -) 17 gm PO BID [facility] [place] Last Admin: 05/17/18 09:13 Dose: 17 grams Propranolol HCl (Inderal -) 60 mg PO TID [facility] Last Admin: 05/17/18 06:05 Dose: 60 mg - Objective Vital Signs: Vital Signs Temperature 98.3 F 05/16/18 20:00 Pulse Rate 86 05/17/18 08:00 Respiratory Rate 20 05/17/18 08:33 Blood Pressure 153/99 05/17/18 08:00 O2 Sat by Pulse Oximetry (%) 96 05/17/18 08:33 Constitutional: Yes: Calm Eyes: Yes: Conjunctiva Clear HENT: Yes: Atraumatic Neck: Yes: Supple Cardiovascular: Yes: S1, S2 Respiratory: Yes: CTA Bilaterally Gastrointestinal: Yes: Soft Genitourinary: Yes: WNL Musculoskeletal: Yes: WNL Edema: No Neurological: Yes: Oriented Psychiatric: Yes: Oriented Labs: CBC, BMP 05/17/18 09:00 05/17/18 09:00 INR, PTT INR 1.14 (0.83-1.09) H 05/10/18 11:00 Problem List - Problems (1) PHILL (acute kidney injury) Code(s): N17.9 - ACUTE KIDNEY FAILURE, UNSPECIFIED (2) Atrial fibrillation Code(s): I48.91 - UNSPECIFIED ATRIAL FIBRILLATION Qualifiers: Atrial fibrillation type: chronic Qualified Code(s): I48.2 - Chronic atrial fibrillation (3) GI bleed Code(s): K92.2 - GASTROINTESTINAL HEMORRHAGE, UNSPECIFIED Qualifiers: GI bleed type/associated pathology: melena Qualified Code(s): K92.1 - Melena (4) Gout Code(s): M10.9 - GOUT, UNSPECIFIED (5) HTN (hypertension) Code(s): I10 - ESSENTIAL (PRIMARY) HYPERTENSION Assessment/Plan Current Medications Generic Name Dose Route Start Last Admin Trade Name Freq PRN Reason Stop Dose Admin Acetaminophen 1,000 mg 05/14/18 13:01 05/15/18 11:31 Ofirmev Injection - IVPB 1,000 mg Q6H PRN Administration FEVER Alprazolam 0.25 mg 05/13/18 08:08 05/13/18 08:48 Xanax - PO 0.25 mg Q8H PRN Administration ANXIETY Diltiazem HCl 120 mg 05/15/18 10:00 05/16/18 10:01 Cardizem Cd - PO 120 mg DAILY [facility] Administration Docusate Sodium 100 mg 05/13/18 08:09 Colace - PO Q8H PRN CONSTIPATION Pantoprazole Sodium 80 mg/ 100 mls @ 10 mls/hr 05/11/18 04:00 05/17/18 02:15 Sodium Chloride IVPB 10 mls/hr Q10H [facility] Administration 8 MG/HR Sodium Chloride 1,000 mls @ 42 mls/hr 05/14/18 14:15 05/14/18 22:00 Normal Saline - IV 42 mls/hr ASDIR [facility] Administration Piperacillin Sod/Tazobactam 50 mls @ 100 mls/hr 05/14/18 15:00 05/17/18 09:10 Sod 3.375 gm/ Dextrose IVPB 100 mls/hr Q8H-IV [facility] Administration Protocol Methylprednisolone Sodium Succinate 40 mg 05/16/18 10:00 05/17/18 09:10 Solu-Medrol - IVPB 40 mg DAILY [facility] Administration Metoprolol Tartrate 5 mg 05/11/18 06:12 05/13/18 05:16 Lopressor Injection - IVPUSH 5 mg Q6H PRN Administration TACHYCARDIA (HR OVER 120) Ondansetron HCl 4 mg 05/13/18 08:09 Zofran Odt - SL Q6H PRN NAUSEA AND/OR VOMITING Oxycodone HCl 5 mg 05/13/18 08:09 Roxicodone - PO Q6H PRN PAIN LEVEL 7 - 10 Polyethylene Glycol 17 gm 05/17/18 10:00 05/17/18 09:13 Miralax (For Daily Use) - PO 17 grams BID [facility] Administration Propranolol HCl 60 mg 05/14/18 10:57 05/17/18 06:05 Inderal - PO 60 mg TID [facility] Administration Impression 1. PHILL 2. a-fib 3. hx pleural effusion 4. HLD 5. CHF 6. HTN 7. Gout 8. gi bleed 9. hyperkalemia 10. lactic acidosis Plan - renal function continues to improve - d/c fluids as he is tolerating diet - GI workup in progress - monitor hg - pt is voiding Dr Rodríguez
[2018-05-18] MEDS: METOPROLOL TARTRATE 5 MG/5 ML VIAL IVPUSH PRN (00:09)
[2018-05-18] MEDS ORDERED: DEXTROSE 5%-WATER - 50 ML IVPB ONE ×3 (00:20→17:36)
[2018-05-18] MEDS ORDERED: PIPERACILLIN/TAZOBACTAM 3.375 GM VIAL IVPB ONE ×3 (00:20→17:36)
[2018-05-18] MEDS: PIPERACILLIN/TAZOB 3.375 GM 3.375 GM in DEXTROSE 5%-WATER - 50 ML IVPB SCH ×3 (01:20→17:40)
[2018-05-18] MEDS: PANTOPRAZOLE SODIUM 80 MG in SODIUM CHLORIDE 100 ML IVPB SCH ×3 (02:04→17:41)
[2018-05-18] MEDS ORDERED: PT OWN MED DRAWER 7, Y5N ONE ×4 (06:29→21:20)
[2018-05-18 06:31] LABS: BASO % 0.2 % (0-2.0); HEMATOCRIT 29.9 % (35.4-49); HEMOGLOBIN 10.1 GM/dL (11.7-16.9); LYMPH % 8.3 % (8-40); MCH 30.5 pg (25.7-33.7); MCHC 33.8 g/dl (32.0-35.9); MEAN CELL VOLUME 90.3 fl (80-96); MEAN PLT VOLUME 7.3 fl (7.5-11.1); NEUT % 83.5 % (42.8-82.8); PLATELET COUNT 320 K/MM3 (134-434); RBC 3.31 M/mm3 (4.00-5.60); RDW 14.8 % (11.9-15.9); WHITE BLOOD COUNT 11.1 K/mm3 (4.0-10.0)
[2018-05-18 06:53] LABS: ANION GAP 10 MMOL/L (8-16); BLOOD UREA NITROGEN 27 mg/dL (7-18); CALCIUM 7.2 mg/dL (8.5-10.1); CHLORIDE 108 mmol/L (98-107); CO2 22 mmol/L (21-32); CREATININE 1.3 mg/dL (0.55-1.3); GLUCOSE,RANDOM 126 mg/dL (74-106); POTASSIUM 4.5 mmol/L (3.5-5.1); SODIUM 140 mmol/L (136-145)
--- NOTE | 2018-05-18 08:29 | PN ---
GI Progress Note Subjective: Patient denies abdominal pain, nausea, vomiting. FUA done due to abdominal distention shows groundglass appearance of the abdomen compatible with ascites, abdomen distention, free air not seen, further imaging with CT scan suggested. - Objective Vital Signs: Vital Signs Temperature 97.6 F 05/18/18 02:02 Pulse Rate 89 05/18/18 08:00 Respiratory Rate 18 05/18/18 08:00 Blood Pressure 177/91 H 05/18/18 08:00 O2 Sat by Pulse Oximetry (%) 96 05/17/18 20:34 Constitutional: No Distress, Calm Eyes: Yes: Conjunctiva Clear Cardiovascular: Yes: Pulse Irregular Respiratory: Yes: Rhonchi Gastrointestinal Inspection: Yes: Distention. No: WNL, Ascites, Hernia, Scars, Other ...Auscultate: Yes: Normoactive Bowel Sounds. No: Hyperactive Bowel Sounds, Hypoactive Bowel Sounds, No Bowel Sounds, Other ...Palpate: Yes: Soft, Other (nontender). No: Firm/Rigid, Guarding, Hepatomegaly, Mass, Pulsatile Mass, Splenomegaly, Tenderness, Tenderness, Epigastium, Tenderness, Rebound ...Percussion: Yes: Other (high tympany). No: Dullness, Fluid Wave, Tympanitic Labs: CBC, BMP 05/18/18 05:30 05/18/18 05:30 INR, PTT INR 1.14 (0.83-1.09) H 05/10/18 11:00 Active Medications Generic Name Dose Route Start Last Admin Trade Name Freq PRN Reason Stop Dose Admin Acetaminophen 1,000 mg 05/14/18 13:01 05/15/18 11:31 Ofirmev Injection - IVPB 1,000 mg Q6H PRN Administration FEVER Alprazolam 0.25 mg 05/13/18 08:08 05/13/18 08:48 Xanax - PO 0.25 mg Q8H PRN Administration ANXIETY Diltiazem HCl 120 mg 05/15/18 10:00 05/17/18 13:19 Cardizem Cd - PO 120 mg DAILY [facility] Administration Docusate Sodium 100 mg 05/13/18 08:09 Colace - PO Q8H PRN CONSTIPATION Pantoprazole Sodium 80 mg/ 100 mls @ 10 mls/hr 05/11/18 04:00 05/18/18 06:32 Sodium Chloride IVPB 10 mls/hr Q10H [facility] Administration 8 MG/HR Piperacillin Sod/Tazobactam 50 mls @ 100 mls/hr 05/14/18 15:00 05/18/18 01:20 Sod 3.375 gm/ Dextrose IVPB 100 mls/hr Q8H-IV [facility] Administration Protocol Methylprednisolone Sodium Succinate 40 mg 05/16/18 10:00 05/17/18 09:10 Solu-Medrol - IVPB 40 mg DAILY [facility] Administration Metoprolol Tartrate 5 mg 05/11/18 06:12 05/18/18 00:09 Lopressor Injection - IVPUSH 5 mg Q6H PRN Administration TACHYCARDIA (HR OVER 120) Ondansetron HCl 4 mg 05/13/18 08:09 Zofran Odt - SL Q6H PRN NAUSEA AND/OR VOMITING Oxycodone HCl 5 mg 05/13/18 08:09 Roxicodone - PO Q6H PRN PAIN LEVEL 7 - 10 Polyethylene Glycol 17 gm 05/17/18 10:00 05/17/18 21:35 Miralax (For Daily Use) - PO Not Given BID [facility] Propranolol HCl 60 mg 05/14/18 10:57 05/18/18 06:31 Inderal - PO 60 mg TID [facility] Administration Problem List - Problems (1) GI bleed Assessment/Plan: no melena noted but has progressive anemia R>patient is high risk for upper endoscopy, discussed with patient the risk of anesthesia including possibility of intubation post procedure. He would discuss his options with Dr Centeno >Patient was scheduled for Upper GI series in place of endoscopy but will hold off until medical condition improves Code(s): K92.2 - GASTROINTESTINAL HEMORRHAGE, UNSPECIFIED Qualifiers: GI bleed type/associated pathology: melena Qualified Code(s): K92.1 - Melena (2) Osteomyelitis of ankle and foot Code(s): M86.9 - OSTEOMYELITIS, UNSPECIFIED (3) Cellulitis of left foot Code(s): L03.116 - CELLULITIS OF LEFT LOWER LIMB (4) Abdominal distension Assessment/Plan: >FUA ---no air fluid levels, no impaction >Abdomen and Pelvic CT scan with PO contrast ordered for further imaging >will add xifaxin 550mg TID and creon 36,000 units with meals to med regimen >on oxycodone for pain will add miralax BID to bowel regimen Code(s): R14.0 - ABDOMINAL DISTENSION (GASEOUS)
--- NOTE | 2018-05-18 08:55 | PN ---
Progress Note, Physician - Current Medication List Current Medications: Active Medications Acetaminophen (Ofirmev Injection -) 1,000 mg IVPB Q6H PRN PRN Reason: FEVER Last Admin: 05/15/18 11:31 Dose: 1,000 mg Alprazolam (Xanax -) 0.25 mg PO Q8H PRN PRN Reason: ANXIETY Last Admin: 05/13/18 08:48 Dose: 0.25 mg Diltiazem HCl (Cardizem Cd -) 120 mg PO DAILY [facility] Last Admin: 05/17/18 13:19 Dose: 120 mg Docusate Sodium (Colace -) 100 mg PO Q8H PRN PRN Reason: CONSTIPATION Pantoprazole Sodium 80 mg/ (Sodium Chloride) 100 mls @ 10 mls/hr IVPB Q10H [facility] Last Admin: 05/18/18 06:32 Dose: 10 mls/hr Piperacillin Sod/Tazobactam (Sod 3.375 gm/ Dextrose) 50 mls @ 100 mls/hr IVPB Q8H-IV [facility]; Protocol Last Admin: 05/18/18 01:20 Dose: 100 mls/hr Methylprednisolone Sodium Succinate (Solu-Medrol -) 40 mg IVPB DAILY [facility] Last Admin: 05/17/18 09:10 Dose: 40 mg Metoprolol Tartrate (Lopressor Injection -) 5 mg IVPUSH Q6H PRN PRN Reason: TACHYCARDIA (HR OVER 120) Last Admin: 05/18/18 00:09 Dose: 5 mg Ondansetron HCl (Zofran Odt -) 4 mg SL Q6H PRN PRN Reason: NAUSEA AND/OR VOMITING Oxycodone HCl (Roxicodone -) 5 mg PO Q6H PRN PRN Reason: PAIN LEVEL 7 - 10 Pancrelipase (Creon Dr 36,000 Units Capsule) 1 cap PO TIDCM [facility] Polyethylene Glycol (Miralax (For Daily Use) -) 17 gm PO BID [facility] Last Admin: 05/17/18 21:35 Dose: Not Given Propranolol HCl (Inderal -) 60 mg PO TID [facility] Last Admin: 05/18/18 06:31 Dose: 60 mg Rifaximin (Xifaxan -) 550 mg PO TID [facility] - Objective Vital Signs: Vital Signs Temperature 97.6 F 05/18/18 02:02 Pulse Rate 89 05/18/18 08:00 Respiratory Rate 18 05/18/18 08:00 Blood Pressure 177/91 H 05/18/18 08:00 O2 Sat by Pulse Oximetry (%) 96 05/17/18 20:34 Cardiovascular: Yes: S1, S2 Respiratory: Yes: Regular, CTA Bilaterally Gastrointestinal: Yes: Normal Bowel Sounds, Soft, Distention. No: Tenderness Labs: CBC, BMP 05/18/18 05:30 05/18/18 05:30 INR, PTT INR 1.14 (0.83-1.09) H 05/10/18 11:00 Problem List - Problems (1) Atrial fibrillation Assessment/Plan: -ac on hold till cleared by gi monitor rate d/w gi Code(s): I48.91 - UNSPECIFIED ATRIAL FIBRILLATION Qualifiers: Atrial fibrillation type: chronic Qualified Code(s): I48.2 - Chronic atrial fibrillation (2) PHILL (acute kidney injury) Assessment/Plan: monitor renal function Code(s): N17.9 - ACUTE KIDNEY FAILURE, UNSPECIFIED (3) GI bleed Assessment/Plan: follow hemoglobin endoscopy per gi for ct scan Code(s): K92.2 - GASTROINTESTINAL HEMORRHAGE, UNSPECIFIED Qualifiers: GI bleed type/associated pathology: melena Qualified Code(s): K92.1 - Melena (4) Pneumonia Code(s): J18.9 - PNEUMONIA, UNSPECIFIED ORGANISM (5) Gout Assessment/Plan: -monitor Code(s): M10.9 - GOUT, UNSPECIFIED
[2018-05-18] MEDS: methylPREDNISolone NA SUCC 40 MG/1 ML VIAL IVPB SCH (09:34)
--- NOTE | 2018-05-18 10:47 | PN ---
Progress Note (short form) - Note Progress Note: s: no cp sob palps dizzy o: Vital Signs Period Temp Pulse Resp BP Sys/Lomeli Pulse Ox Last 24 Hr 97.5 F-98 F 86-102 15- 151-177/75-98 96 nad no jvd irreg, s1s2 no mrg cta bl nl eff aao3 no le e/c/c abd nt nd pos bs no jaundice diaphoresis Current Medications Generic Name Dose Route Start Last Admin Trade Name Freq PRN Reason Stop Dose Admin Acetaminophen 1,000 mg 05/14/18 13:01 05/15/18 11:31 Ofirmev Injection - IVPB 1,000 mg Q6H PRN Administration FEVER Alprazolam 0.25 mg 05/13/18 08:08 05/13/18 08:48 Xanax - PO 0.25 mg Q8H PRN Administration ANXIETY Diltiazem HCl 180 mg 05/18/18 10:00 05/18/18 09:34 Cardizem Cd - PO 180 mg DAILY ILYA Administration Docusate Sodium 100 mg 05/13/18 08:09 Colace - PO Q8H PRN CONSTIPATION Pantoprazole Sodium 80 mg/ 100 mls @ 10 mls/hr 05/11/18 04:00 05/18/18 06:32 Sodium Chloride IVPB 10 mls/hr Q10H ILYA Administration 8 MG/HR Piperacillin Sod/Tazobactam 50 mls @ 100 mls/hr 05/14/18 15:00 05/18/18 09:32 Sod 3.375 gm/ Dextrose IVPB 100 mls/hr Q8H-IV ILYA Administration Protocol Methylprednisolone Sodium Succinate 40 mg 05/16/18 10:00 05/18/18 09:34 Solu-Medrol - IVPB 40 mg DAILY ILYA Administration Metoprolol Tartrate 5 mg 05/11/18 06:12 05/18/18 00:09 Lopressor Injection - IVPUSH 5 mg Q6H PRN Administration TACHYCARDIA (HR OVER 120) Ondansetron HCl 4 mg 05/13/18 08:09 Zofran Odt - SL Q6H PRN NAUSEA AND/OR VOMITING Oxycodone HCl 5 mg 05/13/18 08:09 Roxicodone - PO Q6H PRN PAIN LEVEL 7 - 10 Pancrelipase 1 cap 05/18/18 12:00 Pb Thompson 36,000 Units Capsule PO TIDCM ILYA Polyethylene Glycol 17 gm 05/17/18 10:00 05/17/18 21:35 Miralax (For Daily Use) - PO Not Given BID ILYA Propranolol HCl 60 mg 05/14/18 10:57 05/18/18 06:31 Inderal - PO 60 mg TID ILYA Administration Rifaximin 550 mg 05/18/18 14:00 Xifaxan - PO TID ILYA CBC, BMP 05/18/18 05:30 05/18/18 05:30 cxr: clear lungs ecg: afib 120s, nl qtc, nonspec tw chagnes tele: afib with controlled HRs echo 04/2016: mild lve, nl lvef, mild lae, mild mr, mild-mod tr, mild pr, rvsp 50-60 a/p: 72 m hx htn, hld, dchf, afib, here with lightheadedness. gib: -holding AC for now -GI following -no cardiac contradindications to egd, foc -medically optimized from CV standpoint -hgb drifted down 05/14-PRBCs--H/H stable afib: -tachycardic to 170s hence GI scopes postponed. -HR controlled with no more chris, no hypotension: cont propranolol, diltiazem -monitor tele -holding eliquis due to gib hypotension, fever/chills, PNA: -likely sec to SIRS with fever/PNA -stable now, tolerating AF med regimen htn: -no signs of active large-volume bleeding ongoing -bp high today, will increase dilt to 180 chronic diastolic chf: -vol stable on exam, congestion on cxr with no sob - holding po lasix 04/29 npo, gib. kaveh: -improving after IVF, PRBC
--- NOTE | 2018-05-18 10:49 | PN ---
Progress Note (short form) - Note Progress Note: Breathing feels ok. Some minimal dry cough. No CP. Intake & Output 05/15/18 05/16/18 05/17/18 05/18/18 23:59 23:59 23:59 23:59 Intake Total 3223 1220 1900 380 Output Total 1250 358 672 2181 Balance 9362 116 2018 -1170 Weight 203 lb 201 lb 9.6 oz 201 lb 8 oz 198 lb Last Vital Signs Temp Pulse Resp BP Pulse Ox 97.6 F 89 18 177/91 H 96 05/18/18 02:02 05/18/18 08:00 05/18/18 08:00 05/18/18 08:00 05/17/18 20:34 Active Medications Acetaminophen (Ofirmev Injection -) 1,000 mg IVPB Q6H PRN PRN Reason: FEVER Last Admin: 05/15/18 11:31 Dose: 1,000 mg Alprazolam (Xanax -) 0.25 mg PO Q8H PRN PRN Reason: ANXIETY Last Admin: 05/13/18 08:48 Dose: 0.25 mg Diltiazem HCl (Cardizem Cd -) 180 mg PO DAILY ILYA Last Admin: 05/18/18 09:34 Dose: 180 mg Docusate Sodium (Colace -) 100 mg PO Q8H PRN PRN Reason: CONSTIPATION Pantoprazole Sodium 80 mg/ (Sodium Chloride) 100 mls @ 10 mls/hr IVPB Q10H ILYA Last Admin: 05/18/18 06:32 Dose: 10 mls/hr Piperacillin Sod/Tazobactam (Sod 3.375 gm/ Dextrose) 50 mls @ 100 mls/hr IVPB Q8H-IV ILYA; Protocol Last Admin: 05/18/18 09:32 Dose: 100 mls/hr Methylprednisolone Sodium Succinate (Solu-Medrol -) 40 mg IVPB DAILY ILYA Last Admin: 05/18/18 09:34 Dose: 40 mg Metoprolol Tartrate (Lopressor Injection -) 5 mg IVPUSH Q6H PRN PRN Reason: TACHYCARDIA (HR OVER 120) Last Admin: 05/18/18 00:09 Dose: 5 mg Ondansetron HCl (Zofran Odt -) 4 mg SL Q6H PRN PRN Reason: NAUSEA AND/OR VOMITING Oxycodone HCl (Roxicodone -) 5 mg PO Q6H PRN PRN Reason: PAIN LEVEL 7 - 10 Pancrelipase ([place] Dr 36,000 Units Capsule) 1 cap PO TIDCM [facility] Polyethylene Glycol (Miralax (For Daily Use) -) 17 gm PO BID [facility] Last Admin: 05/17/18 21:35 Dose: Not Given Propranolol HCl (Inderal -) 60 mg PO TID [facility] Last Admin: 05/18/18 06:31 Dose: 60 mg Rifaximin (Xifaxan -) 550 mg PO TID [facility] Constitutional: Yes: No Distress, Obese Eyes: Yes: Conjunctiva Clear, EOM Intact HENT: Yes: Atraumatic, Normocephalic Neck: Yes: Supple, Trachea Midline Cardiovascular: Yes: Pulse Irregular Respiratory: Yes: Cough, Diminished, On Nasal O2, Rales, Rhonchi. No: Accessory Muscle Use, On BiPap, Stridor, Tachypnea, Wheezes ...Inspection: Yes: WNL ...Clubbing: No Gastrointestinal: Yes: Normal Bowel Sounds, Soft, Abdomen, Obese Renal/: Yes: WNL Musculoskeletal: Yes: Joint Stiffness, Joint Swelling Extremities: Yes: Cool Edema: Yes Peripheral Pulses WNL: No Integumentary: Yes: Erythema, Other (tophi formation LLE ) Neurological: Yes: WNL, Alert, Oriented ...Motor Strength: WNL Psychiatric: Yes: WNL, Alert, Oriented Labs: Laboratory Results - last 24 hr 05/14/18 05/18/18 05/18/18 11:30 05:30 05:30 WBC 11.1 H RBC 3.31 L Hgb 10.1 L Hct 29.9 L MCV 90.3 MCH 30.5 MCHC 33.8 RDW 14.8 Plt Count 320 MPV 7.3 L Absolute Neuts (auto) 9.3 H Neutrophils % 83.5 H Lymphocytes % 8.3 D Monocytes % 8.0 Eosinophils % 0.0 Basophils % 0.2 Nucleated RBC % 0 Sodium 140 Potassium 4.5 Chloride 108 H Carbon Dioxide 22 Anion Gap 10 BUN 27 H Creatinine 1.3 Creat Clearance w eGFR 53.96 Random Glucose 126 H Calcium 7.2 L Blood Type B POSITIVE Antibody Screen Positive Antibody Identification K Crossmatch See Detail Problem List - Problems (1) Pneumonia Code(s): J18.9 - PNEUMONIA, UNSPECIFIED ORGANISM (2) Pulmonary vascular congestion Code(s): R09.89 - OTH SYMPTOMS AND SIGNS INVOLVING THE CIRC AND RESP SYSTEMS (3) PHILL (acute kidney injury) Code(s): N17.9 - ACUTE KIDNEY FAILURE, UNSPECIFIED (4) Atrial fibrillation Code(s): I48.91 - UNSPECIFIED ATRIAL FIBRILLATION Qualifiers: Atrial fibrillation type: chronic Qualified Code(s): I48.2 - Chronic atrial fibrillation (5) GI bleed Code(s): K92.2 - GASTROINTESTINAL HEMORRHAGE, UNSPECIFIED Qualifiers: GI bleed type/associated pathology: melena Qualified Code(s): K92.1 - Melena (6) Bunion of great toe of left foot Code(s): M21.612 - BUNION OF LEFT FOOT (7) Gout Code(s): M10.9 - GOUT, UNSPECIFIED (8) HTN (hypertension) Code(s): I10 - ESSENTIAL (PRIMARY) HYPERTENSION (9) SOB (shortness of breath) Code(s): R06.02 - SHORTNESS OF BREATH Assessment/Plan ABX per ID May need diuresis if develops SOB/MILLER O2 as needed Solumedrol for gout flair Strict I & O Pain control Dr Jovel Problem List - Problems (1) Pneumonia Code(s): J18.9 - PNEUMONIA, UNSPECIFIED ORGANISM (2) Pulmonary vascular congestion Code(s): R09.89 - OTH SYMPTOMS AND SIGNS INVOLVING THE CIRC AND RESP SYSTEMS (3) PHILL (acute kidney injury) Code(s): N17.9 - ACUTE KIDNEY FAILURE, UNSPECIFIED (4) Atrial fibrillation Code(s): I48.91 - UNSPECIFIED ATRIAL FIBRILLATION Qualifiers: Atrial fibrillation type: chronic Qualified Code(s): I48.2 - Chronic atrial fibrillation (5) GI bleed Code(s): K92.2 - GASTROINTESTINAL HEMORRHAGE, UNSPECIFIED Qualifiers: GI bleed type/associated pathology: melena Qualified Code(s): K92.1 - Melena (6) Bunion of great toe of left foot Code(s): M21.612 - BUNION OF LEFT FOOT (7) Gout Code(s): M10.9 - GOUT, UNSPECIFIED (8) HTN (hypertension) Code(s): I10 - ESSENTIAL (PRIMARY) HYPERTENSION (9) SOB (shortness of breath) Code(s): R06.02 - SHORTNESS OF BREATH
--- NOTE | 2018-05-18 11:28 | PN ---
Progress Note, Physician History of Present Illness: AWAKE, ALERT NO COMPLAINTS DENIES DYSPNEA/ COUGH NO C/O FOOT PAIN TEMPS DOWN AFEBRILE WBC IMPROVED BC NO GROWTH AZOTEMIA IMPROVED - Current Medication List Current Medications: Active Medications Acetaminophen (Ofirmev Injection -) 1,000 mg IVPB Q6H PRN PRN Reason: FEVER Last Admin: 05/15/18 11:31 Dose: 1,000 mg Alprazolam (Xanax -) 0.25 mg PO Q8H PRN PRN Reason: ANXIETY Last Admin: 05/13/18 08:48 Dose: 0.25 mg Diltiazem HCl (Cardizem Cd -) 180 mg PO DAILY [facility] Last Admin: 05/18/18 09:34 Dose: 180 mg Docusate Sodium (Colace -) 100 mg PO Q8H PRN PRN Reason: CONSTIPATION Pantoprazole Sodium 80 mg/ (Sodium Chloride) 100 mls @ 10 mls/hr IVPB Q10H ILYA Last Admin: 05/18/18 06:32 Dose: 10 mls/hr Piperacillin Sod/Tazobactam (Sod 3.375 gm/ Dextrose) 50 mls @ 100 mls/hr IVPB Q8H-IV ILYA; Protocol Last Admin: 05/18/18 09:32 Dose: 100 mls/hr Methylprednisolone Sodium Succinate (Solu-Medrol -) 40 mg IVPB DAILY [facility] Last Admin: 05/18/18 09:34 Dose: 40 mg Metoprolol Tartrate (Lopressor Injection -) 5 mg IVPUSH Q6H PRN PRN Reason: TACHYCARDIA (HR OVER 120) Last Admin: 05/18/18 00:09 Dose: 5 mg Ondansetron HCl (Zofran Odt -) 4 mg SL Q6H PRN PRN Reason: NAUSEA AND/OR VOMITING Oxycodone HCl (Roxicodone -) 5 mg PO Q6H PRN PRN Reason: PAIN LEVEL 7 - 10 Pancrelipase (Creon Dr 36,000 Units Capsule) 1 cap PO TIDCM [facility] Polyethylene Glycol (Miralax (For Daily Use) -) 17 gm PO BID [facility] Last Admin: 05/17/18 21:35 Dose: Not Given Propranolol HCl (Inderal -) 60 mg PO TID [facility] Last Admin: 05/18/18 06:31 Dose: 60 mg Rifaximin (Xifaxan -) 550 mg PO TID ILYA - Objective Vital Signs: Vital Signs Temperature 97.6 F 05/18/18 02:02 Pulse Rate 89 05/18/18 08:00 Respiratory Rate 18 05/18/18 08:00 Blood Pressure 177/91 H 05/18/18 08:00 O2 Sat by Pulse Oximetry (%) 98 05/18/18 09:00 Constitutional: Yes: No Distress Eyes: Yes: Conjunctiva Clear Cardiovascular: Yes: Regular Rate and Rhythm, S1, S2 Respiratory: Yes: Other (few crepitations R base) Gastrointestinal: Yes: Normal Bowel Sounds, Soft. No: Tenderness Extremities: Yes: Other (dry ulcer L great toe) Labs: CBC, BMP 05/18/18 05:30 05/18/18 05:30 INR, PTT INR 1.14 (0.83-1.09) H 05/10/18 11:00 Assessment/Plan HCAP INFECTED FOOT ULCER LEUKOCYTOSIS AZOTEMIA CONTINUE EMPIRIC ZOSYN LOCAL WOUND CARE
[2018-05-18 13:02] VITALS: BMI 31.0
[2018-05-18] MEDS: ACETAMINOPHEN 1000 MG/100 ML VIAL (NON FORMULARY) IVPB PRN (14:22)
[2018-05-18] MEDS: LIPASE/PROTEASE/AMYLASE 36,000 UNIT CAPSULE PO SCH ×2 (14:24→17:41)
[2018-05-18] MEDS: RIFAXIMIN 550 MG TABLET (UD) PO SCH ×2 (14:24→21:34)
[2018-05-18] MEDS ORDERED: ACETAMINOPHEN 325 MG TABLET (FP) PO PRN (15:02)
--- NOTE | 2018-05-18 15:49 | PN ---
Progress Note (short form) - Note Progress Note: FUV wound left foot. No pain. vss, +gouty arthritis 1st mpj with tophi, +grade 0 ulcer left, wbc=11.1,-growth on wound c&s, gout wound left foot resolving Betadine dressing to left foot wound. Will follow. Patient given education on gout.
--- NOTE | 2018-05-18 16:09 | PN ---
Progress Note, Physician History of Present Illness: Pt seen and examined at bedside. He is awake and alert. He denies shortness of breath. - Current Medication List Current Medications: Active Medications Acetaminophen (Tylenol -) 650 mg PO Q6H PRN PRN Reason: PAIN SCALE 1-5 Diltiazem HCl (Cardizem Cd -) 180 mg PO DAILY [facility] Last Admin: 05/18/18 09:34 Dose: 180 mg Docusate Sodium (Colace -) 100 mg PO Q8H PRN PRN Reason: CONSTIPATION Pantoprazole Sodium 80 mg/ (Sodium Chloride) 100 mls @ 10 mls/hr IVPB Q10H [facility] Last Admin: 05/18/18 06:32 Dose: 10 mls/hr Piperacillin Sod/Tazobactam (Sod 3.375 gm/ Dextrose) 50 mls @ 100 mls/hr IVPB Q8H-IV ILYA; Protocol Last Admin: 05/18/18 09:32 Dose: 100 mls/hr Methylprednisolone Sodium Succinate (Solu-Medrol -) 40 mg IVPB DAILY [facility] Last Admin: 05/18/18 09:34 Dose: 40 mg Metoprolol Tartrate (Lopressor Injection -) 5 mg IVPUSH Q6H PRN PRN Reason: TACHYCARDIA (HR OVER 120) Last Admin: 05/18/18 00:09 Dose: 5 mg Ondansetron HCl (Zofran Odt -) 4 mg SL Q6H PRN PRN Reason: NAUSEA AND/OR VOMITING Pancrelipase (Creon Dr 36,000 Units Capsule) 1 cap PO TIDCM [facility] Last Admin: 05/18/18 14:24 Dose: 1 cap Polyethylene Glycol (Miralax (For Daily Use) -) 17 gm PO BID [facility] Last Admin: 05/17/18 21:35 Dose: Not Given Propranolol HCl (Inderal -) 60 mg PO TID [facility] Last Admin: 05/18/18 14:22 Dose: 60 mg Rifaximin (Xifaxan -) 550 mg PO TID [facility] Last Admin: 05/18/18 14:24 Dose: 550 mg - Objective Vital Signs: Vital Signs Temperature 98.3 F 05/18/18 13:26 Pulse Rate 88 05/18/18 13:26 Respiratory Rate 18 05/18/18 13:26 Blood Pressure 165/99 05/18/18 12:00 O2 Sat by Pulse Oximetry (%) 98 05/18/18 09:00 Constitutional: Yes: Calm Eyes: Yes: Conjunctiva Clear HENT: Yes: Atraumatic Neck: Yes: Supple Cardiovascular: Yes: S1, S2 Respiratory: Yes: CTA Bilaterally Gastrointestinal: Yes: Normal Bowel Sounds, Soft Genitourinary: Yes: WNL Musculoskeletal: Yes: WNL Edema: No Neurological: Yes: Oriented Psychiatric: Yes: Oriented Labs: CBC, BMP 05/18/18 05:30 05/18/18 05:30 INR, PTT INR 1.14 (0.83-1.09) H 05/10/18 11:00 Problem List - Problems (1) PHILL (acute kidney injury) Code(s): N17.9 - ACUTE KIDNEY FAILURE, UNSPECIFIED (2) Atrial fibrillation Code(s): I48.91 - UNSPECIFIED ATRIAL FIBRILLATION Qualifiers: Atrial fibrillation type: chronic Qualified Code(s): I48.2 - Chronic atrial fibrillation (3) GI bleed Code(s): K92.2 - GASTROINTESTINAL HEMORRHAGE, UNSPECIFIED Qualifiers: GI bleed type/associated pathology: melena Qualified Code(s): K92.1 - Melena (4) Gout Code(s): M10.9 - GOUT, UNSPECIFIED (5) HTN (hypertension) Code(s): I10 - ESSENTIAL (PRIMARY) HYPERTENSION Assessment/Plan Current Medications Generic Name Dose Route Start Last Admin Trade Name Freq PRN Reason Stop Dose Admin Acetaminophen 650 mg 05/18/18 15:02 Tylenol - PO Q6H PRN PAIN SCALE 1-5 Diltiazem HCl 180 mg 05/18/18 10:00 05/18/18 09:34 Cardizem Cd - PO 180 mg DAILY ILYA Administration Docusate Sodium 100 mg 05/13/18 08:09 Colace - PO Q8H PRN CONSTIPATION Pantoprazole Sodium 80 mg/ 100 mls @ 10 mls/hr 05/11/18 04:00 05/18/18 06:32 Sodium Chloride IVPB 10 mls/hr Q10H ILYA Administration 8 MG/HR Piperacillin Sod/Tazobactam 50 mls @ 100 mls/hr 05/14/18 15:00 05/18/18 09:32 Sod 3.375 gm/ Dextrose IVPB 100 mls/hr Q8H-IV ILYA Administration Protocol Methylprednisolone Sodium Succinate 40 mg 05/16/18 10:00 05/18/18 09:34 Solu-Medrol - IVPB 40 mg DAILY ILYA Administration Metoprolol Tartrate 5 mg 05/11/18 06:12 05/18/18 00:09 Lopressor Injection - IVPUSH 5 mg Q6H PRN Administration TACHYCARDIA (HR OVER 120) Ondansetron HCl 4 mg 05/13/18 08:09 Zofran Odt - SL Q6H PRN NAUSEA AND/OR VOMITING Pancrelipase 1 cap 05/18/18 12:00 05/18/18 14:24 Pb Thompson 36,000 Units Capsule PO 1 cap TIDCM ILYA Administration Polyethylene Glycol 17 gm 05/17/18 10:00 05/17/18 21:35 Miralax (For Daily Use) - PO Not Given BID ILYA Propranolol HCl 60 mg 05/14/18 10:57 05/18/18 14:22 Inderal - PO 60 mg TID ILYA Administration Rifaximin 550 mg 05/18/18 14:00 05/18/18 14:24 Xifaxan - PO 550 mg TID ILYA Administration Impression 1. PHILL 2. a-fib 3. hx pleural effusion 4. HLD 5. CHF 6. HTN 7. Gout 8. gi bleed 9. hyperkalemia 10. lactic acidosis Plan - renal function stable - avoid nephrotoxins - GI workup in progress - pt off of fluids - pt is voiding Dr Rodríguez
--- NOTE | 2018-05-18 17:34 | CONS ---
PHYSICAL MEDICINE REHABILITATION CONSULTATION DATE OF CONSULTATION: 05/18/2018 HISTORY OF PRESENT ILLNESS: Patient is a 72-year-old male with past medical history of gouty arthropathy, who was admitted on May 10, 2018, with lightheadedness and left great toe infection. Patient underwent evaluation including infectious disease evaluation. On admission, he had elevated WBC, 14.1; hemoglobin was initially 11.4 with platelet count 310. He was started on empiric antibiotic coverage. His hemoglobin dropped to 7.4, and subsequently, cultures apparently were negative. Recent CT of the abdomen and pelvis showed new bibasilar consolidation, possible pneumonia. His WBC has improved. As of May 18, WBC is 11.1, hemoglobin 10.1, platelet count 320. Chemistry initially showed elevated BUN, 67; creatinine 2.5; sodium 135; potassium 5.3; chloride 104; CO2 of 20. He has gotten fluid hydration, and as of today, chemistry showed normal sodium, 140; potassium 4.5; chloride 108; BUN 27; creatinine 1.3. Patient was seen by Physical Therapy, able to ambulate 6 feet with a rolling walker, contact guard, wide-based, waddling gait. Patient is seen at the bedside. His is present. Overall, he feels fairly well. He has no complaints of shortness of breath or cough. No dizziness or lightheadedness. He would like to be discharged to home if possible. REVIEW OF PAST MEDICAL AND SURGICAL HISTORY: Otherwise significant for atrial fibrillation, hypertension, congestive heart failure, gouty arthropathy. He had a right total hip replacement and 2 revisions. ALLERGIES: None noted. SOCIAL HISTORY: Lives in an apartment with 1 flight of steps to enter. 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 Former tobacco user. REVIEW OF SYSTEMS: As above. No headache. No lightheadedness, dizziness. No blurry vision, double vision. No nausea, vomiting, difficulty swallowing, difficulty chewing. No chest pain. No shortness of breath. No fever, chills. No bowel or bladder incontinence. He has chronic pain in the left more than the right foot, but no current pain in his knees or upper extremities. No numbness, tingling. PHYSICAL EXAMINATION: General: Patient is seen lying in bed. No acute distress. HEENT: Normocephalic and atraumatic. Extraocular muscles appear intact. Neck: Supple. Extremities: Without any pitting edema or calf tenderness. Skin: Without any rash or breakdown. Neuromuscular: He is awake, alert, and cooperative. Cranial nerves 2-12 grossly intact. He has good motor power throughout his upper extremities without any gross arthritic change. In the lower extremities, he has weakness in the hip girdle, 3+/5 on the left and 3/5 on the right. Fairly good knee flexion and extension, dorsiflexion and plantar flexion. Normal sensation. Symmetric reflexes. Dangling toes. OVERALL IMPRESSION: 1. Deficits in mobility and activities of daily living. 2. Deconditioning. 3. Left infected bunion. 4. History of gouty arthropathy. 5. Possible pneumonia. 6. Status post anemia. 7. History of atrial fibrillation. 8. History of hypertension. 9. History of congestive heart failure. 10. 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 PLAN/SUGGESTION: 1. Continue physical therapy at the bedside and attempt stairs if possible. 2. Out of bed to chair. 3. DVT prophylaxis. 4. Monitor CBC. 5. Encourage p.o. fluids. 6. Monitor BUN and creatinine. 7. Skin precautions. 8. Antibiotics per Infectious Disease. 9. Disposition home with home care versus assisted facility. Family strongly prefers home with home care. Would have Case Management discuss if patient is able to stand, ambulate, and negotiate stairs. Thank you for this referral. AMEE HER M.D. RADHA/[id number]
[2018-05-18] MEDS: POLYETHYLENE GLYCOL 3350 119 GM BTL PO SCH ×2 (17:39→21:34)
[2018-05-19] MEDS ORDERED: DEXTROSE 5%-WATER - 50 ML IVPB ONE ×3 (01:24→18:08)
[2018-05-19] MEDS ORDERED: PIPERACILLIN/TAZOBACTAM 3.375 GM VIAL IVPB ONE ×3 (01:24→18:08)
[2018-05-19] MEDS: PIPERACILLIN/TAZOB 3.375 GM 3.375 GM in DEXTROSE 5%-WATER - 50 ML IVPB SCH ×3 (01:26→18:20)
[2018-05-19] MEDS: PANTOPRAZOLE SODIUM 80 MG in SODIUM CHLORIDE 100 ML IVPB SCH ×2 (02:00→11:26)
[2018-05-19] MEDS: RIFAXIMIN 550 MG TABLET (UD) PO SCH ×3 (06:36→22:01)
[2018-05-19] MEDS ORDERED: PT OWN MED DRAWER 7, Y5N ONE (08:01)
--- NOTE | 2018-05-19 09:24 | PN ---
GI Progress Note Subjective: Patient examined and deniews abdominal pain, nausea, vomiting or diarrhea. No reports of melena or hematemesis. Abdomen and Pelvic CT scan performed and show no evidence of an acute process, no evidence of SBO, normal-appearing terminal ileum. - Objective Vital Signs: Vital Signs Temperature 98.2 F 05/19/18 02:00 Pulse Rate 76 05/19/18 06:00 Respiratory Rate 16 05/19/18 08:40 Blood Pressure 142/84 05/19/18 06:00 O2 Sat by Pulse Oximetry (%) 98 05/19/18 08:40 Constitutional: No Distress, Calm Cardiovascular: Yes: Pulse Irregular Respiratory: Yes: Rales Gastrointestinal Inspection: Yes: WNL. No: Ascites, Distention, Hernia, Scars, Other ...Auscultate: Yes: Normoactive Bowel Sounds ...Palpate: Yes: Other (non tender). No: Firm/Rigid, Guarding, Hepatomegaly, Mass, Pulsatile Mass, Soft, Splenomegaly, Tenderness, Tenderness, Epigastium, Tenderness, Rebound ...Percussion: Yes: Other (high tympany). No: Dullness, Fluid Wave, Tympanitic Labs: CBC, BMP 05/18/18 05:30 05/18/18 05:30 INR, PTT INR 1.14 (0.83-1.09) H 05/10/18 11:00 Problem List - Problems (1) GI bleed Assessment/Plan: no melena noted but has progressive anemia R>patient is high risk for upper endoscopy, discussed with patient the risk of anesthesia including possibility of intubation post procedure. He would discuss his options with Dr Centeno >Patient was scheduled for Upper GI series in place of endoscopy but will hold off until medical condition improves Code(s): K92.2 - GASTROINTESTINAL HEMORRHAGE, UNSPECIFIED Qualifiers: GI bleed type/associated pathology: melena Qualified Code(s): K92.1 - Melena (2) Osteomyelitis of ankle and foot Code(s): M86.9 - OSTEOMYELITIS, UNSPECIFIED (3) Cellulitis of left foot Code(s): L03.116 - CELLULITIS OF LEFT LOWER LIMB (4) Abdominal distension Assessment/Plan: >FUA ---no air fluid levels, no impaction >Abdomen and Pelvic CT scan done, results reviewed >continue with xifaxin 550mg TID and creon 36,000 units with meals >on oxycodone for pain will add miralax BID to bowel regimen Code(s): R14.0 - ABDOMINAL DISTENSION (GASEOUS)
[2018-05-19] MEDS: LIPASE/PROTEASE/AMYLASE 36,000 UNIT CAPSULE PO SCH ×3 (10:02→18:20)
[2018-05-19] MEDS: methylPREDNISolone NA SUCC 40 MG/1 ML VIAL IVPB SCH (10:03)
[2018-05-19] MEDS: POLYETHYLENE GLYCOL 3350 119 GM BTL PO SCH ×2 (10:04→22:02)
--- NOTE | 2018-05-19 10:46 | PN ---
Progress Note (short form) - Note Progress Note: s: no cp sob palps dizzy o: Vital Signs Period Temp Pulse Resp BP Sys/Lomeli Pulse Ox Last 24 Hr 98 F-98.3 F 76-94 13-18 142-165/84-99 98-98 nad no jvd irreg, s1s2 no mrg cta bl nl eff aao3 no le e/c/c abd nt nd pos bs no jaundice diaphoresis Current Medications Generic Name Dose Route Start Last Admin Trade Name Freq PRN Reason Stop Dose Admin Acetaminophen 650 mg 05/18/18 15:02 Tylenol - PO Q6H PRN PAIN SCALE 1-5 Diltiazem HCl 180 mg 05/18/18 10:00 05/19/18 10:04 Cardizem Cd - PO 180 mg DAILY [facility] Administration Docusate Sodium 100 mg 05/13/18 08:09 Colace - PO Q8H PRN CONSTIPATION Pantoprazole Sodium 80 mg/ 100 mls @ 10 mls/hr 05/11/18 04:00 05/19/18 02:00 Sodium Chloride IVPB 10 mls/hr Q10H ILYA Administration 8 MG/HR Piperacillin Sod/Tazobactam 50 mls @ 100 mls/hr 05/14/18 15:00 05/19/18 10:04 Sod 3.375 gm/ Dextrose IVPB 100 mls/hr Q8H-IV ILYA Administration Protocol Methylprednisolone Sodium Succinate 40 mg 05/16/18 10:00 05/19/18 10:03 Solu-Medrol - IVPB 40 mg DAILY [facility] Administration Metoprolol Tartrate 5 mg 05/11/18 06:12 05/18/18 00:09 Lopressor Injection - IVPUSH 5 mg Q6H PRN Administration TACHYCARDIA (HR OVER 120) Ondansetron HCl 4 mg 05/13/18 08:09 Zofran Odt - SL Q6H PRN NAUSEA AND/OR VOMITING Pancrelipase 1 cap 05/18/18 12:00 05/19/18 10:02 Pb Thompson 36,000 Units Capsule PO 1 cap TIDCM [facility] Administration Polyethylene Glycol 17 gm 05/17/18 10:00 05/19/18 10:04 Miralax (For Daily Use) - PO Not Given BID [facility] Propranolol HCl 60 mg 05/14/18 10:57 05/19/18 06:36 Inderal - PO 60 mg TID [facility] Administration Rifaximin 550 mg 05/18/18 14:00 05/19/18 06:36 Xifaxan - PO 550 mg TID [facility] Administration CBC, BMP 05/18/18 05:30 05/18/18 05:30 cxr: clear lungs ecg: afib 120s, nl qtc, nonspec tw chagnes tele: afib with controlled HRs echo 04/2016: mild lve, nl lvef, mild lae, mild mr, mild-mod tr, mild pr, rvsp 50-60 a/p: 72 m hx htn, hld, dchf, afib, here with lightheadedness. gib: -holding AC for now -GI following -no cardiac contradindications to egd, foc -medically optimized from CV standpoint -hgb drifted down 05/14-PRBCs--H/H stable afib: -tachycardic to 170s hence GI scopes postponed. -HR controlled with no more chris, no hypotension: cont propranolol, diltiazem -monitor tele -holding eliquis due to gib hypotension, fever/chills, PNA: -likely sec to SIRS with fever/PNA -stable now, tolerating AF med regimen htn: -cont current meds chronic diastolic chf: -vol stable on exam, holding home lasix for now kaveh: -improving after IVF, PRBC
--- NOTE | 2018-05-19 10:54 | PN ---
Progress Note, Physician History of Present Illness: Pt seen and examined at bedside. He is awake and alert. He denies fevers or chills. He denies abdominal pain. - Current Medication List Current Medications: Active Medications Acetaminophen (Tylenol -) 650 mg PO Q6H PRN PRN Reason: PAIN SCALE 1-5 Diltiazem HCl (Cardizem Cd -) 180 mg PO DAILY [facility] Last Admin: 05/19/18 10:04 Dose: 180 mg Docusate Sodium (Colace -) 100 mg PO Q8H PRN PRN Reason: CONSTIPATION Pantoprazole Sodium 80 mg/ (Sodium Chloride) 100 mls @ 10 mls/hr IVPB Q10H [facility] Last Admin: 05/19/18 02:00 Dose: 10 mls/hr Piperacillin Sod/Tazobactam (Sod 3.375 gm/ Dextrose) 50 mls @ 100 mls/hr IVPB Q8H-IV [facility]; Protocol Last Admin: 05/19/18 10:04 Dose: 100 mls/hr Methylprednisolone Sodium Succinate (Solu-Medrol -) 40 mg IVPB DAILY [facility] Last Admin: 05/19/18 10:03 Dose: 40 mg Metoprolol Tartrate (Lopressor Injection -) 5 mg IVPUSH Q6H PRN PRN Reason: TACHYCARDIA (HR OVER 120) Last Admin: 05/18/18 00:09 Dose: 5 mg Ondansetron HCl (Zofran Odt -) 4 mg SL Q6H PRN PRN Reason: NAUSEA AND/OR VOMITING Pancrelipase (Creon Dr 36,000 Units Capsule) 1 cap PO TIDCM [facility] Last Admin: 05/19/18 10:02 Dose: 1 cap Polyethylene Glycol (Miralax (For Daily Use) -) 17 gm PO BID [facility] Last Admin: 05/19/18 10:04 Dose: Not Given Propranolol HCl (Inderal -) 60 mg PO TID [facility] Last Admin: 05/19/18 06:36 Dose: 60 mg Rifaximin (Xifaxan -) 550 mg PO TID [facility] Last Admin: 05/19/18 06:36 Dose: 550 mg - Objective Vital Signs: Vital Signs Temperature 98.2 F 05/19/18 02:00 Pulse Rate 76 05/19/18 06:00 Respiratory Rate 16 05/19/18 08:40 Blood Pressure 142/84 05/19/18 06:00 O2 Sat by Pulse Oximetry (%) 98 05/19/18 08:40 Constitutional: Yes: Calm Eyes: Yes: Conjunctiva Clear HENT: Yes: Atraumatic Neck: Yes: Supple Cardiovascular: Yes: S1, S2 Respiratory: Yes: CTA Bilaterally Gastrointestinal: Yes: Soft Musculoskeletal: Yes: WNL Edema: No Neurological: Yes: Oriented Psychiatric: Yes: Oriented Labs: CBC, BMP 05/18/18 05:30 05/18/18 05:30 INR, PTT INR 1.14 (0.83-1.09) H 05/10/18 11:00 Problem List - Problems (1) PHILL (acute kidney injury) Code(s): N17.9 - ACUTE KIDNEY FAILURE, UNSPECIFIED (2) Atrial fibrillation Code(s): I48.91 - UNSPECIFIED ATRIAL FIBRILLATION Qualifiers: Atrial fibrillation type: chronic Qualified Code(s): I48.2 - Chronic atrial fibrillation (3) GI bleed Code(s): K92.2 - GASTROINTESTINAL HEMORRHAGE, UNSPECIFIED Qualifiers: GI bleed type/associated pathology: melena Qualified Code(s): K92.1 - Melena (4) Gout Code(s): M10.9 - GOUT, UNSPECIFIED (5) HTN (hypertension) Code(s): I10 - ESSENTIAL (PRIMARY) HYPERTENSION Assessment/Plan Current Medications Generic Name Dose Route Start Last Admin Trade Name Freq PRN Reason Stop Dose Admin Acetaminophen 650 mg 05/18/18 15:02 Tylenol - PO Q6H PRN PAIN SCALE 1-5 Diltiazem HCl 180 mg 05/18/18 10:00 05/19/18 10:04 Cardizem Cd - PO 180 mg DAILY [facility] Administration Docusate Sodium 100 mg 05/13/18 08:09 Colace - PO Q8H PRN CONSTIPATION Pantoprazole Sodium 80 mg/ 100 mls @ 10 mls/hr 05/11/18 04:00 05/19/18 02:00 Sodium Chloride IVPB 10 mls/hr Q10H [facility] Administration 8 MG/HR Piperacillin Sod/Tazobactam 50 mls @ 100 mls/hr 05/14/18 15:00 05/19/18 10:04 Sod 3.375 gm/ Dextrose IVPB 100 mls/hr Q8H-IV [facility] Administration Protocol Methylprednisolone Sodium Succinate 40 mg 05/16/18 10:00 05/19/18 10:03 Solu-Medrol - IVPB 40 mg DAILY [facility] Administration Metoprolol Tartrate 5 mg 05/11/18 06:12 05/18/18 00:09 Lopressor Injection - IVPUSH 5 mg Q6H PRN Administration TACHYCARDIA (HR OVER 120) Ondansetron HCl 4 mg 05/13/18 08:09 Zofran Odt - SL Q6H PRN NAUSEA AND/OR VOMITING Pancrelipase 1 cap 05/18/18 12:00 05/19/18 10:02 Pb Thompson 36,000 Units Capsule PO 1 cap TIDCM [facility] Administration Polyethylene Glycol 17 gm 05/17/18 10:00 05/19/18 10:04 Miralax (For Daily Use) - PO Not Given BID [facility] Propranolol HCl 60 mg 05/14/18 10:57 05/19/18 06:36 Inderal - PO 60 mg TID [facility] Administration Rifaximin 550 mg 05/18/18 14:00 05/19/18 06:36 Xifaxan - PO 550 mg TID [facility] Administration Impression 1. PHILL 2. a-fib 3. hx pleural effusion 4. HLD 5. CHF 6. HTN 7. Gout 8. gi bleed 9. hyperkalemia 10. lactic acidosis Plan - no new labs - left uretral dilation, check ultrasound and ua - avoid nephrotoxins - GI workup in progress - pt is voiding Dr Rodríguez
--- NOTE | 2018-05-19 11:01 | PN ---
Progress Note, Physician History of Present Illness: AWAKE, ALERT NO COMPLAINTS DENIES DYSPNEA/ COUGH TEMPS DOWN AFEBRILE WBC IMPROVED BC NO GROWTH AZOTEMIA IMPROVED - Current Medication List Current Medications: Active Medications Acetaminophen (Tylenol -) 650 mg PO Q6H PRN PRN Reason: PAIN SCALE 1-5 Diltiazem HCl (Cardizem Cd -) 180 mg PO DAILY [facility] Last Admin: 05/19/18 10:04 Dose: 180 mg Docusate Sodium (Colace -) 100 mg PO Q8H PRN PRN Reason: CONSTIPATION Pantoprazole Sodium 80 mg/ (Sodium Chloride) 100 mls @ 10 mls/hr IVPB Q10H [facility] Last Admin: 05/19/18 02:00 Dose: 10 mls/hr Piperacillin Sod/Tazobactam (Sod 3.375 gm/ Dextrose) 50 mls @ 100 mls/hr IVPB Q8H-IV [facility]; Protocol Last Admin: 05/19/18 10:04 Dose: 100 mls/hr Methylprednisolone Sodium Succinate (Solu-Medrol -) 40 mg IVPB DAILY [facility] Last Admin: 05/19/18 10:03 Dose: 40 mg Metoprolol Tartrate (Lopressor Injection -) 5 mg IVPUSH Q6H PRN PRN Reason: TACHYCARDIA (HR OVER 120) Last Admin: 05/18/18 00:09 Dose: 5 mg Ondansetron HCl (Zofran Odt -) 4 mg SL Q6H PRN PRN Reason: NAUSEA AND/OR VOMITING Pancrelipase (Creon Dr 36,000 Units Capsule) 1 cap PO TIDCM [facility] Last Admin: 05/19/18 10:02 Dose: 1 cap Polyethylene Glycol (Miralax (For Daily Use) -) 17 gm PO BID [facility] Last Admin: 05/19/18 10:04 Dose: Not Given Propranolol HCl (Inderal -) 60 mg PO TID [facility] Last Admin: 05/19/18 06:36 Dose: 60 mg Rifaximin (Xifaxan -) 550 mg PO TID [facility] Last Admin: 05/19/18 06:36 Dose: 550 mg - Objective Vital Signs: Vital Signs Temperature 98.2 F 05/19/18 02:00 Pulse Rate 76 05/19/18 06:00 Respiratory Rate 16 05/19/18 08:40 Blood Pressure 142/84 05/19/18 06:00 O2 Sat by Pulse Oximetry (%) 98 05/19/18 08:40 Constitutional: Yes: No Distress Cardiovascular: Yes: Regular Rate and Rhythm, S1, S2 Respiratory: Yes: CTA Bilaterally Gastrointestinal: Yes: Normal Bowel Sounds, Soft. No: Tenderness Edema: No Labs: CBC, BMP 05/18/18 05:30 05/18/18 05:30 INR, PTT INR 1.14 (0.83-1.09) H 05/10/18 11:00 Assessment/Plan HCAP INFECTED FOOT ULCER IMPROVED LEUKOCYTOSIS AZOTEMIA CONTINUE EMPIRIC ZOSYN ADDITIONAL 24HR LOCAL WOUND CARE
[2018-05-19] MEDS ORDERED: oxyCODONE HCL 5 MG TABLET PO PRN (11:29)
--- NOTE | 2018-05-19 11:34 | PN ---
Progress Note, Physician Chief Complaint: patient seen and examined bloating is less to get GI series next week AC on hold h/h holding at 01/24 - Current Medication List Current Medications: Active Medications Acetaminophen (Tylenol -) 650 mg PO Q6H PRN PRN Reason: PAIN SCALE 1-5 Diltiazem HCl (Cardizem Cd -) 180 mg PO DAILY [facility] Last Admin: 05/19/18 10:04 Dose: 180 mg Docusate Sodium (Colace -) 100 mg PO Q8H PRN PRN Reason: CONSTIPATION Pantoprazole Sodium 80 mg/ (Sodium Chloride) 100 mls @ 10 mls/hr IVPB Q10H [facility] Last Admin: 05/19/18 11:26 Dose: 10 mls/hr Piperacillin Sod/Tazobactam (Sod 3.375 gm/ Dextrose) 50 mls @ 100 mls/hr IVPB Q8H-IV [facility]; Protocol Last Admin: 05/19/18 10:04 Dose: 100 mls/hr Methylprednisolone Sodium Succinate (Solu-Medrol -) 40 mg IVPB DAILY [facility] Last Admin: 05/19/18 10:03 Dose: 40 mg Metoprolol Tartrate (Lopressor Injection -) 5 mg IVPUSH Q6H PRN PRN Reason: TACHYCARDIA (HR OVER 120) Last Admin: 05/18/18 00:09 Dose: 5 mg Ondansetron HCl (Zofran Odt -) 4 mg SL Q6H PRN PRN Reason: NAUSEA AND/OR VOMITING Pancrelipase (Creon Dr 36,000 Units Capsule) 1 cap PO TIDCM [facility] Last Admin: 05/19/18 11:26 Dose: 1 cap Polyethylene Glycol (Miralax (For Daily Use) -) 17 gm PO BID [facility] Last Admin: 05/19/18 10:04 Dose: Not Given Propranolol HCl (Inderal -) 60 mg PO TID [facility] Last Admin: 05/19/18 06:36 Dose: 60 mg Rifaximin (Xifaxan -) 550 mg PO TID [facility] Last Admin: 05/19/18 06:36 Dose: 550 mg - Objective Vital Signs: Vital Signs Temperature 98.2 F 05/19/18 02:00 Pulse Rate 76 05/19/18 06:00 Respiratory Rate 16 05/19/18 08:40 Blood Pressure 142/84 05/19/18 06:00 O2 Sat by Pulse Oximetry (%) 98 05/19/18 08:40 Constitutional: Yes: Calm Cardiovascular: Yes: Regular Rate and Rhythm, S1, S2 Respiratory: Yes: CTA Bilaterally Gastrointestinal: Yes: Normal Bowel Sounds, Soft Neurological: Yes: Alert, Oriented Labs: CBC, BMP 05/18/18 05:30 05/18/18 05:30 INR, PTT INR 1.14 (0.83-1.09) H 05/10/18 11:00 Problem List - Problems (1) PHILL (acute kidney injury) Assessment/Plan: improved bun/cr renal sono ordered Code(s): N17.9 - ACUTE KIDNEY FAILURE, UNSPECIFIED (2) Abdominal distension Assessment/Plan: improving creaon rifaximin ppi to et gi seris tuesday Code(s): R14.0 - ABDOMINAL DISTENSION (GASEOUS) (3) Atrial fibrillation Assessment/Plan: cardizem, propanolol Code(s): I48.91 - UNSPECIFIED ATRIAL FIBRILLATION Qualifiers: Atrial fibrillation type: chronic Qualified Code(s): I48.2 - Chronic atrial fibrillation (4) GI bleed Assessment/Plan: AC on hold h/h holding to get gi series next week Code(s): K92.2 - GASTROINTESTINAL HEMORRHAGE, UNSPECIFIED Qualifiers: GI bleed type/associated pathology: melena Qualified Code(s): K92.1 - Melena (5) Pneumonia Assessment/Plan: zosyn Code(s): J18.9 - PNEUMONIA, UNSPECIFIED ORGANISM (6) Gout Assessment/Plan: iv solumedrol 40mg daily stephany keep on iv steroids till gi series done then will switch to po prednsion tpaer 20mg for 3 days 10mg for 3 days then 5 mg daily and will start allopurinol once uric acid is checked per rheum notes appreicate rheum consult recheck uric acid Code(s): M10.9 - GOUT, UNSPECIFIED
--- NOTE | 2018-05-19 13:57 | PN ---
Progress Note (short form) - Note Progress Note: Breathing feels ok. No CP or SOB. Afebrile. Intake & Output 05/16/18 05/17/18 05/18/18 05/19/18 23:59 23:59 23:59 23:59 Intake Total 1220 1900 1800 450 Output Total 649 281 7412 1100 Balance 420 1100 -2450 -650 Weight 201 lb 9.6 oz 201 lb 8 oz 198 lb 198 lb Last Vital Signs Temp Pulse Resp BP Pulse Ox 98.2 F 76 16 142/84 98 05/19/18 02:00 05/19/18 06:00 05/19/18 08:40 05/19/18 06:00 05/19/18 08:40 Active Medications Acetaminophen (Tylenol -) 650 mg PO Q6H PRN PRN Reason: PAIN SCALE 1-5 Diltiazem HCl (Cardizem Cd -) 180 mg PO DAILY [facility] Last Admin: 05/19/18 10:04 Dose: 180 mg Docusate Sodium (Colace -) 100 mg PO Q8H PRN PRN Reason: CONSTIPATION Pantoprazole Sodium 80 mg/ (Sodium Chloride) 100 mls @ 10 mls/hr IVPB Q10H [facility] Last Admin: 05/19/18 11:26 Dose: 10 mls/hr Piperacillin Sod/Tazobactam (Sod 3.375 gm/ Dextrose) 50 mls @ 100 mls/hr IVPB Q8H-IV [facility]; Protocol Last Admin: 05/19/18 10:04 Dose: 100 mls/hr Methylprednisolone Sodium Succinate (Solu-Medrol -) 40 mg IVPB DAILY [facility] Last Admin: 05/19/18 10:03 Dose: 40 mg Metoprolol Tartrate (Lopressor Injection -) 5 mg IVPUSH Q6H PRN PRN Reason: TACHYCARDIA (HR OVER 120) Last Admin: 05/18/18 00:09 Dose: 5 mg Ondansetron HCl (Zofran Odt -) 4 mg SL Q6H PRN PRN Reason: NAUSEA AND/OR VOMITING Oxycodone HCl (Roxicodone -) 5 mg PO Q6H PRN PRN Reason: PAIN LEVEL 7 - 10 Pancrelipase (Creon Dr 36,000 Units Capsule) 1 cap PO TIDCM [facility] Last Admin: 02/22/19 11:26 Dose: 1 cap Polyethylene Glycol (Miralax (For Daily Use) -) 17 gm PO BID [facility] Last Admin: 05/19/18 10:04 Dose: Not Given Propranolol HCl (Inderal -) 60 mg PO TID [facility] Last Admin: 05/19/18 06:36 Dose: 60 mg Rifaximin (Xifaxan -) 550 mg PO TID [facility] Last Admin: 05/19/18 06:36 Dose: 550 mg Constitutional: Yes: No Distress, Obese Eyes: Yes: Conjunctiva Clear, EOM Intact HENT: Yes: Atraumatic, Normocephalic Neck: Yes: Supple, Trachea Midline Cardiovascular: Yes: Pulse Irregular Respiratory: Yes: Cough, Diminished, On Nasal O2, Rales, Rhonchi. No: Accessory Muscle Use, On BiPap, Stridor, Tachypnea, Wheezes ...Inspection: Yes: WNL ...Clubbing: No Gastrointestinal: Yes: Normal Bowel Sounds, Soft, Abdomen, Obese Renal/: Yes: WNL Musculoskeletal: Yes: Joint Stiffness, Joint Swelling Extremities: Yes: Cool Edema: Yes Peripheral Pulses WNL: No Integumentary: Yes: Erythema, Other (tophi formation LLE ) Neurological: Yes: WNL, Alert, Oriented ...Motor Strength: WNL Psychiatric: Yes: WNL, Alert, Oriented Labs: Problem List - Problems (1) Pneumonia Code(s): J18.9 - PNEUMONIA, UNSPECIFIED ORGANISM (2) Pulmonary vascular congestion Code(s): R09.89 - OTH SYMPTOMS AND SIGNS INVOLVING THE CIRC AND RESP SYSTEMS (3) PHILL (acute kidney injury) Code(s): N17.9 - ACUTE KIDNEY FAILURE, UNSPECIFIED (4) Atrial fibrillation Code(s): I48.91 - UNSPECIFIED ATRIAL FIBRILLATION Qualifiers: Atrial fibrillation type: chronic Qualified Code(s): I48.2 - Chronic atrial fibrillation (5) GI bleed Code(s): K92.2 - GASTROINTESTINAL HEMORRHAGE, UNSPECIFIED Qualifiers: GI bleed type/associated pathology: melena Qualified Code(s): K92.1 - Melena (6) Bunion of great toe of left foot Code(s): M21.612 - BUNION OF LEFT FOOT (7) Gout Code(s): M10.9 - GOUT, UNSPECIFIED (8) HTN (hypertension) Code(s): I10 - ESSENTIAL (PRIMARY) HYPERTENSION (9) SOB (shortness of breath) Code(s): R06.02 - SHORTNESS OF BREATH Assessment/Plan ABX per ID May need diuresis if develops SOB/MILLER O2 as needed Solumedrol for gout flair Strict I & O Pain control Local wound care Dr Jovel Problem List - Problems (1) Pneumonia Code(s): J18.9 - PNEUMONIA, UNSPECIFIED ORGANISM (2) Pulmonary vascular congestion Code(s): R09.89 - OTH SYMPTOMS AND SIGNS INVOLVING THE CIRC AND RESP SYSTEMS (3) PHILL (acute kidney injury) Code(s): N17.9 - ACUTE KIDNEY FAILURE, UNSPECIFIED (4) Atrial fibrillation Code(s): I48.91 - UNSPECIFIED ATRIAL FIBRILLATION Qualifiers: Atrial fibrillation type: chronic Qualified Code(s): I48.2 - Chronic atrial fibrillation (5) GI bleed Code(s): K92.2 - GASTROINTESTINAL HEMORRHAGE, UNSPECIFIED Qualifiers: GI bleed type/associated pathology: melena Qualified Code(s): K92.1 - Melena (6) Bunion of great toe of left foot Code(s): M21.612 - BUNION OF LEFT FOOT (7) Gout Code(s): M10.9 - GOUT, UNSPECIFIED (8) HTN (hypertension) Code(s): I10 - ESSENTIAL (PRIMARY) HYPERTENSION (9) SOB (shortness of breath) Code(s): R06.02 - SHORTNESS OF BREATH
[2018-05-19 19:38] LABS: URINE APPEARANCE CLEAR; URINE BILIRUBIN NEGATIVE (<2.0 mg/dL); URINE COLOR LTYELLOW; URINE GLUCOSE (UA) NEGATIVE (NEGATIVE); URINE KETONE NEGATIVE (NEGATIVE); URINE LEUK ESTERASE NEGATIVE (NEGATIVE); URINE NITRITE NEGATIVE (NEGATIVE); URINE PROTEIN 1+ (NEGATIVE); URINE UROBILINOGEN NEGATIVE mg/dL (0.2-1.0)
[2018-05-20] MEDS ORDERED: PIPERACILLIN/TAZOBACTAM 3.375 GM VIAL IVPB ONE ×3 (01:53→17:13)
[2018-05-20] MEDS ORDERED: DEXTROSE 5%-WATER - 50 ML IVPB ONE ×3 (01:54→17:13)
[2018-05-20] MEDS: PIPERACILLIN/TAZOB 3.375 GM 3.375 GM in DEXTROSE 5%-WATER - 50 ML IVPB SCH ×3 (02:05→17:49)
[2018-05-20] MEDS: PANTOPRAZOLE SODIUM 80 MG in SODIUM CHLORIDE 100 ML IVPB SCH ×4 (02:07→22:51)
[2018-05-20] MEDS: RIFAXIMIN 550 MG TABLET (UD) PO SCH ×3 (05:59→21:53)
[2018-05-20 06:57] LABS: ALBUMIN 2.6 g/dl (3.4-5.0); ALK PHOS 87 U/L (45-117); ANION GAP 7 MMOL/L (8-16); BILIRUBIN,TOTAL 0.3 mg/dL (0.2-1); BLOOD UREA NITROGEN 30 mg/dL (7-18); CALCIUM 7.2 mg/dL (8.5-10.1); CHLORIDE 105 mmol/L (98-107); CO2 25 mmol/L (21-32); CREATININE 1.3 mg/dL (0.55-1.3); GLUCOSE,RANDOM 120 mg/dL (74-106); SGOT/AST 22 U/L (15-37); SGPT/ALT 91 U/L (13-61); SODIUM 137 mmol/L (136-145); TOT PROT 6.4 g/dl (6.4-8.2); URIC ACID 5.2 mg/dL (2.6-7.2)
[2018-05-20 06:58] LABS: BASO % 0.3 % (0-2.0); EOS % 0.1 % (0-4.5); HEMATOCRIT 33.2 % (35.4-49); LYMPH % 7.9 % (8-40); MCH 30.2 pg (25.7-33.7); MCHC 33.2 g/dl (32.0-35.9); MEAN CELL VOLUME 90.8 fl (80-96); MEAN PLT VOLUME 7.2 fl (7.5-11.1); MONO % 6.8 % (3.8-10.2); NEUT % 84.9 % (42.8-82.8); PLATELET COUNT 423 K/MM3 (134-434); RBC 3.66 M/mm3 (4.00-5.60); RDW 14.8 % (11.9-15.9); WHITE BLOOD COUNT 16.4 K/mm3 (4.0-10.0)
[2018-05-20] MEDS: methylPREDNISolone NA SUCC 40 MG/1 ML VIAL IVPB SCH (09:04)
[2018-05-20] MEDS: LIPASE/PROTEASE/AMYLASE 36,000 UNIT CAPSULE PO SCH ×3 (09:11→17:49)
[2018-05-20] MEDS: POLYETHYLENE GLYCOL 3350 119 GM BTL PO SCH ×2 (09:47→21:56)
--- NOTE | 2018-05-20 10:01 | PN ---
Progress Note (short form) - Note Progress Note: s: no chest pain, dyspnea, palps o: Vital Signs Period Temp Pulse Resp BP Sys/Lomeli Pulse Ox Last 24 Hr 97.9 F-98.1 F 80-97 15-20 128-156/65-88 96-98 nad no jvd irreg, s1s2 no mrg cta bl nl eff aao3 no le e/c/c abd nt nd pos bs no jaundice diaphoresis Current Medications Acetaminophen (Tylenol -) 650 mg PO Q6H PRN PRN Reason: PAIN SCALE 1-5 Diltiazem HCl (Cardizem Cd -) 180 mg PO DAILY [facility] Last Admin: 05/20/18 09:04 Dose: 180 mg Docusate Sodium (Colace -) 100 mg PO Q8H PRN PRN Reason: CONSTIPATION Pantoprazole Sodium 80 mg/ (Sodium Chloride) 100 mls @ 10 mls/hr IVPB Q10H [facility] Last Admin: 05/20/18 09:08 Dose: Not Given Piperacillin Sod/Tazobactam (Sod 3.375 gm/ Dextrose) 50 mls @ 100 mls/hr IVPB Q8H-IV [facility]; Protocol Last Admin: 05/20/18 09:03 Dose: 100 mls/hr Methylprednisolone Sodium Succinate (Solu-Medrol -) 40 mg IVPB DAILY [facility] Last Admin: 05/20/18 09:04 Dose: 40 mg Metoprolol Tartrate (Lopressor Injection -) 5 mg IVPUSH Q6H PRN PRN Reason: TACHYCARDIA (HR OVER 120) Last Admin: 05/18/18 00:09 Dose: 5 mg Ondansetron HCl (Zofran Odt -) 4 mg SL Q6H PRN PRN Reason: NAUSEA AND/OR VOMITING Oxycodone HCl (Roxicodone -) 5 mg PO Q6H PRN PRN Reason: PAIN LEVEL 7 - 10 Pancrelipase (Creon Dr 36,000 Units Capsule) 1 cap PO TIDCM [facility] Last Admin: 05/20/18 09:11 Dose: 1 cap Polyethylene Glycol (Miralax (For Daily Use) -) 17 gm PO BID [facility] Last Admin: 05/20/18 09:47 Dose: Not Given Propranolol HCl (Inderal -) 60 mg PO TID [facility] Last Admin: 05/20/18 05:59 Dose: 60 mg Rifaximin (Xifaxan -) 550 mg PO TID [facility] Last Admin: 05/20/18 05:59 Dose: 550 mg cxr: clear lungs ecg: afib 120s, nl qtc, nonspec tw chagnes tele: afib with controlled HRs echo 04/2016: mild lve, nl lvef, mild lae, mild mr, mild-mod tr, mild pr, rvsp 50-60 a/p: 72 m hx htn, hld, dchf, afib, here with lightheadedness. gib: -holding AC for now -GI following -no cardiac contradindications to egd, foc -medically optimized from CV standpoint -hgb drifted down 05/14-PRBCs -H/H stable afib: -tachycardic to 170s hence GI scopes postponed. -HR controlled with no more chris, no hypotension: cont propranolol, diltiazem -monitor tele -holding eliquis due to gib hypotension, fever/chills, PNA: -likely sec to SIRS with fever/PNA -stable now, tolerating AF med regimen htn: -cont current meds chronic diastolic chf: -vol stable on exam, holding home lasix for now kaveh: -improving after IVF, PRBC
[2018-05-20] MEDS ORDERED: INSULIN (NOVOLOG) ASPART 100 UNITS/ML 10ML VIAL ONE (11:18)
[2018-05-20] MEDS ORDERED: PT OWN MED DRAWER 7, Y5N ONE ×4 (11:28→21:20)
[2018-05-20 12:13] LABS: ANISOCYTOSIS 0; HELMET CELLS 0; HOWELL-JOLLY BODIES 0; MACROCYTOSIS 0; OVALOCYTE 0; PLATELET ESTIMATE NORMAL; ROULEAU 0; SICKELED CELLS 0; TARGET CELLS 0; TEAR DROP CELLS 0; TOXIC GRANULATION 0
--- NOTE | 2018-05-20 14:31 | PN ---
Progress Note (short form) - Note Progress Note: problems 1. PHILL 2. a-fib 3. hx pleural effusion 4. HLD 5. CHF 6. HTN 7. Gout 8. gi bleed 9. hyperkalemia 10. lactic acidosis Current Medications Acetaminophen (Tylenol -) 650 mg PO Q6H PRN PRN Reason: PAIN SCALE 1-5 Diltiazem HCl (Cardizem Cd -) 180 mg PO DAILY [facility] Last Admin: 05/20/18 09:04 Dose: 180 mg Docusate Sodium (Colace -) 100 mg PO Q8H PRN PRN Reason: CONSTIPATION Pantoprazole Sodium 80 mg/ (Sodium Chloride) 100 mls @ 10 mls/hr IVPB Q10H [facility] Last Admin: 05/20/18 09:08 Dose: Not Given Piperacillin Sod/Tazobactam (Sod 3.375 gm/ Dextrose) 50 mls @ 100 mls/hr IVPB Q8H-IV [facility]; Protocol Last Admin: 05/20/18 09:03 Dose: 100 mls/hr Methylprednisolone Sodium Succinate (Solu-Medrol -) 40 mg IVPB DAILY [facility] Last Admin: 05/20/18 09:04 Dose: 40 mg Metoprolol Tartrate (Lopressor Injection -) 5 mg IVPUSH Q6H PRN PRN Reason: TACHYCARDIA (HR OVER 120) Last Admin: 05/18/18 00:09 Dose: 5 mg Ondansetron HCl (Zofran Odt -) 4 mg SL Q6H PRN PRN Reason: NAUSEA AND/OR VOMITING Oxycodone HCl (Roxicodone -) 5 mg PO Q6H PRN PRN Reason: PAIN LEVEL 7 - 10 Pancrelipase (Creon Dr 36,000 Units Capsule) 1 cap PO TIDCM [facility] Last Admin: 05/20/18 11:41 Dose: 1 cap Polyethylene Glycol (Miralax (For Daily Use) -) 17 gm PO BID [facility] Last Admin: 05/20/18 09:47 Dose: Not Given Propranolol HCl (Inderal -) 60 mg PO TID [facility] Last Admin: 05/20/18 05:59 Dose: 60 mg Rifaximin (Xifaxan -) 550 mg PO TID [facility] Last Admin: 05/20/18 05:59 Dose: 550 mg Last Vital Signs Temp Pulse Resp BP Pulse Ox 97.9 F 87 20 156/88 98 05/20/18 09:41 05/20/18 09:41 05/20/18 09:41 05/20/18 09:41 05/20/18 08:41 alert in nad Lungs clear Heart reg Abd soft nontender ext no edema CBC, BMP 05/20/18 05:30 05/20/18 05:30 IMP- s/p phill resolving still with a prerenal azotemia Plan- ensure hydration monitor labs livan electrolytes
--- NOTE | 2018-05-20 20:00 | PN ---
Progress Note, Physician Chief Complaint: BLL Pneumonia GI bleeding SIRS Afib PHILL HTN History of Present Illness: NAD Comfortable watching TV Seen by GI, Cardiology, nephrology and ID On IV abx On protonix drip - Current Medication List Current Medications: Active Medications Acetaminophen (Tylenol -) 650 mg PO Q6H PRN PRN Reason: PAIN SCALE 1-5 Diltiazem HCl (Cardizem Cd -) 180 mg PO DAILY [facility] Last Admin: 05/20/18 09:04 Dose: 180 mg Docusate Sodium (Colace -) 100 mg PO Q8H PRN PRN Reason: CONSTIPATION Pantoprazole Sodium 80 mg/ (Sodium Chloride) 100 mls @ 10 mls/hr IVPB Q10H [facility] Last Admin: 05/20/18 17:49 Dose: 10 mls/hr Piperacillin Sod/Tazobactam (Sod 3.375 gm/ Dextrose) 50 mls @ 100 mls/hr IVPB Q8H-IV [facility]; Protocol Last Admin: 05/20/18 17:49 Dose: 100 mls/hr Methylprednisolone Sodium Succinate (Solu-Medrol -) 40 mg IVPB DAILY [facility] Last Admin: 05/20/18 09:04 Dose: 40 mg Metoprolol Tartrate (Lopressor Injection -) 5 mg IVPUSH Q6H PRN PRN Reason: TACHYCARDIA (HR OVER 120) Last Admin: 05/18/18 00:09 Dose: 5 mg Ondansetron HCl (Zofran Odt -) 4 mg SL Q6H PRN PRN Reason: NAUSEA AND/OR VOMITING Oxycodone HCl (Roxicodone -) 5 mg PO Q6H PRN PRN Reason: PAIN LEVEL 7 - 10 Pancrelipase (Creon Dr 36,000 Units Capsule) 1 cap PO TIDCM [facility] Last Admin: 05/20/18 17:49 Dose: 1 cap Polyethylene Glycol (Miralax (For Daily Use) -) 17 gm PO BID [facility] Last Admin: 05/20/18 09:47 Dose: Not Given Propranolol HCl (Inderal -) 60 mg PO TID [facility] Last Admin: 05/20/18 15:23 Dose: 60 mg Rifaximin (Xifaxan -) 550 mg PO TID [facility] Last Admin: 05/20/18 15:23 Dose: 550 mg - Objective Vital Signs: Vital Signs Temperature 97.5 F L 05/20/18 18:00 Pulse Rate 88 05/20/18 18:00 Respiratory Rate 20 05/20/18 18:00 Blood Pressure 168/84 05/20/18 18:00 O2 Sat by Pulse Oximetry (%) 98 05/20/18 08:41 Constitutional: Yes: Well Nourished, No Distress, Calm Cardiovascular: Yes: Pulse Irregular Respiratory: Yes: Regular Gastrointestinal: Yes: Normal Bowel Sounds, Soft Genitourinary: Yes: WNL Musculoskeletal: Yes: WNL Extremities: Yes: WNL Edema: No Peripheral Pulses WNL: Yes Neurological: Yes: Alert, Oriented Psychiatric: Yes: Alert, Oriented Labs: CBC, BMP 05/20/18 05:30 05/20/18 05:30 INR, PTT INR 1.14 (0.83-1.09) H 05/10/18 11:00 Problem List - Problems (1) PHILL (acute kidney injury) Assessment/Plan: -Seen by nephrology -Cr improving Code(s): N17.9 - ACUTE KIDNEY FAILURE, UNSPECIFIED (2) Atrial fibrillation Assessment/Plan: -On world language teacher -rate controlled -Eliquis on hold due to Guaiac + -Seen by cardiology Code(s): I48.91 - UNSPECIFIED ATRIAL FIBRILLATION Qualifiers: Atrial fibrillation type: chronic Qualified Code(s): I48.2 - Chronic atrial fibrillation (3) GI bleed Assessment/Plan: -Protonix drip -GI on board -Holding H/H -GI series next week Code(s): K92.2 - GASTROINTESTINAL HEMORRHAGE, UNSPECIFIED Qualifiers: GI bleed type/associated pathology: melena Qualified Code(s): K92.1 - Melena (4) Pneumonia Assessment/Plan: -ID on board -IV abx -Nasal O2 PRN -IV medrol Code(s): J18.9 - PNEUMONIA, UNSPECIFIED ORGANISM Assessment/Plan See problem list LEE's
--- NOTE | 2018-05-20 20:25 | PN ---
Progress Note (short form) - Note Progress Note: The patient reports significant improvement in the tenderness and draining in the left 1st toe, however he reports he has pain in both ankles when standing up. He was able to walk only with the walker. He was started on Solumedrol 40 mgIV/D on 05/16/18. He has not have fever since 05/14/18. Laboratory work-up from today revealed creatinine 1.3. Uric acid on admission was 8.5 and today 5.2. Physical examination: Lungs clear. MSK: Minimal tenderness in the right ankle and no effusion. No other active joints. Impression. Gout is probably not active. It is not clear why he has pain in ankles when standing up. Plan: DC Solumedrol He is scheduled to start Prednisone 40 mg/d tomorrow. I will start Allopurinol 100 mg/d/ Problem List - Problems (1) Gout Code(s): M10.9 - GOUT, UNSPECIFIED
[2018-05-21] MEDS ORDERED: PIPERACILLIN/TAZOBACTAM 3.375 GM VIAL IVPB ONE ×2 (01:45→10:09)
[2018-05-21] MEDS ORDERED: DEXTROSE 5%-WATER - 50 ML IVPB ONE ×2 (01:46→10:09)
[2018-05-21] MEDS: PIPERACILLIN/TAZOB 3.375 GM 3.375 GM in DEXTROSE 5%-WATER - 50 ML IVPB SCH ×3 (02:10→10:47)
[2018-05-21] MEDS: PANTOPRAZOLE SODIUM 80 MG in SODIUM CHLORIDE 100 ML IVPB SCH ×4 (04:19→17:45)
[2018-05-21] MEDS: RIFAXIMIN 550 MG TABLET (UD) PO SCH ×3 (05:47→21:51)
[2018-05-21] MEDS ORDERED: PT OWN MED DRAWER 7, Y5N ONE ×3 (08:38→20:56)
[2018-05-21] MEDS: LIPASE/PROTEASE/AMYLASE 36,000 UNIT CAPSULE PO SCH ×3 (08:41→18:41)
[2018-05-21] MEDS ORDERED: predniSONE 20 MG TABLET (UD) PO SCH (10:00)
[2018-05-21] MEDS: ALLOPURINOL 100 MG TABLET (FP) PO SCH (10:06)
[2018-05-21] MEDS: POLYETHYLENE GLYCOL 3350 119 GM BTL PO SCH ×2 (10:07→21:48)
--- NOTE | 2018-05-21 10:07 | PN ---
Progress Note (short form) - Note Progress Note: s: no chest pain, dyspnea, palps o: Vital Signs Period Temp Pulse Resp BP Sys/Lomeli Pulse Ox Last 24 Hr 97.5 F-98.1 F 77-93 12-20 142-168/72-99 98 nad no jvd irreg, s1s2 no mrg cta bl nl eff aao3 no le e/c/c abd nt nd pos bs no jaundice diaphoresis Current Medications Acetaminophen (Tylenol -) 650 mg PO Q6H PRN PRN Reason: PAIN SCALE 1-5 Allopurinol (Zyloprim -) 100 mg PO DAILY [facility] Diltiazem HCl (Cardizem Cd -) 180 mg PO DAILY [facility] Last Admin: 05/20/18 09:04 Dose: 180 mg Docusate Sodium (Colace -) 100 mg PO Q8H PRN PRN Reason: CONSTIPATION Pantoprazole Sodium 80 mg/ (Sodium Chloride) 100 mls @ 10 mls/hr IVPB Q10H [facility] Last Admin: 05/21/18 10:02 Dose: 10 mls/hr Piperacillin Sod/Tazobactam (Sod 3.375 gm/ Dextrose) 50 mls @ 100 mls/hr IVPB Q8H-IV [facility]; Protocol Last Admin: 05/21/18 02:10 Dose: 100 mls/hr Ondansetron HCl (Zofran Odt -) 4 mg SL Q6H PRN PRN Reason: NAUSEA AND/OR VOMITING Oxycodone HCl (Roxicodone -) 5 mg PO Q6H PRN PRN Reason: PAIN LEVEL 7 - 10 Pancrelipase (Creon Dr 36,000 Units Capsule) 1 cap PO TIDCM [facility] Last Admin: 05/21/18 08:41 Dose: 1 cap Polyethylene Glycol (Miralax (For Daily Use) -) 17 gm PO BID [facility] Last Admin: 05/20/18 21:56 Dose: Not Given Prednisone (Deltasone -) 40 mg PO DAILY [facility] Propranolol HCl (Inderal -) 60 mg PO TID [facility] Last Admin: 05/21/18 05:47 Dose: 60 mg Rifaximin (Xifaxan -) 550 mg PO TID [facility] Last Admin: 05/21/18 05:47 Dose: 550 mg cxr: clear lungs ecg: afib 120s, nl qtc, nonspec tw chagnes tele: afib with controlled HRs echo 04/2016: mild lve, nl lvef, mild lae, mild mr, mild-mod tr, mild pr, rvsp 50-60 a/p: 72 m hx htn, hld, dchf, afib, here with lightheadedness. gib: -holding AC for now -GI following -no cardiac contradindications to egd, foc -medically optimized from CV standpoint -hgb drifted down 05/14-PRBCs -H/H stable afib: -tachycardic to 170s hence GI scopes postponed. -HR controlled with no more chris, no hypotension: cont propranolol, diltiazem -monitor tele -holding eliquis due to gib hypotension, fever/chills, PNA: -likely sec to SIRS with fever/PNA -stable now, tolerating AF med regimen htn: -cont current meds chronic diastolic chf: -vol stable on exam, holding home lasix for now kaveh: -improving after IVF, PRBC
--- NOTE | 2018-05-21 10:48 | PN ---
Progress Note, Physician History of Present Illness: AWAKE, ALERT NO COMPLAINTS DENIES DYSPNEA/ COUGH TEMPS DOWN AFEBRILE WBC IMPROVED BC NO GROWTH AZOTEMIA IMPROVED - Current Medication List Current Medications: Active Medications Acetaminophen (Tylenol -) 650 mg PO Q6H PRN PRN Reason: PAIN SCALE 1-5 Allopurinol (Zyloprim -) 100 mg PO DAILY [facility] Last Admin: 05/21/18 10:06 Dose: 100 mg Diltiazem HCl (Cardizem Cd -) 180 mg PO DAILY [facility] Last Admin: 05/21/18 10:06 Dose: 180 mg Docusate Sodium (Colace -) 100 mg PO Q8H PRN PRN Reason: CONSTIPATION Pantoprazole Sodium 80 mg/ (Sodium Chloride) 100 mls @ 10 mls/hr IVPB Q10H [facility] Last Admin: 05/21/18 10:02 Dose: 10 mls/hr Ondansetron HCl (Zofran Odt -) 4 mg SL Q6H PRN PRN Reason: NAUSEA AND/OR VOMITING Oxycodone HCl (Roxicodone -) 5 mg PO Q6H PRN PRN Reason: PAIN LEVEL 7 - 10 Pancrelipase (Creon Dr 36,000 Units Capsule) 1 cap PO TIDCM [facility] Last Admin: 05/21/18 08:41 Dose: 1 cap Polyethylene Glycol (Miralax (For Daily Use) -) 17 gm PO BID [facility] Last Admin: 05/21/18 10:07 Dose: Not Given Prednisone (Deltasone -) 40 mg PO DAILY [facility] Last Admin: 05/21/18 10:10 Dose: 40 mg Propranolol HCl (Inderal -) 60 mg PO TID [facility] Last Admin: 05/21/18 05:47 Dose: 60 mg Rifaximin (Xifaxan -) 550 mg PO TID [facility] Last Admin: 05/21/18 05:47 Dose: 550 mg - Objective Vital Signs: Vital Signs Temperature 97.9 F 05/21/18 06:00 Pulse Rate 77 05/21/18 06:00 Respiratory Rate 18 05/21/18 06:00 Blood Pressure 152/91 05/21/18 06:00 O2 Sat by Pulse Oximetry (%) 98 05/20/18 21:00 Constitutional: Yes: No Distress Eyes: Yes: Conjunctiva Clear Cardiovascular: Yes: Regular Rate and Rhythm, S1, S2 Respiratory: Yes: CTA Bilaterally Gastrointestinal: Yes: Normal Bowel Sounds, Soft, Other (SL DISTENDED). No: Tenderness Edema: No Integumentary: Yes: Other (DRY ULCER L LATERAL 1ST MTH) Labs: CBC, BMP 05/20/18 05:30 05/20/18 05:30 INR, PTT INR 1.14 (0.83-1.09) H 05/10/18 11:00 Assessment/Plan HCAP INFECTED FOOT ULCER IMPROVED LEUKOCYTOSIS AZOTEMIA DISCONTINUE ZOSYN. OBSERVE OFF ANTIBIOTICS LOCAL WOUND CARE
--- NOTE | 2018-05-21 14:59 | PN ---
Progress Note, Physician Chief Complaint: BLL Pneumonia GI bleeding SIRS Afib PHILL HTN History of Present Illness: NAD Comfortable watching TV Seen by GI, Cardiology, nephrology and ID On IV abx On protonix drip - Current Medication List Current Medications: Active Medications Acetaminophen (Tylenol -) 650 mg PO Q6H PRN PRN Reason: PAIN SCALE 1-5 Allopurinol (Zyloprim -) 100 mg PO DAILY [facility] Last Admin: 05/21/18 10:06 Dose: 100 mg Diltiazem HCl (Cardizem Cd -) 180 mg PO DAILY [facility] Last Admin: 05/21/18 10:06 Dose: 180 mg Docusate Sodium (Colace -) 100 mg PO Q8H PRN PRN Reason: CONSTIPATION Pantoprazole Sodium 80 mg/ (Sodium Chloride) 100 mls @ 10 mls/hr IVPB Q10H [facility] Last Admin: 05/21/18 10:02 Dose: 10 mls/hr Ondansetron HCl (Zofran Odt -) 4 mg SL Q6H PRN PRN Reason: NAUSEA AND/OR VOMITING Oxycodone HCl (Roxicodone -) 5 mg PO Q6H PRN PRN Reason: PAIN LEVEL 7 - 10 Pancrelipase (Creon Dr 36,000 Units Capsule) 1 cap PO TIDCM [facility] Last Admin: 05/21/18 12:29 Dose: 1 cap Polyethylene Glycol (Miralax (For Daily Use) -) 17 gm PO BID [facility] Last Admin: 05/21/18 10:07 Dose: Not Given Prednisone (Deltasone -) 40 mg PO DAILY [facility] Last Admin: 05/21/18 10:10 Dose: 40 mg Propranolol HCl (Inderal -) 60 mg PO TID [facility] Last Admin: 05/21/18 05:47 Dose: 60 mg Rifaximin (Xifaxan -) 550 mg PO TID [facility] Last Admin: 05/21/18 05:47 Dose: 550 mg - Objective Vital Signs: Vital Signs Temperature 97.9 F 05/21/18 10:00 Pulse Rate 84 05/21/18 10:00 Respiratory Rate 18 05/21/18 10:00 Blood Pressure 144/87 05/21/18 10:00 O2 Sat by Pulse Oximetry (%) 98 05/20/18 21:00 Constitutional: Yes: Well Nourished, No Distress, Calm Cardiovascular: Yes: Regular Rate and Rhythm Respiratory: Yes: Regular Gastrointestinal: Yes: Normal Bowel Sounds, Soft Musculoskeletal: Yes: WNL Extremities: Yes: WNL Edema: No Peripheral Pulses WNL: Yes Neurological: Yes: Alert, Oriented Psychiatric: Yes: Alert, Oriented Labs: CBC, BMP 05/20/18 05:30 05/20/18 05:30 INR, PTT INR 1.14 (0.83-1.09) H 05/10/18 11:00 Problem List - Problems (1) PHILL (acute kidney injury) Assessment/Plan: -Seen by nephrology -Cr improving Code(s): N17.9 - ACUTE KIDNEY FAILURE, UNSPECIFIED (2) Atrial fibrillation Assessment/Plan: -On cardiac exercise physiologist -rate controlled -Eliquis on hold due to Guaiac + -Seen by cardiology Code(s): I48.91 - UNSPECIFIED ATRIAL FIBRILLATION Qualifiers: Atrial fibrillation type: chronic Qualified Code(s): I48.2 - Chronic atrial fibrillation (3) GI bleed Assessment/Plan: -Protonix drip -GI on board -Holding H/H -GI series next week Code(s): K92.2 - GASTROINTESTINAL HEMORRHAGE, UNSPECIFIED Qualifiers: GI bleed type/associated pathology: melena Qualified Code(s): K92.1 - Melena (4) Pneumonia Assessment/Plan: -ID on board -off IV abx -Nasal O2 PRN -IV medrol Code(s): J18.9 - PNEUMONIA, UNSPECIFIED ORGANISM Assessment/Plan See problem list LEE's
[2018-05-21] MEDS ORDERED: INSULIN (NOVOLOG) ASPART 100 UNITS/ML 10ML VIAL ONE (17:41)
--- NOTE | 2018-05-21 18:05 | PN ---
Progress Note (short form) - Note Progress Note: problems 1. PHILL 2. a-fib 3. hx pleural effusion 4. HLD 5. CHF 6. HTN 7. Gout 8. gi bleed 9. hyperkalemia 10. lactic acidosis Current Medications Acetaminophen (Tylenol -) 650 mg PO Q6H PRN PRN Reason: PAIN SCALE 1-5 Allopurinol (Zyloprim -) 100 mg PO DAILY [facility] Last Admin: 05/21/18 10:06 Dose: 100 mg Diltiazem HCl (Cardizem Cd -) 180 mg PO DAILY [facility] Last Admin: 05/21/18 10:06 Dose: 180 mg Docusate Sodium (Colace -) 100 mg PO Q8H PRN PRN Reason: CONSTIPATION Pantoprazole Sodium 80 mg/ (Sodium Chloride) 100 mls @ 10 mls/hr IVPB Q10H [facility] Last Admin: 05/21/18 17:45 Dose: 10 mls/hr Ondansetron HCl (Zofran Odt -) 4 mg SL Q6H PRN PRN Reason: NAUSEA AND/OR VOMITING Oxycodone HCl (Roxicodone -) 5 mg PO Q6H PRN PRN Reason: PAIN LEVEL 7 - 10 Pancrelipase (Creon Dr 36,000 Units Capsule) 1 cap PO TIDCM [facility] Last Admin: 05/21/18 12:29 Dose: 1 cap Polyethylene Glycol (Miralax (For Daily Use) -) 17 gm PO BID [facility] Last Admin: 05/21/18 10:07 Dose: Not Given Prednisone (Deltasone -) 40 mg PO DAILY [facility] Last Admin: 05/21/18 10:10 Dose: 40 mg Propranolol HCl (Inderal -) 60 mg PO TID [facility] Last Admin: 05/21/18 15:00 Dose: 60 mg Rifaximin (Xifaxan -) 550 mg PO TID [facility] Last Admin: 05/21/18 15:00 Dose: 550 mg Last Vital Signs Temp Pulse Resp BP Pulse Ox 98 F 87 18 123/75 98 05/21/18 14:00 05/21/18 14:00 05/21/18 14:00 05/21/18 14:00 05/21/18 09:00 alert in nad Lungs clear Heart reg Abd soft nontender ext no edema CBC, BMP 05/20/18 05:30 05/20/18 05:30 IMP- s/p phill resolving still with a prerenal azotemia no labs today Plan- ensure hydration monitor labs livan electrolytes
[2018-05-22] MEDS: PANTOPRAZOLE SODIUM 80 MG in SODIUM CHLORIDE 100 ML IVPB SCH (04:37)
[2018-05-22 05:51] LABS: BASO % 0.1 % (0-2.0); EOS % 0.1 % (0-4.5); HEMATOCRIT 34.3 % (35.4-49); HEMOGLOBIN 11.4 GM/dL (11.7-16.9); LYMPH % 4.1 % (8-40); MCHC 33.3 g/dl (32.0-35.9); MEAN CELL VOLUME 89.9 fl (80-96); MONO % 5.4 % (3.8-10.2); NEUT % 90.3 % (42.8-82.8); PLATELET COUNT 453 K/MM3 (134-434); RBC 3.81 M/mm3 (4.00-5.60)
[2018-05-22] MEDS: RIFAXIMIN 550 MG TABLET (UD) PO SCH ×3 (05:59→21:48)
[2018-05-22 06:19] LABS: ALBUMIN 2.5 g/dl (3.4-5.0); ALK PHOS 84 U/L (45-117); ANION GAP 4 MMOL/L (8-16); BILIRUBIN,TOTAL 0.2 mg/dL (0.2-1); BLOOD UREA NITROGEN 35 mg/dL (7-18); CALCIUM 7.2 mg/dL (8.5-10.1); CHLORIDE 105 mmol/L (98-107); CO2 27 mmol/L (21-32); CREATININE 1.6 mg/dL (0.55-1.3); GLUCOSE,RANDOM 155 mg/dL (74-106); POTASSIUM 5.1 mmol/L (3.5-5.1); SGOT/AST 17 U/L (15-37); SGPT/ALT 75 U/L (13-61); SODIUM 137 mmol/L (136-145); TOT PROT 6.2 g/dl (6.4-8.2)
[2018-05-22] MEDS: LIPASE/PROTEASE/AMYLASE 36,000 UNIT CAPSULE PO SCH ×3 (08:01→21:47)
--- NOTE | 2018-05-22 08:02 | PN ---
Progress Note, Physician - Current Medication List Current Medications: Active Medications Acetaminophen (Tylenol -) 650 mg PO Q6H PRN PRN Reason: PAIN SCALE 1-5 Allopurinol (Zyloprim -) 100 mg PO DAILY [facility] Last Admin: 05/21/18 10:06 Dose: 100 mg Diltiazem HCl (Cardizem Cd -) 180 mg PO DAILY [facility] Last Admin: 05/21/18 10:06 Dose: 180 mg Docusate Sodium (Colace -) 100 mg PO Q8H PRN PRN Reason: CONSTIPATION Pantoprazole Sodium 80 mg/ (Sodium Chloride) 100 mls @ 10 mls/hr IVPB Q10H [facility] Last Admin: 05/22/18 04:37 Dose: Not Given Ondansetron HCl (Zofran Odt -) 4 mg SL Q6H PRN PRN Reason: NAUSEA AND/OR VOMITING Oxycodone HCl (Roxicodone -) 5 mg PO Q6H PRN PRN Reason: PAIN LEVEL 7 - 10 Pancrelipase (Creon Dr 36,000 Units Capsule) 1 cap PO TIDCM [facility] Last Admin: 05/21/18 18:41 Dose: 1 cap Polyethylene Glycol (Miralax (For Daily Use) -) 17 gm PO BID [facility] Last Admin: 05/21/18 21:48 Dose: Not Given Prednisone (Deltasone -) 40 mg PO DAILY [facility] Last Admin: 05/21/18 10:10 Dose: 40 mg Propranolol HCl (Inderal -) 60 mg PO TID [facility] Last Admin: 05/22/18 05:59 Dose: 60 mg Rifaximin (Xifaxan -) 550 mg PO TID [facility] Last Admin: 05/22/18 05:59 Dose: 550 mg - Objective Vital Signs: Vital Signs Temperature 98.1 F 05/22/18 00:00 Pulse Rate 93 H 05/22/18 04:00 Respiratory Rate 18 05/22/18 04:00 Blood Pressure 141/81 05/22/18 04:00 O2 Sat by Pulse Oximetry (%) 98 05/21/18 22:00 Labs: CBC, BMP 05/22/18 05:15 05/22/18 05:15 INR, PTT INR 1.14 (0.83-1.09) H 05/10/18 11:00 Problem List - Problems (1) Atrial fibrillation Code(s): I48.91 - UNSPECIFIED ATRIAL FIBRILLATION Qualifiers: Atrial fibrillation type: chronic Qualified Code(s): I48.2 - Chronic atrial fibrillation (2) PHILL (acute kidney injury) Code(s): N17.9 - ACUTE KIDNEY FAILURE, UNSPECIFIED (3) GI bleed Code(s): K92.2 - GASTROINTESTINAL HEMORRHAGE, UNSPECIFIED Qualifiers: GI bleed type/associated pathology: melena Qualified Code(s): K92.1 - Melena (4) Pneumonia Code(s): J18.9 - PNEUMONIA, UNSPECIFIED ORGANISM (5) Gout Code(s): M10.9 - GOUT, UNSPECIFIED Assessment/Plan - Problems (1) PHILL (acute kidney injury) Assessment/Plan: -Seen by nephrology -Cr -monitor Code(s): N17.9 - ACUTE KIDNEY FAILURE, UNSPECIFIED (2) Atrial fibrillation Assessment/Plan: -On youth nutritional monitor -rate controlled -Eliquis on hold due to Guaiac + -Seen by cardiology Code(s): I48.91 - UNSPECIFIED ATRIAL FIBRILLATION Qualifiers: Atrial fibrillation type: chronic Qualified Code(s): I48.2 - Chronic atrial fibrillation (3) GI bleed Assessment/Plan: -Protonix drip--change to po -GI Follow Up -Holding H/H -GI series or endoscopy per gi Code(s): K92.2 - GASTROINTESTINAL HEMORRHAGE, UNSPECIFIED Qualifiers: GI bleed type/associated pathology: melena Qualified Code(s): K92.1 - Melena (4) Pneumonia Assessment/Plan: -ID on board -off IV abx -Nasal O2 PRN -IV medrol--to prednisone Code(s): J18.9 - PNEUMONIA, UNSPECIFIED ORGANISM
[2018-05-22] MEDS: PANTOPRAZOLE 40 MG TABLET (FP) PO SCH ×2 (10:02→21:48)
[2018-05-22] MEDS: predniSONE 20 MG TABLET (UD) PO SCH (10:03)
[2018-05-22] MEDS: ALLOPURINOL 100 MG TABLET (FP) PO SCH (10:03)
[2018-05-22] MEDS: POLYETHYLENE GLYCOL 3350 119 GM BTL PO SCH ×2 (10:03→21:36)
--- NOTE | 2018-05-22 10:04 | PN ---
Progress Note, Physician Chief Complaint: GIB History of Present Illness: no palpit, sob, cp, leg swelling - Current Medication List Current Medications: Active Medications Acetaminophen (Tylenol -) 650 mg PO Q6H PRN PRN Reason: PAIN SCALE 1-5 Allopurinol (Zyloprim -) 100 mg PO DAILY [facility] Last Admin: 05/21/18 10:06 Dose: 100 mg Diltiazem HCl (Cardizem Cd -) 180 mg PO DAILY [facility] Last Admin: 05/21/18 10:06 Dose: 180 mg Docusate Sodium (Colace -) 100 mg PO Q8H PRN PRN Reason: CONSTIPATION Ondansetron HCl (Zofran Odt -) 4 mg SL Q6H PRN PRN Reason: NAUSEA AND/OR VOMITING Oxycodone HCl (Roxicodone -) 5 mg PO Q6H PRN PRN Reason: PAIN LEVEL 7 - 10 Pancrelipase (Creon Dr 36,000 Units Capsule) 1 cap PO TIDCM [facility] Last Admin: 05/21/18 18:41 Dose: 1 cap Pantoprazole Sodium (Protonix -) 40 mg PO BID [facility] Polyethylene Glycol (Miralax (For Daily Use) -) 17 gm PO BID [facility] Last Admin: 05/21/18 21:48 Dose: Not Given Prednisone (Deltasone -) 20 mg PO DAILY [facility] Propranolol HCl (Inderal -) 60 mg PO TID [facility] Last Admin: 05/22/18 05:59 Dose: 60 mg Rifaximin (Xifaxan -) 550 mg PO TID [facility] Last Admin: 05/22/18 05:59 Dose: 550 mg - Objective Vital Signs: Vital Signs Temperature 98.1 F 05/22/18 00:00 Pulse Rate 93 H 05/22/18 04:00 Respiratory Rate 18 05/22/18 04:00 Blood Pressure 141/81 05/22/18 04:00 O2 Sat by Pulse Oximetry (%) 98 05/21/18 22:00 Constitutional: Yes: Well Nourished, No Distress, Calm Cardiovascular: Yes: Pulse Irregular, S1, S2. No: JVD, Gallop, Murmur Respiratory: Yes: Regular, CTA Bilaterally. No: Accessory Muscle Use, Rales, Wheezes Extremities: No: Cold Edema: No Neurological: Yes: Alert, Oriented Psychiatric: No: Agitated Labs: CBC, BMP 05/22/18 05:15 05/22/18 05:15 INR, PTT INR 1.14 (0.83-1.09) H 05/10/18 11:00 Assessment/Plan cxr: clear lungs ecg: afib 120s, nl qtc, nonspec tw chagnes tele: afib with controlled HRs echo 04/2016: mild lve, nl lvef, mild lae, mild mr, mild-mod tr, mild pr, rvsp 50-60 a/p: 72 m hx htn, hld, dchf, afib, here with lightheadedness. gib: -holding AC for now -medically optimized from CV standpoint---he is at acceptable cardiac CV risk for egd, foc -H/H remains stable -s/p UGI series--plan as per GI afib: -tachycardic to 170s hence GI scopes postponed. -HR controlled with no more chris, no hypotension: cont propranolol, diltiazem -monitor tele -holding eliquis due to gib PNA: -per pmd htn: -bp controlled -cont current meds chronic diastolic chf: -vol stable on exam, holding home lasix for now kaveh: -improving after IVF, PRBC--creat continues to fluctuate however -per pmd
[2018-05-22 10:27] LABS: ANISOCYTOSIS 0; HELMET CELLS 0; HOWELL-JOLLY BODIES 0; MACROCYTOSIS 0; OVALOCYTE 0; PLATELET ESTIMATE NORMAL; ROULEAU 0; SICKELED CELLS 0; TARGET CELLS 0; TEAR DROP CELLS 0; TOXIC GRANULATION 0
--- NOTE | 2018-05-22 14:01 | PN ---
Progress Note (short form) - Note Progress Note: Breathing feels ok. No CP or SOB. Afebrile. Intake & Output 05/19/18 05/20/18 05/21/18 05/22/18 23:59 23:59 23:59 23:59 Intake Total 1450 910 490 70 Output Total 1700 900 950 600 Balance -250 10 -460 -530 Weight 198 lb 198 lb 14.4 oz Last Vital Signs Temp Pulse Resp BP Pulse Ox 98.3 F 93 H 18 148/88 98 05/22/18 13:19 05/22/18 13:19 05/22/18 13:19 05/22/18 13:19 05/21/18 22:00 Active Medications Acetaminophen (Tylenol -) 650 mg PO Q6H PRN PRN Reason: PAIN SCALE 1-5 Allopurinol (Zyloprim -) 100 mg PO DAILY [facility] Last Admin: 05/22/18 10:03 Dose: 100 mg Diltiazem HCl (Cardizem Cd -) 180 mg PO DAILY [facility] Last Admin: 05/22/18 10:02 Dose: 180 mg Docusate Sodium (Colace -) 100 mg PO Q8H PRN PRN Reason: CONSTIPATION Ondansetron HCl (Zofran Odt -) 4 mg SL Q6H PRN PRN Reason: NAUSEA AND/OR VOMITING Oxycodone HCl (Roxicodone -) 5 mg PO Q6H PRN PRN Reason: PAIN LEVEL 7 - 10 Pancrelipase (Creon Dr 36,000 Units Capsule) 1 cap PO TIDCM [facility] Last Admin: 05/22/18 08:01 Dose: Not Given Pantoprazole Sodium (Protonix -) 40 mg PO BID [facility] Last Admin: 05/22/18 10:02 Dose: 40 mg Polyethylene Glycol (Miralax (For Daily Use) -) 17 gm PO BID [facility] Last Admin: 05/22/18 10:03 Dose: Not Given Prednisone (Deltasone -) 20 mg PO DAILY [facility] Last Admin: 05/22/18 10:03 Dose: 20 mg Propranolol HCl (Inderal -) 60 mg PO TID [facility] Last Admin: 05/22/18 05:59 Dose: 60 mg Rifaximin (Xifaxan -) 550 mg PO TID [facility] Last Admin: 05/22/18 05:59 Dose: 550 mg Constitutional: Yes: No Distress, Obese Eyes: Yes: Conjunctiva Clear, EOM Intact HENT: Yes: Atraumatic, Normocephalic Neck: Yes: Supple, Trachea Midline Cardiovascular: Yes: Pulse Irregular Respiratory: Yes: Cough, Diminished, On Nasal O2, Rales, Rhonchi. No: Accessory Muscle Use, On BiPap, Stridor, Tachypnea, Wheezes ...Inspection: Yes: WNL ...Clubbing: No Gastrointestinal: Yes: Normal Bowel Sounds, Soft, Abdomen, Obese Renal/: Yes: WNL Musculoskeletal: Yes: Joint Stiffness, Joint Swelling Extremities: Yes: Cool Edema: Yes Peripheral Pulses WNL: No Integumentary: Yes: Erythema, Other (tophi formation LLE ) Neurological: Yes: WNL, Alert, Oriented ...Motor Strength: WNL Psychiatric: Yes: WNL, Alert, Oriented Labs: Laboratory Results - last 24 hr 05/22/18 05/22/18 05/22/18 05:15 05:15 11:26 WBC 20.0 H RBC 3.81 L Hgb 11.4 L Hct 34.3 L MCV 89.9 MCH 30.0 MCHC 33.3 RDW 15.0 Plt Count 453 H MPV 7.0 L Absolute Neuts (auto) 18.0 H Neutrophils % 90.3 H Neutrophils % (Manual) 84.7 H Band Neutrophils % 0.0 Lymphocytes % 4.1 L D Lymphocytes % (Manual) 10.2 Monocytes % 5.4 Monocytes % (Manual) 5 Eosinophils % 0.1 Eosinophils % (Manual) 0.0 Basophils % 0.1 Basophils % (Manual) 0.0 Myelocytes % (Man) 0 Promyelocytes % (Man) 0 Blast Cells % (Manual) 0 Nucleated RBC % 0 Metamyelocytes 0 Hypochromia 0 Toxic Granulation 0 Dohle Bodies 0 Platelet Estimate Normal Polychromasia 0 Poikilocytosis 0 Basophilic Stippling 0 Anisocytosis 0 Microcytosis 0 Macrocytosis 0 Spherocytes 0 Sickle Cells 0 Target Cells 0 Tear Drop Cells 0 Ovalocytes 0 Stomatocytes 0 Helmet Cells 0 [place] Bodies 0 [place] Rings 0 [place] Cells 0 Acanthocytes (Spur) 0 Rouleaux 0 Fragmented RBCs 0 Schistocytes 0 Sodium 137 Potassium 5.1 Chloride 105 Carbon Dioxide 27 Anion Gap 4 L BUN 35 H Creatinine 1.6 H Creat Clearance w eGFR 42.46 POC Glucometer 118 Random Glucose 155 H Calcium 7.2 L Total Bilirubin 0.2 AST 17 ALT 75 H Alkaline Phosphatase 84 Total Protein 6.2 L Albumin 2.5 L Problem List - Problems (1) Pneumonia Code(s): J18.9 - PNEUMONIA, UNSPECIFIED ORGANISM (2) Pulmonary vascular congestion Code(s): R09.89 - OTH SYMPTOMS AND SIGNS INVOLVING THE CIRC AND RESP SYSTEMS (3) PHILL (acute kidney injury) Code(s): N17.9 - ACUTE KIDNEY FAILURE, UNSPECIFIED (4) Atrial fibrillation Code(s): I48.91 - UNSPECIFIED ATRIAL FIBRILLATION Qualifiers: Atrial fibrillation type: chronic Qualified Code(s): I48.2 - Chronic atrial fibrillation (5) GI bleed Code(s): K92.2 - GASTROINTESTINAL HEMORRHAGE, UNSPECIFIED Qualifiers: GI bleed type/associated pathology: melena Qualified Code(s): K92.1 - Melena (6) Bunion of great toe of left foot Code(s): M21.612 - BUNION OF LEFT FOOT (7) Gout Code(s): M10.9 - GOUT, UNSPECIFIED (8) HTN (hypertension) Code(s): I10 - ESSENTIAL (PRIMARY) HYPERTENSION (9) SOB (shortness of breath) Code(s): R06.02 - SHORTNESS OF BREATH Assessment/Plan ABX per ID GI workup ongoing O2 as needed Prednisone for gout flair Pain control Local wound care Dr Jovel Problem List - Problems (1) Pneumonia Code(s): J18.9 - PNEUMONIA, UNSPECIFIED ORGANISM (2) Pulmonary vascular congestion Code(s): R09.89 - OTH SYMPTOMS AND SIGNS INVOLVING THE CIRC AND RESP SYSTEMS (3) PHILL (acute kidney injury) Code(s): N17.9 - ACUTE KIDNEY FAILURE, UNSPECIFIED (4) Atrial fibrillation Code(s): I48.91 - UNSPECIFIED ATRIAL FIBRILLATION Qualifiers: Atrial fibrillation type: chronic Qualified Code(s): I48.2 - Chronic atrial fibrillation (5) GI bleed Code(s): K92.2 - GASTROINTESTINAL HEMORRHAGE, UNSPECIFIED Qualifiers: GI bleed type/associated pathology: melena Qualified Code(s): K92.1 - Melena (6) Bunion of great toe of left foot Code(s): M21.612 - BUNION OF LEFT FOOT (7) Gout Code(s): M10.9 - GOUT, UNSPECIFIED (8) HTN (hypertension) Code(s): I10 - ESSENTIAL (PRIMARY) HYPERTENSION (9) SOB (shortness of breath) Code(s): R06.02 - SHORTNESS OF BREATH
--- NOTE | 2018-05-22 15:51 | PN ---
Progress Note, Physician History of Present Illness: Pt seen and examined at bedside. He is awake and alert. He is tolerating diet. He denies shortness of breath. - Current Medication List Current Medications: Active Medications Acetaminophen (Tylenol -) 650 mg PO Q6H PRN PRN Reason: PAIN SCALE 1-5 Allopurinol (Zyloprim -) 100 mg PO DAILY [facility] Last Admin: 05/22/18 10:03 Dose: 100 mg Diltiazem HCl (Cardizem Cd -) 180 mg PO DAILY [facility] Last Admin: 05/22/18 10:02 Dose: 180 mg Docusate Sodium (Colace -) 100 mg PO Q8H PRN PRN Reason: CONSTIPATION Ondansetron HCl (Zofran Odt -) 4 mg SL Q6H PRN PRN Reason: NAUSEA AND/OR VOMITING Oxycodone HCl (Roxicodone -) 5 mg PO Q6H PRN PRN Reason: PAIN LEVEL 7 - 10 Pancrelipase (Creon Dr 36,000 Units Capsule) 1 cap PO TIDCM [facility] Last Admin: 05/22/18 13:30 Dose: 1 cap Pantoprazole Sodium (Protonix -) 40 mg PO BID [facility] Last Admin: 05/22/18 10:02 Dose: 40 mg Polyethylene Glycol (Miralax (For Daily Use) -) 17 gm PO BID [facility] Last Admin: 05/22/18 10:03 Dose: Not Given Prednisone (Deltasone -) 20 mg PO DAILY [facility] Last Admin: 05/22/18 10:03 Dose: 20 mg Propranolol HCl (Inderal -) 60 mg PO TID [facility] Last Admin: 05/22/18 14:31 Dose: 60 mg Rifaximin (Xifaxan -) 550 mg PO TID [facility] Last Admin: 05/22/18 14:30 Dose: 550 mg - Objective Vital Signs: Vital Signs Temperature 98.3 F 05/22/18 13:19 Pulse Rate 93 H 05/22/18 13:19 Respiratory Rate 18 05/22/18 13:19 Blood Pressure 148/88 05/22/18 13:19 O2 Sat by Pulse Oximetry (%) 96 05/22/18 10:00 Constitutional: Yes: Calm Eyes: Yes: Conjunctiva Clear HENT: Yes: Atraumatic Neck: Yes: Supple Cardiovascular: Yes: S1, S2 Respiratory: Yes: CTA Bilaterally Gastrointestinal: Yes: Soft Genitourinary: Yes: WNL Musculoskeletal: Yes: WNL Edema: No Neurological: Yes: Oriented Psychiatric: Yes: Oriented Labs: CBC, BMP 05/22/18 05:15 05/22/18 05:15 INR, PTT INR 1.14 (0.83-1.09) H 05/10/18 11:00 Problem List - Problems (1) PHILL (acute kidney injury) Code(s): N17.9 - ACUTE KIDNEY FAILURE, UNSPECIFIED (2) Atrial fibrillation Code(s): I48.91 - UNSPECIFIED ATRIAL FIBRILLATION Qualifiers: Atrial fibrillation type: chronic Qualified Code(s): I48.2 - Chronic atrial fibrillation (3) GI bleed Code(s): K92.2 - GASTROINTESTINAL HEMORRHAGE, UNSPECIFIED Qualifiers: GI bleed type/associated pathology: melena Qualified Code(s): K92.1 - Melena (4) Gout Code(s): M10.9 - GOUT, UNSPECIFIED (5) HTN (hypertension) Code(s): I10 - ESSENTIAL (PRIMARY) HYPERTENSION Assessment/Plan Current Medications Generic Name Dose Route Start Last Admin Trade Name Freq PRN Reason Stop Dose Admin Acetaminophen 650 mg 05/18/18 15:02 Tylenol - PO Q6H PRN PAIN SCALE 1-5 Allopurinol 100 mg 05/21/18 10:00 05/22/18 10:03 Zyloprim - PO 100 mg DAILY [facility] Administration Diltiazem HCl 180 mg 05/18/18 10:00 05/22/18 10:02 Cardizem Cd - PO 180 mg DAILY [facility] Administration Docusate Sodium 100 mg 05/13/18 08:09 Colace - PO Q8H PRN CONSTIPATION Ondansetron HCl 4 mg 05/13/18 08:09 Zofran Odt - SL Q6H PRN NAUSEA AND/OR VOMITING Oxycodone HCl 5 mg 05/19/18 11:29 Roxicodone - PO Q6H PRN PAIN LEVEL 7 - 10 Pancrelipase 1 cap 05/18/18 12:00 05/22/18 13:[address] 36,000 Units Capsule PO 1 cap TIDCM [facility] Administration Pantoprazole Sodium 40 mg 05/22/18 10:00 05/22/18 10:02 Protonix - PO 40 mg BID [facility] Administration Polyethylene Glycol 17 gm 05/17/18 10:00 05/22/18 10:03 Miralax (For Daily Use) - PO Not Given BID [facility] Prednisone 20 mg 05/22/18 09:08 05/22/18 10:03 Deltasone - PO 20 mg DAILY [facility] Administration Propranolol HCl 60 mg 05/14/18 10:57 05/22/18 14:31 Inderal - PO 60 mg TID [facility] Administration Rifaximin 550 mg 05/18/18 14:00 05/22/18 14:30 Xifaxan - PO 550 mg TID [facility] Administration Impression 1. PHILL 2. a-fib 3. hx pleural effusion 4. HLD 5. CHF 6. HTN 7. Gout 8. gi bleed 9. hyperkalemia 10. lactic acidosis 11. anemia Plan - renal function worsening - restart 1/2 ns at 42 cc - repeat labs in am - gi follow up - monitor hg Dr Rodríguez
--- NOTE | 2018-05-22 19:00 | PN ---
Progress Note (short form) - Note Progress Note: UGIS abnormal duodenal bulb, r/o peptic ulcer disess, will schedule EGD once cleared by pulmonary Problem List - Problems (1) GI bleed Code(s): K92.2 - GASTROINTESTINAL HEMORRHAGE, UNSPECIFIED Qualifiers: GI bleed type/associated pathology: melena Qualified Code(s): K92.1 - Melena (2) Osteomyelitis of ankle and foot Code(s): M86.9 - OSTEOMYELITIS, UNSPECIFIED (3) Cellulitis of left foot Code(s): L03.116 - CELLULITIS OF LEFT LOWER LIMB (4) Abdominal distension Code(s): R14.0 - ABDOMINAL DISTENSION (GASEOUS)
[2018-05-22] MEDS: SODIUM CHLORIDE 0.45% 1,000 ML IV SCH (21:46)
[2018-05-23] MEDS: RIFAXIMIN 550 MG TABLET (UD) PO SCH ×3 (05:54→21:57)
[2018-05-23 07:24] LABS: ALBUMIN 2.4 g/dl (3.4-5.0); ALK PHOS 82 U/L (45-117); ANION GAP 7 MMOL/L (8-16); BILIRUBIN,TOTAL 0.3 mg/dL (0.2-1); BLOOD UREA NITROGEN 38 mg/dL (7-18); CALCIUM 7.1 mg/dL (8.5-10.1); CHLORIDE 107 mmol/L (98-107); CO2 24 mmol/L (21-32); CREATININE 1.3 mg/dL (0.55-1.3); GLUCOSE,RANDOM 92 mg/dL (74-106); POTASSIUM 4.6 mmol/L (3.5-5.1); SGOT/AST 15 U/L (15-37); SGPT/ALT 60 U/L (13-61); SODIUM 137 mmol/L (136-145); TOT PROT 6.2 g/dl (6.4-8.2)
[2018-05-23] MEDS ORDERED: fentaNYL CITRATE 250 MCG/5 ML VIAL ONE (07:33)
[2018-05-23] MEDS: LIPASE/PROTEASE/AMYLASE 36,000 UNIT CAPSULE PO SCH ×3 (08:30→18:14)
--- NOTE | 2018-05-23 09:11 | PN ---
Progress Note (short form) - Note Progress Note: s: no chest pain, palps, dizziness, lightheadedness Vital Signs Period Temp Pulse Resp BP Sys/Lomeli Pulse Ox Last 24 Hr 97.7 F-98.9 F 74-96 12-21 102-148/62-93 96-99 Constitutional: Yes: Well Nourished, No Distress, Calm Cardiovascular: Yes: Pulse Irregular, S1, S2. No: JVD, Gallop, Murmur Respiratory: Yes: Regular, CTA Bilaterally. No: Accessory Muscle Use, Rales, Wheezes Extremities: No: Cold Edema: No Neurological: Yes: Alert, Oriented Psychiatric: No: Agitated Current Medications Acetaminophen (Tylenol -) 650 mg PO Q6H PRN PRN Reason: PAIN SCALE 1-5 Allopurinol (Zyloprim -) 100 mg PO DAILY [facility] Last Admin: 05/23/18 09:53 Dose: 100 mg Diltiazem HCl (Cardizem Cd -) 180 mg PO DAILY [facility] Last Admin: 05/23/18 09:53 Dose: 180 mg Docusate Sodium (Colace -) 100 mg PO Q8H PRN PRN Reason: CONSTIPATION Sodium Chloride (1/2 Normal Saline) 1,000 mls @ 42 mls/hr IV ASDIR [facility] Last Admin: 05/22/18 21:46 Dose: 42 mls/hr Ondansetron HCl (Zofran Odt -) 4 mg SL Q6H PRN PRN Reason: NAUSEA AND/OR VOMITING Oxycodone HCl (Roxicodone -) 5 mg PO Q6H PRN PRN Reason: PAIN LEVEL 7 - 10 Pancrelipase (Creon Dr 36,000 Units Capsule) 1 cap PO TIDCM [facility] Last Admin: 05/23/18 08:30 Dose: 1 cap Pantoprazole Sodium (Protonix -) 40 mg PO BID [facility] Last Admin: 05/23/18 09:53 Dose: 40 mg Polyethylene Glycol (Miralax (For Daily Use) -) 17 gm PO BID [facility] Last Admin: 05/23/18 09:54 Dose: Not Given Prednisone (Deltasone -) 20 mg PO DAILY [facility] Last Admin: 05/23/18 09:53 Dose: 20 mg Propranolol HCl (Inderal -) 60 mg PO TID [facility] Last Admin: 05/23/18 05:54 Dose: 60 mg Rifaximin (Xifaxan -) 550 mg PO TID [facility] Last Admin: 05/23/18 05:54 Dose: 550 mg Assessment/Plan cxr: clear lungs ecg: afib 120s, nl qtc, nonspec tw chagnes tele: afib with controlled HRs echo 04/2016: mild lve, nl lvef, mild lae, mild mr, mild-mod tr, mild pr, rvsp 50-60 a/p: 72 m hx htn, hld, dchf, afib, here with lightheadedness. gib: -holding AC for now -medically optimized from CV standpoint---he is at acceptable cardiac CV risk for egd, foc -H/H remains stable -s/p UGI series--plan as per GI afib: -tachycardic to 170s hence GI scopes postponed. -HR controlled with no more chris, no hypotension: cont propranolol, diltiazem -monitor tele -holding eliquis due to gib PNA: -per pmd htn: -bp controlled -cont current meds chronic diastolic chf: -vol stable on exam, holding home lasix for now kaveh: -improving after IVF, PRBC--creat continues to fluctuate however -per pmd
--- NOTE | 2018-05-23 09:35 | PN ---
Progress Note, Physician - Current Medication List Current Medications: Active Medications Acetaminophen (Tylenol -) 650 mg PO Q6H PRN PRN Reason: PAIN SCALE 1-5 Allopurinol (Zyloprim -) 100 mg PO DAILY [facility] Last Admin: 05/22/18 10:03 Dose: 100 mg Diltiazem HCl (Cardizem Cd -) 180 mg PO DAILY [facility] Last Admin: 05/22/18 10:02 Dose: 180 mg Docusate Sodium (Colace -) 100 mg PO Q8H PRN PRN Reason: CONSTIPATION Sodium Chloride (1/2 Normal Saline) 1,000 mls @ 42 mls/hr IV ASDIR [facility] Last Admin: 05/22/18 21:46 Dose: 42 mls/hr Ondansetron HCl (Zofran Odt -) 4 mg SL Q6H PRN PRN Reason: NAUSEA AND/OR VOMITING Oxycodone HCl (Roxicodone -) 5 mg PO Q6H PRN PRN Reason: PAIN LEVEL 7 - 10 Pancrelipase (Creon Dr 36,000 Units Capsule) 1 cap PO TIDCM [facility] Last Admin: 05/22/18 21:47 Dose: 1 cap Pantoprazole Sodium (Protonix -) 40 mg PO BID [facility] Last Admin: 05/22/18 21:48 Dose: 40 mg Polyethylene Glycol (Miralax (For Daily Use) -) 17 gm PO BID [facility] Last Admin: 05/22/18 21:36 Dose: Not Given Prednisone (Deltasone -) 20 mg PO DAILY [facility] Last Admin: 05/22/18 10:03 Dose: 20 mg Propranolol HCl (Inderal -) 60 mg PO TID [facility] Last Admin: 05/23/18 05:54 Dose: 60 mg Rifaximin (Xifaxan -) 550 mg PO TID [facility] Last Admin: 05/23/18 05:54 Dose: 550 mg - Objective Vital Signs: Vital Signs Temperature 97.7 F 05/23/18 06:00 Pulse Rate 74 05/23/18 06:00 Respiratory Rate 16 05/23/18 06:00 Blood Pressure 145/93 05/23/18 06:00 O2 Sat by Pulse Oximetry (%) 99 05/22/18 22:00 Cardiovascular: Yes: S1, S2 Respiratory: Yes: Regular, CTA Bilaterally Gastrointestinal: Yes: Normal Bowel Sounds, Soft Labs: CBC, BMP 05/22/18 05:15 05/23/18 05:30 INR, PTT INR 1.14 (0.83-1.09) H 05/10/18 11:00 Problem List - Problems (1) Atrial fibrillation Code(s): I48.91 - UNSPECIFIED ATRIAL FIBRILLATION Qualifiers: Atrial fibrillation type: chronic Qualified Code(s): I48.2 - Chronic atrial fibrillation (2) PHILL (acute kidney injury) Code(s): N17.9 - ACUTE KIDNEY FAILURE, UNSPECIFIED (3) GI bleed Code(s): K92.2 - GASTROINTESTINAL HEMORRHAGE, UNSPECIFIED Qualifiers: GI bleed type/associated pathology: melena Qualified Code(s): K92.1 - Melena (4) Pneumonia Code(s): J18.9 - PNEUMONIA, UNSPECIFIED ORGANISM (5) Gout Code(s): M10.9 - GOUT, UNSPECIFIED Assessment/Plan - Problems (1) PHILL (acute kidney injury) Assessment/Plan: -Seen by nephrology -Cr -monitor Code(s): N17.9 - ACUTE KIDNEY FAILURE, UNSPECIFIED (2) Atrial fibrillation Assessment/Plan: -On radiation monitor -rate controlled -Eliquis on hold due to gi bleed--resume once cleared -Seen by cardiology Code(s): I48.91 - UNSPECIFIED ATRIAL FIBRILLATION Qualifiers: Atrial fibrillation type: chronic Qualified Code(s): I48.2 - Chronic atrial fibrillation (3) GI bleed Assessment/Plan: -Protonix drip--change to po -GI Follow Up to schedule endoscopy -Holding H/H -GI series or endoscopy per gi Code(s): K92.2 - GASTROINTESTINAL HEMORRHAGE, UNSPECIFIED Qualifiers: GI bleed type/associated pathology: melena Qualified Code(s): K92.1 - Melena (4) Pneumonia Assessment/Plan: -ID on board -off IV abx -Nasal O2 PRN -IV medrol--to prednisone Code(s): J18.9 - PNEUMONIA, UNSPECIFIED ORGANISM
[2018-05-23] MEDS ORDERED: PT OWN MED DRAWER 7, Y5N ONE ×3 (09:48→21:51)
[2018-05-23] MEDS: predniSONE 20 MG TABLET (UD) PO SCH (09:53)
[2018-05-23] MEDS: PANTOPRAZOLE 40 MG TABLET (FP) PO SCH ×2 (09:53→21:57)
[2018-05-23] MEDS: ALLOPURINOL 100 MG TABLET (FP) PO SCH (09:53)
[2018-05-23] MEDS: POLYETHYLENE GLYCOL 3350 119 GM BTL PO SCH ×2 (09:54→21:57)
--- NOTE | 2018-05-23 12:07 | PN ---
Progress Note, Physician History of Present Illness: Pt seen and examined at bedside. He is awake and alert. He denies shortness of breath. - Current Medication List Current Medications: Active Medications Acetaminophen (Tylenol -) 650 mg PO Q6H PRN PRN Reason: PAIN SCALE 1-5 Allopurinol (Zyloprim -) 100 mg PO DAILY [facility] Last Admin: 05/23/18 09:53 Dose: 100 mg Diltiazem HCl (Cardizem Cd -) 180 mg PO DAILY [facility] Last Admin: 05/23/18 09:53 Dose: 180 mg Docusate Sodium (Colace -) 100 mg PO Q8H PRN PRN Reason: CONSTIPATION Sodium Chloride (1/2 Normal Saline) 1,000 mls @ 42 mls/hr IV ASDIR [facility] Last Admin: 05/22/18 21:46 Dose: 42 mls/hr Ondansetron HCl (Zofran Odt -) 4 mg SL Q6H PRN PRN Reason: NAUSEA AND/OR VOMITING Oxycodone HCl (Roxicodone -) 5 mg PO Q6H PRN PRN Reason: PAIN LEVEL 7 - 10 Pancrelipase (Creon Dr 36,000 Units Capsule) 1 cap PO TIDCM [facility] Last Admin: 05/23/18 08:30 Dose: 1 cap Pantoprazole Sodium (Protonix -) 40 mg PO BID [facility] Last Admin: 05/23/18 09:53 Dose: 40 mg Polyethylene Glycol (Miralax (For Daily Use) -) 17 gm PO BID [facility] Last Admin: 05/23/18 09:54 Dose: Not Given Prednisone (Deltasone -) 20 mg PO DAILY [facility] Last Admin: 05/23/18 09:53 Dose: 20 mg Propranolol HCl (Inderal -) 60 mg PO TID [facility] Last Admin: 05/23/18 05:54 Dose: 60 mg Rifaximin (Xifaxan -) 550 mg PO TID [facility] Last Admin: 05/23/18 05:54 Dose: 550 mg - Objective Vital Signs: Vital Signs Temperature 97.7 F 05/23/18 06:00 Pulse Rate 74 05/23/18 06:00 Respiratory Rate 16 05/23/18 06:00 Blood Pressure 145/93 05/23/18 06:00 O2 Sat by Pulse Oximetry (%) 99 05/22/18 22:00 Constitutional: Yes: Calm Eyes: Yes: Conjunctiva Clear HENT: Yes: Atraumatic Neck: Yes: Supple Cardiovascular: Yes: S1, S2 Respiratory: Yes: CTA Bilaterally Gastrointestinal: Yes: Soft Musculoskeletal: Yes: WNL Edema: No Neurological: Yes: Oriented Psychiatric: Yes: Oriented Labs: CBC, BMP 05/22/18 05:15 05/23/18 05:30 INR, PTT INR 1.14 (0.83-1.09) H 05/10/18 11:00 Problem List - Problems (1) PHILL (acute kidney injury) Code(s): N17.9 - ACUTE KIDNEY FAILURE, UNSPECIFIED (2) Atrial fibrillation Code(s): I48.91 - UNSPECIFIED ATRIAL FIBRILLATION Qualifiers: Atrial fibrillation type: chronic Qualified Code(s): I48.2 - Chronic atrial fibrillation (3) GI bleed Code(s): K92.2 - GASTROINTESTINAL HEMORRHAGE, UNSPECIFIED Qualifiers: GI bleed type/associated pathology: melena Qualified Code(s): K92.1 - Melena (4) Gout Code(s): M10.9 - GOUT, UNSPECIFIED (5) HTN (hypertension) Code(s): I10 - ESSENTIAL (PRIMARY) HYPERTENSION Assessment/Plan Current Medications Generic Name Dose Route Start Last Admin Trade Name Freq PRN Reason Stop Dose Admin Acetaminophen 650 mg 05/18/18 15:02 Tylenol - PO Q6H PRN PAIN SCALE 1-5 Allopurinol 100 mg 05/21/18 10:00 05/23/18 09:53 Zyloprim - PO 100 mg DAILY [facility] Administration Diltiazem HCl 180 mg 05/18/18 10:00 05/23/18 09:53 Cardizem Cd - PO 180 mg DAILY [facility] Administration Docusate Sodium 100 mg 05/13/18 08:09 Colace - PO Q8H PRN CONSTIPATION Sodium Chloride 1,000 mls @ 42 mls/hr 05/22/18 16:00 05/22/18 21:46 1/2 Normal Saline IV 42 mls/hr ASDIR [facility] Administration Ondansetron HCl 4 mg 05/13/18 08:09 Zofran Odt - SL Q6H PRN NAUSEA AND/OR VOMITING Oxycodone HCl 5 mg 05/19/18 11:29 Roxicodone - PO Q6H PRN PAIN LEVEL 7 - 10 Pancrelipase 1 cap 05/18/18 12:00 05/23/18 08:30 Creon 36,000 Units Capsule PO 1 cap TIDCM [facility] Administration Pantoprazole Sodium 40 mg 05/22/18 10:00 05/23/18 09:53 Protonix - PO 40 mg BID [facility] Administration Polyethylene Glycol 17 gm 05/17/18 10:00 05/23/18 09:54 Miralax (For Daily Use) - PO Not Given BID [facility] Prednisone 20 mg 05/22/18 09:08 05/23/18 09:53 Deltasone - PO 20 mg DAILY [facility] Administration Propranolol HCl 60 mg 05/14/18 10:57 05/23/18 05:54 Inderal - PO 60 mg TID [facility] Administration Rifaximin 550 mg 05/18/18 14:00 05/23/18 05:54 Xifaxan - PO 550 mg TID [facility] Administration Impression 1. PHILL 2. a-fib 3. hx pleural effusion 4. HLD 5. CHF 6. HTN 7. Gout 8. gi bleed 9. hyperkalemia 10. lactic acidosis 11. anemia Plan - can stop fluids - GI follow up - repeat labs in am - monitor hg Dr Rodríguez
--- NOTE | 2018-05-23 12:19 | PN ---
Progress Note (short form) - Note Progress Note: Breathing feels back to baseline. Comfortable off O2. No CP or SOB. No acute events overnight. Intake & Output 05/20/18 05/21/18 05/22/18 05/23/18 23:59 23:59 23:59 23:59 Intake Total 910 490 210 550 Output Total 900 950 800 550 Balance 10 -460 -590 0 Weight 198 lb 14.4 oz Last Vital Signs Temp Pulse Resp BP Pulse Ox 97.8 F 70 16 130/75 97 05/23/18 10:00 05/23/18 10:00 05/23/18 10:00 05/23/18 10:00 05/23/18 10:00 Active Medications Acetaminophen (Tylenol -) 650 mg PO Q6H PRN PRN Reason: PAIN SCALE 1-5 Allopurinol (Zyloprim -) 100 mg PO DAILY [facility] Last Admin: 05/23/18 09:53 Dose: 100 mg Diltiazem HCl (Cardizem Cd -) 180 mg PO DAILY [facility] Last Admin: 05/23/18 09:53 Dose: 180 mg Docusate Sodium (Colace -) 100 mg PO Q8H PRN PRN Reason: CONSTIPATION Sodium Chloride (1/2 Normal Saline) 1,000 mls @ 42 mls/hr IV ASDIR [facility] Last Admin: 05/22/18 21:46 Dose: 42 mls/hr Ondansetron HCl (Zofran Odt -) 4 mg SL Q6H PRN PRN Reason: NAUSEA AND/OR VOMITING Oxycodone HCl (Roxicodone -) 5 mg PO Q6H PRN PRN Reason: PAIN LEVEL 7 - 10 Pancrelipase ([place] Dr 36,000 Units Capsule) 1 cap PO TIDCM [facility] Last Admin: 05/23/18 08:30 Dose: 1 cap Pantoprazole Sodium (Protonix -) 40 mg PO BID [facility] Last Admin: 05/23/18 09:53 Dose: 40 mg Polyethylene Glycol (Miralax (For Daily Use) -) 17 gm PO BID [facility] Last Admin: 05/23/18 09:54 Dose: Not Given Prednisone (Deltasone -) 20 mg PO DAILY [facility] Last Admin: 05/23/18 09:53 Dose: 20 mg Propranolol HCl (Inderal -) 60 mg PO TID [facility] Last Admin: 05/23/18 05:54 Dose: 60 mg Rifaximin (Xifaxan -) 550 mg PO TID [facility] Last Admin: 05/23/18 05:54 Dose: 550 mg Constitutional: Yes: No Distress, Obese Eyes: Yes: Conjunctiva Clear, EOM Intact HENT: Yes: Atraumatic, Normocephalic Neck: Yes: Supple, Trachea Midline Cardiovascular: Yes: Pulse Irregular Respiratory: Yes: Diminished at the bases, no wheeze. No: Accessory Muscle Use , Stridor, Wheezes ...Inspection: Yes: WNL ...Clubbing: No Gastrointestinal: Yes: Normal Bowel Sounds, Soft, Abdomen, Obese Renal/: Yes: WNL Musculoskeletal: Yes: Joint Stiffness, Joint Swelling Extremities: Yes: Cool Edema: Yes Peripheral Pulses WNL: No Integumentary: Yes: Erythema, Other (tophi formation LLE ) Neurological: Yes: WNL, Alert, Oriented ...Motor Strength: WNL Psychiatric: Yes: WNL, Alert, Oriented Labs: Laboratory Results - last 24 hr 05/22/18 05/22/18 05/23/18 05:15 11:26 05:30 Neutrophils % (Manual) 84.7 H Band Neutrophils % 0.0 Lymphocytes % (Manual) 10.2 Monocytes % (Manual) 5 Eosinophils % (Manual) 0.0 Basophils % (Manual) 0.0 Myelocytes % (Man) 0 Promyelocytes % (Man) 0 Blast Cells % (Manual) 0 Metamyelocytes 0 Hypochromia 0 Toxic Granulation 0 Dohle Bodies 0 Platelet Estimate Normal Polychromasia 0 Poikilocytosis 0 Basophilic Stippling 0 Anisocytosis 0 Microcytosis 0 Macrocytosis 0 Spherocytes 0 Sickle Cells 0 Target Cells 0 Tear Drop Cells 0 Ovalocytes 0 Stomatocytes 0 Helmet Cells 0 [place] Bodies 0 [place] Rings 0 Lul Cells 0 Acanthocytes (Spur) 0 Rouleaux 0 Fragmented RBCs 0 Schistocytes 0 Sodium 137 Potassium 4.6 Chloride 107 Carbon Dioxide 24 Anion Gap 7 L BUN 38 H Creatinine 1.3 Creat Clearance w eGFR 53.96 POC Glucometer 118 Random Glucose 92 Calcium 7.1 L Total Bilirubin 0.3 AST 15 ALT 60 Alkaline Phosphatase 82 Total Protein 6.2 L Albumin 2.4 L Problem List - Problems (1) Pneumonia Code(s): J18.9 - PNEUMONIA, UNSPECIFIED ORGANISM (2) Pulmonary vascular congestion Code(s): R09.89 - OTH SYMPTOMS AND SIGNS INVOLVING THE CIRC AND RESP SYSTEMS (3) PHILL (acute kidney injury) Code(s): N17.9 - ACUTE KIDNEY FAILURE, UNSPECIFIED (4) Atrial fibrillation Code(s): I48.91 - UNSPECIFIED ATRIAL FIBRILLATION Qualifiers: Atrial fibrillation type: chronic Qualified Code(s): I48.2 - Chronic atrial fibrillation (5) GI bleed Code(s): K92.2 - GASTROINTESTINAL HEMORRHAGE, UNSPECIFIED Qualifiers: GI bleed type/associated pathology: melena Qualified Code(s): K92.1 - Melena (6) Bunion of great toe of left foot Code(s): M21.612 - BUNION OF LEFT FOOT (7) Gout Code(s): M10.9 - GOUT, UNSPECIFIED (8) HTN (hypertension) Code(s): I10 - ESSENTIAL (PRIMARY) HYPERTENSION (9) SOB (shortness of breath) Code(s): R06.02 - SHORTNESS OF BREATH Assessment/Plan Off ABX GI workup ongoing O2 as needed Prednisone for gout flair Pain control Local wound care There is no Pulmonary contraindication for anesthesia or endoscopic workup Dr Jovel Problem List - Problems (1) Pneumonia Code(s): J18.9 - PNEUMONIA, UNSPECIFIED ORGANISM (2) Pulmonary vascular congestion Code(s): R09.89 - OTH SYMPTOMS AND SIGNS INVOLVING THE CIRC AND RESP SYSTEMS (3) PHILL (acute kidney injury) Code(s): N17.9 - ACUTE KIDNEY FAILURE, UNSPECIFIED (4) Atrial fibrillation Code(s): I48.91 - UNSPECIFIED ATRIAL FIBRILLATION Qualifiers: Atrial fibrillation type: chronic Qualified Code(s): I48.2 - Chronic atrial fibrillation (5) GI bleed Code(s): K92.2 - GASTROINTESTINAL HEMORRHAGE, UNSPECIFIED Qualifiers: GI bleed type/associated pathology: melena Qualified Code(s): K92.1 - Melena (6) Bunion of great toe of left foot Code(s): M21.612 - BUNION OF LEFT FOOT (7) Gout Code(s): M10.9 - GOUT, UNSPECIFIED (8) HTN (hypertension) Code(s): I10 - ESSENTIAL (PRIMARY) HYPERTENSION (9) SOB (shortness of breath) Code(s): R06.02 - SHORTNESS OF BREATH
[2018-05-23] MEDS: SODIUM CHLORIDE 0.45% 1,000 ML IV SCH (21:57)
[2018-05-24] MEDS: RIFAXIMIN 550 MG TABLET (UD) PO SCH ×3 (06:20→22:11)
[2018-05-24 06:57] LABS: BASO % 0.2 % (0-2.0); EOS % 0.5 % (0-4.5); HEMATOCRIT 33.9 % (35.4-49); HEMOGLOBIN 11.3 GM/dL (11.7-16.9); LYMPH % 8.6 % (8-40); MCH 29.5 pg (25.7-33.7); MCHC 33.4 g/dl (32.0-35.9); MEAN CELL VOLUME 88.5 fl (80-96); MEAN PLT VOLUME 7.2 fl (7.5-11.1); MONO % 8.9 % (3.8-10.2); NEUT % 81.8 % (42.8-82.8); PLATELET COUNT 456 K/MM3 (134-434); RBC 3.83 M/mm3 (4.00-5.60); RDW 15.4 % (11.9-15.9)
[2018-05-24 07:00] LABS: INR 1.07 (0.83-1.09); PROTHROMBIN TIME (PATIENT) 12.6 SEC (9.7-13.0)
[2018-05-24 07:29] LABS: ALBUMIN 2.4 g/dl (3.4-5.0); ALK PHOS 81 U/L (45-117); ANION GAP 8 MMOL/L (8-16); BILIRUBIN,TOTAL 0.3 mg/dL (0.2-1); BLOOD UREA NITROGEN 33 mg/dL (7-18); CALCIUM 7.1 mg/dL (8.5-10.1); CHLORIDE 108 mmol/L (98-107); CO2 21 mmol/L (21-32); CREATININE 1.3 mg/dL (0.55-1.3); GLUCOSE,RANDOM 87 mg/dL (74-106); POTASSIUM 4.8 mmol/L (3.5-5.1); SGOT/AST 13 U/L (15-37); SGPT/ALT 53 U/L (13-61); SODIUM 138 mmol/L (136-145)
--- NOTE | 2018-05-24 08:19 | PN ---
Progress Note, Physician - Current Medication List Current Medications: Active Medications Acetaminophen (Tylenol -) 650 mg PO Q6H PRN PRN Reason: PAIN SCALE 1-5 Allopurinol (Zyloprim -) 100 mg PO DAILY [facility] Last Admin: 05/23/18 09:53 Dose: 100 mg Diltiazem HCl (Cardizem Cd -) 180 mg PO DAILY [facility] Last Admin: 05/23/18 09:53 Dose: 180 mg Docusate Sodium (Colace -) 100 mg PO Q8H PRN PRN Reason: CONSTIPATION Sodium Chloride (1/2 Normal Saline) 1,000 mls @ 42 mls/hr IV ASDIR [facility] Last Admin: 05/23/18 21:57 Dose: 42 mls/hr Ondansetron HCl (Zofran Odt -) 4 mg SL Q6H PRN PRN Reason: NAUSEA AND/OR VOMITING Oxycodone HCl (Roxicodone -) 5 mg PO Q6H PRN PRN Reason: PAIN LEVEL 7 - 10 Pancrelipase (Creon Dr 36,000 Units Capsule) 1 cap PO TIDCM [facility] Last Admin: 05/23/18 18:14 Dose: 1 cap Pantoprazole Sodium (Protonix -) 40 mg PO BID [facility] Last Admin: 05/23/18 21:57 Dose: 40 mg Polyethylene Glycol (Miralax (For Daily Use) -) 17 gm PO BID [facility] Last Admin: 05/23/18 21:57 Dose: 17 grams Prednisone (Deltasone -) 20 mg PO DAILY [facility] Last Admin: 05/23/18 09:53 Dose: 20 mg Propranolol HCl (Inderal -) 60 mg PO TID [facility] Last Admin: 05/24/18 06:20 Dose: Not Given Rifaximin (Xifaxan -) 550 mg PO TID [facility] Last Admin: 05/24/18 06:20 Dose: Not Given - Objective Vital Signs: Vital Signs Temperature 98.2 F 05/24/18 06:00 Pulse Rate 94 H 05/24/18 06:00 Respiratory Rate 14 05/24/18 06:00 Blood Pressure 153/92 05/24/18 06:00 O2 Sat by Pulse Oximetry (%) 97 05/23/18 22:00 Cardiovascular: Yes: S1, S2 Respiratory: Yes: Regular, CTA Bilaterally Gastrointestinal: Yes: Normal Bowel Sounds, Soft Labs: CBC, BMP 05/24/18 05:30 05/24/18 05:30 INR, PTT INR 1.07 (0.83-1.09) 05/24/18 05:30 Problem List - Problems (1) Atrial fibrillation Code(s): I48.91 - UNSPECIFIED ATRIAL FIBRILLATION Qualifiers: Atrial fibrillation type: chronic Qualified Code(s): I48.2 - Chronic atrial fibrillation (2) PHILL (acute kidney injury) Code(s): N17.9 - ACUTE KIDNEY FAILURE, UNSPECIFIED (3) GI bleed Code(s): K92.2 - GASTROINTESTINAL HEMORRHAGE, UNSPECIFIED Qualifiers: GI bleed type/associated pathology: melena Qualified Code(s): K92.1 - Melena (4) Pneumonia Code(s): J18.9 - PNEUMONIA, UNSPECIFIED ORGANISM (5) Gout Code(s): M10.9 - GOUT, UNSPECIFIED Assessment/Plan - Problems (1) PHILL (acute kidney injury) Assessment/Plan: -Seen by nephrology -Cr -monitor Code(s): N17.9 - ACUTE KIDNEY FAILURE, UNSPECIFIED (2) Atrial fibrillation Assessment/Plan: -On ekg monitor -rate controlled -Eliquis on hold due to gi bleed--had egd--ulcer--d/w gi cleared for coumadin -Seen by cardiology Code(s): I48.91 - UNSPECIFIED ATRIAL FIBRILLATION Qualifiers: Atrial fibrillation type: chronic Qualified Code(s): I48.2 - Chronic atrial fibrillation (3) GI bleed Assessment/Plan: -Protonix drip--change to po -GI Follow had endoscopy---ulcer--no bleeding -Holding H/H -GI series or endoscopy per gi Code(s): K92.2 - GASTROINTESTINAL HEMORRHAGE, UNSPECIFIED Qualifiers: GI bleed type/associated pathology: melena Qualified Code(s): K92.1 - Melena (4) Pneumonia Assessment/Plan: -ID on board -off IV abx -Nasal O2 PRN -IV medrol--to prednisone Code(s): J18.9 - PNEUMONIA, UNSPECIFIED ORGANISM dc planning discussed with pt--will benefit from SNF
[2018-05-24] MEDS ORDERED: PT OWN MED DRAWER 7, Y5N ONE ×4 (08:44→21:36)
[2018-05-24] MEDS: LIPASE/PROTEASE/AMYLASE 36,000 UNIT CAPSULE PO SCH ×3 (08:53→17:16)
[2018-05-24] MEDS: PANTOPRAZOLE 40 MG TABLET (FP) PO SCH ×2 (09:01→22:11)
[2018-05-24] MEDS: predniSONE 20 MG TABLET (UD) PO SCH (09:01)
[2018-05-24] MEDS: ALLOPURINOL 100 MG TABLET (FP) PO SCH (09:01)
[2018-05-24] MEDS: POLYETHYLENE GLYCOL 3350 119 GM BTL PO SCH ×2 (10:05→22:10)
--- NOTE | 2018-05-24 10:29 | PN ---
Progress Note (short form) - Note Progress Note: s: no chest pain, palps, dizziness, lightheadedness. s/p EGD today Vital Signs Period Temp Pulse Resp BP Sys/Lomeli Pulse Ox Last 24 Hr 97.7 F-98.2 F 73-94 14-16 98-153/67-92 97-97 Constitutional: Yes: Well Nourished, No Distress, Calm Cardiovascular: Yes: Pulse Irregular, S1, S2. No: JVD, Gallop, Murmur Respiratory: Yes: Regular, CTA Bilaterally. No: Accessory Muscle Use, Rales, Wheezes Extremities: No: Cold Edema: No Neurological: Yes: Alert, Oriented Psychiatric: No: Agitated Current Medications Acetaminophen (Tylenol -) 650 mg PO Q6H PRN PRN Reason: PAIN SCALE 1-5 Allopurinol (Zyloprim -) 100 mg PO DAILY [facility] Last Admin: 05/24/18 09:01 Dose: 100 mg Diltiazem HCl (Cardizem Cd -) 180 mg PO DAILY [facility] Last Admin: 05/24/18 09:00 Dose: 180 mg Docusate Sodium (Colace -) 100 mg PO Q8H PRN PRN Reason: CONSTIPATION Sodium Chloride (1/2 Normal Saline) 1,000 mls @ 42 mls/hr IV ASDIR [facility] Last Admin: 05/23/18 21:57 Dose: 42 mls/hr Ondansetron HCl (Zofran Odt -) 4 mg SL Q6H PRN PRN Reason: NAUSEA AND/OR VOMITING Oxycodone HCl (Roxicodone -) 5 mg PO Q6H PRN PRN Reason: PAIN LEVEL 7 - 10 Pancrelipase (Creon Dr 36,000 Units Capsule) 1 cap PO TIDCM [facility] Last Admin: 05/24/18 08:53 Dose: 1 cap Pantoprazole Sodium (Protonix -) 40 mg PO BID [facility] Last Admin: 05/24/18 09:01 Dose: 40 mg Polyethylene Glycol (Miralax (For Daily Use) -) 17 gm PO BID [facility] Last Admin: 05/24/18 10:05 Dose: 17 grams Prednisone (Deltasone -) 20 mg PO DAILY [facility] Last Admin: 05/24/18 09:01 Dose: 20 mg Propranolol HCl (Inderal -) 60 mg PO TID [facility] Last Admin: 05/24/18 06:20 Dose: Not Given Rifaximin (Xifaxan -) 550 mg PO TID [facility] Last Admin: 05/24/18 06:20 Dose: Not Given Warfarin Sodium (Coumadin -) 5 mg PO DAILY@1800 [facility] Assessment/Plan cxr: clear lungs ecg: afib 120s, nl qtc, nonspec tw chagnes tele: afib with controlled HRs echo 04/2016: mild lve, nl lvef, mild lae, mild mr, mild-mod tr, mild pr, rvsp 50-60 a/p: 72 m hx htn, hld, dchf, afib, here with lightheadedness. gib: -H/H remains stable -s/p UGI series, EGD - plan per GI afib: -tachycardic to 170s hence GI scopes postponed. -HR controlled with no more chris, no hypotension: cont propranolol, diltiazem -monitor tele -clear to resume AC with warfarin per GI, goal INR 2-3 PNA: -per pmd htn: -bp controlled -cont current meds chronic diastolic chf: -vol stable on exam, holding home lasix for now kaveh: -improving after IVF, PRBC--creat continues to fluctuate however -per pmd
--- NOTE | 2018-05-24 11:15 | PN ---
Progress Note, Physician History of Present Illness: Pt seen and examined at bedside. He is awake and alert. He went for endoscopy today. - Current Medication List Current Medications: Active Medications Acetaminophen (Tylenol -) 650 mg PO Q6H PRN PRN Reason: PAIN SCALE 1-5 Allopurinol (Zyloprim -) 100 mg PO DAILY [facility] Last Admin: 05/24/18 09:01 Dose: 100 mg Diltiazem HCl (Cardizem Cd -) 180 mg PO DAILY [facility] Last Admin: 05/24/18 09:00 Dose: 180 mg Docusate Sodium (Colace -) 100 mg PO Q8H PRN PRN Reason: CONSTIPATION Sodium Chloride (1/2 Normal Saline) 1,000 mls @ 42 mls/hr IV ASDIR [facility] Last Admin: 05/23/18 21:57 Dose: 42 mls/hr Ondansetron HCl (Zofran Odt -) 4 mg SL Q6H PRN PRN Reason: NAUSEA AND/OR VOMITING Oxycodone HCl (Roxicodone -) 5 mg PO Q6H PRN PRN Reason: PAIN LEVEL 7 - 10 Pancrelipase (Creon Dr 36,000 Units Capsule) 1 cap PO TIDCM [facility] Last Admin: 05/24/18 08:53 Dose: 1 cap Pantoprazole Sodium (Protonix -) 40 mg PO BID [facility] Last Admin: 05/24/18 09:01 Dose: 40 mg Polyethylene Glycol (Miralax (For Daily Use) -) 17 gm PO BID [facility] Last Admin: 05/24/18 10:05 Dose: 17 grams Prednisone (Deltasone -) 20 mg PO DAILY [facility] Last Admin: 05/24/18 09:01 Dose: 20 mg Propranolol HCl (Inderal -) 60 mg PO TID [facility] Last Admin: 05/24/18 06:20 Dose: Not Given Rifaximin (Xifaxan -) 550 mg PO TID [facility] Last Admin: 05/24/18 06:20 Dose: Not Given Warfarin Sodium (Coumadin -) 5 mg PO DAILY@1800 [facility] - Objective Vital Signs: Vital Signs Temperature 98.2 F 05/24/18 06:00 Pulse Rate 94 H 05/24/18 06:00 Respiratory Rate 14 05/24/18 06:00 Blood Pressure 153/92 05/24/18 06:00 O2 Sat by Pulse Oximetry (%) 97 05/23/18 22:00 Constitutional: Yes: Calm Eyes: Yes: Conjunctiva Clear Cardiovascular: Yes: S1, S2 Respiratory: Yes: CTA Bilaterally Gastrointestinal: Yes: Normal Bowel Sounds, Soft Genitourinary: Yes: WNL Musculoskeletal: Yes: WNL Edema: No Neurological: Yes: Oriented Psychiatric: Yes: Oriented Labs: CBC, BMP 05/24/18 05:30 05/24/18 05:30 INR, PTT INR 1.07 (0.83-1.09) 05/24/18 05:30 Problem List - Problems (1) PHILL (acute kidney injury) Code(s): N17.9 - ACUTE KIDNEY FAILURE, UNSPECIFIED (2) Atrial fibrillation Code(s): I48.91 - UNSPECIFIED ATRIAL FIBRILLATION Qualifiers: Atrial fibrillation type: chronic Qualified Code(s): I48.2 - Chronic atrial fibrillation (3) GI bleed Code(s): K92.2 - GASTROINTESTINAL HEMORRHAGE, UNSPECIFIED Qualifiers: GI bleed type/associated pathology: melena Qualified Code(s): K92.1 - Melena (4) Gout Code(s): M10.9 - GOUT, UNSPECIFIED (5) HTN (hypertension) Code(s): I10 - ESSENTIAL (PRIMARY) HYPERTENSION Assessment/Plan Current Medications Generic Name Dose Route Start Last Admin Trade Name Freq PRN Reason Stop Dose Admin Acetaminophen 650 mg 05/18/18 15:02 Tylenol - PO Q6H PRN PAIN SCALE 1-5 Allopurinol 100 mg 05/21/18 10:00 05/24/18 09:01 Zyloprim - PO 100 mg DAILY [facility] Administration Diltiazem HCl 180 mg 05/18/18 10:00 05/24/18 09:00 Cardizem Cd - PO 180 mg DAILY [facility] Administration Docusate Sodium 100 mg 05/13/18 08:09 Colace - PO Q8H PRN CONSTIPATION Sodium Chloride 1,000 mls @ 42 mls/hr 05/22/18 16:00 05/23/18 21:57 1/2 Normal Saline IV 42 mls/hr ASDIR [facility] Administration Ondansetron HCl 4 mg 05/13/18 08:09 Zofran Odt - SL Q6H PRN NAUSEA AND/OR VOMITING Oxycodone HCl 5 mg 05/19/18 11:29 Roxicodone - PO Q6H PRN PAIN LEVEL 7 - 10 Pancrelipase 1 cap 05/18/18 12:00 05/24/18 08:53 Creon 36,000 Units Capsule PO 1 cap TIDCM [facility] Administration Pantoprazole Sodium 40 mg 05/22/18 10:00 05/24/18 09:01 Protonix - PO 40 mg BID [facility] Administration Polyethylene Glycol 17 gm 05/17/18 10:00 05/24/18 10:05 Miralax (For Daily Use) - PO 17 grams BID [facility] Administration Prednisone 20 mg 05/22/18 09:08 05/24/18 09:01 Deltasone - PO 20 mg DAILY [facility] Administration Propranolol HCl 60 mg 05/14/18 10:57 05/24/18 06:20 Inderal - PO Not Given TID [facility] Rifaximin 550 mg 05/18/18 14:00 05/24/18 06:20 Xifaxan - PO Not Given TID [facility] Warfarin Sodium 5 mg 05/24/18 18:00 Coumadin - PO DAILY@1800 [facility] Impression 1. PHILL 2. a-fib 3. hx pleural effusion 4. HLD 5. CHF 6. HTN 7. Gout 8. gi bleed 9. hyperkalemia 10. lactic acidosis 11. anemia Plan - renal function is stable - pt went for endoscopy, follow up report - can see pt in office - will follow PRN Dr Rodríguez
--- NOTE | 2018-05-24 13:46 | PN ---
Progress Note (short form) - Note Progress Note: PULMONARY s/p EGD showing gastritis and gastric ulcer. Denies shortness of breath or chest pain. Vital Signs Period Temp Pulse Resp BP Sys/Lomeli Pulse Ox Last 24 Hr 97.7 F-98.2 F 73-94 14-18 98-153/67-92 97-97 Gen: NAD at rest Heart: RRR Lung: decreased breath sounds at the bases Abd: soft, nontender Ext: no edema CBC, BMP 05/24/18 05:30 05/24/18 05:30 Active Medications Acetaminophen (Tylenol -) 650 mg PO Q6H PRN PRN Reason: PAIN SCALE 1-5 Allopurinol (Zyloprim -) 100 mg PO DAILY [facility] Last Admin: 05/24/18 09:01 Dose: 100 mg Diltiazem HCl (Cardizem Cd -) 180 mg PO DAILY [facility] Last Admin: 05/24/18 09:00 Dose: 180 mg Docusate Sodium (Colace -) 100 mg PO Q8H PRN PRN Reason: CONSTIPATION Sodium Chloride (1/2 Normal Saline) 1,000 mls @ 42 mls/hr IV ASDIR [facility] Last Admin: 05/23/18 21:57 Dose: 42 mls/hr Ondansetron HCl (Zofran Odt -) 4 mg SL Q6H PRN PRN Reason: NAUSEA AND/OR VOMITING Oxycodone HCl (Roxicodone -) 5 mg PO Q6H PRN PRN Reason: PAIN LEVEL 7 - 10 Pancrelipase (Creon Dr 36,000 Units Capsule) 1 cap PO TIDCM [facility] Last Admin: 05/24/18 12:34 Dose: 1 cap Pantoprazole Sodium (Protonix -) 40 mg PO BID [facility] Last Admin: 05/24/18 09:01 Dose: 40 mg Polyethylene Glycol (Miralax (For Daily Use) -) 17 gm PO BID [facility] Last Admin: 05/24/18 10:05 Dose: 17 grams Prednisone (Deltasone -) 20 mg PO DAILY [facility] Last Admin: 05/24/18 09:01 Dose: 20 mg Propranolol HCl (Inderal -) 60 mg PO TID [facility] Last Admin: 05/24/18 06:20 Dose: Not Given Rifaximin (Xifaxan -) 550 mg PO TID [facility] Last Admin: 05/24/18 06:20 Dose: Not Given Warfarin Sodium (Coumadin -) 5 mg PO DAILY@1800 [facility] A/P GI Bleed Gastric Ulcer Acute Blood Loss Anemia Acute Kidney Injury LV Diastolic Dysfunction Atrial Fibrillation HTN Hyperlipidemia - continue protonix - PO per GI - rate control - continue anticoagulation - monitor H/H - DVT prophylaxis
--- NOTE | 2018-05-24 14:31 | PN ---
Progress Note (short form) - Note Progress Note: FUV wound left foot. No pain. Patient seen in am around 8:30. vss, tmax 98.2 +resolved wound left foot, -cellulitis, -mal odor, gout wound left foot resolving Betadine dressing to left foot wound. Patient can be dc from Podiatry standpoint. Please reconsult if necessary.
[2018-05-24] MEDS: SODIUM CHLORIDE 0.45% 1,000 ML IV SCH (16:43)
[2018-05-24] MEDS: WARFARIN NA 5 MG TABLET (UD) PO SCH (17:15)
[2018-05-25] MEDS ORDERED: PT OWN MED DRAWER 7, Y5N ONE ×4 (03:38→18:08)
[2018-05-25] MEDS: RIFAXIMIN 550 MG TABLET (UD) PO SCH (06:31)
[2018-05-25 08:20] LABS: INR 1.04 (0.83-1.09); PROTHROMBIN TIME (PATIENT) 12.3 SEC (9.7-13.0)
[2018-05-25] MEDS: LIPASE/PROTEASE/AMYLASE 36,000 UNIT CAPSULE PO SCH ×3 (08:51→17:37)
--- NOTE | 2018-05-25 08:52 | PN ---
Progress Note, Physician - Current Medication List Current Medications: Active Medications Acetaminophen (Tylenol -) 650 mg PO Q6H PRN PRN Reason: PAIN SCALE 1-5 Allopurinol (Zyloprim -) 100 mg PO DAILY [facility] Last Admin: 05/24/18 09:01 Dose: 100 mg Diltiazem HCl (Cardizem Cd -) 180 mg PO DAILY [facility] Last Admin: 05/24/18 09:00 Dose: 180 mg Docusate Sodium (Colace -) 100 mg PO Q8H PRN PRN Reason: CONSTIPATION Sodium Chloride (1/2 Normal Saline) 1,000 mls @ 42 mls/hr IV ASDIR [facility] Last Admin: 05/24/18 16:43 Dose: 42 mls/hr Ondansetron HCl (Zofran Odt -) 4 mg SL Q6H PRN PRN Reason: NAUSEA AND/OR VOMITING Oxycodone HCl (Roxicodone -) 5 mg PO Q6H PRN PRN Reason: PAIN LEVEL 7 - 10 Pancrelipase (Creon Dr 36,000 Units Capsule) 1 cap PO TIDCM [facility] Last Admin: 05/25/18 08:51 Dose: 1 cap Pantoprazole Sodium (Protonix -) 40 mg PO BID [facility] Last Admin: 05/24/18 22:11 Dose: 40 mg Polyethylene Glycol (Miralax (For Daily Use) -) 17 gm PO BID [facility] Last Admin: 05/24/18 22:10 Dose: 17 grams Prednisone (Deltasone -) 20 mg PO DAILY [facility] Last Admin: 05/24/18 09:01 Dose: 20 mg Propranolol HCl (Inderal -) 60 mg PO TID [facility] Last Admin: 05/25/18 06:24 Dose: 60 mg Rifaximin (Xifaxan -) 550 mg PO TID [facility] Last Admin: 05/25/18 06:31 Dose: 550 mg Warfarin Sodium (Coumadin -) 5 mg PO DAILY@1800 [facility] Last Admin: 05/24/18 17:15 Dose: 5 mg - Objective Vital Signs: Vital Signs Temperature 98.3 F 05/25/18 05:00 Pulse Rate 61 05/25/18 05:00 Respiratory Rate 14 05/25/18 05:00 Blood Pressure 132/79 05/25/18 05:00 O2 Sat by Pulse Oximetry (%) 96 05/24/18 21:00 Cardiovascular: Yes: S1, S2 Respiratory: Yes: Regular, CTA Bilaterally Gastrointestinal: Yes: Normal Bowel Sounds, Soft Extremities: Yes: Erythema (left arm) Labs: CBC, BMP 05/24/18 05:30 05/24/18 05:30 INR, PTT INR 1.04 (0.83-1.09) 05/25/18 05:30 Problem List - Problems (1) Atrial fibrillation Code(s): I48.91 - UNSPECIFIED ATRIAL FIBRILLATION Qualifiers: Atrial fibrillation type: chronic Qualified Code(s): I48.2 - Chronic atrial fibrillation (2) PHILL (acute kidney injury) Code(s): N17.9 - ACUTE KIDNEY FAILURE, UNSPECIFIED (3) GI bleed Code(s): K92.2 - GASTROINTESTINAL HEMORRHAGE, UNSPECIFIED Qualifiers: GI bleed type/associated pathology: melena Qualified Code(s): K92.1 - Melena (4) Pneumonia Code(s): J18.9 - PNEUMONIA, UNSPECIFIED ORGANISM (5) Gout Code(s): M10.9 - GOUT, UNSPECIFIED Assessment/Plan - Problems (1) PHILL (acute kidney injury) Assessment/Plan: -Seen by nephrology -Cr -monitor Code(s): N17.9 - ACUTE KIDNEY FAILURE, UNSPECIFIED (2) Atrial fibrillation 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/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 -Eliquis on hold due to gi bleed--had egd--ulcer--d/w gi cleared for coumadin -Seen by cardiology Code(s): I48.91 - UNSPECIFIED ATRIAL FIBRILLATION Qualifiers: Atrial fibrillation type: chronic Qualified Code(s): I48.2 - Chronic atrial fibrillation (3) GI bleed Assessment/Plan: -Protonix drip--change to po -GI Follow had endoscopy---ulcer--no bleeding -Holding H/H -GI series or endoscopy per gi Code(s): K92.2 - GASTROINTESTINAL HEMORRHAGE, UNSPECIFIED Qualifiers: GI bleed type/associated pathology: melena Qualified Code(s): K92.1 - Melena (4) Pneumonia Assessment/Plan: -ID on board -off IV abx -Nasal O2 PRN -IV medrol--to prednisone Code(s): J18.9 - PNEUMONIA, UNSPECIFIED ORGANISM (5) Cellulitis Assessment/Plan: -ID -keflex dc planning discussed with pt--will benefit from SNF
[2018-05-25] MEDS: PANTOPRAZOLE 40 MG TABLET (FP) PO SCH ×2 (09:47→21:05)
[2018-05-25] MEDS: ALLOPURINOL 100 MG TABLET (FP) PO SCH (09:48)
[2018-05-25] MEDS: predniSONE 20 MG TABLET (UD) PO SCH (09:48)
[2018-05-25] MEDS: CEPHALEXIN MONOHYDRATE 500 MG CAPSULE (UD) PO SCH ×2 (09:49→21:05)
[2018-05-25] MEDS: POLYETHYLENE GLYCOL 3350 119 GM BTL PO SCH ×2 (09:52→21:05)
--- NOTE | 2018-05-25 10:49 | PN ---
Progress Note (short form) - Note Progress Note: s: no cp sob palps dizzy o: Vital Signs Period Temp Pulse Resp BP Sys/Lomeli Pulse Ox Last 24 Hr 98.3 F-98.5 F 61-99 13-18 116-144/67-82 96-100 nad no jvd irreg, s1s2 no mrg cta bl nl eff aao3 no le e/c/c abd nt nd pos bs no jaundice diaphoresis Current Medications Generic Name Dose Route Start Last Admin Trade Name Freq PRN Reason Stop Dose Admin Acetaminophen 650 mg 05/18/18 15:02 Tylenol - PO Q6H PRN PAIN SCALE 1-5 Allopurinol 100 mg 05/21/18 10:00 05/25/18 09:48 Zyloprim - PO 100 mg DAILY [facility] Administration Cephalexin HCl 500 mg 05/25/18 10:00 05/25/18 09:49 Keflex - PO 500 mg BID [facility] Administration Diltiazem HCl 180 mg 05/18/18 10:00 05/25/18 09:49 Cardizem Cd - PO 180 mg DAILY [facility] Administration Docusate Sodium 100 mg 05/13/18 08:09 Colace - PO Q8H PRN CONSTIPATION Sodium Chloride 1,000 mls @ 42 mls/hr 05/22/18 16:00 05/24/18 16:43 1/2 Normal Saline IV 42 mls/hr ASDIR [facility] Administration Ondansetron HCl 4 mg 05/13/18 08:09 Zofran Odt - SL Q6H PRN NAUSEA AND/OR VOMITING Oxycodone HCl 5 mg 05/19/18 11:29 Roxicodone - PO Q6H PRN PAIN LEVEL 7 - 10 Pancrelipase 1 cap 05/18/18 12:00 05/25/18 08:51 Pb Thompson 36,000 Units Capsule PO 1 cap TIDCM [facility] Administration Pantoprazole Sodium 40 mg 05/22/18 10:00 05/25/18 09:47 Protonix - PO 40 mg BID [facility] Administration Polyethylene Glycol 17 gm 05/17/18 10:00 05/25/18 09:52 Miralax (For Daily Use) - PO Not Given BID [facility] Prednisone 20 mg 05/22/18 09:08 05/25/18 09:48 Deltasone - PO 20 mg DAILY [facility] Administration Propranolol HCl 60 mg 05/14/18 10:57 05/25/18 06:24 Inderal - PO 60 mg TID [facility] Administration Rifaximin 550 mg 05/18/18 14:00 05/25/18 06:31 Xifaxan - PO 550 mg TID [facility] Administration Warfarin Sodium 5 mg 05/24/18 18:00 05/24/18 17:15 Coumadin - PO 5 mg DAILY@1800 [facility] Administration CBC, BMP 05/24/18 05:30 05/24/18 05:30 cxr: clear lungs ecg: afib 120s, nl qtc, nonspec tw chagnes tele: afib with controlled HRs echo 04/2016: mild lve, nl lvef, mild lae, mild mr, mild-mod tr, mild pr, rvsp 50-60 a/p: 72 m hx htn, hld, dchf, afib, here with lightheadedness. gib: -H/H remains stable -s/p UGI series, EGD - plan per GI afib: -HR controlled, cont propranolol, diltiazem -cleared to resume AC with warfarin per GI, goal INR 2-3 PNA: -per pmd htn: -bp controlled -cont current meds chronic diastolic chf: -vol stable on exam, holding home lasix for now kaveh: -improving after IVF, PRBC
--- NOTE | 2018-05-25 14:36 | PN ---
Progress Note (short form) - Note Progress Note: Ambulating with PT. No CP or SOB. No acute events overnight. Intake & Output 05/22/18 05/23/18 05/24/18 05/25/18 23:59 23:59 23:59 23:59 Intake Total 210 1382 890 617.8 Output Total 800 1350 1400 300 Balance -590 32 -510 317.8 Last Vital Signs Temp Pulse Resp BP Pulse Ox 98.1 F 86 18 108/71 100 05/25/18 13:41 05/25/18 13:41 05/25/18 13:41 05/25/18 13:41 05/25/18 09:00 Active Medications Acetaminophen (Tylenol -) 650 mg PO Q6H PRN PRN Reason: PAIN SCALE 1-5 Allopurinol (Zyloprim -) 100 mg PO DAILY [facility] Last Admin: 05/25/18 09:48 Dose: 100 mg Cephalexin HCl (Keflex -) 500 mg PO BID [facility] Last Admin: 05/25/18 09:49 Dose: 500 mg Diltiazem HCl (Cardizem Cd -) 180 mg PO DAILY [facility] Last Admin: 05/25/18 09:49 Dose: 180 mg Docusate Sodium (Colace -) 100 mg PO Q8H PRN PRN Reason: CONSTIPATION Sodium Chloride (1/2 Normal Saline) 1,000 mls @ 42 mls/hr IV ASDIR [facility] Last Admin: 05/24/18 16:43 Dose: 42 mls/hr Ondansetron HCl (Zofran Odt -) 4 mg SL Q6H PRN PRN Reason: NAUSEA AND/OR VOMITING Oxycodone HCl (Roxicodone -) 5 mg PO Q6H PRN PRN Reason: PAIN LEVEL 7 - 10 Pancrelipase (Pb Dr 36,000 Units Capsule) 1 cap PO TIDCM [facility] Last Admin: 05/25/18 12:17 Dose: 1 cap Pantoprazole Sodium (Protonix -) 40 mg PO BID [facility] Last Admin: 05/25/18 09:47 Dose: 40 mg Polyethylene Glycol (Miralax (For Daily Use) -) 17 gm PO BID [facility] Last Admin: 05/25/18 09:52 Dose: Not Given Prednisone (Deltasone -) 20 mg PO DAILY [facility] Last Admin: 05/25/18 09:48 Dose: 20 mg Propranolol HCl (Inderal -) 60 mg PO TID [facility] Last Admin: 05/25/18 06:24 Dose: 60 mg Warfarin Sodium (Coumadin -) 5 mg PO DAILY@1800 [facility] Last Admin: 05/24/18 17:15 Dose: 5 mg Constitutional: Yes: No Distress, Obese Eyes: Yes: Conjunctiva Clear, EOM Intact HENT: Yes: Atraumatic, Normocephalic Neck: Yes: Supple, Trachea Midline Cardiovascular: Yes: Pulse Irregular Respiratory: Yes: Diminished at the bases, no wheeze. No: Accessory Muscle Use , Stridor, Wheezes ...Inspection: Yes: WNL ...Clubbing: No Gastrointestinal: Yes: Normal Bowel Sounds, Soft, Abdomen, Obese Renal/: Yes: WNL Musculoskeletal: Yes: Joint Stiffness, Joint Swelling Extremities: Yes: Cool Edema: Yes Peripheral Pulses WNL: No Integumentary: Yes: Erythema, Other (tophi formation LLE ) Neurological: Yes: WNL, Alert, Oriented ...Motor Strength: WNL Psychiatric: Yes: WNL, Alert, Oriented Labs: Laboratory Results - last 24 hr 05/25/18 05:30 PT with INR 12.30 INR 1.04 Problem List - Problems (1) Pneumonia Code(s): J18.9 - PNEUMONIA, UNSPECIFIED ORGANISM (2) Pulmonary vascular congestion Code(s): R09.89 - OTH SYMPTOMS AND SIGNS INVOLVING THE CIRC AND RESP SYSTEMS (3) PHILL (acute kidney injury) Code(s): N17.9 - ACUTE KIDNEY FAILURE, UNSPECIFIED (4) Atrial fibrillation Code(s): I48.91 - UNSPECIFIED ATRIAL FIBRILLATION Qualifiers: Atrial fibrillation type: chronic Qualified Code(s): I48.2 - Chronic atrial fibrillation (5) GI bleed Code(s): K92.2 - GASTROINTESTINAL HEMORRHAGE, UNSPECIFIED Qualifiers: GI bleed type/associated pathology: melena Qualified Code(s): K92.1 - Melena (6) Bunion of great toe of left foot Code(s): M21.612 - BUNION OF LEFT FOOT (7) Gout Code(s): M10.9 - GOUT, UNSPECIFIED (8) HTN (hypertension) Code(s): I10 - ESSENTIAL (PRIMARY) HYPERTENSION (9) SOB (shortness of breath) Code(s): R06.02 - SHORTNESS OF BREATH Assessment/Plan PO ABX O2 as needed Prednisone for gout flair Pain control Local wound care Ambulate D/C planning Dr Jovel Problem List - Problems (1) Pneumonia Code(s): J18.9 - PNEUMONIA, UNSPECIFIED ORGANISM (2) Pulmonary vascular congestion Code(s): R09.89 - OTH SYMPTOMS AND SIGNS INVOLVING THE CIRC AND RESP SYSTEMS (3) PHILL (acute kidney injury) Code(s): N17.9 - ACUTE KIDNEY FAILURE, UNSPECIFIED (4) Atrial fibrillation Code(s): I48.91 - UNSPECIFIED ATRIAL FIBRILLATION Qualifiers: Atrial fibrillation type: chronic Qualified Code(s): I48.2 - Chronic atrial fibrillation (5) GI bleed Code(s): K92.2 - GASTROINTESTINAL HEMORRHAGE, UNSPECIFIED Qualifiers: GI bleed type/associated pathology: melena Qualified Code(s): K92.1 - Melena (6) Bunion of great toe of left foot Code(s): M21.612 - BUNION OF LEFT FOOT (7) Gout Code(s): M10.9 - GOUT, UNSPECIFIED (8) HTN (hypertension) Code(s): I10 - ESSENTIAL (PRIMARY) HYPERTENSION (9) SOB (shortness of breath) Code(s): R06.02 - SHORTNESS OF BREATH
--- NOTE | 2018-05-25 14:47 | PATH ---
Surgical Pathology Report Patient Name: SHAISTA RAMIREZ [facility]. Rec. #: [id number] /Age/Gender: 1945 (Age: 72) / M Account: [id number] Location: EMERGENCY ROOM Taken: 05/24/2018 Received: 05/24/2018 Reported: 05/25/2018 Physicians: Tereza Poe M.D. Specimen(s) Received A: GASTRIC ULCER B: STOMACH BODY Clinical History Anemia, GI bleeding Postoperative diagnosis: Gastric ulcer, severe gastritis, hiatal hernia Final Diagnosis A. GASTRIC ULCER, BIOPSY: GASTRIC ANTRAL MUCOSA WITH MILD CHRONIC ACTIVE GASTRITIS. IMMUNOHISTOCHEMICAL STAIN FOR H. PYLORI IS NEGATIVE. B. STOMACH, BODY, BIOPSY: GASTRIC BODY MUCOSA WITH MILD CHRONIC GASTRITIS. IMMUNOHISTOCHEMICAL STAIN FOR H. PYLORI IS NEGATIVE. Electronically Signed Carolyn Winston M.D. Gross Description A. Received in formalin, labeled "ulcer biopsy gastric" is a olmedo, irregular portion of soft tissue measuring 0.3 cm. in greatest dimension. The specimen is submitted in toto in one cassette. B. Received in formalin, labeled "body of stomach" are 2 olmedo, irregular portions of soft tissue measuring 0.1 and 0.5 cm. in greatest dimension. The specimens are submitted in toto in one cassette. /05/24/201805/24/2018
--- NOTE | 2018-05-25 15:22 | PN ---
Progress Note, Physician History of Present Illness: Pt seen and examined at bedside. He denies shortness of breath. He denies dysuria. - Current Medication List Current Medications: Active Medications Acetaminophen (Tylenol -) 650 mg PO Q6H PRN PRN Reason: PAIN SCALE 1-5 Last Admin: 05/25/18 14:49 Dose: 650 mg Allopurinol (Zyloprim -) 100 mg PO DAILY [facility] Last Admin: 05/25/18 09:48 Dose: 100 mg Cephalexin HCl (Keflex -) 500 mg PO BID [facility] Last Admin: 05/25/18 09:49 Dose: 500 mg Diltiazem HCl (Cardizem Cd -) 180 mg PO DAILY [facility] Last Admin: 05/25/18 09:49 Dose: 180 mg Docusate Sodium (Colace -) 100 mg PO Q8H PRN PRN Reason: CONSTIPATION Sodium Chloride (1/2 Normal Saline) 1,000 mls @ 42 mls/hr IV ASDIR [facility] Last Admin: 05/24/18 16:43 Dose: 42 mls/hr Ondansetron HCl (Zofran Odt -) 4 mg SL Q6H PRN PRN Reason: NAUSEA AND/OR VOMITING Oxycodone HCl (Roxicodone -) 5 mg PO Q6H PRN PRN Reason: PAIN LEVEL 7 - 10 Last Admin: 05/25/18 14:50 Dose: 5 mg Pancrelipase (Creon Dr 36,000 Units Capsule) 1 cap PO TIDCM [facility] Last Admin: 05/25/18 12:17 Dose: 1 cap Pantoprazole Sodium (Protonix -) 40 mg PO BID [facility] Last Admin: 05/25/18 09:47 Dose: 40 mg Polyethylene Glycol (Miralax (For Daily Use) -) 17 gm PO BID [facility] Last Admin: 05/25/18 09:52 Dose: Not Given Prednisone (Deltasone -) 20 mg PO DAILY [facility] Last Admin: 05/25/18 09:48 Dose: 20 mg Propranolol HCl (Inderal -) 60 mg PO TID [facility] Last Admin: 05/25/18 14:51 Dose: 60 mg Warfarin Sodium (Coumadin -) 5 mg PO DAILY@1800 [facility] Last Admin: 05/24/18 17:15 Dose: 5 mg - Objective Vital Signs: Vital Signs Temperature 98.1 F 05/25/18 13:41 Pulse Rate 86 02/28/19 13:41 Respiratory Rate 18 05/25/18 13:41 Blood Pressure 108/71 05/25/18 13:41 O2 Sat by Pulse Oximetry (%) 100 05/25/18 09:00 Constitutional: Yes: Calm Eyes: Yes: Conjunctiva Clear HENT: Yes: Atraumatic Neck: Yes: Supple Cardiovascular: Yes: S1, S2 Respiratory: Yes: CTA Bilaterally Gastrointestinal: Yes: Soft Genitourinary: Yes: WNL Extremities: Yes: WNL Edema: Yes Neurological: Yes: Oriented Psychiatric: Yes: Oriented Labs: CBC, BMP 05/24/18 05:30 05/24/18 05:30 INR, PTT INR 1.04 (0.83-1.09) 05/25/18 05:30 Problem List - Problems (1) PHILL (acute kidney injury) Code(s): N17.9 - ACUTE KIDNEY FAILURE, UNSPECIFIED (2) Atrial fibrillation Code(s): I48.91 - UNSPECIFIED ATRIAL FIBRILLATION Qualifiers: Atrial fibrillation type: chronic Qualified Code(s): I48.2 - Chronic atrial fibrillation (3) GI bleed Code(s): K92.2 - GASTROINTESTINAL HEMORRHAGE, UNSPECIFIED Qualifiers: GI bleed type/associated pathology: melena Qualified Code(s): K92.1 - Melena (4) Gout Code(s): M10.9 - GOUT, UNSPECIFIED (5) HTN (hypertension) Code(s): I10 - ESSENTIAL (PRIMARY) HYPERTENSION Assessment/Plan Current Medications Generic Name Dose Route Start Last Admin Trade Name Freq PRN Reason Stop Dose Admin Acetaminophen 650 mg 05/18/18 15:02 05/25/18 14:49 Tylenol - PO 650 mg Q6H PRN Administration PAIN SCALE 1-5 Allopurinol 100 mg 05/21/18 10:00 05/25/18 09:48 Zyloprim - PO 100 mg DAILY [facility] Administration Cephalexin HCl 500 mg 05/25/18 10:00 05/25/18 09:49 Keflex - PO 500 mg BID [facility] Administration Diltiazem HCl 180 mg 05/18/18 10:00 05/25/18 09:49 Cardizem Cd - PO 180 mg DAILY [facility] Administration Docusate Sodium 100 mg 05/13/18 08:09 Colace - PO Q8H PRN CONSTIPATION Sodium Chloride 1,000 mls @ 42 mls/hr 05/22/18 16:00 05/24/18 16:43 1/2 Normal Saline IV 42 mls/hr ASDIR [facility] Administration Ondansetron HCl 4 mg 05/13/18 08:09 Zofran Odt - SL Q6H PRN NAUSEA AND/OR VOMITING Oxycodone HCl 5 mg 05/19/18 11:29 05/25/18 14:50 Roxicodone - PO 5 mg Q6H PRN Administration PAIN LEVEL 7 - 10 Pancrelipase 1 cap 05/18/18 12:00 05/25/18 12:17 [place] Thompson 36,000 Units Capsule PO 1 cap TIDCM [facility] Administration Pantoprazole Sodium 40 mg 05/22/18 10:00 05/25/18 09:47 Protonix - PO 40 mg BID [facility] Administration Polyethylene Glycol 17 gm 05/17/18 10:00 05/25/18 09:52 Miralax (For Daily Use) - PO Not Given BID [facility] Prednisone 20 mg 05/22/18 09:08 05/25/18 09:48 Deltasone - PO 20 mg DAILY [facility] Administration Propranolol HCl 60 mg 05/14/18 10:57 05/25/18 14:51 Inderal - PO 60 mg TID [facility] Administration Warfarin Sodium 5 mg 05/24/18 18:00 05/24/18 17:15 Coumadin - PO 5 mg DAILY@1800 [facility] Administration Impression 1. PHILL 2. a-fib 3. hx pleural effusion 4. HLD 5. CHF 6. HTN 7. Gout 8. gi bleed 9. hyperkalemia 10. lactic acidosis 11. anemia Plan - no bmp today - will order for am - renal function has stabilized - will need outpt follow up - will follow PRN Dr Rodríguez
--- NOTE | 2018-05-25 15:47 | PN ---
Progress Note, Physician History of Present Illness: AWAKE, ALERT NO COMPLAINTS DEVELOPED ERYTHEMA/ TENDERNESS AT L WRIST IV SITE AFEBRILE - Current Medication List Current Medications: Active Medications Acetaminophen (Tylenol -) 650 mg PO Q6H PRN PRN Reason: PAIN SCALE 1-5 Last Admin: 05/25/18 14:49 Dose: 650 mg Allopurinol (Zyloprim -) 100 mg PO DAILY [facility] Last Admin: 05/25/18 09:48 Dose: 100 mg Cephalexin HCl (Keflex -) 500 mg PO BID [facility] Last Admin: 05/25/18 09:49 Dose: 500 mg Diltiazem HCl (Cardizem Cd -) 180 mg PO DAILY [facility] Last Admin: 05/25/18 09:49 Dose: 180 mg Docusate Sodium (Colace -) 100 mg PO Q8H PRN PRN Reason: CONSTIPATION Sodium Chloride (1/2 Normal Saline) 1,000 mls @ 42 mls/hr IV ASDIR [facility] Last Admin: 05/24/18 16:43 Dose: 42 mls/hr Ondansetron HCl (Zofran Odt -) 4 mg SL Q6H PRN PRN Reason: NAUSEA AND/OR VOMITING Pancrelipase (Creon Dr 36,000 Units Capsule) 1 cap PO TIDCM [facility] Last Admin: 05/25/18 12:17 Dose: 1 cap Pantoprazole Sodium (Protonix -) 40 mg PO BID [facility] Last Admin: 05/25/18 09:47 Dose: 40 mg Polyethylene Glycol (Miralax (For Daily Use) -) 17 gm PO BID [facility] Last Admin: 05/25/18 09:52 Dose: Not Given Prednisone (Deltasone -) 20 mg PO DAILY [facility] Last Admin: 05/25/18 09:48 Dose: 20 mg Propranolol HCl (Inderal -) 60 mg PO TID [facility] Last Admin: 05/25/18 14:51 Dose: 60 mg Warfarin Sodium (Coumadin -) 5 mg PO DAILY@1800 [facility] Last Admin: 05/24/18 17:15 Dose: 5 mg - Objective Vital Signs: Vital Signs Temperature 98.1 F 05/25/18 13:41 Pulse Rate 86 05/25/18 13:41 Respiratory Rate 18 05/25/18 13:41 Blood Pressure 108/71 05/25/18 13:41 O2 Sat by Pulse Oximetry (%) 100 05/25/18 10:00 Constitutional: Yes: No Distress Eyes: Yes: Conjunctiva Clear Cardiovascular: Yes: Regular Rate and Rhythm, S1, S2 Respiratory: Yes: CTA Bilaterally Gastrointestinal: Yes: Normal Bowel Sounds, Soft, Abdomen, Obese. No: Tenderness Extremities: Yes: Other (+ ERYTHEMA/ TENDERNESS L WRIST NO FLUCTUANCE OR DRAINAGE) Labs: CBC, BMP 05/24/18 05:30 05/24/18 05:30 INR, PTT INR 1.04 (0.83-1.09) 05/25/18 05:30 Assessment/Plan CATHETER- RELATED PHLEBITIS
[2018-05-25] MEDS: SODIUM CHLORIDE 0.45% 1,000 ML IV SCH (16:00)
[2018-05-25] MEDS: WARFARIN NA 5 MG TABLET (UD) PO SCH (17:38)
--- NOTE | 2018-05-25 18:35 | PN ---
GI Progress Note Subjective: no active bleeding tolerating diet - Objective Vital Signs: Vital Signs Temperature 98.6 F 05/25/18 18:25 Pulse Rate 76 05/25/18 17:52 Respiratory Rate 18 05/25/18 17:52 Blood Pressure 127/87 05/25/18 17:52 O2 Sat by Pulse Oximetry (%) 100 05/25/18 10:00 Constitutional: Well Nourished Eyes: Yes: Conjunctiva Clear HENT: Yes: Atraumatic Neck: Yes: Supple Cardiovascular: Yes: Regular Rate and Rhythm Respiratory: Yes: CTA Bilaterally ...Palpate: Yes: Soft. No: Firm/Rigid, Guarding, Hepatomegaly, Mass, Pulsatile Mass, Splenomegaly, Tenderness Labs: CBC, BMP 05/24/18 05:30 05/24/18 05:30 INR, PTT INR 1.04 (0.83-1.09) 05/25/18 05:30 Problem List - Problems (1) GI bleed Assessment/Plan: resolved R> continue Protonix 40mg daily repeat EGD in 3 mos Code(s): K92.2 - GASTROINTESTINAL HEMORRHAGE, UNSPECIFIED Qualifiers: GI bleed type/associated pathology: melena Qualified Code(s): K92.1 - Melena (2) Osteomyelitis of ankle and foot Code(s): M86.9 - OSTEOMYELITIS, UNSPECIFIED (3) Cellulitis of left foot Code(s): L03.116 - CELLULITIS OF LEFT LOWER LIMB (4) Abdominal distension Code(s): R14.0 - ABDOMINAL DISTENSION (GASEOUS)
[2018-05-26 06:10] LABS: HEMATOCRIT 32.9 % (35.4-49); MCH 29.7 pg (25.7-33.7); MCHC 33.3 g/dl (32.0-35.9); MEAN CELL VOLUME 89.2 fl (80-96); MEAN PLT VOLUME 7.1 fl (7.5-11.1); PLATELET COUNT 402 K/MM3 (134-434); RBC 3.69 M/mm3 (4.00-5.60); WHITE BLOOD COUNT 14.4 K/mm3 (4.0-10.0)
[2018-05-26 06:18] LABS: INR 1.07 (0.83-1.09); PROTHROMBIN TIME (PATIENT) 12.6 SEC (9.7-13.0)
[2018-05-26] MEDS: LIPASE/PROTEASE/AMYLASE 36,000 UNIT CAPSULE PO SCH ×3 (08:45→17:43)
[2018-05-26] MEDS ORDERED: PT OWN MED DRAWER 7, Y5N ONE ×2 (09:51→14:37)
[2018-05-26] MEDS: predniSONE 20 MG TABLET (UD) PO SCH (09:52)
[2018-05-26] MEDS: PANTOPRAZOLE 40 MG TABLET (FP) PO SCH (09:53)
[2018-05-26] MEDS: ALLOPURINOL 100 MG TABLET (FP) PO SCH (09:53)
[2018-05-26] MEDS: CEPHALEXIN MONOHYDRATE 500 MG CAPSULE (UD) PO SCH (09:53)
[2018-05-26] MEDS: POLYETHYLENE GLYCOL 3350 119 GM BTL PO SCH (09:55)
--- NOTE | 2018-05-26 11:04 | PN ---
Progress Note (short form) - Note Progress Note: s: no cp sob palps dizzy o: Vital Signs Period Temp Pulse Resp BP Sys/Lomeli Pulse Ox Last 24 Hr 98.1 F-98.6 F 76-91 14-20 108-144/65-90 98-99 nad no jvd irreg, s1s2 no mrg cta bl nl eff aao3 no le e/c/c abd nt nd pos bs no jaundice diaphoresis Current Medications Generic Name Dose Route Start Last Admin Trade Name Freq PRN Reason Stop Dose Admin Acetaminophen 650 mg 05/18/18 15:02 05/25/18 14:49 Tylenol - PO 650 mg Q6H PRN Administration PAIN SCALE 1-5 Allopurinol 100 mg 05/21/18 10:00 05/26/18 09:53 Zyloprim - PO 100 mg DAILY [facility] Administration Cephalexin HCl 500 mg 05/25/18 10:00 05/26/18 09:53 Keflex - PO 500 mg BID [facility] Administration Diltiazem HCl 180 mg 05/18/18 10:00 05/26/18 09:52 Cardizem Cd - PO 180 mg DAILY [facility] Administration Docusate Sodium 100 mg 05/13/18 08:09 Colace - PO Q8H PRN CONSTIPATION Sodium Chloride 1,000 mls @ 42 mls/hr 05/22/18 16:00 05/25/18 16:00 1/2 Normal Saline IV 42 mls/hr ASDIR [facility] Administration Ondansetron HCl 4 mg 05/13/18 08:09 Zofran Odt - SL Q6H PRN NAUSEA AND/OR VOMITING Pancrelipase 1 cap 05/18/18 12:00 05/26/18 08:[address] 36,000 Units Capsule PO 1 cap TIDCM [facility] Administration Pantoprazole Sodium 40 mg 05/22/18 10:00 05/26/18 09:53 Protonix - PO 40 mg BID [facility] Administration Polyethylene Glycol 17 gm 05/17/18 10:00 05/26/18 09:55 Miralax (For Daily Use) - PO Not Given BID [facility] Prednisone 20 mg 05/22/18 09:08 05/26/18 09:52 Deltasone - PO 20 mg DAILY [facility] Administration Propranolol HCl 60 mg 05/14/18 10:57 05/26/18 06:28 Inderal - PO 60 mg TID [facility] Administration Warfarin Sodium 5 mg 05/24/18 18:00 05/25/18 17:38 Coumadin - PO 5 mg DAILY@1800 [facility] Administration CBC, BMP 05/26/18 05:30 05/24/18 05:30 cxr: clear lungs ecg: afib 120s, nl qtc, nonspec tw chagnes tele: afib with controlled HRs echo 04/2016: mild lve, nl lvef, mild lae, mild mr, mild-mod tr, mild pr, rvsp 50-60 a/p: 72 m hx htn, hld, dchf, afib, here with lightheadedness. gib: -H/H remains stable -s/p UGI series, EGD - plan per GI is repeat egd 3 mos. afib: -HR controlled, cont propranolol, diltiazem -cleared to resume AC with warfarin per GI, goal INR 2-3 PNA: -per pmd htn: -bp controlled -cont current meds chronic diastolic chf: -vol stable on exam, holding home lasix for now kaveh: -improving after IVF, PRBC cardiac kohler stable, can dc tele
--- NOTE | 2018-05-26 12:31 | DS ---
Physical Examination Vital Signs: Vital Signs Temperature 98.3 F 05/26/18 10:00 Pulse Rate 78 05/26/18 10:00 Respiratory Rate 14 05/26/18 10:00 Blood Pressure 144/90 05/26/18 10:00 O2 Sat by Pulse Oximetry (%) 99 05/26/18 08:00 Findings/Remarks: The patient is a 72-year-old male, with a past medical history of HTN, afib, CHF , and gout, who was sent to the ED via EMS for lightheadedness. The was seen in the ED recently for an infected bunion to his LT great toe. Patient was planning to come in today for a wound recheck and reports that every time he stands up he feels like he is going to pass out. He also reports experiencing black stools since Tuesday. He has not taken his Eliquis since Tuesday. On exam, patient is complaining of nausea. The patient denies any fever, chills, cough, vomiting or abdominal pain. Denies any chest pain or shortness of breath. Denies any urinary symptoms. Constitutional: Yes: Well Nourished, No Distress, Calm Cardiovascular: Yes: Regular Rate and Rhythm Respiratory: Yes: Regular Gastrointestinal: Yes: Normal Bowel Sounds, Soft Musculoskeletal: Yes: WNL Extremities: Yes: WNL Edema: No Peripheral Pulses WNL: Yes Neurological: Yes: Alert, Oriented Psychiatric: Yes: Alert, Oriented Labs: CBC, BMP 05/26/18 05:30 05/24/18 05:30 Discharge Summary Reason For Visit: GASTROINTESTINAL HEMORRHAGE,ATRIAL FIBRILLATION Current Active Problems PHILL (acute kidney injury) (Acute) Abdominal distension (Acute) Atrial fibrillation (Acute) GI bleed (Acute) Osteomyelitis of ankle and foot (Acute) Pneumonia (Acute) Pulmonary vascular congestion (Acute) Hospital Course: Laboratory Last Values WBC 14.4 K/mm3 (4.0-10.0) H 05/26/18 05:30 Corrected WBC (auto) K/mm3 05/12/18 05:30 RBC 3.69 M/mm3 (4.00-5.60) L 05/26/18 05:30 Hgb 11.0 GM/dL (11.7-16.9) L 05/26/18 05:30 Hct 32.9 % (35.4-49) L 05/26/18 05:30 MCV 89.2 fl (80-96) 05/26/18 05:30 MCH 29.7 pg (25.7-33.7) 05/26/18 05:30 MCHC 33.3 g/dl (32.0-35.9) 05/26/18 05:30 RDW 15.0 % (11.9-15.9) 05/26/18 05:30 Plt Count 402 K/MM3 (134-434) 05/26/18 05:30 MPV 7.1 fl (7.5-11.1) L 05/26/18 05:30 Absolute Neuts (auto) 12.3 K/mm3 (1.5-8.0) H 05/24/18 05:30 Neutrophils % 81.8 % (42.8-82.8) 05/24/18 05:30 Neutrophils % (Manual) 84.7 % (42.8-82.8) H 05/22/18 05:15 Band Neutrophils % 0.0 % 05/22/18 05:15 Lymphocytes % 8.6 % (8-40) D 05/24/18 05:30 Lymphocytes % (Manual) 10.2 % (8-40) 05/22/18 05:15 Monocytes % 8.9 % (3.8-10.2) 05/24/18 05:30 Monocytes % (Manual) 5 % (3.8-10.2) 05/22/18 05:15 Eosinophils % 0.5 % (0-4.5) D 05/24/18 05:30 Eosinophils % (Manual) 0.0 % (0-4.5) 05/22/18 05:15 Basophils % 0.2 % (0-2.0) 05/24/18 05:30 Basophils % (Manual) 0.0 % (0-2.0) 05/22/18 05:15 Myelocytes % (Man) 0 % (0-2) 05/22/18 05:15 Promyelocytes % (Man) 0 % (0-2) 05/22/18 05:15 Blast Cells % (Manual) 0 % (0-0) 05/22/18 05:15 Nucleated RBC % 0 % (0-0) 05/24/18 05:30 Metamyelocytes 0 % (0-2) 05/22/18 05:15 Hypochromia 0 05/22/18 05:15 Toxic Granulation 0 05/22/18 05:15 Dohle Bodies 0 05/22/18 05:15 Platelet Estimate Normal 05/22/18 05:15 Platelet Comment Present 05/20/18 05:30 Polychromasia 0 05/22/18 05:15 Poikilocytosis 0 05/22/18 05:15 Basophilic Stippling 0 05/22/18 05:15 Anisocytosis 0 05/22/18 05:15 Microcytosis 0 05/22/18 05:15 Macrocytosis 0 05/22/18 05:15 Spherocytes 0 05/22/18 05:15 Sickle Cells 0 05/22/18 05:15 Target Cells 0 05/22/18 05:15 Tear Drop Cells 0 05/22/18 05:15 Ovalocytes 0 05/22/18 05:15 Stomatocytes 0 05/22/18 05:15 Helmet Cells 0 05/22/18 05:15 [place] Bodies 0 05/22/18 05:15 [place] Rings 0 05/22/18 05:15 Lul Cells 0 05/22/18 05:15 Acanthocytes (Spur) 0 05/22/18 05:15 Rouleaux 0 05/22/18 05:15 Fragmented RBCs 0 05/22/18 05:15 Schistocytes 0 05/22/18 05:15 ESR 68 mm/hr (0-20) H 05/10/18 11:00 PT with INR 12.60 SEC (9.7-13.0) 05/26/18 05:30 INR 1.07 (0.83-1.09) 05/26/18 05:30 Sodium 138 mmol/L (136-145) 05/24/18 05:30 Potassium 4.8 mmol/L (3.5-5.1) 05/24/18 05:30 Chloride 108 mmol/L (98-107) H 05/24/18 05:30 Carbon Dioxide 21 mmol/L (21-32) 05/24/18 05:30 Anion Gap 8 MMOL/L (8-16) 05/24/18 05:30 BUN 33 mg/dL (7-18) H 05/24/18 05:30 Creatinine 1.3 mg/dL (0.55-1.3) 05/24/18 05:30 Creat Clearance w eGFR 53.96 (>60) 05/24/18 05:30 POC Glucometer 147 UNITS (80-120) 05/25/18 17:29 Random Glucose 87 mg/dL (74-106) 05/24/18 05:30 Lactic Acid 1.9 mmol/L (0.4-2.0) 05/14/18 13:30 Uric Acid 5.2 mg/dL (2.6-7.2) 05/20/18 05:30 Calcium 7.1 mg/dL (8.5-10.1) L 05/24/18 05:30 Phosphorus 3.5 mg/dL (2.5-4.9) 05/13/18 05:15 Magnesium 2.0 mg/dL (1.8-2.4) 05/13/18 05:15 Total Bilirubin 0.3 mg/dL (0.2-1) 05/24/18 05:30 AST 13 U/L (15-37) L 05/24/18 05:30 ALT 53 U/L (13-61) 05/24/18 05:30 Alkaline Phosphatase 81 U/L (45-117) 05/24/18 05:30 Creatine Kinase 132 U/L (26-308) 05/10/18 11:00 Troponin I < 0.02 ng/ml (0.00-0.05) 05/11/18 05:15 C-Reactive Protein 3.7 MG/DL (0.00-0.3) H 05/10/18 11:00 Total Protein 6.0 g/dl (6.4-8.2) L 05/24/18 05:30 Albumin 2.4 g/dl (3.4-5.0) L 05/24/18 05:30 Urine Color Ltyellow 05/19/18 12:00 Urine Appearance Clear 05/19/18 12:00 Urine pH 5.0 (5.0-8.0) 05/19/18 12:00 Ur Specific Crosby 1.017 (1.010-1.035) 05/19/18 12:00 Urine Protein 1+ (NEGATIVE) H 05/19/18 12:00 Urine Glucose (UA) Negative (NEGATIVE) 05/19/18 12:00 Urine Ketones Negative (NEGATIVE) 05/19/18 12:00 Urine Blood Negative (NEGATIVE) 05/19/18 12:00 Urine Nitrite Negative (NEGATIVE) 05/19/18 12:00 Urine Bilirubin Negative (<2.0 mg/dL) 05/19/18 12:00 Urine Urobilinogen Negative mg/dL (0.2-1.0) 05/19/18 12:00 Ur Leukocyte Esterase Negative (NEGATIVE) 05/19/18 12:00 Urine WBC (Auto) None /hpf (3-5) 05/19/18 12:00 Urine RBC (Auto) <1 /hpf (0-3) 05/19/18 12:00 Urine Mucus Rare 05/14/18 15:05 Ur Random Sodium 86 MMOL/L (40-220) 05/11/18 14:00 Ur Random Potassium 34.2 MMOL/L (25-125) 05/11/18 14:00 Ur Random Chloride 90 MMOL/L (110-250) L 05/11/18 14:00 Urine Creatinine 72.0 mg/dL (20-320) 05/11/18 14:00 Stool Occult Blood Positive (NEGATIVE) 05/10/18 11:58 Random Vancomycin 6.0 ug/ml (18-26) L 05/16/18 05:30 Influenza A (Rapid) Negative 05/10/18 11:08 Influenza B (Rapid) Negative 05/10/18 11:08 Blood Type B POSITIVE 05/14/18 11:30 Antibody Screen Positive 05/14/18 11:30 Antibody Identification K 05/14/18 11:30 Antigen Identification No Result Required. 05/14/18 11:30 Crossmatch See Detail 05/14/18 11:30 Microbiology 05/19/18 12:00 Urine - Urine Clean Catch Urine Culture - Final NO GROWTH OBTAINED 05/15/18 11:55 Blood - Peripheral Venous Blood Culture - Final NO GROWTH AFTER 5 DAYS INCUBATION 05/15/18 12:02 Blood - Peripheral Venous Blood Culture - Final NO GROWTH AFTER 5 DAYS INCUBATION 05/14/18 13:50 Blood - Peripheral Venous Blood Culture - Final NO GROWTH AFTER 5 DAYS INCUBATION 05/14/18 13:20 Blood - Peripheral Venous Blood Culture - Final NO GROWTH AFTER 5 DAYS INCUBATION 05/14/18 15:05 Urine - Urine Clean Catch Urine Culture - Final NO GROWTH OBTAINED 05/14/18 15:05 Urine For Antigen Detection Legionella Antigen - Final 05/14/18 15:05 Urine For Antigen Detection Streptococcus pneumoniae Antigen (M - Final 05/10/18 10:56 Blood - Peripheral Venous Blood Culture - Final NO GROWTH AFTER 5 DAYS INCUBATION 05/10/18 10:40 Blood - Peripheral Venous Blood Culture - Final NO GROWTH AFTER 5 DAYS INCUBATION 05/11/18 16:20 Foot - Left Gram Stain - Final 05/11/18 16:20 Foot - Left Wound Culture - Final NO GROWTH OF AEROBIC ORGANISMS AFTER 48 HOURS INCUBATION 05/10/18 16:51 Urine - Urine Clean Catch Urine Culture - Final Vital Signs Temp 98.3 F 05/26/18 10:00 Pulse 78 05/26/18 10:00 Resp 14 05/26/18 10:00 BP 144/90 05/26/18 10:00 Pulse Ox 99 05/26/18 08:00 Intake & Output 05/25/18 05/26/18 05/26/18 23:59 11:59 23:59 Intake Total 160 180 Output Total 600 Balance 160 180 -600 Intake: Oral 160 180 Output: Urine 600 Void 600 Other: Voiding Method Toilet Toilet Bowel Movement No No Body Mass Index (BMI) 31.0 Condition: Stable - Instructions Referrals: Cindy Centeno MD [Primary Care Provider] - Disposition: VNS/HOME HEALTH CARE - Home Medications Comprehensive Discharge Medication List: Ambulatory Orders Apixaban [Eliquis] 5 mg PO DAILY 05/10/18 Diltiazem HCl [Cartia Xt] 180 mg PO BID 05/10/18 Furosemide 40 mg PO DAILY 05/10/18 Hydroxyzine HCl 25 mg PO HS 05/10/18 Metoprolol Succinate 25 mg PO DAILY 05/10/18 Sulfamethoxazole/Trimethoprim [Sulfamethoxazole-Tmp Ds Tablet] 1 each PO DAILY 05/10/18
--- NOTE | 2018-05-26 13:33 | PN ---
Progress Note (short form) - Note Progress Note: Appears overall better. No CP or SOB. No acute events overnight. Intake & Output 05/23/18 05/24/18 05/25/18 05/26/18 23:59 23:59 23:59 23:59 Intake Total 1382 890 777.8 180 Output Total 1350 1400 300 600 Balance 32 -510 477.8 -420 Last Vital Signs Temp Pulse Resp BP Pulse Ox 98.3 F 78 14 144/90 99 05/26/18 10:00 05/26/18 10:00 05/26/18 10:00 05/26/18 10:00 05/26/18 08:00 Active Medications Acetaminophen (Tylenol -) 650 mg PO Q6H PRN PRN Reason: PAIN SCALE 1-5 Last Admin: 05/25/18 14:49 Dose: 650 mg Allopurinol (Zyloprim -) 100 mg PO DAILY [facility] Last Admin: 05/26/18 09:53 Dose: 100 mg Cephalexin HCl (Keflex -) 500 mg PO BID [facility] Last Admin: 05/26/18 09:53 Dose: 500 mg Diltiazem HCl (Cardizem Cd -) 180 mg PO DAILY [facility] Last Admin: 05/26/18 09:52 Dose: 180 mg Docusate Sodium (Colace -) 100 mg PO Q8H PRN PRN Reason: CONSTIPATION Sodium Chloride (1/2 Normal Saline) 1,000 mls @ 42 mls/hr IV ASDIR [facility] Last Admin: 05/25/18 16:00 Dose: 42 mls/hr Ondansetron HCl (Zofran Odt -) 4 mg SL Q6H PRN PRN Reason: NAUSEA AND/OR VOMITING Pancrelipase (Creon Dr 36,000 Units Capsule) 1 cap PO TIDCM [facility] Last Admin: 05/26/18 12:17 Dose: 1 cap Pantoprazole Sodium (Protonix -) 40 mg PO BID [facility] Last Admin: 05/26/18 09:53 Dose: 40 mg Polyethylene Glycol (Miralax (For Daily Use) -) 17 gm PO BID [facility] Last Admin: 05/26/18 09:55 Dose: Not Given Prednisone (Deltasone -) 20 mg PO DAILY [facility] Last Admin: 05/26/18 09:52 Dose: 20 mg Propranolol HCl (Inderal -) 60 mg PO TID [facility] Last Admin: 05/26/18 06:28 Dose: 60 mg Warfarin Sodium (Coumadin -) 5 mg PO DAILY@1800 [facility] Last Admin: 05/25/18 17:38 Dose: 5 mg Constitutional: Yes: No Distress, Obese Eyes: Yes: Conjunctiva Clear, EOM Intact HENT: Yes: Atraumatic, Normocephalic Neck: Yes: Supple, Trachea Midline Cardiovascular: Yes: Pulse Irregular Respiratory: Yes: Diminished at the bases, no wheeze. No: Accessory Muscle Use , Stridor, Wheezes ...Inspection: Yes: WNL ...Clubbing: No Gastrointestinal: Yes: Normal Bowel Sounds, Soft, Abdomen, Obese Renal/: Yes: WNL Musculoskeletal: Yes: Joint Stiffness, Joint Swelling Extremities: Yes: Cool Edema: Yes Peripheral Pulses WNL: No Integumentary: Yes: Erythema, improved tophi Neurological: Yes: WNL, Alert, Oriented ...Motor Strength: WNL Psychiatric: Yes: WNL, Alert, Oriented Labs: Laboratory Results - last 24 hr 05/25/18 05/26/18 05/26/18 17:29 05:30 05:30 WBC 14.4 H RBC 3.69 L Hgb 11.0 L Hct 32.9 L MCV 89.2 MCH 29.7 MCHC 33.3 RDW 15.0 Plt Count 402 MPV 7.1 L PT with INR 12.60 INR 1.07 POC Glucometer 147 Problem List - Problems (1) Pneumonia Code(s): J18.9 - PNEUMONIA, UNSPECIFIED ORGANISM (2) Pulmonary vascular congestion Code(s): R09.89 - OTH SYMPTOMS AND SIGNS INVOLVING THE CIRC AND RESP SYSTEMS (3) PHILL (acute kidney injury) Code(s): N17.9 - ACUTE KIDNEY FAILURE, UNSPECIFIED (4) Atrial fibrillation Code(s): I48.91 - UNSPECIFIED ATRIAL FIBRILLATION Qualifiers: Atrial fibrillation type: chronic Qualified Code(s): I48.2 - Chronic atrial fibrillation (5) GI bleed Code(s): K92.2 - GASTROINTESTINAL HEMORRHAGE, UNSPECIFIED Qualifiers: GI bleed type/associated pathology: melena Qualified Code(s): K92.1 - Melena (6) Bunion of great toe of left foot Code(s): M21.612 - BUNION OF LEFT FOOT (7) Gout Code(s): M10.9 - GOUT, UNSPECIFIED (8) HTN (hypertension) Code(s): I10 - ESSENTIAL (PRIMARY) HYPERTENSION (9) SOB (shortness of breath) Code(s): R06.02 - SHORTNESS OF BREATH Assessment/Plan PO ABX O2 as needed Prednisone for gout flair Pain control Local wound care Ambulate D/C planning Dr Jovel Problem List - Problems (1) Pneumonia Code(s): J18.9 - PNEUMONIA, UNSPECIFIED ORGANISM (2) Pulmonary vascular congestion Code(s): R09.89 - OTH SYMPTOMS AND SIGNS INVOLVING THE CIRC AND RESP SYSTEMS (3) PHILL (acute kidney injury) Code(s): N17.9 - ACUTE KIDNEY FAILURE, UNSPECIFIED (4) Atrial fibrillation Code(s): I48.91 - UNSPECIFIED ATRIAL FIBRILLATION Qualifiers: Atrial fibrillation type: chronic Qualified Code(s): I48.2 - Chronic atrial fibrillation (5) GI bleed Code(s): K92.2 - GASTROINTESTINAL HEMORRHAGE, UNSPECIFIED Qualifiers: GI bleed type/associated pathology: melena Qualified Code(s): K92.1 - Melena (6) Bunion of great toe of left foot Code(s): M21.612 - BUNION OF LEFT FOOT (7) Gout Code(s): M10.9 - GOUT, UNSPECIFIED (8) HTN (hypertension) Code(s): I10 - ESSENTIAL (PRIMARY) HYPERTENSION (9) SOB (shortness of breath) Code(s): R06.02 - SHORTNESS OF BREATH
[2018-05-26] MEDS: SODIUM CHLORIDE 0.45% 1,000 ML IV SCH (16:00)
[2018-05-26 18:02] VITALS: BP 128/74; PULSE 77; TEMP 98.1
== END 2018-05-26 18:19 | disposition home health service (06) | DRG 377 ==
LOC: JER 09:57 → JERBED 14:31 → J2W 05-11 03:31
PROVIDERS: ADMIT Family Medicine; ATTEND Family Medicine
PROC: 0HBRXZZ Excision of Toe Nail, External Approach (ICD-10-PCS; 2018-05-12)
PROC: 0HBRXZZ Excision of Toe Nail, External Approach (ICD-10-PCS; 2018-05-12)
PROC: 0HBRXZZ Excision of Toe Nail, External Approach (ICD-10-PCS; 2018-05-12)
PROC: 0HBRXZZ Excision of Toe Nail, External Approach (ICD-10-PCS; 2018-05-12)
PROC: 0HBRXZZ Excision of Toe Nail, External Approach (ICD-10-PCS; 2018-05-12)
PROC: 0HBRXZZ Excision of Toe Nail, External Approach (ICD-10-PCS; 2018-05-12)
PROC: 0HBRXZZ Excision of Toe Nail, External Approach (ICD-10-PCS; 2018-05-12)
PROC: 0HBRXZZ Excision of Toe Nail, External Approach (ICD-10-PCS; 2018-05-12)
PROC: 0HBRXZZ Excision of Toe Nail, External Approach (ICD-10-PCS; 2018-05-12)
PROC: 0HBRXZZ Excision of Toe Nail, External Approach (ICD-10-PCS; 2018-05-12)
PROC: 30233N1 Transfusion of Nonautologous Red Blood Cells into Peripheral Vein, Percutaneous Approach (ICD-10-PCS; 2018-05-14)
PROC: 0DB68ZX Excision of Stomach, Via Natural or Artificial Opening Endoscopic, Diagnostic (ICD-10-PCS; principal; 2018-05-24 07:15)
DX: K92.2 Gastrointestinal hemorrhage, unspecified (principal); J18.9 Pneumonia, unspecified organism; I50.32 Chronic diastolic (congestive) heart failure; E87.2 Acidosis; D62 Acute posthemorrhagic anemia; N17.9 Acute kidney failure, unspecified; L97.529 Non-pressure chronic ulcer of other part of left foot with unspecified severity; K25.3 Acute gastric ulcer without hemorrhage or perforation; L03.032 Cellulitis of left toe; I48.91 Unspecified atrial fibrillation; E87.5 Hyperkalemia; M1A.9XX0 Chronic gout, unspecified, without tophus (tophi); I11.0 Hypertensive heart disease with heart failure; K31.89 Other diseases of stomach and duodenum; K44.9 Diaphragmatic hernia without obstruction or gangrene; E66.9 Obesity, unspecified; Z68.31 Body mass index [BMI] 31.0-31.9, adult; E78.5 Hyperlipidemia, unspecified; Z96.641 Presence of right artificial hip joint; Z87.891 Personal history of nicotine dependence; M21.612 Bunion of left foot; Z79.01 Long term (current) use of anticoagulants; B35.1 Tinea unguium; L60.2 Onychogryphosis; R06.83 Snoring
CPT/HCPCS: 36415; 36430; 36511; 71045-TC-FY; 71046-TC-FY; 73630-TC-LT; 74018-TC-FY; 74019-TC-FY; 74176-TC; 74240-TC-FY; 76775-TC; 76856-TC; 80048; 80053; 81003; 81015; 82272; 82436; 82550; 82570; 82962; 83605; 83735; 84100; 84133; 84300; 84484; 84550; 85025; 85027; 85610; 85651; 86140; 86850; 86870; 86900; 86901; 86902; 86922; 87040; 87070; 87086; 87205; 87804; 87899; 88104; 88305-TC; 93005; 93010; 94010; 97116-GP; 97162-GP; 99281-25; 99285-25; G0480; J0131; J7030; P9038; P9058; Q9967

== ENCOUNTER 2018-12-16 12:11 | Inpatient (IN) | payer OTHER, BC ==
[2018-12-16] MEDS ORDERED: CLINDAMYCIN IVPB 300 MG in DEXTROSE 5%-WATER - 48 ML IVPB ONE (13:23)
[2018-12-16] MEDS ORDERED: methylPREDNISolone NA SUCC 125 MG/2 ML VIAL IVPB ONE (13:24)
--- NOTE | 2018-12-16 13:31 | PDOC ---
History of Present Illness - General Chief Complaint: Edema Stated Complaint: UNDER EYE SWOLLEN Time Seen by Provider: 12/16/18 12:48 History Source: Patient Exam Limitations: No Limitations - History of Present Illness Initial Comments: 12/16/18 13:18 73-year-old male presents to ED with left facial swelling worsening in severity since Tuesday. Patient initially thought was an abscess and it went to his dentist today where he states had x-rays which showed no signs of a dental abscess/carry. Patient was referred to the ER for further evaluation. Patient now with left lower eyelid swelling left cheek and difficulty forming words and smiling secondary to swelling. Patient denies any visual changes, headache but states mild chills since arrival to the ED. States is currently on Coumadin and is followed by Dr. Centeno. Is this a multiple visit Asthma Patient?: No Timing/Duration: getting worse Severity: mild Associated Symptoms: reports: fever/chills Past History - Travel Traveled outside of the country in the last 30 days: No Close contact w/someone who was outside of country & ill: No - Past Medical History Allergies/Adverse Reactions: Allergies Allergy/AdvReac Type Severity Reaction Status Date / Time No Known Allergies Allergy Verified 12/16/18 12:46 Home Medications: Ambulatory Orders Allopurinol [Zyloprim -] 100 mg PO DAILY #30 tablet 05/26/18 Diltiazem Cd [Cardizem Cd -] 180 mg PO DAILY cap.cd.24h 05/26/18 oxyCODONE HCL [Roxicodone -] 5 mg PO Q6H PRN #20 tablet MDD 4 05/26/18 Furosemide [Lasix] 40 mg PO ASDIR 12/16/18 Warfarin Na [Coumadin -] 4 mg PO ASDIR 12/16/18 Cefuroxime Axetil [Ceftin -] 500 mg PO Q12H #14 tablet 12/24/18 Clindamycin HCl [Cleocin HCl] 300 mg PO TID #21 capsule 12/24/18 Lactobacillus Acidophilus [Bacid -] 1 tab PO DAILY #30 tab 12/24/18 Loratadine [Claritin -] 10 mg PO DAILY #14 tablet 12/24/18 Nystatin/Triamcinolone Top Cr [Mycolog II -] 1 applic TP BID #1 tube 12/24/18 Sodium Chloride Nasal Britt [[place] Britt Nasal Britt -] 2 spray NS TID PRN #1 spray 12/24/18 Warfarin Na [Coumadin -] 4 mg PO DAILY@1800 #60 tablet 12/24/18 Cardiac Disorders: Yes COPD: No HTN: Yes Hypercholesterolemia: Yes - Surgical History Orthopedic Surgery: Yes (R Hip x3) - Immunization History Immunization Up to Date: Yes - Psycho Social/Smoking Cessation Hx Smoking History: Former smoker Have you smoked in the past 12 months: No If you are a former smoker, when did you quit?: 1981 Hx Alcohol Use: No Drug/Substance Use Hx: No Substance Use Type: None Patient Lives Alone: No Lives with/in: spouse/SO Review of Systems - Review of Systems Able to Perform ROS?: No Is the patient limited Azeri proficient: No Constitutional: Yes: Chills HEENTM: Yes: Nose Pain, Mouth Pain Respiratory: No: Symptoms reported Cardiac (ROS): No: Symptoms Reported ABD/GI: No: Symptoms Reported : No: Symptoms Reported Musculoskeletal: No: Symptoms Reported Integumentary: Yes: Erythema, Other (swelling) Endocrine: No: Symptoms Reported Hematologic/Lymphatic: No: Symptoms Reported *Physical Exam - Vital Signs Last Vital Signs Temp Pulse Resp BP Pulse Ox 98.8 F 56 L 16 120/71 100 12/16/18 12:43 12/16/18 12:43 12/16/18 12:43 12/16/18 12:43 12/16/18 12:43 - Physical Exam General Appearance: Yes: Nourished, Appropriately Dressed. No: Apparent Distress HEENT: positive: EOMI, TAVON Neck: positive: Supple Respiratory/Chest: positive: Lungs Clear, Normal Breath Sounds. negative: Respiratory Distress, Accessory Muscle Use Cardiovascular: positive: Regular Rhythm, Bradycardia. negative: Murmur Extremity: positive: Normal Inspection Integumentary: positive: Erythema (left upper lip and cheek. Area firm with no palpable fluctuance), Swelling (moderate swelling extending to the left lower eyelid, cheek and chin.) Neurologic: positive: Motor Strength 5/5 (ambulatory) ED Treatment Course - LABORATORY CBC & Chemistry Diagram: 12/24/18 07:11 12/24/18 07:11 - RADIOLOGY Radiology Studies Ordered: Category Date Time Status SOFT TISSUE NECK CT WITH CONTR [CT] Stat CT Scan 12/16/18 13:23 Ordered Medical Decision Making - Medical Decision Making 12/16/18 14:03 Chief complaint: Left facial pain and swelling for the past 2 days. Patient went at the same who stated the symptoms are not related to dental infection and referred to the ER. Patient denies headache, fever but states chills for the past hour Exam: patient with facial edema involving the left lower eyelid, noted erythema to the left lower cheek and left upper lip Plan: IV clindamycin Solu-Medrol labs and of CT with IV contrast of the face 12/16/18 14:31 Laboratory Tests 12/16/18 12/16/18 13:45 13:45 WBC 13.9 H MCHC 31.9 L RDW 17.8 H MPV 7.1 L Absolute Neuts (auto) 11.1 H Lactic Acid 4.1 H* Pt ordered for IVF *DC/Admit/Observation/Transfer Diagnosis at time of Disposition: Cellulitis of face - Discharge Dispostion Condition at time of disposition: Stable - Referrals - Patient Instructions - Post Discharge Activity Discharge - Discharge Information Problems reviewed: Yes Clinical Impression/Diagnosis: Cellulitis of face Condition: Stable
[2018-12-16] MEDS ORDERED: CLINDAMYCIN 600MG PREMIX IVPB 600 MG/50 ML BAG IVPB ONE ×3 (13:32→19:07)
[2018-12-16] MEDS ORDERED: methylPREDNISolone NA SUCC 125 MG/2 ML VIAL ONE (13:32)
[2018-12-16 14:02] LABS: BASO % 0.6 % (0-2.0); EOS % 2.2 % (0-4.5); HEMATOCRIT 42.5 % (35.4-49); HEMOGLOBIN 13.5 GM/dL (11.7-16.9); LYMPH % 10.3 % (8-40); MCH 26.8 pg (25.7-33.7); MCHC 31.9 g/dl (32.0-35.9); MEAN CELL VOLUME 84.1 fl (80-96); MEAN PLT VOLUME 7.1 fl (7.5-11.1); MONO % 7.2 % (3.8-10.2); NEUT % 79.7 % (42.8-82.8); PLATELET COUNT 336 K/MM3 (134-434); RBC 5.05 M/mm3 (4.00-5.60); RDW 17.8 % (11.9-15.9); WHITE BLOOD COUNT 13.9 K/mm3 (4.0-10.0)
[2018-12-16 14:10] LABS: INR 2.49 (0.83-1.09); PROTHROMBIN TIME (PATIENT) 29.7 SEC (9.7-13.0)
[2018-12-16] MEDS ORDERED: SODIUM CHLORIDE 1,000 ML IV STA (14:31)
[2018-12-16 14:37] LABS: ALBUMIN 3.6 g/dl (3.4-5.0); BILIRUBIN,TOTAL 0.5 mg/dL (0.2-1); BLOOD UREA NITROGEN 30.5 mg/dL (7-18); CALCIUM 8.9 mg/dL (8.5-10.1); CREATININE 1.7 mg/dL (0.55-1.3); POTASSIUM 4.9 mmol/L (3.5-5.1); TOT PROT 7.8 g/dl (6.4-8.2)
[2018-12-16 15:09] LABS: VENOUS PC02 47.3 mmHg (38-52); VENOUS PH 7.35 (7.31-7.41)
[2018-12-16 15:10] LABS: VENOUS PO2 < 49 mmHg (28-48)
--- NOTE | 2018-12-16 16:14 | PDOC ---
*Physical Exam - Vital Signs Last Vital Signs Temp Pulse Resp BP Pulse Ox 98.1 F 91 H 18 154/87 98 12/16/18 16:08 12/16/18 16:08 12/16/18 16:08 12/16/18 16:08 12/16/18 16:08 - Physical Exam Comments: 12/16/18 16:13 Sign-out received from outgoing ER provider Gagandeep. Pt interviewed and examined. Ancillary studies reviewed. Awaiting CT. 12/16/18 18:44 CT results suggestive of cellulitis and significant periodontal disease as possible source of infection. Will admit for cellulitis. 12/16/18 18:54 Discussed case with [employer]PERVISOR [employer] Emily, patient accepted for inpatient admission. ED Treatment Course - LABORATORY CBC & Chemistry Diagram: 12/16/18 13:45 12/16/18 13:45 - ADDITIONAL ORDERS Additional order review: Laboratory Results 12/16/18 12/16/18 12/16/18 14:45 13:45 13:45 PT with INR 29.70 H INR 2.49 H VBG pH 7.35 POC VBG pCO2 47.3 POC VBG pO2 < 49 H VBG HCO3 25.6 VBG O2 Sat (Jailene) 39.8 L VBG Base Excess 0.1 Sodium Potassium Chloride Carbon Dioxide Anion Gap BUN Creatinine Est GFR (CKD-EPI)AfAm Est GFR (CKD-EPI)NonAf Random Glucose Lactic Acid 4.1 H* Calcium Total Bilirubin AST ALT Alkaline Phosphatase Total Protein Albumin 12/16/18 13:45 PT with INR INR VBG pH POC VBG pCO2 POC VBG pO2 VBG HCO3 VBG O2 Sat (Jailene) VBG Base Excess Sodium 138 Potassium 4.9 Chloride 104 Carbon Dioxide 28 Anion Gap 6 L BUN 30.5 H Creatinine 1.7 H Est GFR (CKD-EPI)AfAm 44.73 Est GFR (CKD-EPI)NonAf 38.59 Random Glucose 96 Lactic Acid Calcium 8.9 Total Bilirubin 0.5 AST 13 L ALT 18 Alkaline Phosphatase 126 H Total Protein 7.8 Albumin 3.6 12/16/18 13:45 RBC 5.05 MCV 84.1 MCHC 31.9 L RDW 17.8 H MPV 7.1 L Neutrophils % 79.7 Lymphocytes % 10.3 Monocytes % 7.2 Eosinophils % 2.2 D Basophils % 0.6 - Medications Given in the ED: ED Medications Discontinued Medications Generic Name Dose Route Start Last Admin Trade Name Jude PRN Reason Stop Dose Admin Clindamycin Phosphate 300 mg/ 50 mls @ 100 mls/hr 12/16/18 13:23 12/16/18 13: 52 Dextrose IVPB 12/16/18 13:52 100 mls/hr ONCE ONE Administration Sodium Chloride 1,000 mls @ 1,000 mls/hr 12/16/18 14:31 12/16/18 14:43 Normal Saline - IV 12/16/18 15:30 1,000 mls/hr ASDIR STA Administration Methylprednisolone Sodium Succinate 125 mg 12/16/18 13:24 12/16/18 13:52 Solu-Medrol - IVPB 12/16/18 13:25 125 mg ONCE ONE Administration *DC/Admit/Observation/Transfer Diagnosis at time of Disposition: Cellulitis of face - Discharge Dispostion Decision to Admit order: Yes - Referrals Referrals: Cindy Centeno MD [Primary Care Provider] - - Patient Instructions - Post Discharge Activity
--- NOTE | 2018-12-16 20:13 | HP ---
Admitting History and Physical - Primary Care Physician PCP: Dr. Centeno - Admission Chief Complaint: swelling under left side of face/eye History of Present Illness: 73 year old male with PMHX of HTN, A-fib, CHF, and gout arrived to ED for left facial swelling, initially patient noted swelling on Tuesday took oxycodone he had at home without any relief, then went to dentist thought it was abscess, dentist performed XR no sign of dental abscess/ carry as per patient, there after arrived to ED for further evaluation. Patient now noted with lower eye lid , left cheek swelling,pain, tender to touch, difficulty with smiling, frowning due to swelling. Patient denies sob, blurred vision, difficulty swallowing History Source: Patient Limitations to Obtaining History: No Limitations - Past Medical History Cardiovascular: Yes: AFIB, CHF, HTN, Hyperlipdemia, Other (left face edema) Pulmonary: Yes: Other Rheumatology: Yes: Gout - Past Surgical History Past Surgical History: Yes: Cataract Removal (b/l), Joint Replacement (right hip replacement X 3), Tonsillectomy - Smoking History Smoking history: Former smoker Have you smoked in the past 12 months: No If you are a former smoker, when did you quit?: 1981 - Alcohol/Substance Use Hx Alcohol Use: No History of Substance Use: reports: None - Social History Usual Living Arrangement: Yes: With Spouse ADL: Independent 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 History of Recent Travel: No Home Medications - Allergies Allergies/Adverse Reactions: Allergies Allergy/AdvReac Type Severity Reaction Status Date / Time No Known Allergies Allergy Verified 12/16/18 12:46 - Home Medications Home Medications: Ambulatory Orders Allopurinol [Zyloprim -] 100 mg PO DAILY #30 tablet 05/26/18 Diltiazem Cd [Cardizem Cd -] 180 mg PO DAILY cap.cd.24h 05/26/18 oxyCODONE HCL [Roxicodone -] 5 mg PO Q6H PRN #20 tablet MDD 4 05/26/18 Furosemide [Lasix] 40 mg PO ASDIR 12/16/18 Warfarin Na [Coumadin -] 4 mg PO ASDIR 12/16/18 Family Medical History Family Hx Cardiac Disorders: Mother (HTN) Family Hx Diabetes: Mother Review of Systems - Review of Systems Constitutional: reports: No Symptoms Eyes: reports: No Symptoms HENT: reports: Other (Left side of face, eyelid swollen) Neck: reports: No Symptoms Cardiovascular: reports: No Symptoms Respiratory: reports: No Symptoms Gastrointestinal: reports: No Symptoms Genitourinary: reports: No Symptoms Musculoskeletal: reports: No Symptoms Integumentary: reports: Other (swelling left side of face, left lower eyes lid) Neurological: reports: No Symptoms Endocrine: reports: No Symptoms Physical Examination Vital Signs: Vital Signs Temperature 98.1 F 12/16/18 16:08 Pulse Rate 91 H 12/16/18 16:08 Respiratory Rate 18 12/16/18 16:08 Blood Pressure 154/87 12/16/18 16:08 O2 Sat by Pulse Oximetry (%) 98 12/16/18 16:08 Constitutional: Yes: No Distress, Calm Eyes: Yes: Conjunctiva Clear, EOM Intact HENT: Yes: Atraumatic, Normocephalic, Other (left side of face, lower eye lid swelling, warm/tender to touch) Neck: Yes: Supple, Trachea Midline Cardiovascular: Yes: Regular Rate and Rhythm Respiratory: Yes: Regular, CTA Bilaterally Gastrointestinal: Yes: Normal Bowel Sounds, Soft Musculoskeletal: Yes: WNL Extremities: Yes: WNL Integumentary: Yes: Other (redness, swelling, tende to touch left side of face ( lower eye lid, and cheek)) Neurological: Yes: Alert, Oriented Labs: CBC, BMP 12/16/18 13:45 12/16/18 13:45 Imaging - Results Cat Scan: Report Reviewed (CT facial bones: cellulitis and significant periodontal disease as possible source of infection.) Other: Report Reviewed (wbc: 13.9, lactcic 4.1 --> 3.0 Bun/cr: 305/1.7) Problem List - Problems (1) PHILL (acute kidney injury) Code(s): N17.9 - ACUTE KIDNEY FAILURE, UNSPECIFIED (2) Cellulitis of face Code(s): L03.211 - CELLULITIS OF FACE (3) Atrial fibrillation Code(s): I48.91 - UNSPECIFIED ATRIAL FIBRILLATION Qualifiers: Atrial fibrillation type: chronic Qualified Code(s): I48.2 - Chronic atrial fibrillation (4) CHF (congestive heart failure) Code(s): I50.9 - HEART FAILURE, UNSPECIFIED (5) HTN (hypertension) Code(s): I10 - ESSENTIAL (PRIMARY) HYPERTENSION (6) Gout Code(s): M10.9 - GOUT, UNSPECIFIED Assessment/Plan 73 year old male with PMHX of HTN, A-fib, CHF, and gout arrived to ED for left facial swelling. # Cellulitis wbc: 13.9 lactic acid: 4.1 --> 3.0 CT results suggestive of cellulitis and significant periodontal disease as possible source of infection. In ED given: 1L NS, celicin 600mg x1, solu-medrol x1 - continue with clindamycin 600mg q 8 hours - follow up ID - pain management #PHILL bun/cr: 30/1.5 baseline cr:1.3 - monitor renal trend - renal US in AM - followup nephro # HTN, CHF - continue with lasix 40 mg daily - continue with Diltiazem 180 mg daily - monitor I &O - Fluids restriction - follow up cardiology #A-fib - Continue with Coumadin 4mg tonight - monitor INR # Gout - continue with Zyloprim 100mg daily DVT PPX: on coumadin Diet: Cardiac diet Visit type - Emergency Visit Emergency Visit: Yes ED Registration Date: 12/16/18 Care time: The patient presented to the Emergency Department on the above date and was hospitalized for further evaluation of their emergent condition. - New Patient This patient is new to me today: Yes Date on this admission: 12/16/18 - Critical Care Critical Care patient: No
[2018-12-16] MEDS ORDERED: WARFARIN NA 5 MG TABLET (UD) PO SCH (21:15)
[2018-12-16] MEDS ORDERED: WARFARIN NA 2 MG TABLET (UD) PO SCH (22:00)
[2018-12-16] MEDS ORDERED: WARFARIN NA 1 MG TABLET (FP) ONE (22:51)
[2018-12-17 01:53] VITALS: BMI 30.2
[2018-12-17] MEDS: CLINDAMYCIN 300 MG PREMIX IVPB 300 MG/50 ML BAG IVPB SCH ×2 (02:45→10:28)
[2018-12-17 08:34] LABS: HEMATOCRIT 38.1 % (35.4-49); HEMOGLOBIN 12.5 GM/dL (11.7-16.9); INR 2.04 (0.83-1.09); MCH 27.2 pg (25.7-33.7); MCHC 32.9 g/dl (32.0-35.9); MEAN CELL VOLUME 82.8 fl (80-96); MEAN PLT VOLUME 7.1 fl (7.5-11.1); PLATELET COUNT 308 K/MM3 (134-434); PROTHROMBIN TIME (PATIENT) 24.2 SEC (9.7-13.0); RDW 17.3 % (11.9-15.9); WHITE BLOOD COUNT 11.3 K/mm3 (4.0-10.0)
[2018-12-17 08:42] LABS: BLOOD UREA NITROGEN 26.6 mg/dL (7-18); CALCIUM 8.4 mg/dL (8.5-10.1); CREATININE 1.3 mg/dL (0.55-1.3); POTASSIUM 4.4 mmol/L (3.5-5.1)
[2018-12-17] MEDS: oxyCODONE HCL 5 MG TABLET PO PRN (08:46)
--- NOTE | 2018-12-17 09:58 | PN ---
Progress Note, Physician Chief Complaint: WENT TO DENTIST TOLD THAT HE HAS FACIAL CELLULITIS AND SCHEDULED TO SEE OMFS OUT PATIENT. NO ABX WERE GIVEN - Current Medication List Current Medications: Active Medications Acetaminophen (Tylenol -) 650 mg PO Q4H PRN PRN Reason: PAIN LEVEL 1-5 Allopurinol (Zyloprim -) 100 mg PO DAILY [facility]YA Diltiazem HCl (Cardizem Cd -) 180 mg PO DAILY [facility]YA Furosemide (Lasix -) 40 mg PO ASDIR ILYA Clindamycin Phosphate (Cleocin 300 Mg Premix Ivpb) 300 mg in 50 mls @ 100 mls/ hr IVPB Q8H-IV [facility]YA Last Admin: 12/17/18 02:45 Dose: 100 mls/hr Oxycodone HCl (Roxicodone -) 5 mg PO Q6H PRN PRN Reason: PAIN LEVEL 7 - 10 Last Admin: 12/17/18 08:46 Dose: 5 mg - Objective Vital Signs: Vital Signs Temperature 97.4 F L 12/17/18 04:00 Pulse Rate 122 H 12/17/18 04:00 Respiratory Rate 18 12/17/18 04:00 Blood Pressure 143/82 12/17/18 04:00 O2 Sat by Pulse Oximetry (%) 97 12/17/18 01:42 Constitutional: Yes: Mild Distress Cardiovascular: Yes: Pulse Irregular Respiratory: Yes: CTA Bilaterally Gastrointestinal: Yes: Soft, Abdomen, Obese Genitourinary: Yes: WNL Musculoskeletal: Yes: WNL Extremities: Yes: WNL Edema: Yes Edema: LLE: Trace, RLE: Trace Peripheral Pulses WNL: Yes Integumentary: Yes: Venous Stasis Changes Wound/Incision: Yes: Clean/Dry Neurological: Yes: Unsteady Gait ...Motor Strength: LLE, RLE Psychiatric: Yes: WNL Labs: CBC, BMP 12/17/18 07:49 12/17/18 07:49 INR, PTT INR 2.04 (0.83-1.09) H 12/17/18 07:49 Problem List - Problems (1) Cellulitis of face Code(s): L03.211 - CELLULITIS OF FACE (2) PHILL (acute kidney injury) Code(s): N17.9 - ACUTE KIDNEY FAILURE, UNSPECIFIED (3) Atrial fibrillation Code(s): I48.91 - UNSPECIFIED ATRIAL FIBRILLATION Qualifiers: Atrial fibrillation type: chronic Qualified Code(s): I48.2 - Chronic atrial fibrillation Assessment/Plan IV ABX PER ID ENT CONSULT OUTPATIENT CHECK INR DAILY AWAITING CT SCAN SINUS/FACE RESULTS
[2018-12-17] MEDS ORDERED: SODIUM CHLORIDE NASAL SPRAY 44 ML BOTTLE NS PRN (09:59)
[2018-12-17] MEDS: ALLOPURINOL 100 MG TABLET (FP) PO SCH (10:28)
[2018-12-17] MEDS: LORATADINE 10 MG TABLET PO SCH (10:28)
--- NOTE | 2018-12-17 11:58 | PN ---
Progress Note (short form) - Note Progress Note: ID consult dictated imp/reccd facial cellulitis- still awaiting result of facial CT patient and report marked improvement since admission last night on clindamycin- would continue the same will f/u the ct scan phill-improved afib- on coumadin Problem List - Problems (1) Cellulitis of face Code(s): L03.211 - CELLULITIS OF FACE (2) PHILL (acute kidney injury) Code(s): N17.9 - ACUTE KIDNEY FAILURE, UNSPECIFIED (3) Atrial fibrillation Code(s): I48.91 - UNSPECIFIED ATRIAL FIBRILLATION Qualifiers: Atrial fibrillation type: chronic Qualified Code(s): I48.2 - Chronic atrial fibrillation
[2018-12-17] MEDS: CLINDAMYCIN 600MG PREMIX IVPB 600 MG/50 ML BAG IVPB SCH ×2 (12:08→17:26)
[2018-12-17] MEDS: LACTOBACILLUS ACIDOPHILUS 1 TABLET PO SCH (13:06)
--- NOTE | 2018-12-17 16:21 | CONS ---
INFECTIOUS DISEASE CONSULTATION DATE OF CONSULTATION: DATE OF DICTATION: 12/17/2018 HISTORY: This is a 73-year-old man. He notes that he has recurrent pimples adjacent to his left nostril, which he says occurs once every several months. Yesterday he noted he had an area of induration at that site. It progressively worsened, and he developed swelling on the left side of his face. He went to see his dentist who did x-rays. She referred him to a dental surgeon, but it is not clear what the results of the dental x-rays are. He then came to the emergency room where he had a facial CT and was started on clindamycin. I am asked to see him for further evaluation. He has had no fevers or chills. He reports his face is markedly improved. His is present too, and she reports the swelling has really improved. He has a history of atrial fibrillation, hypertension, congestive heart failure, gouty arthritis. He had a GI bleed in April of this year that he says he required an ICU stay. SURGICAL HISTORY: Notable for 3 hip surgeries. He had surgery on his left bunion as well that has totally healed. ALLERGIES: He has no known drug allergies. MEDICATIONS: At home include furosemide, Roxicodone, Coumadin, Cardizem, and Zyloprim. SOCIAL HISTORY: He is . He lives with his . 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 There is no history of any travel other than to [place] where their son lives. They were last there 3 weeks ago. REVIEW OF SYSTEMS: He denies fevers, chills, nausea, vomiting, diarrhea, or dysuria. He reports he has no diplopia or double vision, and he reports his face is improved. PHYSICAL EXAMINATION: General: He is a pleasant man. He is awake and alert. Vital Signs: Has no fever. Temperature is 97.4. He has pulse of 122, blood pressure 143/82, respiratory rate is 18. He is saturating 97% on room air. HEENT: He is normocephalic. His eyes are anicteric. His extraocular muscles are intact. He has no swelling of the eye. There is no preseptal cellulitis. He has some induration adjacent to his left nostril. He is able to open his mouth easily. He has 1 tooth in his left upper mandible, and he has no evidence of pharyngitis. Heart: Irregularly irregular. Lungs: Clear to auscultation. Abdomen: Soft, nontender. Extremities: Without edema. Skin: He has no open lesions on his feet, and the toe wound is well healed. White count on admission was 13.9, today is 11.3, hemoglobin 12.5, platelets are 306, INR is 2. BUN 26, creatinine 1.3. On admission, creatinine was 1.7 and lactic acid was 4.1. LFTs are normal except for an alkaline phosphatase of 126. Blood cultures are pending. 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 He has got no . Facial bone CT is pending. In summary, this is a 73-year-old man with: 1. Facial cellulitis markedly improved on clindamycin. Would suggest continuing the same and following up cultures with further recommendations to follow. Based on that, we will see if he needs follow up with ENT, though he states the dentist told him he needed to see a dental surgeon. 2. Acute kidney injury, improved. 3. History of atrial fibrillation on anticoagulation. Further recommendations to follow. AMY YUNG M.D. [id number]
[2018-12-17] MEDS: WARFARIN NA 2 MG TABLET (UD) PO SCH (17:26)
--- NOTE | 2018-12-17 19:08 | CONSULT ---
Consult Consult Specialty:: Nephrology Reason for Consultation:: PHILL - History of Present Illness Chief Complaint: left facial swelling History of Present Illness: Pt is a 73 year old male with pmhx of ckd, htn, a-fib, chf, and gout who presented to the ER with left facial swelling. He thought it was due to his teeth so he went to the dentist that did an xray and tld him that its soft tissue. He was found to have elevated creatinine and I was called to evaluate him. He denies fevers or chills. His renal function did improve with fluids. He denies hematuria or dysuria. He denies nsaid use. - History Source History Provided By: Patient - Past Medical History Cardio/Vascular: Yes: AFIB, CHF, HTN, Hyperlipdemia, Other (left face edema) Pulmonary: Yes: Other Renal/: Yes: Renal Inusuff Musculoskeletal: Yes: Osteoarthritis Rheumatology: Yes: Gout Additional Medical History: gout - Past Surgical History Past Surgical History: Yes: Cataract Removal (b/l), Joint Replacement (right hip replacement X 3), Tonsillectomy - Alcohol/Substance Use Hx Alcohol Use: No History of Substance Use: reports: None - Smoking History Smoking history: Former smoker Have you smoked in the past 12 months: No If you are a former smoker, when did you quit?: 1981 - Social History Usual Living Arrangement: With Spouse ADL: Independent 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 History of Recent Travel: No Home Medications - Allergies Allergies/Adverse Reactions: Allergies Allergy/AdvReac Type Severity Reaction Status Date / Time No Known Allergies Allergy Verified 12/16/18 12:46 - Home Medications Home Medications: Ambulatory Orders Allopurinol [Zyloprim -] 100 mg PO DAILY #30 tablet 05/26/18 Diltiazem Cd [Cardizem Cd -] 180 mg PO DAILY cap.cd.24h 05/26/18 oxyCODONE HCL [Roxicodone -] 5 mg PO Q6H PRN #20 tablet MDD 4 05/26/18 Furosemide [Lasix] 40 mg PO ASDIR 12/16/18 Warfarin Na [Coumadin -] 4 mg PO ASDIR 12/16/18 Family Medical History Family History: Denies Review of Systems - Review of Systems Constitutional: reports: Malaise HENT: reports: Other (left faccial cellulitis) Cardiovascular: reports: Edema Respiratory: reports: No Symptoms Gastrointestinal: reports: No Symptoms Genitourinary: reports: No Symptoms Musculoskeletal: reports: No Symptoms Integumentary: reports: No Symptoms Neurological: reports: No Symptoms Endocrine: reports: No Symptoms Hematology/Lymphatic: reports: No Symptoms Psychiatric: reports: No Symptoms Physical Exam Vital Signs: Vital Signs Temperature 98.2 F 12/17/18 13:42 Pulse Rate 98 H 12/17/18 13:42 Respiratory Rate 20 12/17/18 13:42 Blood Pressure 149/64 12/17/18 13:42 O2 Sat by Pulse Oximetry (%) 97 12/17/18 01:42 Constitutional: Yes: Calm HENT: Yes: Other (facial cellulitis) Cardiovascular: Yes: S1, S2 Respiratory: Yes: CTA Bilaterally Gastrointestinal: Yes: Soft Renal/: Yes: WNL Musculoskeletal: Yes: WNL Edema: Yes Edema: LLE: Trace, RLE: Trace Neurological: Yes: Oriented Psychiatric: Yes: Oriented Labs: CBC, BMP 12/17/18 07:49 12/17/18 07:49 Laboratory Tests 12/16/18 12/16/18 12/16/18 13:45 13:45 13:45 WBC 13.9 H Hgb Sodium BUN Creatinine 1.7 H Lactic Acid 4.1 H* 12/16/18 12/17/18 12/17/18 19:00 07:49 07:49 WBC 11.3 H Hgb 12.5 Sodium 137 BUN 26.6 H Creatinine 1.3 Lactic Acid 3.0 H* Imaging - Results Cat Scan: Report Reviewed Ultrasound: Report Reviewed Problem List - Problems (1) CKD (chronic kidney disease) Code(s): N18.9 - CHRONIC KIDNEY DISEASE, UNSPECIFIED (2) CHF (congestive heart failure) Code(s): I50.9 - HEART FAILURE, UNSPECIFIED (3) Cellulitis of face Code(s): L03.211 - CELLULITIS OF FACE (4) PHILL (acute kidney injury) Code(s): N17.9 - ACUTE KIDNEY FAILURE, UNSPECIFIED (5) Gout Code(s): M10.9 - GOUT, UNSPECIFIED (6) HTN (hypertension) Code(s): I10 - ESSENTIAL (PRIMARY) HYPERTENSION Assessment/Plan Current Medications Generic Name Dose Route Start Last Admin Trade Name Freq PRN Reason Stop Dose Admin Acetaminophen 650 mg 12/16/18 21:02 Tylenol - PO Q4H PRN PAIN LEVEL 1-5 Allopurinol 100 mg 12/17/18 10:00 12/17/18 10:28 Zyloprim - PO 100 mg DAILY ILYA Administration Diltiazem HCl 180 mg 12/17/18 10:00 12/17/18 10:28 Cardizem Cd - PO 180 mg DAILY ILYA Administration Furosemide 40 mg 12/16/18 21:15 Lasix - PO ASDIR ILYA Clindamycin Phosphate 600 mg in 50 mls @ 100 mls/hr 12/17/18 12:00 12/17/18 17:26 Cleocin 600 Mg Premix Ivpb - IVPB 100 mls/hr Q8H-IV ILYA Administration Protocol Lactobacillus Acidophilus 1 tab 12/17/18 12:15 12/17/18 13:06 Bacid - PO 1 tab DAILY ILYA Administration Loratadine 10 mg 12/17/18 10:00 12/17/18 10:28 Claritin - PO 10 mg DAILY ILYA Administration Oxycodone HCl 5 mg 12/16/18 21:05 12/17/18 08:46 Roxicodone - PO 5 mg Q6H PRN Administration PAIN LEVEL 7 - 10 Sodium Chloride 2 spray 12/17/18 09:59 12/17/18 10:32 [place] Nasal [place] - NS 2 spray TID PRN Administration NASAL CONGESTION Warfarin Sodium 4 mg 12/17/18 18:00 12/17/18 17:26 Coumadin - PO 4 mg DAILY@1800 ILYA Administration Impression 1. PHILL 2. a-fib 3. hx pleural effusion 4. HLD 5. CHF 6. HTN 7. Gout 8. facila cellulitis 9. lactic acidosis Plan - renal function is improved - renal ultrasound reviewed - repeat labs in am - repeat lactic acid on in - con abx - follow cultures Dr Rodríguez
[2018-12-18] MEDS: CLINDAMYCIN 600MG PREMIX IVPB 600 MG/50 ML BAG IVPB SCH ×2 (02:05→10:31)
[2018-12-18 07:40] LABS: BLOOD UREA NITROGEN 39.8 mg/dL (7-18); CALCIUM 8.3 mg/dL (8.5-10.1); CREATININE 1.5 mg/dL (0.55-1.3); POTASSIUM 4.6 mmol/L (3.5-5.1)
[2018-12-18 07:55] LABS: HEMATOCRIT 37.8 % (35.4-49); HEMOGLOBIN 12.4 GM/dL (11.7-16.9); MCH 27.1 pg (25.7-33.7); MCHC 32.8 g/dl (32.0-35.9); MEAN CELL VOLUME 82.6 fl (80-96); MEAN PLT VOLUME 7.1 fl (7.5-11.1); PLATELET COUNT 317 K/MM3 (134-434); RBC 4.58 M/mm3 (4.00-5.60); RDW 17.7 % (11.9-15.9); WHITE BLOOD COUNT 14.1 K/mm3 (4.0-10.0)
[2018-12-18 08:01] LABS: INR 2.5 (0.83-1.09); PROTHROMBIN TIME (PATIENT) 29.8 SEC (9.7-13.0)
[2018-12-18] MEDS ORDERED: PT OWN MED DRAWER 7, Y5N ONE (10:29)
[2018-12-18] MEDS: ALLOPURINOL 100 MG TABLET (FP) PO SCH (10:32)
[2018-12-18] MEDS: LORATADINE 10 MG TABLET PO SCH (10:32)
[2018-12-18] MEDS: LACTOBACILLUS ACIDOPHILUS 1 TABLET PO SCH (10:32)
[2018-12-18] MEDS: oxyCODONE HCL 5 MG TABLET PO PRN (10:44)
[2018-12-18] MEDS: ACETAMINOPHEN 325 MG TABLET (FP) PO PRN ×2 (13:27→23:39)
--- NOTE | 2018-12-18 15:11 | PN ---
Progress Note, Physician Chief Complaint: patient seen and examined says the facial swelling slightly more today he cannot talk - Current Medication List Current Medications: Active Medications Acetaminophen (Tylenol -) 650 mg PO Q4H PRN PRN Reason: PAIN LEVEL 1-5 Last Admin: 12/18/18 13:27 Dose: 650 mg Allopurinol (Zyloprim -) 100 mg PO DAILY [facility] Last Admin: 12/18/18 10:32 Dose: 100 mg Diltiazem HCl (Cardizem Cd -) 180 mg PO DAILY [facility] Last Admin: 12/18/18 10:32 Dose: 180 mg Furosemide (Lasix -) 40 mg PO DAILY [facility] Clindamycin Phosphate (Cleocin 600 Mg Premix Ivpb -) 600 mg in 50 mls @ 100 mls /hr IVPB Q8H-IV [facility]; Protocol Last Admin: 12/18/18 10:31 Dose: 100 mls/hr Lactobacillus Acidophilus (Bacid -) 1 tab PO DAILY [facility] Last Admin: 12/18/18 10:32 Dose: 1 tab Loratadine (Claritin -) 10 mg PO DAILY [facility] Last Admin: 12/18/18 10:32 Dose: 10 mg Oxycodone HCl (Roxicodone -) 5 mg PO Q6H PRN PRN Reason: PAIN LEVEL 7 - 10 Last Admin: 12/18/18 10:44 Dose: 5 mg Sodium Chloride ([place] Nasal [place] -) 2 spray NS TID PRN PRN Reason: NASAL CONGESTION Last Admin: 12/17/18 10:32 Dose: 2 spray Warfarin Sodium (Coumadin -) 4 mg PO DAILY@1800 [facility] Last Admin: 12/17/18 17:26 Dose: 4 mg - Objective Vital Signs: Vital Signs Temperature 98.0 F 12/18/18 15:03 Pulse Rate 113 H 12/18/18 15:03 Respiratory Rate 18 12/18/18 15:03 Blood Pressure 163/85 12/18/18 15:03 O2 Sat by Pulse Oximetry (%) 97 12/18/18 09:00 Constitutional: Yes: Calm HENT: Yes: Other (left facial swelling with tenderness and erythema) Cardiovascular: Yes: Regular Rate and Rhythm, S1, S2 Respiratory: Yes: CTA Bilaterally Gastrointestinal: Yes: Normal Bowel Sounds, Soft Edema: No Neurological: Yes: Alert, Oriented Labs: CBC, BMP 12/18/18 06:40 12/18/18 06:40 INR, PTT INR 2.50 (0.83-1.09) H 12/18/18 06:40 Problem List - Problems (1) Atrial fibrillation Assessment/Plan: coumadin inr therapeutic Code(s): I48.91 - UNSPECIFIED ATRIAL FIBRILLATION Qualifiers: Atrial fibrillation type: chronic Qualified Code(s): I48.2 - Chronic atrial fibrillation (2) Cellulitis of face Assessment/Plan: ct scan noted for periodontal disease and soft tissue swelling over the left cheek and left periorbital area iv clindamycin ENT eval outpatient dental eval Code(s): L03.211 - CELLULITIS OF FACE (3) CKD (chronic kidney disease) Assessment/Plan: contnue lasix renal on board monitor creatinine Code(s): N18.9 - CHRONIC KIDNEY DISEASE, UNSPECIFIED
--- NOTE | 2018-12-18 15:23 | PN ---
Progress Note, Physician History of Present Illness: Pt seen and examined at bedside. He is awake and alert. He feels that the facial swelling is worse. - Current Medication List Current Medications: Active Medications Acetaminophen (Tylenol -) 650 mg PO Q4H PRN PRN Reason: PAIN LEVEL 1-5 Last Admin: 12/18/18 13:27 Dose: 650 mg Allopurinol (Zyloprim -) 100 mg PO DAILY [facility] Last Admin: 12/18/18 10:32 Dose: 100 mg Diltiazem HCl (Cardizem Cd -) 180 mg PO DAILY [facility] Last Admin: 12/18/18 10:32 Dose: 180 mg Furosemide (Lasix -) 40 mg PO DAILY [facility] Clindamycin Phosphate (Cleocin 600 Mg Premix Ivpb -) 600 mg in 50 mls @ 100 mls /hr IVPB Q8H-IV [facility]; Protocol Last Admin: 12/18/18 10:31 Dose: 100 mls/hr Lactobacillus Acidophilus (Bacid -) 1 tab PO DAILY [facility] Last Admin: 12/18/18 10:32 Dose: 1 tab Loratadine (Claritin -) 10 mg PO DAILY [facility] Last Admin: 12/18/18 10:32 Dose: 10 mg Oxycodone HCl (Roxicodone -) 5 mg PO Q6H PRN PRN Reason: PAIN LEVEL 7 - 10 Last Admin: 12/18/18 10:44 Dose: 5 mg Sodium Chloride ([place] Nasal [place] -) 2 spray NS TID PRN PRN Reason: NASAL CONGESTION Last Admin: 12/17/18 10:32 Dose: 2 spray Warfarin Sodium (Coumadin -) 4 mg PO DAILY@1800 [facility] Last Admin: 12/17/18 17:26 Dose: 4 mg - Objective Vital Signs: Vital Signs Temperature 98.0 F 12/18/18 15:03 Pulse Rate 113 H 12/18/18 15:03 Respiratory Rate 18 12/18/18 15:03 Blood Pressure 163/85 12/18/18 15:03 O2 Sat by Pulse Oximetry (%) 97 12/18/18 09:00 Constitutional: Yes: Calm Eyes: Yes: Conjunctiva Clear HENT: Yes: Other (facial swelling) Neck: Yes: Supple Cardiovascular: Yes: S1, S2 Respiratory: Yes: CTA Bilaterally Gastrointestinal: Yes: Normal Bowel Sounds, Soft Genitourinary: Yes: WNL Musculoskeletal: Yes: WNL Edema: Yes Edema: LLE: 1+, RLE: 1+ Neurological: Yes: Oriented Psychiatric: Yes: Oriented Labs: CBC, BMP 12/18/18 06:40 12/18/18 06:40 INR, PTT INR 2.50 (0.83-1.09) H 12/18/18 06:40 Problem List - Problems (1) CKD (chronic kidney disease) Code(s): N18.9 - CHRONIC KIDNEY DISEASE, UNSPECIFIED (2) CHF (congestive heart failure) Code(s): I50.9 - HEART FAILURE, UNSPECIFIED (3) Cellulitis of face Code(s): L03.211 - CELLULITIS OF FACE (4) PHILL (acute kidney injury) Code(s): N17.9 - ACUTE KIDNEY FAILURE, UNSPECIFIED (5) Gout Code(s): M10.9 - GOUT, UNSPECIFIED (6) HTN (hypertension) Code(s): I10 - ESSENTIAL (PRIMARY) HYPERTENSION Assessment/Plan Current Medications Generic Name Dose Route Start Last Admin Trade Name Freq PRN Reason Stop Dose Admin Acetaminophen 650 mg 12/16/18 21:02 12/18/18 13:27 Tylenol - PO 650 mg Q4H PRN Administration PAIN LEVEL 1-5 Allopurinol 100 mg 12/17/18 10:00 12/18/18 10:32 Zyloprim - PO 100 mg DAILY ILYA Administration Diltiazem HCl 180 mg 12/17/18 10:00 12/18/18 10:32 Cardizem Cd - PO 180 mg DAILY [facility]YA Administration Furosemide 40 mg 12/18/18 15:00 Lasix - PO DAILY [facility] Clindamycin Phosphate 600 mg in 50 mls @ 100 mls/hr 12/17/18 12:00 12/18/18 10:31 Cleocin 600 Mg Premix Ivpb - IVPB 100 mls/hr Q8H-IV ILYA Administration Protocol Lactobacillus Acidophilus 1 tab 12/17/18 12:15 12/18/18 10:32 Bacid - PO 1 tab DAILY ILYA Administration Loratadine 10 mg 12/17/18 10:00 12/18/18 10:32 Claritin - PO 10 mg DAILY [facility]YA Administration Oxycodone HCl 5 mg 12/16/18 21:05 12/18/18 10:44 Roxicodone - PO 5 mg Q6H PRN Administration PAIN LEVEL 7 - 10 Sodium Chloride 2 spray 12/17/18 09:59 12/17/18 10:32 [place] Nasal [place] - NS 2 spray TID PRN Administration NASAL CONGESTION Warfarin Sodium 4 mg 12/17/18 18:00 12/17/18 17:26 Coumadin - PO 4 mg DAILY@1800 ILYA Administration Impression 1. PHILL 2. a-fib 3. hx pleural effusion 4. HLD 5. CHF 6. HTN 7. Gout 8. facial cellulitis 9. lactic acidosis Plan - monitor renal function - follow cultures - repeat labs in am - repeat lactic acid - con abx Dr Rodríguez
[2018-12-18] MEDS: FUROSEMIDE 40 MG TABLET (FP) PO SCH (15:32)
--- NOTE | 2018-12-18 15:57 | PN ---
Progress Note (short form) - Note Progress Note: increased pain and swelling noted no fever Vital Signs Period Temp Pulse Resp BP Sys/Lomeli Pulse Ox Last 24 Hr 97.3 F-98.2 F 93-113 18-20 136-163/85-98 97-97 +left facial swelling, +induration cor-rrr lungs clear abd soft,nt ext no edema CBC, BMP 12/18/18 06:40 12/18/18 06:40 Microbiology 12/16/18 13:45 Blood - Peripheral Venous Blood Culture - Preliminary NO GROWTH OBTAINED AFTER 48 HOURS, INCUBATION TO CONTINUE FOR 3 DAYS. 12/16/18 13:45 Blood - Peripheral Venous Blood Culture - Preliminary NO GROWTH OBTAINED AFTER 48 HOURS, INCUBATION TO CONTINUE FOR 3 DAYS. 12/16/18 17:28 Urine - Urine Clean Catch Urine Culture - Final NO GROWTH OBTAINED facial ct with dental disease, soft tissue swelling, no abscess imp/reccd facial cellulitis- perhaps improvement was steroid in the ED switch to vanco/zosyn ent eval dental eval phill-improved afib- on coumadin Problem List - Problems (1) Cellulitis of face Code(s): L03.211 - CELLULITIS OF FACE (2) PHILL (acute kidney injury) Code(s): N17.9 - ACUTE KIDNEY FAILURE, UNSPECIFIED (3) Atrial fibrillation Code(s): I48.91 - UNSPECIFIED ATRIAL FIBRILLATION Qualifiers: Atrial fibrillation type: chronic Qualified Code(s): I48.2 - Chronic atrial fibrillation
[2018-12-18] MEDS ORDERED: PIPERACILLIN/TAZOBACTAM 4.5 GM VIAL IVPB ONE (16:18)
[2018-12-18] MEDS ORDERED: DEXTROSE 5%-WATER 100 ML IVPB ONE (16:18)
[2018-12-18] MEDS: PIPERACILLIN/TAZOB 4.5 GM 4.5 GM in DEXTROSE 5%-WATER 100 ML IVPB SCH (16:21)
[2018-12-18] MEDS: WARFARIN NA 2 MG TABLET (UD) PO SCH (17:55)
[2018-12-18] MEDS: VANCOMYCIN HCL 1,250 MG in DEXTROSE 5%-WATER - 250 ML IVPB SCH (17:57)
--- NOTE | 2018-12-18 18:20 | CON.ENT ---
Consult Consult Specialty:: ENT Referred by:: Dr. Centeno Reason for Consultation:: facial cellulitis - History of Present Illness Chief Complaint: left facial pain and swelling History of Present Illness: 73 yo M, hx intermittent left facial swelling, in past attributed to pimples this time significant pain and swelling that did not improve -presented and left facial cellulitis dx pt has poor dentition, said he saw his dentist and was told nothing dental should be done. prior clindamycin, now changed to vancomycin also complains of hearing loss, tinnitus, tried otc wax eardrops and made his hearing worse also complains of nasal drainage clear, intermittent worse with eating or drinking hx sinus problems in past. - History Source History Provided By: Patient, Medical Record Limitations to Obtaining History: No Limitations - Past Medical History Cardio/Vascular: Yes: AFIB, CHF, HTN, Hyperlipdemia, Other (left face edema) Pulmonary: Yes: Other Renal/: Yes: Renal Inusuff Musculoskeletal: Yes: Osteoarthritis Rheumatology: Yes: Gout Additional Medical History: gout - Past Surgical History Past Surgical History: Yes: Cataract Removal (b/l), Joint Replacement (right hip replacement X 3), Tonsillectomy - Alcohol/Substance Use Hx Alcohol Use: No History of Substance Use: reports: None - Smoking History Smoking history: Former smoker Have you smoked in the past 12 months: No If you are a former smoker, when did you quit?: 1981 - Social History Usual Living Arrangement: With Spouse ADL: Independent 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 History of Recent Travel: No Home Medications - Allergies Allergies/Adverse Reactions: Allergies Allergy/AdvReac Type Severity Reaction Status Date / Time No Known Allergies Allergy Verified 12/16/18 12:46 - Home Medications Home Medications: Ambulatory Orders Allopurinol [Zyloprim -] 100 mg PO DAILY #30 tablet 05/26/18 Diltiazem Cd [Cardizem Cd -] 180 mg PO DAILY cap.cd.24h 05/26/18 oxyCODONE HCL [Roxicodone -] 5 mg PO Q6H PRN #20 tablet MDD 4 05/26/18 Furosemide [Lasix] 40 mg PO ASDIR 12/16/18 Warfarin Na [Coumadin -] 4 mg PO ASDIR 12/16/18 Physical Exam-ENT Vital Signs: Vital Signs Temperature 98.0 F 12/18/18 15:03 Pulse Rate 113 H 12/18/18 15:03 Respiratory Rate 18 12/18/18 15:03 Blood Pressure 163/85 12/18/18 15:03 O2 Sat by Pulse Oximetry (%) 97 12/18/18 09:00 Constitutional: Yes: Well Nourished, No Distress, Calm Head: Yes: WNL Face: Yes: Other (left facial swelling, livan left maxillary area, c/w facial cellulitis, possible canine space infection) Eyes: Yes: WNL Nose: Yes: Septum Deviated Nasal Passage: Yes: Pale, Other (deviated septum to right with obstruction, inferior turbinates enlarged livan left middle turbinates sl edema, susperior turbinates not visualized, middle meati normal, no pus, inferior meati edematous , nasopharynx clear, sphenoethmoid recesses no pus) Oral/Pharynx: Yes: Other (poor dentition, many decayed teeth livan maxilllary ( roots present), left maxillary canine present but ++erythema and edema of surrounding gum/alveolus tender) Outer Ear: Yes: WNL Ear Canal: Yes: Cerumen (severe cerumen impaction both ear canals, removed with currette) Neck: Yes: WNL Imaging - Results Cat Scan: Report Reviewed, Image Reviewed (left facial soft tissue sweling, periodontal disease, DNS severe to right, chronic maxillary sinus mucosal thickening) Problem List - Problems (1) Chronic rhinitis Assessment/Plan: deviated septum present no pus from sinuses advise nasal saline spray as ordered Code(s): J31.0 - CHRONIC RHINITIS (2) Impacted cerumen of both ears Assessment/Plan: removed residual ear inflammation eardrops rx Code(s): H61.23 - IMPACTED CERUMEN, BILATERAL (3) Tinnitus Assessment/Plan: to office after discharge for audiogram Code(s): H93.19 - TINNITUS, UNSPECIFIED EAR (4) Cellulitis of face Assessment/Plan: suspect dental origin continue antibiotics guidance based on odontogenic infection/ID recommendations elevate head warm compresses needs dental evaluation after Code(s): L03.211 - CELLULITIS OF FACE
[2018-12-19] MEDS ORDERED: DEXTROSE 5%-WATER 100 ML IVPB ONE ×3 (01:31→16:41)
[2018-12-19] MEDS ORDERED: PIPERACILLIN/TAZOBACTAM 4.5 GM VIAL IVPB ONE ×3 (01:31→16:41)
[2018-12-19] MEDS: PIPERACILLIN/TAZOB 4.5 GM 4.5 GM in DEXTROSE 5%-WATER 100 ML IVPB SCH ×3 (01:44→17:11)
[2018-12-19 08:07] LABS: BASO % 0.6 % (0-2.0); EOS % 2.1 % (0-4.5); HEMATOCRIT 39.5 % (35.4-49); LYMPH % 11.5 % (8-40); MCH 27.3 pg (25.7-33.7); MEAN CELL VOLUME 82.6 fl (80-96); MONO % 8.4 % (3.8-10.2); NEUT % 77.4 % (42.8-82.8); PLATELET COUNT 320 K/MM3 (134-434); RBC 4.79 M/mm3 (4.00-5.60); RDW 17.8 % (11.9-15.9)
[2018-12-19 08:21] LABS: ALBUMIN 3.1 g/dl (3.4-5.0); BILIRUBIN,TOTAL 0.7 mg/dL (0.2-1); BLOOD UREA NITROGEN 31.7 mg/dL (7-18); CALCIUM 7.7 mg/dL (8.5-10.1); CREATININE 1.6 mg/dL (0.55-1.3); POTASSIUM 4.1 mmol/L (3.5-5.1)
--- NOTE | 2018-12-19 08:48 | PN ---
Progress Note, Physician Chief Complaint: AWAKE ALERT NO FEVERS FACE APPEARS SWOLLEN LEFT SIDE - Current Medication List Current Medications: Active Medications Acetaminophen (Tylenol -) 650 mg PO Q4H PRN PRN Reason: PAIN LEVEL 1-5 Last Admin: 12/18/18 23:39 Dose: 650 mg Allopurinol (Zyloprim -) 100 mg PO DAILY [facility] Last Admin: 12/18/18 10:32 Dose: 100 mg Diltiazem HCl (Cardizem Cd -) 180 mg PO DAILY [facility] Last Admin: 12/18/18 10:32 Dose: 180 mg Furosemide (Lasix -) 40 mg PO DAILY [facility] Last Admin: 12/18/18 15:32 Dose: 40 mg Piperacillin Sod/Tazobactam (Sod 4.5 gm/ Dextrose) 100 mls @ 200 mls/hr IVPB Q8H-IV [facility]; Protocol Last Admin: 12/19/18 01:44 Dose: 200 mls/hr Vancomycin HCl 1,250 mg/ (Dextrose) 250 mls @ 250 mls/2 hr IVPB DAILY@1700 [facility] ; Protocol Last Admin: 12/18/18 17:57 Dose: 250 mls/2 hr Lactobacillus Acidophilus (Bacid -) 1 tab PO DAILY [facility] Last Admin: 12/18/18 10:32 Dose: 1 tab Loratadine (Claritin -) 10 mg PO DAILY [facility] Last Admin: 12/18/18 10:32 Dose: 10 mg Oxycodone HCl (Roxicodone -) 5 mg PO Q6H PRN PRN Reason: PAIN LEVEL 7 - 10 Last Admin: 12/18/18 10:44 Dose: 5 mg Sodium Chloride ([place] -) 2 spray NS TID PRN PRN Reason: NASAL CONGESTION Last Admin: 12/17/18 10:32 Dose: 2 spray Warfarin Sodium (Coumadin -) 4 mg PO DAILY@1800 [facility] Last Admin: 12/18/18 17:55 Dose: 4 mg - Objective Vital Signs: Vital Signs Temperature 98.3 F 12/19/18 05:30 Pulse Rate 105 H 12/19/18 05:30 Respiratory Rate 18 12/19/18 05:30 Blood Pressure 142/93 12/19/18 05:30 O2 Sat by Pulse Oximetry (%) 97 12/18/18 21:00 Constitutional: Yes: Mild Distress HENT: Yes: Other (SWELLING AND TENDERNESS LEFT MAXILLARY AND MANDIBLE AREA) Cardiovascular: Yes: Pulse Irregular Respiratory: Yes: WNL Gastrointestinal: Yes: Abdomen, Obese Genitourinary: Yes: WNL Musculoskeletal: Yes: WNL Edema: Yes Peripheral Pulses WNL: Yes Integumentary: Yes: Erythema Neurological: Yes: Pre-Existing Deficit ...Motor Strength: LLE, RLE Psychiatric: Yes: WNL Labs: CBC, BMP 12/19/18 07:30 12/19/18 07:30 INR, PTT INR 2.50 (0.83-1.09) H 12/18/18 06:40 Problem List - Problems (1) Cellulitis of face Code(s): L03.211 - CELLULITIS OF FACE (2) PHILL (acute kidney injury) Code(s): N17.9 - ACUTE KIDNEY FAILURE, UNSPECIFIED (3) Atrial fibrillation Code(s): I48.91 - UNSPECIFIED ATRIAL FIBRILLATION Qualifiers: Atrial fibrillation type: chronic Qualified Code(s): I48.2 - Chronic atrial fibrillation Assessment/Plan IV ABX PER ID ENT CONSULT APPRECIATED MAY NEED OMFS TO DRAIN WILL D/W ID CHECK INR DAILY CT SCAN SINUS/FACE RESULTS REVIEWED
[2018-12-19] MEDS: FUROSEMIDE 40 MG TABLET (FP) PO SCH (09:29)
[2018-12-19] MEDS: ALLOPURINOL 100 MG TABLET (FP) PO SCH (09:29)
[2018-12-19] MEDS: LORATADINE 10 MG TABLET PO SCH (09:29)
[2018-12-19] MEDS: LACTOBACILLUS ACIDOPHILUS 1 TABLET PO SCH (09:29)
[2018-12-19] MEDS ORDERED: PT OWN MED DRAWER 7, Y5N ONE (09:33)
--- NOTE | 2018-12-19 13:09 | PN ---
Progress Note, Physician History of Present Illness: Pt seen and examined at bedside. He is awake and alert. His face is more swollen today. - Current Medication List Current Medications: Active Medications Acetaminophen (Tylenol -) 650 mg PO Q4H PRN PRN Reason: PAIN LEVEL 1-5 Last Admin: 12/18/18 23:39 Dose: 650 mg Allopurinol (Zyloprim -) 100 mg PO DAILY [facility] Last Admin: 12/19/18 09:29 Dose: 100 mg Diltiazem HCl (Cardizem Cd -) 180 mg PO DAILY [facility] Last Admin: 12/19/18 09:34 Dose: 180 mg Furosemide (Lasix -) 40 mg PO DAILY [facility] Last Admin: 12/19/18 09:29 Dose: 40 mg Piperacillin Sod/Tazobactam (Sod 4.5 gm/ Dextrose) 100 mls @ 200 mls/hr IVPB Q8H-IV [facility]; Protocol Last Admin: 12/19/18 09:29 Dose: 200 mls/hr Vancomycin HCl 1,250 mg/ (Dextrose) 250 mls @ 250 mls/2 hr IVPB DAILY@1700 [facility] ; Protocol Last Admin: 12/18/18 17:57 Dose: 250 mls/2 hr Lactobacillus Acidophilus (Bacid -) 1 tab PO DAILY [facility] Last Admin: 12/19/18 09:29 Dose: 1 tab Loratadine (Claritin -) 10 mg PO DAILY [facility] Last Admin: 12/19/18 09:29 Dose: 10 mg Oxycodone HCl (Roxicodone -) 5 mg PO Q6H PRN PRN Reason: PAIN LEVEL 7 - 10 Last Admin: 12/18/18 10:44 Dose: 5 mg Sodium Chloride ([place] Nasal [place] -) 2 spray NS TID PRN PRN Reason: NASAL CONGESTION Last Admin: 12/17/18 10:32 Dose: 2 spray Warfarin Sodium (Coumadin -) 4 mg PO DAILY@1800 [facility] Last Admin: 12/18/18 17:55 Dose: 4 mg - Objective Vital Signs: Vital Signs Temperature 97.3 F L 12/19/18 08:54 Pulse Rate 91 H 12/19/18 08:54 Respiratory Rate 18 12/19/18 08:54 Blood Pressure 130/76 12/19/18 08:54 O2 Sat by Pulse Oximetry (%) 97 12/19/18 09:00 Constitutional: Yes: Calm Eyes: Yes: Conjunctiva Clear HENT: Yes: Other (left facial swelling) Neck: Yes: Supple Cardiovascular: Yes: S1, S2 Respiratory: Yes: CTA Bilaterally Gastrointestinal: Yes: Soft Genitourinary: Yes: WNL Edema: Yes Edema: LLE: 1+, RLE: 1+ Neurological: Yes: Oriented Psychiatric: Yes: Oriented Labs: CBC, BMP 12/19/18 07:30 12/19/18 07:30 INR, PTT INR 2.50 (0.83-1.09) H 12/18/18 06:40 Problem List - Problems (1) CKD (chronic kidney disease) Code(s): N18.9 - CHRONIC KIDNEY DISEASE, UNSPECIFIED (2) CHF (congestive heart failure) Code(s): I50.9 - HEART FAILURE, UNSPECIFIED (3) Cellulitis of face Code(s): L03.211 - CELLULITIS OF FACE (4) PHILL (acute kidney injury) Code(s): N17.9 - ACUTE KIDNEY FAILURE, UNSPECIFIED (5) Gout Code(s): M10.9 - GOUT, UNSPECIFIED (6) HTN (hypertension) Code(s): I10 - ESSENTIAL (PRIMARY) HYPERTENSION Assessment/Plan Current Medications Generic Name Dose Route Start Last Admin Trade Name Freq PRN Reason Stop Dose Admin Acetaminophen 650 mg 12/16/18 21:02 12/18/18 23:39 Tylenol - PO 650 mg Q4H PRN Administration PAIN LEVEL 1-5 Allopurinol 100 mg 12/17/18 10:00 12/19/18 09:29 Zyloprim - PO 100 mg DAILY [facility] Administration Diltiazem HCl 180 mg 12/17/18 10:00 12/19/18 09:34 Cardizem Cd - PO 180 mg DAILY [facility] Administration Furosemide 40 mg 12/18/18 15:00 12/19/18 09:29 Lasix - PO 40 mg DAILY [facility] Administration Piperacillin Sod/Tazobactam 100 mls @ 200 mls/hr 12/18/18 16:00 12/19/18 09: 29 Sod 4.5 gm/ Dextrose IVPB 200 mls/hr Q8H-IV [facility] Administration Protocol Vancomycin HCl 1,250 mg/ 250 mls @ 250 mls/2 hr 12/18/18 17:00 12/18/18 17:57 Dextrose IVPB 250 mls/2 hr DAILY@1700 [facility] Administration Protocol Lactobacillus Acidophilus 1 tab 12/17/18 12:15 12/19/18 09:29 Bacid - PO 1 tab DAILY [facility] Administration Loratadine 10 mg 12/17/18 10:00 12/19/18 09:29 Claritin - PO 10 mg DAILY [facility] Administration Oxycodone HCl 5 mg 12/16/18 21:05 12/18/18 10:44 Roxicodone - PO 5 mg Q6H PRN Administration PAIN LEVEL 7 - 10 Sodium Chloride 2 spray 12/17/18 09:59 12/17/18 10:32 [place] Nasal [place] - NS 2 spray TID PRN Administration NASAL CONGESTION Warfarin Sodium 4 mg 12/17/18 18:00 12/18/18 17:55 Coumadin - PO 4 mg DAILY@1800 [facility] Administration Laboratory Tests 12/19/18 07:30 Lactic Acid 1.5 Impression 1. PHILL 2. a-fib 3. hx pleural effusion 4. HLD 5. CHF 6. HTN 7. Gout 8. facial cellulitis 9. lactic acidosis Plan - check ua - cont abx - ID follow up - ent input appreciated - outpt renal workup - repeat lactic acid normal Dr Rodríguez
[2018-12-19 17:35] LABS: URINE APPEARANCE CLEAR; URINE BILIRUBIN NEGATIVE (NEGATIVE); URINE COLOR YELLOW; URINE GLUCOSE (UA) NEGATIVE (NEGATIVE); URINE KETONE NEGATIVE (NEGATIVE); URINE LEUK ESTERASE NEGATIVE (NEGATIVE); URINE NITRITE NEGATIVE (NEGATIVE); URINE PROTEIN NEGATIVE (NEGATIVE); URINE UROBILINOGEN 0.2 mg/dL (0.2-1.0)
[2018-12-19] MEDS: VANCOMYCIN HCL 1,250 MG in DEXTROSE 5%-WATER - 250 ML IVPB SCH ×2 (18:22→20:06)
[2018-12-19] MEDS: WARFARIN NA 2 MG TABLET (UD) PO SCH ×2 (18:23→20:07)
--- NOTE | 2018-12-19 18:24 | PN ---
Progress Note (short form) - Note Progress Note: some improvement from yesterday still some swelling and induration noted Vital Signs Period Temp Pulse Resp BP Sys/Lomeli Pulse Ox Last 24 Hr 97.3 F-98.4 F 86-108 - 130-142/76-93 97-97 fleft facial swelling and induration noted cor-rrr lungs clear abd soft,nt ext no edema CBC, BMP 12/19/18 07:30 12/19/18 07:30 Microbiology 12/16/18 13:45 Blood - Peripheral Venous Blood Culture - Preliminary NO GROWTH OBTAINED AFTER 72 HOURS, INCUBATION TO CONTINUE FOR 2 DAYS. 12/16/18 13:45 Blood - Peripheral Venous Blood Culture - Preliminary NO GROWTH OBTAINED AFTER 72 HOURS, INCUBATION TO CONTINUE FOR 2 DAYS. 12/16/18 17:28 Urine - Urine Clean Catch Urine Culture - Final NO GROWTH OBTAINED Current Medications Acetaminophen (Tylenol -) 650 mg PO Q4H PRN PRN Reason: PAIN LEVEL 1-5 Last Admin: 12/18/18 23:39 Dose: 650 mg Allopurinol (Zyloprim -) 100 mg PO DAILY [facility] Last Admin: 12/19/18 09:29 Dose: 100 mg Diltiazem HCl (Cardizem Cd -) 180 mg PO DAILY [facility] Last Admin: 12/19/18 09:34 Dose: 180 mg Furosemide (Lasix -) 40 mg PO DAILY [facility] Last Admin: 12/19/18 09:29 Dose: 40 mg Piperacillin Sod/Tazobactam (Sod 4.5 gm/ Dextrose) 100 mls @ 200 mls/hr IVPB Q8H-IV [facility]; Protocol Last Admin: 12/19/18 17:11 Dose: 200 mls/hr Vancomycin HCl 1,250 mg/ (Dextrose) 250 mls @ 250 mls/2 hr IVPB DAILY@1700 [facility] ; Protocol Last Admin: 12/18/18 17:57 Dose: 250 mls/2 hr Lactobacillus Acidophilus (Bacid -) 1 tab PO DAILY [facility] Last Admin: 12/19/18 09:29 Dose: 1 tab Loratadine (Claritin -) 10 mg PO DAILY [facility] Last Admin: 12/19/18 09:29 Dose: 10 mg Oxycodone HCl (Roxicodone -) 5 mg PO Q6H PRN PRN Reason: PAIN LEVEL 7 - 10 Last Admin: 12/18/18 10:44 Dose: 5 mg Sodium Chloride ([place] Nasal [place] -) 2 spray NS TID PRN PRN Reason: NASAL CONGESTION Last Admin: 12/17/18 10:32 Dose: 2 spray Warfarin Sodium (Coumadin -) 4 mg PO DAILY@1800 [facility] Last Admin: 12/18/18 17:55 Dose: [address] with dental disease, soft tissue swelling, no abscess imp/reccd facial cellulitis- perhaps improvement was steroid in the ED vanco zosyn day #2 check vanco trough in am if no significant improvement in am, may need to transfer for dental evaluation ent eval noted- no significant sinus disease phill-improved afib- on coumadin Problem List - Problems (1) Cellulitis of face Code(s): L03.211 - CELLULITIS OF FACE (2) PHILL (acute kidney injury) Code(s): N17.9 - ACUTE KIDNEY FAILURE, UNSPECIFIED (3) Atrial fibrillation Code(s): I48.91 - UNSPECIFIED ATRIAL FIBRILLATION Qualifiers: Atrial fibrillation type: chronic Qualified Code(s): I48.2 - Chronic atrial fibrillation
[2018-12-19 19:08] LABS: INR 2.08 (0.83-1.09); PROTHROMBIN TIME (PATIENT) 24.7 SEC (9.7-13.0)
[2018-12-19] MEDS: ACETAMINOPHEN 325 MG TABLET (FP) PO PRN (22:38)
[2018-12-20] MEDS ORDERED: PIPERACILLIN/TAZOBACTAM 4.5 GM VIAL IVPB ONE ×3 (02:34→17:04)
[2018-12-20] MEDS ORDERED: DEXTROSE 5%-WATER 100 ML IVPB ONE ×3 (02:34→17:04)
[2018-12-20] MEDS: PIPERACILLIN/TAZOB 4.5 GM 4.5 GM in DEXTROSE 5%-WATER 100 ML IVPB SCH ×3 (02:43→17:26)
[2018-12-20] MEDS: ALLOPURINOL 100 MG TABLET (FP) PO SCH (10:08)
[2018-12-20] MEDS: LORATADINE 10 MG TABLET PO SCH (10:08)
[2018-12-20] MEDS: LACTOBACILLUS ACIDOPHILUS 1 TABLET PO SCH (10:08)
[2018-12-20] MEDS: FUROSEMIDE 40 MG TABLET (FP) PO SCH (10:08)
--- NOTE | 2018-12-20 11:04 | PN ---
Progress Note, Physician Chief Complaint: left facial cellulitis - Current Medication List Current Medications: Active Medications Acetaminophen (Tylenol -) 650 mg PO Q4H PRN PRN Reason: PAIN LEVEL 1-5 Last Admin: 12/19/18 22:38 Dose: 650 mg Allopurinol (Zyloprim -) 100 mg PO DAILY [facility] Last Admin: 12/20/18 10:08 Dose: 100 mg Diltiazem HCl (Cardizem Cd -) 180 mg PO DAILY [facility] Last Admin: 12/20/18 10:09 Dose: 180 mg Furosemide (Lasix -) 40 mg PO DAILY [facility] Last Admin: 12/20/18 10:08 Dose: 40 mg Piperacillin Sod/Tazobactam (Sod 4.5 gm/ Dextrose) 100 mls @ 200 mls/hr IVPB Q8H-IV [facility]; Protocol Last Admin: 12/20/18 10:08 Dose: 200 mls/hr Vancomycin HCl 1,250 mg/ (Dextrose) 250 mls @ 250 mls/2 hr IVPB DAILY@1700 [facility] ; Protocol Last Admin: 12/19/18 20:06 Dose: 250 mls/2 hr Lactobacillus Acidophilus (Bacid -) 1 tab PO DAILY [facility] Last Admin: 12/20/18 10:08 Dose: 1 tab Loratadine (Claritin -) 10 mg PO DAILY [facility] Last Admin: 12/20/18 10:08 Dose: 10 mg Sodium Chloride ([place] Nasal [place] -) 2 spray NS TID PRN PRN Reason: NASAL CONGESTION Last Admin: 12/17/18 10:32 Dose: 2 spray Warfarin Sodium (Coumadin -) 4 mg PO DAILY@1800 [facility] Last Admin: 12/19/18 20:07 Dose: 4 mg - Objective Vital Signs: Vital Signs Temperature 97.6 F 12/20/18 06:00 Pulse Rate 103 H 12/20/18 06:00 Respiratory Rate 18 12/20/18 06:00 Blood Pressure 112/71 12/20/18 06:00 O2 Sat by Pulse Oximetry (%) 98 12/19/18 21:00 Constitutional: Yes: Well Nourished, No Distress, Calm Cardiovascular: Yes: Regular Rate and Rhythm Respiratory: Yes: Regular Gastrointestinal: Yes: Normal Bowel Sounds, Soft Genitourinary: Yes: WNL Musculoskeletal: Yes: WNL Extremities: Yes: WNL Edema: No Peripheral Pulses WNL: Yes Neurological: Yes: Alert, Oriented Psychiatric: Yes: Alert, Oriented Labs: CBC, BMP 12/19/18 07:30 12/19/18 07:30 INR, PTT INR 2.08 (0.83-1.09) H 12/19/18 18:00 Problem List - Problems (1) CKD (chronic kidney disease) Assessment/Plan: -Seen by nephrology - Cr stable -monitor trend Code(s): N18.9 - CHRONIC KIDNEY DISEASE, UNSPECIFIED (2) Cellulitis of face Assessment/Plan: -ID on board -IV abx -mild improvement -ENT eval appreciated -CT facial-Periodontal disease Code(s): L03.211 - CELLULITIS OF FACE (3) Atrial fibrillation Assessment/Plan: -On Warfarin -INR therapeutic -Monitor daily INR Code(s): I48.91 - UNSPECIFIED ATRIAL FIBRILLATION Qualifiers: Atrial fibrillation type: chronic Qualified Code(s): I48.2 - Chronic atrial fibrillation Assessment/Plan see problem list
[2018-12-20 12:17] LABS: BASO % 0.6 % (0-2.0); EOS % 4.1 % (0-4.5); HEMATOCRIT 40.2 % (35.4-49); HEMOGLOBIN 13.1 GM/dL (11.7-16.9); LYMPH % 10.1 % (8-40); MCH 27.2 pg (25.7-33.7); MCHC 32.7 g/dl (32.0-35.9); MEAN CELL VOLUME 83.2 fl (80-96); MEAN PLT VOLUME 6.9 fl (7.5-11.1); MONO % 8.5 % (3.8-10.2); NEUT % 76.7 % (42.8-82.8); PLATELET COUNT 304 K/MM3 (134-434); RBC 4.82 M/mm3 (4.00-5.60); RDW 17.8 % (11.9-15.9); WHITE BLOOD COUNT 12.9 K/mm3 (4.0-10.0)
[2018-12-20 12:29] LABS: INR 1.87 (0.83-1.09); PROTHROMBIN TIME (PATIENT) 22.2 SEC (9.7-13.0)
[2018-12-20 12:44] LABS: ALBUMIN 2.8 g/dl (3.4-5.0); BILIRUBIN,TOTAL 0.7 mg/dL (0.2-1); BLOOD UREA NITROGEN 29.9 mg/dL (7-18); CALCIUM 7.7 mg/dL (8.5-10.1); CREATININE 1.6 mg/dL (0.55-1.3); POTASSIUM 4.1 mmol/L (3.5-5.1); TOT PROT 6.8 g/dl (6.4-8.2)
--- NOTE | 2018-12-20 13:24 | PN ---
Progress Note, Physician History of Present Illness: Pt seen and examined at bedside. He does not feel that facial swelling is worse. - Current Medication List Current Medications: Active Medications Acetaminophen (Tylenol -) 650 mg PO Q4H PRN PRN Reason: PAIN LEVEL 1-5 Last Admin: 12/19/18 22:38 Dose: 650 mg Allopurinol (Zyloprim -) 100 mg PO DAILY [facility] Last Admin: 12/20/18 10:08 Dose: 100 mg Diltiazem HCl (Cardizem Cd -) 180 mg PO DAILY [facility] Last Admin: 12/20/18 10:09 Dose: 180 mg Furosemide (Lasix -) 40 mg PO DAILY [facility] Last Admin: 12/20/18 10:08 Dose: 40 mg Piperacillin Sod/Tazobactam (Sod 4.5 gm/ Dextrose) 100 mls @ 200 mls/hr IVPB Q8H-IV [facility]; Protocol Last Admin: 12/20/18 10:08 Dose: 200 mls/hr Vancomycin HCl 1,250 mg/ (Dextrose) 250 mls @ 250 mls/2 hr IVPB DAILY@1700 [facility] ; Protocol Last Admin: 12/19/18 20:06 Dose: 250 mls/2 hr Lactobacillus Acidophilus (Bacid -) 1 tab PO DAILY [facility] Last Admin: 12/20/18 10:08 Dose: 1 tab Loratadine (Claritin -) 10 mg PO DAILY [facility] Last Admin: 12/20/18 10:08 Dose: 10 mg Sodium Chloride ([place] Nasal [place] -) 2 spray NS TID PRN PRN Reason: NASAL CONGESTION Last Admin: 12/17/18 10:32 Dose: 2 spray Warfarin Sodium (Coumadin -) 4 mg PO DAILY@1800 [facility] Last Admin: 12/19/18 20:07 Dose: 4 mg - Objective Vital Signs: Vital Signs Temperature 97.6 F 12/20/18 06:00 Pulse Rate 103 H 12/20/18 06:00 Respiratory Rate 18 12/20/18 06:00 Blood Pressure 112/71 12/20/18 06:00 O2 Sat by Pulse Oximetry (%) 98 12/19/18 21:00 Constitutional: Yes: Calm Eyes: Yes: Conjunctiva Clear HENT: Yes: Other (left facial swelling) Cardiovascular: Yes: S2 Gastrointestinal: Yes: Soft Genitourinary: Yes: WNL Musculoskeletal: Yes: WNL Edema: No Neurological: Yes: Oriented Psychiatric: Yes: Oriented Labs: CBC, BMP 12/20/18 11:55 12/20/18 11:55 INR, PTT INR 1.87 (0.83-1.09) H 12/20/18 11:55 Problem List - Problems (1) CKD (chronic kidney disease) Code(s): N18.9 - CHRONIC KIDNEY DISEASE, UNSPECIFIED (2) CHF (congestive heart failure) Code(s): I50.9 - HEART FAILURE, UNSPECIFIED (3) Cellulitis of face Code(s): L03.211 - CELLULITIS OF FACE (4) PHILL (acute kidney injury) Code(s): N17.9 - ACUTE KIDNEY FAILURE, UNSPECIFIED (5) Gout Code(s): M10.9 - GOUT, UNSPECIFIED (6) HTN (hypertension) Code(s): I10 - ESSENTIAL (PRIMARY) HYPERTENSION Assessment/Plan Current Medications Generic Name Dose Route Start Last Admin Trade Name Freq PRN Reason Stop Dose Admin Acetaminophen 650 mg 12/16/18 21:02 12/19/18 22:38 Tylenol - PO 650 mg Q4H PRN Administration PAIN LEVEL 1-5 Allopurinol 100 mg 12/17/18 10:00 12/20/18 10:08 Zyloprim - PO 100 mg DAILY [facility] Administration Diltiazem HCl 180 mg 12/17/18 10:00 12/20/18 10:09 Cardizem Cd - PO 180 mg DAILY [facility] Administration Furosemide 40 mg 12/18/18 15:00 12/20/18 10:08 Lasix - PO 40 mg DAILY [facility] Administration Piperacillin Sod/Tazobactam 100 mls @ 200 mls/hr 12/18/18 16:00 12/20/18 10: 08 Sod 4.5 gm/ Dextrose IVPB 200 mls/hr Q8H-IV [facility] Administration Protocol Vancomycin HCl 1,250 mg/ 250 mls @ 250 mls/2 hr 12/18/18 17:00 12/19/18 20:06 Dextrose IVPB 250 mls/2 hr DAILY@1700 [facility] Administration Protocol Lactobacillus Acidophilus 1 tab 12/17/18 12:15 12/20/18 10:08 Bacid - PO 1 tab DAILY [facility] Administration Loratadine 10 mg 12/17/18 10:00 12/20/18 10:08 Claritin - PO 10 mg DAILY [facility] Administration Sodium Chloride 2 spray 12/17/18 09:59 12/17/18 10:32 [place] Nasal [place] - NS 2 spray TID PRN Administration NASAL CONGESTION Warfarin Sodium 4 mg 12/17/18 18:00 12/19/18 20:07 Coumadin - PO 4 mg DAILY@1800 [facility] Administration Laboratory Tests 12/19/18 14:00 Urine Protein Negative Urine Blood Negative Impression 1. PHILL 2. a-fib 3. hx pleural effusion 4. HLD 5. CHF 6. HTN 7. Gout 8. facial cellulitis 9. lactic acidosis Plan - ua neg for protein or blood - monitor renal function - can see in office - abx per primary team - monitor volume status on lasix Dr Rodríguez
--- NOTE | 2018-12-20 16:26 | PN ---
Progress Note (short form) - Note Progress Note: some improvement from yesterday less swelling Vital Signs Period Temp Pulse Resp BP Sys/Lomeli Pulse Ox Last 24 Hr 97.6 F-98.3 F 102-105 18-18 112-140/65-84 98 less swelling of the left side of the face , jaw and under eye improved, still firm and indurated left maxillary area cor-rrr lungs clear abd soft,nt ext trace edema CBC, BMP 12/20/18 11:55 12/20/18 11:55 Microbiology 12/16/18 13:45 Blood - Peripheral Venous Blood Culture - Preliminary NO GROWTH OBTAINED AFTER 96 HOURS, INCUBATION TO CONTINUE FOR 1 DAYS. 12/16/18 13:45 Blood - Peripheral Venous Blood Culture - Preliminary NO GROWTH OBTAINED AFTER 96 HOURS, INCUBATION TO CONTINUE FOR 1 DAYS. 12/16/18 17:28 Urine - Urine Clean Catch Urine Culture - Final NO GROWTH OBTAINED facial ct with dental disease, soft tissue swelling, no abscess imp/reccd facial cellulitis- perhaps improvement was steroid in the ED vanco zosyn day #3 vanco trough improving some improvement noted ent eval noted- no significant sinus disease phill-improved afib- on coumadin Problem List - Problems (1) Cellulitis of face Code(s): L03.211 - CELLULITIS OF FACE (2) PHILL (acute kidney injury) Code(s): N17.9 - ACUTE KIDNEY FAILURE, UNSPECIFIED (3) Atrial fibrillation Code(s): I48.91 - UNSPECIFIED ATRIAL FIBRILLATION Qualifiers: Atrial fibrillation type: chronic Qualified Code(s): I48.2 - Chronic atrial fibrillation
[2018-12-20] MEDS: VANCOMYCIN HCL 1,250 MG in DEXTROSE 5%-WATER - 250 ML IVPB SCH (16:51)
[2018-12-20] MEDS: WARFARIN NA 2 MG TABLET (UD) PO SCH (17:26)
[2018-12-20] MEDS: ACETAMINOPHEN 325 MG TABLET (FP) PO PRN (22:20)
[2018-12-21] MEDS ORDERED: PIPERACILLIN/TAZOBACTAM 4.5 GM VIAL IVPB ONE ×3 (01:16→16:35)
[2018-12-21] MEDS ORDERED: DEXTROSE 5%-WATER 100 ML IVPB ONE ×3 (01:17→16:35)
[2018-12-21] MEDS: PIPERACILLIN/TAZOB 4.5 GM 4.5 GM in DEXTROSE 5%-WATER 100 ML IVPB SCH ×3 (02:00→17:11)
[2018-12-21] MEDS ORDERED: PT OWN MED DRAWER 7, Y5N ONE ×2 (09:22→20:51)
[2018-12-21] MEDS: LACTOBACILLUS ACIDOPHILUS 1 TABLET PO SCH (09:25)
[2018-12-21] MEDS: LORATADINE 10 MG TABLET PO SCH (09:26)
[2018-12-21] MEDS: FUROSEMIDE 40 MG TABLET (FP) PO SCH (09:26)
[2018-12-21] MEDS: ALLOPURINOL 100 MG TABLET (FP) PO SCH (09:26)
--- NOTE | 2018-12-21 10:27 | PN ---
Progress Note, Physician Chief Complaint: Left Facial Cellulitis A-fib History of Present Illness: Previous notes and events reviewed awake and alert NAD sts facial pain is improving leukocytosis afebrile - Current Medication List Current Medications: Active Medications Acetaminophen (Tylenol -) 650 mg PO Q4H PRN PRN Reason: PAIN LEVEL 1-5 Last Admin: 12/20/18 22:20 Dose: 650 mg Allopurinol (Zyloprim -) 100 mg PO DAILY [facility] Last Admin: 12/21/18 09:26 Dose: 100 mg Diltiazem HCl (Cardizem Cd -) 180 mg PO DAILY [facility] Last Admin: 12/21/18 09:26 Dose: 180 mg Furosemide (Lasix -) 40 mg PO DAILY [facility] Last Admin: 12/21/18 09:26 Dose: 40 mg Piperacillin Sod/Tazobactam (Sod 4.5 gm/ Dextrose) 100 mls @ 200 mls/hr IVPB Q8H-IV [facility]; Protocol Last Admin: 12/21/18 09:26 Dose: 200 mls/hr Vancomycin HCl 1,250 mg/ (Dextrose) 250 mls @ 250 mls/2 hr IVPB DAILY@1700 [facility] ; Protocol Last Admin: 12/20/18 16:51 Dose: 250 mls/2 hr Lactobacillus Acidophilus (Bacid -) 1 tab PO DAILY [facility] Last Admin: 12/21/18 09:25 Dose: 1 tab Loratadine (Claritin -) 10 mg PO DAILY [facility] Last Admin: 12/21/18 09:26 Dose: 10 mg Sodium Chloride ([place] Nasal [place] -) 2 spray NS TID PRN PRN Reason: NASAL CONGESTION Last Admin: 12/17/18 10:32 Dose: 2 spray Warfarin Sodium (Coumadin -) 4 mg PO DAILY@1800 [facility] Last Admin: 12/20/18 17:26 Dose: 4 mg - Objective Vital Signs: Vital Signs Temperature 98.2 F 12/21/18 09:14 Pulse Rate 96 H 12/21/18 09:14 Respiratory Rate 17 12/21/18 09:14 Blood Pressure 104/69 12/21/18 09:14 O2 Sat by Pulse Oximetry (%) 98 12/20/18 21:00 Constitutional: Yes: No Distress, Calm Eyes: Yes: Conjunctiva Clear HENT: Yes: Atraumatic, Other (mild edema noted L side of face, no erythema) Cardiovascular: Yes: Pulse Irregular Respiratory: Yes: Regular, CTA Bilaterally Gastrointestinal: Yes: Normal Bowel Sounds, Soft Musculoskeletal: Yes: WNL Extremities: Yes: WNL Edema: No Neurological: Yes: Alert, Oriented Psychiatric: Yes: Alert, Oriented Labs: CBC, BMP 12/20/18 11:55 12/20/18 11:55 INR, PTT INR 1.87 (0.83-1.09) H 12/20/18 11:55 Microbiology 12/16/18 13:45 Blood - Peripheral Venous Blood Culture - Preliminary NO GROWTH OBTAINED AFTER 96 HOURS, INCUBATION TO CONTINUE FOR 1 DAYS. 12/16/18 13:45 Blood - Peripheral Venous Blood Culture - Preliminary NO GROWTH OBTAINED AFTER 96 HOURS, INCUBATION TO CONTINUE FOR 1 DAYS. 12/16/18 17:28 Urine - Urine Clean Catch Urine Culture - Final NO GROWTH OBTAINED - ....Imaging Cat Scan: Report Reviewed Problem List - Problems (1) CHF (congestive heart failure) Assessment/Plan: -Lasix -1L fluid restriction -daily weights -low Na diet Code(s): I50.9 - HEART FAILURE, UNSPECIFIED (2) CKD (chronic kidney disease) Assessment/Plan: -BUN/Cr 29.9/1.6 -renal on board -monitor renal function Code(s): N18.9 - CHRONIC KIDNEY DISEASE, UNSPECIFIED (3) Cellulitis of face Assessment/Plan: -ID on board -leukocytosis~WBC 12.9 -afebrile -Vancomycin, Zosyn -ENT on board -warm compress -Facial CT shows peridontal disease, moderate soft tissue swelling over the left cheek and mild to moderate left periorbital soft tissue swelling Code(s): L03.211 - CELLULITIS OF FACE (4) Atrial fibrillation Assessment/Plan: -Coumadin -monitor INR daily -keep INR therapeutic range 2-3 -INR 1.87 Code(s): I48.91 - UNSPECIFIED ATRIAL FIBRILLATION Qualifiers: Atrial fibrillation type: chronic Qualified Code(s): I48.2 - Chronic atrial fibrillation (5) HTN (hypertension) Assessment/Plan: -Diltiazem -low Na diet Code(s): I10 - ESSENTIAL (PRIMARY) HYPERTENSION Assessment/Plan see problem list will begin d/c planning when switched to PO antibiotics
[2018-12-21 12:23] LABS: INR 1.98 (0.83-1.09); PROTHROMBIN TIME (PATIENT) 23.5 SEC (9.7-13.0)
[2018-12-21] MEDS: NYSTATIN/TRIAMCINOLONE TOPICAL CREAM 15 GM TUBE TP SCH ×2 (14:13→20:59)
--- NOTE | 2018-12-21 17:09 | PN ---
Progress Note (short form) - Note Progress Note: less swelling today Vital Signs Period Temp Pulse Resp BP Sys/Lomeli Pulse Ox Last 24 Hr 97.1 F-98.2 F 96-106 17-20 104-131/49-92 98-100 cor-rrr lungs clear abd soft,nt ext no edema inguinal rash- face-area of induration and swelling left NLF, rest of left side of face less swollen CBC, BMP 12/20/18 11:55 12/20/18 11:55 Microbiology 12/16/18 13:45 Blood - Peripheral Venous Blood Culture - Final NO GROWTH AFTER 5 DAYS INCUBATION 12/16/18 13:45 Blood - Peripheral Venous Blood Culture - Final NO GROWTH AFTER 5 DAYS INCUBATION 12/16/18 17:28 Urine - Urine Clean Catch Urine Culture - Final NO GROWTH OBTAINED facial ct with dental disease, soft tissue swelling, no abscess imp/reccd facial cellulitis- will need dental evaluation, ?developing abscess vanco zosyn day #4 some improvement noted ent eval noted- no significant sinus disease barry rash- agree with lotrimin phill-improved afib- on coumadin d/w at bedside Problem List - Problems (1) Cellulitis of face Code(s): L03.211 - CELLULITIS OF FACE (2) PHILL (acute kidney injury) Code(s): N17.9 - ACUTE KIDNEY FAILURE, UNSPECIFIED (3) Atrial fibrillation Code(s): I48.91 - UNSPECIFIED ATRIAL FIBRILLATION Qualifiers: Atrial fibrillation type: chronic Qualified Code(s): I48.2 - Chronic atrial fibrillation
[2018-12-21] MEDS: WARFARIN NA 2 MG TABLET (UD) PO SCH (17:11)
[2018-12-21] MEDS: VANCOMYCIN HCL 1,250 MG in DEXTROSE 5%-WATER - 250 ML IVPB SCH (17:45)
--- NOTE | 2018-12-21 18:30 | PN ---
Progress Note, Physician History of Present Illness: Pt seen and examined at bedside. He is awake and appears comfortable. The facial edema is starting to improve. - Current Medication List Current Medications: Active Medications Acetaminophen (Tylenol -) 650 mg PO Q4H PRN PRN Reason: PAIN LEVEL 1-5 Last Admin: 12/20/18 22:20 Dose: 650 mg Allopurinol (Zyloprim -) 100 mg PO DAILY [facility] Last Admin: 12/21/18 09:26 Dose: 100 mg Diltiazem HCl (Cardizem Cd -) 180 mg PO DAILY [facility] Last Admin: 12/21/18 09:26 Dose: 180 mg Furosemide (Lasix -) 40 mg PO DAILY [facility] Last Admin: 12/21/18 09:26 Dose: 40 mg Piperacillin Sod/Tazobactam (Sod 4.5 gm/ Dextrose) 100 mls @ 200 mls/hr IVPB Q8H-IV [facility]; Protocol Last Admin: 12/21/18 17:11 Dose: 200 mls/hr Vancomycin HCl 1,250 mg/ (Dextrose) 250 mls @ 250 mls/2 hr IVPB DAILY@1700 [facility] ; Protocol Last Admin: 12/21/18 17:45 Dose: 250 mls/2 hr Lactobacillus Acidophilus (Bacid -) 1 tab PO DAILY [facility] Last Admin: 12/21/18 09:25 Dose: 1 tab Loratadine (Claritin -) 10 mg PO DAILY [facility] Last Admin: 12/21/18 09:26 Dose: 10 mg Nystatin/Triamcinolone Acetonide (Mycolog Ii Cream -) 1 applic TP BID [facility] Last Admin: 12/21/18 14:13 Dose: 1 applic Sodium Chloride ([place] Nasal [place] -) 2 spray NS TID PRN PRN Reason: NASAL CONGESTION Last Admin: 12/17/18 10:32 Dose: 2 spray Warfarin Sodium (Coumadin -) 4 mg PO DAILY@1800 [facility] Last Admin: 12/21/18 17:11 Dose: 4 mg - Objective Vital Signs: Vital Signs Temperature 98.2 F 12/21/18 14:46 Pulse Rate 101 H 12/21/18 14:46 Respiratory Rate 17 12/21/18 14:46 Blood Pressure 118/49 L 12/21/18 14:46 O2 Sat by Pulse Oximetry (%) 100 12/21/18 09:15 Constitutional: Yes: Calm Eyes: Yes: Conjunctiva Clear HENT: Yes: Other (left facila cellulitis improving) Neck: Yes: Supple Cardiovascular: Yes: S1, S2 Respiratory: Yes: CTA Bilaterally Gastrointestinal: Yes: Soft Genitourinary: Yes: WNL Musculoskeletal: Yes: WNL Neurological: Yes: Oriented Psychiatric: Yes: Oriented Labs: CBC, BMP 12/20/18 11:55 12/20/18 11:55 INR, PTT INR 1.98 (0.83-1.09) H 12/21/18 11:40 Problem List - Problems (1) CKD (chronic kidney disease) Code(s): N18.9 - CHRONIC KIDNEY DISEASE, UNSPECIFIED (2) CHF (congestive heart failure) Code(s): I50.9 - HEART FAILURE, UNSPECIFIED (3) Cellulitis of face Code(s): L03.211 - CELLULITIS OF FACE (4) PHILL (acute kidney injury) Code(s): N17.9 - ACUTE KIDNEY FAILURE, UNSPECIFIED (5) Gout Code(s): M10.9 - GOUT, UNSPECIFIED (6) HTN (hypertension) Code(s): I10 - ESSENTIAL (PRIMARY) HYPERTENSION Assessment/Plan Current Medications Generic Name Dose Route Start Last Admin Trade Name Freq PRN Reason Stop Dose Admin Acetaminophen 650 mg 12/16/18 21:02 12/20/18 22:20 Tylenol - PO 650 mg Q4H PRN Administration PAIN LEVEL 1-5 Allopurinol 100 mg 12/17/18 10:00 12/21/18 09:26 Zyloprim - PO 100 mg DAILY [facility] Administration Diltiazem HCl 180 mg 12/17/18 10:00 12/21/18 09:26 Cardizem Cd - PO 180 mg DAILY [facility] Administration Furosemide 40 mg 12/18/18 15:00 12/21/18 09:26 Lasix - PO 40 mg DAILY [facility] Administration Piperacillin Sod/Tazobactam 100 mls @ 200 mls/hr 12/18/18 16:00 12/21/18 17: 11 Sod 4.5 gm/ Dextrose IVPB 200 mls/hr Q8H-IV [facility] Administration Protocol Vancomycin HCl 1,250 mg/ 250 mls @ 250 mls/2 hr 12/18/18 17:00 12/21/18 17:45 Dextrose IVPB 250 mls/2 hr DAILY@1700 [facility] Administration Protocol Lactobacillus Acidophilus 1 tab 12/17/18 12:15 12/21/18 09:25 Bacid - PO 1 tab DAILY [facility] Administration Loratadine 10 mg 12/17/18 10:00 12/21/18 09:26 Claritin - PO 10 mg DAILY [facility] Administration Nystatin/Triamcinolone Acetonide 1 applic 12/21/18 10:45 12/21/18 14:13 Mycolog Ii Cream - TP 1 applic BID [facility] Administration Sodium Chloride 2 spray 12/17/18 09:59 12/17/18 10:32 [place] Nasal [place] - NS 2 spray TID PRN Administration NASAL CONGESTION Warfarin Sodium 4 mg 12/17/18 18:00 12/21/18 17:11 Coumadin - PO 4 mg DAILY@1800 [facility] Administration Impression 1. PHILL 2. a-fib 3. hx pleural effusion 4. HLD 5. CHF 6. HTN 7. Gout 8. facial cellulitis 9. 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
[2018-12-21] MEDS: ACETAMINOPHEN 325 MG TABLET (FP) PO PRN (20:58)
[2018-12-22] MEDS ORDERED: PIPERACILLIN/TAZOBACTAM 4.5 GM VIAL IVPB ONE ×3 (01:09→17:42)
[2018-12-22] MEDS ORDERED: DEXTROSE 5%-WATER 100 ML IVPB ONE ×3 (01:09→17:43)
[2018-12-22] MEDS: PIPERACILLIN/TAZOB 4.5 GM 4.5 GM in DEXTROSE 5%-WATER 100 ML IVPB SCH ×3 (01:58→17:45)
[2018-12-22 08:25] LABS: HEMATOCRIT 38.2 % (35.4-49); HEMOGLOBIN 12.7 GM/dL (11.7-16.9); MCH 27.6 pg (25.7-33.7); MCHC 33.3 g/dl (32.0-35.9); MEAN PLT VOLUME 7.2 fl (7.5-11.1); PLATELET COUNT 295 K/MM3 (134-434); RBC 4.61 M/mm3 (4.00-5.60); RDW 17.5 % (11.9-15.9); WHITE BLOOD COUNT 9.9 K/mm3 (4.0-10.0)
[2018-12-22 08:48] LABS: ALBUMIN 2.9 g/dl (3.4-5.0); BILIRUBIN,TOTAL 0.9 mg/dL (0.2-1); BLOOD UREA NITROGEN 27.1 mg/dL (7-18); CALCIUM 8.1 mg/dL (8.5-10.1); CREATININE 1.7 mg/dL (0.55-1.3); POTASSIUM 4.3 mmol/L (3.5-5.1); TOT PROT 6.7 g/dl (6.4-8.2)
[2018-12-22 09:27] LABS: INR 1.95 (0.83-1.09); PROTHROMBIN TIME (PATIENT) 23.2 SEC (9.7-13.0)
[2018-12-22] MEDS ORDERED: PT OWN MED DRAWER 7, Y5N ONE ×2 (09:33→09:51)
[2018-12-22] MEDS: ALLOPURINOL 100 MG TABLET (FP) PO SCH (09:49)
[2018-12-22] MEDS: FUROSEMIDE 40 MG TABLET (FP) PO SCH (09:49)
[2018-12-22] MEDS: LORATADINE 10 MG TABLET PO SCH (09:49)
[2018-12-22] MEDS: NYSTATIN/TRIAMCINOLONE TOPICAL CREAM 15 GM TUBE TP SCH ×2 (09:49→21:05)
[2018-12-22] MEDS: LACTOBACILLUS ACIDOPHILUS 1 TABLET PO SCH (09:49)
--- NOTE | 2018-12-22 12:43 | PN ---
Progress Note (short form) - Note Progress Note: he feels a "ball" in his cheek Vital Signs Period Temp Pulse Resp BP Sys/Lomeli Pulse Ox Last 24 Hr 97.5 F-98.8 F 96-104 17-20 110-142/49-86 97 cor-rrr lungs clear abd soft,nt ext trace edema less swelling of the face +induration left nasolabial fold CBC, BMP 12/22/18 07:10 12/22/18 07:10 Microbiology 12/16/18 13:45 Blood - Peripheral Venous Blood Culture - Final NO GROWTH AFTER 5 DAYS INCUBATION 12/16/18 13:45 Blood - Peripheral Venous Blood Culture - Final NO GROWTH AFTER 5 DAYS INCUBATION 12/16/18 17:28 Urine - Urine Clean Catch Urine Culture - Final NO GROWTH OBTAINED facial ct with dental disease, soft tissue swelling, no abscess imp/reccd facial cellulitis- will need dental evaluation, ?developing abscess- vanco zosyn day #4 wbc finally normal today some improvement noted if dental cannot see him here would suggest he go DIRECTLY from here to there office this needs to be arranged before he can be discharged would suggest clindamycin 300 tid and ceftin 500 bid for discharge if dental f /u can be arranged- if he cannot be seen until Tuesday would favor continuing iv antibioitics here and discharging on Tuesday directly to the dental surgeon's office ent monse noted- no significant sinus disease barry rash- agree with lotrimin phill-improved afib- on coumadin Problem List - Problems (1) Cellulitis of face Code(s): L03.211 - CELLULITIS OF FACE (2) PHILL (acute kidney injury) Code(s): N17.9 - ACUTE KIDNEY FAILURE, UNSPECIFIED (3) Atrial fibrillation Code(s): I48.91 - UNSPECIFIED ATRIAL FIBRILLATION Qualifiers: Atrial fibrillation type: chronic Qualified Code(s): I48.2 - Chronic atrial fibrillation
--- NOTE | 2018-12-22 15:33 | PN ---
Progress Note, Physician History of Present Illness: Pt seen and examined at bedside. He feels the swelling is a little better. - Current Medication List Current Medications: Active Medications Acetaminophen (Tylenol -) 650 mg PO Q4H PRN PRN Reason: PAIN LEVEL 1-5 Last Admin: 12/21/18 20:58 Dose: 650 mg Allopurinol (Zyloprim -) 100 mg PO DAILY [facility] Last Admin: 12/22/18 09:49 Dose: 100 mg Diltiazem HCl (Cardizem Cd -) 180 mg PO DAILY [facility] Last Admin: 12/22/18 09:51 Dose: 180 mg Furosemide (Lasix -) 40 mg PO DAILY [facility] Last Admin: 12/22/18 09:49 Dose: 40 mg Piperacillin Sod/Tazobactam (Sod 4.5 gm/ Dextrose) 100 mls @ 200 mls/hr IVPB Q8H-IV [facility]; Protocol Last Admin: 12/22/18 09:49 Dose: 200 mls/hr Vancomycin HCl (Vancomycin (Pre-Docked)) 1,000 mg in 250 mls @ 166.667 mls/hr IVPB Q24H [facility]; Protocol Lactobacillus Acidophilus (Bacid -) 1 tab PO DAILY [facility] Last Admin: 12/22/18 09:49 Dose: 1 tab Loratadine (Claritin -) 10 mg PO DAILY [facility] Last Admin: 12/22/18 09:49 Dose: 10 mg Nystatin/Triamcinolone Acetonide (Mycolog Ii Cream -) 1 applic TP BID [facility] Last Admin: 12/22/18 09:49 Dose: 1 applic Sodium Chloride ([place] Nasal [place] -) 2 spray NS TID PRN PRN Reason: NASAL CONGESTION Last Admin: 12/17/18 10:32 Dose: 2 spray Warfarin Sodium (Coumadin -) 4 mg PO DAILY@1800 [facility] Last Admin: 12/21/18 17:11 Dose: 4 mg - Objective Vital Signs: Vital Signs Temperature 97.9 F 12/22/18 09:20 Pulse Rate 98 H 12/22/18 09:20 Respiratory Rate 18 12/22/18 09:20 Blood Pressure 110/68 12/22/18 09:20 O2 Sat by Pulse Oximetry (%) 98 12/22/18 09:20 Constitutional: Yes: Calm Eyes: Yes: Conjunctiva Clear HENT: Yes: Other (left facial swelling) Neck: Yes: Supple Cardiovascular: Yes: S1, S2 Respiratory: Yes: CTA Bilaterally Gastrointestinal: Yes: Normal Bowel Sounds, Soft Genitourinary: Yes: WNL Musculoskeletal: Yes: WNL Edema: No Neurological: Yes: Oriented Psychiatric: Yes: Oriented Labs: CBC, BMP 12/22/18 07:10 12/22/18 07:10 INR, PTT INR 1.95 (0.83-1.09) H 12/22/18 07:10 Problem List - Problems (1) CKD (chronic kidney disease) Code(s): N18.9 - CHRONIC KIDNEY DISEASE, UNSPECIFIED (2) CHF (congestive heart failure) Code(s): I50.9 - HEART FAILURE, UNSPECIFIED (3) Cellulitis of face Code(s): L03.211 - CELLULITIS OF FACE (4) PHILL (acute kidney injury) Code(s): N17.9 - ACUTE KIDNEY FAILURE, UNSPECIFIED (5) Gout Code(s): M10.9 - GOUT, UNSPECIFIED (6) HTN (hypertension) Code(s): I10 - ESSENTIAL (PRIMARY) HYPERTENSION Assessment/Plan Current Medications Generic Name Dose Route Start Last Admin Trade Name Freq PRN Reason Stop Dose Admin Acetaminophen 650 mg 12/16/18 21:02 12/21/18 20:58 Tylenol - PO 650 mg Q4H PRN Administration PAIN LEVEL 1-5 Allopurinol 100 mg 12/17/18 10:00 12/22/18 09:49 Zyloprim - PO 100 mg DAILY [facility] Administration Diltiazem HCl 180 mg 12/17/18 10:00 12/22/18 09:51 Cardizem Cd - PO 180 mg DAILY [facility] Administration Furosemide 40 mg 12/18/18 15:00 12/22/18 09:49 Lasix - PO 40 mg DAILY [facility] Administration Piperacillin Sod/Tazobactam 100 mls @ 200 mls/hr 12/18/18 16:00 12/22/18 09: 49 Sod 4.5 gm/ Dextrose IVPB 200 mls/hr Q8H-IV [facility] Administration Protocol Vancomycin HCl 1,000 mg in 250 mls @ 166.667 mls/hr 12/22/18 17:00 Vancomycin (Pre-Docked) IVPB Q24H [facility] Protocol Lactobacillus Acidophilus 1 tab 12/17/18 12:15 12/22/18 09:49 Bacid - PO 1 tab DAILY [facility] Administration Loratadine 10 mg 12/17/18 10:00 12/22/18 09:49 Claritin - PO 10 mg DAILY [facility] Administration Nystatin/Triamcinolone Acetonide 1 applic 12/21/18 10:45 12/22/18 09:49 Mycolog Ii Cream - TP 1 applic BID [facility] Administration Sodium Chloride 2 spray 12/17/18 09:59 12/17/18 10:32 [place] Nasal [place] - NS 2 spray TID PRN Administration NASAL CONGESTION Warfarin Sodium 4 mg 12/17/18 18:00 12/21/18 17:11 Coumadin - PO 4 mg DAILY@1800 [facility] Administration Impression 1. PHILL 2. a-fib 3. hx pleural effusion 4. HLD 5. CHF 6. HTN 7. Gout 8. facial cellulitis 9. lactic acidosis Plan - cont lasix - monitor renal function - pt will see oral surgeon after discharge - abx per medical team - cellulitis is improving - will see in office after discharge Dr Rodríguez
--- NOTE | 2018-12-22 15:55 | PN ---
Progress Note, Physician Chief Complaint: Left Facial Cellulitis A-fib History of Present Illness: Previous notes and events reviewed awake and alert NAD facial cellulitis improving no leukocytosis afebrile - Current Medication List Current Medications: Active Medications Acetaminophen (Tylenol -) 650 mg PO Q4H PRN PRN Reason: PAIN LEVEL 1-5 Last Admin: 12/21/18 20:58 Dose: 650 mg Allopurinol (Zyloprim -) 100 mg PO DAILY [facility] Last Admin: 12/22/18 09:49 Dose: 100 mg Diltiazem HCl (Cardizem Cd -) 180 mg PO DAILY [facility] Last Admin: 12/22/18 09:51 Dose: 180 mg Furosemide (Lasix -) 40 mg PO DAILY [facility] Last Admin: 12/22/18 09:49 Dose: 40 mg Piperacillin Sod/Tazobactam (Sod 4.5 gm/ Dextrose) 100 mls @ 200 mls/hr IVPB Q8H-IV [facility]; Protocol Last Admin: 12/22/18 09:49 Dose: 200 mls/hr Vancomycin HCl (Vancomycin (Pre-Docked)) 1,000 mg in 250 mls @ 166.667 mls/hr IVPB Q24H [facility]; Protocol Lactobacillus Acidophilus (Bacid -) 1 tab PO DAILY [facility] Last Admin: 12/22/18 09:49 Dose: 1 tab Loratadine (Claritin -) 10 mg PO DAILY [facility] Last Admin: 12/22/18 09:49 Dose: 10 mg Nystatin/Triamcinolone Acetonide (Mycolog Ii Cream -) 1 applic TP BID [facility] Last Admin: 12/22/18 09:49 Dose: 1 applic Sodium Chloride ([place] Nasal [place] -) 2 spray NS TID PRN PRN Reason: NASAL CONGESTION Last Admin: 12/17/18 10:32 Dose: 2 spray Warfarin Sodium (Coumadin -) 4 mg PO DAILY@1800 [facility] Last Admin: 12/21/18 17:11 Dose: 4 mg - Objective Vital Signs: Vital Signs Temperature 97.9 F 12/22/18 09:20 Pulse Rate 98 H 12/22/18 09:20 Respiratory Rate 18 12/22/18 09:20 Blood Pressure 110/68 12/22/18 09:20 O2 Sat by Pulse Oximetry (%) 98 12/22/18 09:20 Constitutional: Yes: No Distress, Calm Eyes: Yes: Conjunctiva Clear HENT: Yes: Atraumatic, Other (mild edema to left of face) Cardiovascular: Yes: Regular Rate and Rhythm Respiratory: Yes: Regular, CTA Bilaterally Gastrointestinal: Yes: Normal Bowel Sounds, Soft Musculoskeletal: Yes: WNL Extremities: Yes: WNL Edema: No Neurological: Yes: Alert, Oriented Psychiatric: Yes: Alert, Oriented Labs: CBC, BMP 12/22/18 07:10 12/22/18 07:10 INR, PTT INR 1.95 (0.83-1.09) H 12/22/18 07:10 Problem List - Problems (1) CHF (congestive heart failure) Assessment/Plan: -Lasix -1L fluid restriction -daily weights -low Na diet Code(s): I50.9 - HEART FAILURE, UNSPECIFIED (2) CKD (chronic kidney disease) Assessment/Plan: -BUN/Cr 27.1/1.7 -renal on board -monitor renal function Code(s): N18.9 - CHRONIC KIDNEY DISEASE, UNSPECIFIED (3) Cellulitis of face Assessment/Plan: -ID on board and recommendation appreciated -no leukocytosis -afebrile -Vancomycin, Zosyn -ENT on board -warm compress -Facial CT shows peridontal disease, moderate soft tissue swelling over the left cheek and mild to moderate left periorbital soft tissue swelling -will need to see oral surgeon as outpatient Code(s): L03.211 - CELLULITIS OF FACE (4) Atrial fibrillation Assessment/Plan: -Coumadin -monitor INR daily -keep INR therapeutic range 2-3 -INR 1.95 Code(s): I48.91 - UNSPECIFIED ATRIAL FIBRILLATION Qualifiers: Atrial fibrillation type: chronic Qualified Code(s): I48.2 - Chronic atrial fibrillation (5) HTN (hypertension) Assessment/Plan: -Diltiazem -low Na diet Code(s): I10 - ESSENTIAL (PRIMARY) HYPERTENSION Assessment/Plan see problem list will begin d/c planning when switched to PO antibiotics will need to see oral surgeon
[2018-12-22] MEDS: WARFARIN NA 2 MG TABLET (UD) PO SCH (17:44)
[2018-12-22] MEDS: VANCOMYCIN 1 GRAM (PRE-DOCKED) 1,000 MG/250 ML BAG IVPB SCH (18:28)
[2018-12-22] MEDS: ACETAMINOPHEN 325 MG TABLET (FP) PO PRN (21:03)
[2018-12-23] MEDS ORDERED: PIPERACILLIN/TAZOBACTAM 4.5 GM VIAL IVPB ONE ×3 (00:54→17:43)
[2018-12-23] MEDS ORDERED: DEXTROSE 5%-WATER 100 ML IVPB ONE ×4 (00:54→17:43)
[2018-12-23] MEDS: PIPERACILLIN/TAZOB 4.5 GM 4.5 GM in DEXTROSE 5%-WATER 100 ML IVPB SCH ×4 (01:16→20:41)
[2018-12-23 08:38] LABS: HEMATOCRIT 40.2 % (35.4-49); HEMOGLOBIN 13.2 GM/dL (11.7-16.9); MCH 27.6 pg (25.7-33.7); MCHC 32.9 g/dl (32.0-35.9); MEAN CELL VOLUME 83.9 fl (80-96); MEAN PLT VOLUME 7.4 fl (7.5-11.1); PLATELET COUNT 331 K/MM3 (134-434); RBC 4.79 M/mm3 (4.00-5.60); RDW 17.5 % (11.9-15.9); WHITE BLOOD COUNT 10.9 K/mm3 (4.0-10.0)
[2018-12-23 08:53] LABS: BILIRUBIN,TOTAL 0.4 mg/dL (0.2-1); BLOOD UREA NITROGEN 25.9 mg/dL (7-18); CALCIUM 8.5 mg/dL (8.5-10.1); CREATININE 1.7 mg/dL (0.55-1.3); POTASSIUM 4.2 mmol/L (3.5-5.1); TOT PROT 7.3 g/dl (6.4-8.2)
[2018-12-23 09:05] LABS: INR 1.87 (0.83-1.09); PROTHROMBIN TIME (PATIENT) 22.2 SEC (9.7-13.0)
[2018-12-23] MEDS ORDERED: PT OWN MED DRAWER 7, Y5N ONE (09:21)
[2018-12-23] MEDS: ALLOPURINOL 100 MG TABLET (FP) PO SCH (09:23)
[2018-12-23] MEDS: FUROSEMIDE 40 MG TABLET (FP) PO SCH (09:24)
[2018-12-23] MEDS: LORATADINE 10 MG TABLET PO SCH (09:24)
[2018-12-23] MEDS: LACTOBACILLUS ACIDOPHILUS 1 TABLET PO SCH (09:24)
[2018-12-23] MEDS: NYSTATIN/TRIAMCINOLONE TOPICAL CREAM 15 GM TUBE TP SCH ×2 (09:29→21:09)
--- NOTE | 2018-12-23 14:40 | PN ---
Progress Note, Physician Chief Complaint: Left Facial Cellulitis A-fib History of Present Illness: Previous notes and events reviewed awake and alert NAD facial cellulitis improving no leukocytosis afebrile - Current Medication List Current Medications: Active Medications Acetaminophen (Tylenol -) 650 mg PO Q4H PRN PRN Reason: PAIN LEVEL 1-5 Last Admin: 12/22/18 21:03 Dose: 650 mg Allopurinol (Zyloprim -) 100 mg PO DAILY [facility] Last Admin: 12/23/18 09:23 Dose: 100 mg Diltiazem HCl (Cardizem Cd -) 180 mg PO DAILY [facility] Last Admin: 12/23/18 09:24 Dose: 180 mg Furosemide (Lasix -) 40 mg PO DAILY [facility] Last Admin: 12/23/18 09:24 Dose: 40 mg Piperacillin Sod/Tazobactam (Sod 4.5 gm/ Dextrose) 100 mls @ 200 mls/hr IVPB Q8H-IV [facility]; Protocol Last Admin: 12/23/18 09:23 Dose: 200 mls/hr Vancomycin HCl (Vancomycin (Pre-Docked)) 1,000 mg in 250 mls @ 166.667 mls/hr IVPB Q24H [facility]; Protocol Last Admin: 12/22/18 18:28 Dose: 166.667 mls/hr Lactobacillus Acidophilus (Bacid -) 1 tab PO DAILY [facility] Last Admin: 12/23/18 09:24 Dose: 1 tab Loratadine (Claritin -) 10 mg PO DAILY [facility] Last Admin: 12/23/18 09:24 Dose: 10 mg Nystatin/Triamcinolone Acetonide (Mycolog Ii Cream -) 1 applic TP BID [facility] Last Admin: 12/23/18 09:29 Dose: 1 applic Sodium Chloride ([place] Nasal [place] -) 2 spray NS TID PRN PRN Reason: NASAL CONGESTION Last Admin: 12/17/18 10:32 Dose: 2 spray Warfarin Sodium (Coumadin -) 4 mg PO DAILY@1800 [facility] Last Admin: 12/22/18 17:44 Dose: 4 mg - Objective Vital Signs: Vital Signs Temperature 97.5 F L 12/23/18 13:27 Pulse Rate 93 H 12/23/18 13:27 Respiratory Rate 20 12/23/18 13:27 Blood Pressure 142/63 12/23/18 13:27 O2 Sat by Pulse Oximetry (%) 96 12/23/18 09:00 Constitutional: Yes: No Distress, Calm Eyes: Yes: Conjunctiva Clear HENT: Yes: Atraumatic Cardiovascular: Yes: Regular Rate and Rhythm Respiratory: Yes: Regular, CTA Bilaterally Gastrointestinal: Yes: Normal Bowel Sounds, Soft Musculoskeletal: Yes: WNL Extremities: Yes: WNL Edema: No Neurological: Yes: Alert, Oriented Psychiatric: Yes: Alert, Oriented Labs: CBC, BMP 12/23/18 07:43 12/23/18 07:43 INR, PTT INR 1.87 (0.83-1.09) H 12/23/18 07:43 Microbiology 12/16/18 13:45 Blood - Peripheral Venous Blood Culture - Final NO GROWTH AFTER 5 DAYS INCUBATION 12/16/18 13:45 Blood - Peripheral Venous Blood Culture - Final NO GROWTH AFTER 5 DAYS INCUBATION 12/16/18 17:28 Urine - Urine Clean Catch Urine Culture - Final NO GROWTH OBTAINED Problem List - Problems (1) CHF (congestive heart failure) Assessment/Plan: -Lasix -1L fluid restriction -daily weights -low Na diet Code(s): I50.9 - HEART FAILURE, UNSPECIFIED (2) CKD (chronic kidney disease) Assessment/Plan: -BUN/Cr 25.9/1.7 -renal on board -monitor renal function Code(s): N18.9 - CHRONIC KIDNEY DISEASE, UNSPECIFIED (3) Cellulitis of face Assessment/Plan: -ID on board and recommendation appreciated -no leukocytosis -afebrile -Vancomycin, Zosyn -ENT on board -warm compress -Facial CT shows peridontal disease, moderate soft tissue swelling over the left cheek and mild to moderate left periorbital soft tissue swelling -will need to see oral surgeon as outpatient Code(s): L03.211 - CELLULITIS OF FACE (4) Atrial fibrillation Assessment/Plan: -Coumadin -monitor INR daily -keep INR therapeutic range 2-3 -INR 1.87 Code(s): I48.91 - UNSPECIFIED ATRIAL FIBRILLATION Qualifiers: Atrial fibrillation type: chronic Qualified Code(s): I48.2 - Chronic atrial fibrillation (5) HTN (hypertension) Assessment/Plan: -Diltiazem -low Na diet Code(s): I10 - ESSENTIAL (PRIMARY) HYPERTENSION Assessment/Plan see problem list will begin d/c planning when switched to PO antibiotics will need to see oral surgeon
[2018-12-23] MEDS: VANCOMYCIN 1 GRAM (PRE-DOCKED) 1,000 MG/250 ML BAG IVPB SCH (16:54)
[2018-12-23] MEDS: WARFARIN NA 2 MG TABLET (UD) PO SCH (17:49)
--- NOTE | 2018-12-23 18:30 | PN ---
Progress Note (short form) - Note Progress Note: covering dr marie problems 1. PHILL 2. a-fib 3. hx pleural effusion 4. HLD 5. CHF 6. HTN 7. Gout 8. facial cellulitis 9. lactic acidosis Current Medications Acetaminophen (Tylenol -) 650 mg PO Q4H PRN PRN Reason: PAIN LEVEL 1-5 Last Admin: 12/22/18 21:03 Dose: 650 mg Allopurinol (Zyloprim -) 100 mg PO DAILY ILYA Last Admin: 12/23/18 09:23 Dose: 100 mg Diltiazem HCl (Cardizem Cd -) 180 mg PO DAILY ILYA Last Admin: 12/23/18 09:24 Dose: 180 mg Furosemide (Lasix -) 40 mg PO DAILY ILYA Last Admin: 12/23/18 09:24 Dose: 40 mg Piperacillin Sod/Tazobactam (Sod 4.5 gm/ Dextrose) 100 mls @ 200 mls/hr IVPB Q8H-IV ILYA; Protocol Last Admin: 12/23/18 09:23 Dose: 200 mls/hr Vancomycin HCl (Vancomycin (Pre-Docked)) 1,000 mg in 250 mls @ 166.667 mls/hr IVPB Q24H ILYA; Protocol Last Admin: 12/23/18 16:54 Dose: 166.667 mls/hr Lactobacillus Acidophilus (Bacid -) 1 tab PO DAILY ILYA Last Admin: 12/23/18 09:24 Dose: 1 tab Loratadine (Claritin -) 10 mg PO DAILY ILYA Last Admin: 12/23/18 09:24 Dose: 10 mg Nystatin/Triamcinolone Acetonide (Mycolog Ii Cream -) 1 applic TP BID ILYA Last Admin: 12/23/18 09:29 Dose: 1 applic Sodium Chloride ([place] Nasal [place] -) 2 spray NS TID PRN PRN Reason: NASAL CONGESTION Last Admin: 12/17/18 10:32 Dose: 2 spray Warfarin Sodium (Coumadin -) 4 mg PO DAILY@1800 ILYA Last Admin: 12/23/18 17:49 Dose: 4 mg Vital Signs Temperature 97.5 F L 12/23/18 13:27 Pulse Rate 93 H 12/23/18 13:27 Respiratory Rate 20 12/23/18 13:27 Blood Pressure 142/63 12/23/18 13:27 O2 Sat by Pulse Oximetry (%) 96 12/23/18 09:00 CBC, BMP 12/23/18 07:43 12/23/18 07:43 IMP azotemia stable, not worse Plan-continue present mgmt
[2018-12-23] MEDS: ACETAMINOPHEN 325 MG TABLET (FP) PO PRN (21:25)
[2018-12-24] MEDS ORDERED: PIPERACILLIN/TAZOBACTAM 4.5 GM VIAL IVPB ONE ×3 (02:33→17:46)
[2018-12-24] MEDS ORDERED: DEXTROSE 5%-WATER 100 ML IVPB ONE ×3 (02:33→17:47)
[2018-12-24] MEDS: PIPERACILLIN/TAZOB 4.5 GM 4.5 GM in DEXTROSE 5%-WATER 100 ML IVPB SCH ×3 (04:00→18:26)
[2018-12-24 08:11] LABS: HEMATOCRIT 40.7 % (35.4-49); MEAN CELL VOLUME 84.4 fl (80-96); MEAN PLT VOLUME 7.4 fl (7.5-11.1); PLATELET COUNT 283 K/MM3 (134-434); RBC 4.82 M/mm3 (4.00-5.60); RDW 17.6 % (11.9-15.9); WHITE BLOOD COUNT 8.6 K/mm3 (4.0-10.0)
[2018-12-24 08:12] LABS: INR 1.72 (0.83-1.09); PROTHROMBIN TIME (PATIENT) 20.4 SEC (9.7-13.0)
[2018-12-24 08:40] LABS: ALBUMIN 2.9 g/dl (3.4-5.0); BILIRUBIN,TOTAL 0.4 mg/dL (0.2-1); BLOOD UREA NITROGEN 27.8 mg/dL (7-18); CALCIUM 8.6 mg/dL (8.5-10.1); CREATININE 1.6 mg/dL (0.55-1.3); TOT PROT 7.3 g/dl (6.4-8.2)
[2018-12-24] MEDS ORDERED: PT OWN MED DRAWER 7, Y5N ONE (09:43)
[2018-12-24] MEDS: LORATADINE 10 MG TABLET PO SCH (09:48)
[2018-12-24] MEDS: ALLOPURINOL 100 MG TABLET (FP) PO SCH (09:48)
[2018-12-24] MEDS: FUROSEMIDE 40 MG TABLET (FP) PO SCH (09:48)
[2018-12-24] MEDS: LACTOBACILLUS ACIDOPHILUS 1 TABLET PO SCH (09:48)
[2018-12-24] MEDS: NYSTATIN/TRIAMCINOLONE TOPICAL CREAM 15 GM TUBE TP SCH ×2 (09:50→21:27)
--- NOTE | 2018-12-24 13:52 | DS ---
Physical Examination Vital Signs: Vital Signs Temperature 98.1 F 12/24/18 09:00 Pulse Rate 74 12/24/18 09:00 Respiratory Rate 20 12/24/18 09:00 Blood Pressure 108/73 12/24/18 09:00 O2 Sat by Pulse Oximetry (%) 98 12/24/18 09:00 Findings/Remarks: Laboratory Tests 12/16/18 12/16/18 12/16/18 13:45 13:45 13:45 WBC 13.9 H RBC 5.05 Hgb 13.5 Hct 42.5 D MCV 84.1 MCH 26.8 MCHC 31.9 L RDW 17.8 H Plt Count 336 MPV 7.1 L Absolute Neuts (auto) 11.1 H Neutrophils % 79.7 Lymphocytes % 10.3 Monocytes % 7.2 Eosinophils % 2.2 D Basophils % 0.6 Nucleated RBC % 0 PT with INR INR VBG pH POC VBG pCO2 POC VBG pO2 VBG HCO3 VBG O2 Sat (Jailene) VBG Base Excess Sodium 138 Potassium 4.9 Chloride 104 Carbon Dioxide 28 Anion Gap 6 L BUN 30.5 H Creatinine 1.7 H Est GFR (CKD-EPI)AfAm 44.73 Est GFR (CKD-EPI)NonAf 38.59 Random Glucose 96 Lactic Acid 4.1 H* Calcium 8.9 Total Bilirubin 0.5 AST 13 L ALT 18 Alkaline Phosphatase 126 H Total Protein 7.8 Albumin 3.6 Urine Color Urine Appearance Urine pH Ur Specific [place] Urine Protein Urine Glucose (UA) Urine Ketones Urine Blood Urine Nitrite Urine Bilirubin Urine Urobilinogen Ur Leukocyte Esterase Vancomycin Pre-Dose 12/16/18 12/16/18 12/16/18 13:45 14:45 19:00 WBC RBC Hgb Hct MCV MCH MCHC RDW Plt Count MPV Absolute Neuts (auto) Neutrophils % Lymphocytes % Monocytes % Eosinophils % Basophils % Nucleated RBC % PT with INR 29.70 H INR 2.49 H VBG pH 7.35 POC VBG pCO2 47.3 POC VBG pO2 < 49 H VBG HCO3 25.6 VBG O2 Sat (Jailene) 39.8 L VBG Base Excess 0.1 Sodium Potassium Chloride Carbon Dioxide Anion Gap BUN Creatinine Est GFR (CKD-EPI)AfAm Est GFR (CKD-EPI)NonAf Random Glucose Lactic Acid 3.0 H* Calcium Total Bilirubin AST ALT Alkaline Phosphatase Total Protein Albumin Urine Color Urine Appearance Urine pH Ur Specific [place] Urine Protein Urine Glucose (UA) Urine Ketones Urine Blood Urine Nitrite Urine Bilirubin Urine Urobilinogen Ur Leukocyte Esterase Vancomycin Pre-Dose 12/17/18 12/17/18 12/17/18 07:49 07:49 07:49 WBC 11.3 H RBC 4.60 Hgb 12.5 Hct 38.1 MCV 82.8 MCH 27.2 MCHC 32.9 RDW 17.3 H Plt Count 308 MPV 7.1 L Absolute Neuts (auto) Neutrophils % Lymphocytes % Monocytes % Eosinophils % Basophils % Nucleated RBC % PT with INR 24.20 H INR 2.04 H VBG pH POC VBG pCO2 POC VBG pO2 VBG HCO3 VBG O2 Sat (Jailene) VBG Base Excess Sodium 137 Potassium 4.4 Chloride 105 Carbon Dioxide 23 Anion Gap 9 BUN 26.6 H Creatinine 1.3 Est GFR (CKD-EPI)AfAm 61.86 Est GFR (CKD-EPI)NonAf 53.37 Random Glucose 169 H Lactic Acid Calcium 8.4 L Total Bilirubin AST ALT Alkaline Phosphatase Total Protein Albumin Urine Color Urine Appearance Urine pH Ur Specific [place] Urine Protein Urine Glucose (UA) Urine Ketones Urine Blood Urine Nitrite Urine Bilirubin Urine Urobilinogen Ur Leukocyte Esterase Vancomycin Pre-Dose 12/18/18 12/18/18 12/18/18 06:40 06:40 06:40 WBC 14.1 H RBC 4.58 Hgb 12.4 Hct 37.8 MCV 82.6 MCH 27.1 MCHC 32.8 RDW 17.7 H Plt Count 317 MPV 7.1 L Absolute Neuts (auto) Neutrophils % Lymphocytes % Monocytes % Eosinophils % Basophils % Nucleated RBC % PT with INR 29.80 H INR 2.50 H VBG pH POC VBG pCO2 POC VBG pO2 VBG HCO3 VBG O2 Sat (Jailene) VBG Base Excess Sodium 138 Potassium 4.6 Chloride 105 Carbon Dioxide 26 Anion Gap 7 L BUN 39.8 H Creatinine 1.5 H Est GFR (CKD-EPI)AfAm 52.03 Est GFR (CKD-EPI)NonAf 44.89 Random Glucose 120 H Lactic Acid Calcium 8.3 L Total Bilirubin AST ALT Alkaline Phosphatase Total Protein Albumin Urine Color Urine Appearance Urine pH Ur Specific [place] Urine Protein Urine Glucose (UA) Urine Ketones Urine Blood Urine Nitrite Urine Bilirubin Urine Urobilinogen Ur Leukocyte Esterase Vancomycin Pre-Dose 12/18/18 12/19/18 12/19/18 16:35 07:30 07:30 WBC 12.0 H RBC 4.79 Hgb 13.0 Hct 39.5 MCV 82.6 MCH 27.3 MCHC 33.0 RDW 17.8 H Plt Count 320 MPV 7.0 L Absolute Neuts (auto) 9.3 H Neutrophils % 77.4 Lymphocytes % 11.5 Monocytes % 8.4 Eosinophils % 2.1 Basophils % 0.6 Nucleated RBC % 0 PT with INR INR VBG pH POC VBG pCO2 POC VBG pO2 VBG HCO3 VBG O2 Sat (Jailene) VBG Base Excess Sodium 137 Potassium 4.1 Chloride 102 Carbon Dioxide 24 Anion Gap 11 BUN 31.7 H Creatinine 1.6 H Est GFR (CKD-EPI)AfAm 48.13 Est GFR (CKD-EPI)NonAf 41.53 Random Glucose 108 H Lactic Acid 1.1 Calcium 7.7 L Total Bilirubin 0.7 AST 12 L ALT 16 Alkaline Phosphatase 98 Total Protein 7.0 Albumin 3.1 L Urine Color Urine Appearance Urine pH Ur Specific [place] Urine Protein Urine Glucose (UA) Urine Ketones Urine Blood Urine Nitrite Urine Bilirubin Urine Urobilinogen Ur Leukocyte Esterase Vancomycin Pre-Dose 12/19/18 12/19/18 12/19/18 07:30 14:00 18:00 WBC RBC Hgb Hct MCV MCH MCHC RDW Plt Count MPV Absolute Neuts (auto) Neutrophils % Lymphocytes % Monocytes % Eosinophils % Basophils % Nucleated RBC % PT with INR 24.70 H INR 2.08 H VBG pH POC VBG pCO2 POC VBG pO2 VBG HCO3 VBG O2 Sat (Jailene) VBG Base Excess Sodium Potassium Chloride Carbon Dioxide Anion Gap BUN Creatinine Est GFR (CKD-EPI)AfAm Est GFR (CKD-EPI)NonAf Random Glucose Lactic Acid 1.5 Calcium Total Bilirubin AST ALT Alkaline Phosphatase Total Protein Albumin Urine Color Yellow Urine Appearance Clear Urine pH 6.0 Ur Specific [place] 1.008 L Urine Protein Negative Urine Glucose (UA) Negative Urine Ketones Negative Urine Blood Negative Urine Nitrite Negative Urine Bilirubin Negative Urine Urobilinogen 0.2 Ur Leukocyte Esterase Negative Vancomycin Pre-Dose 12/20/18 12/20/18 12/20/18 11:55 11:55 11:55 WBC 12.9 H RBC 4.82 Hgb 13.1 Hct 40.2 MCV 83.2 MCH 27.2 MCHC 32.7 RDW 17.8 H Plt Count 304 MPV 6.9 L Absolute Neuts (auto) 9.9 H Neutrophils % 76.7 Lymphocytes % 10.1 Monocytes % 8.5 Eosinophils % 4.1 D Basophils % 0.6 Nucleated RBC % 0 PT with INR 22.20 H INR 1.87 H VBG pH POC VBG pCO2 POC VBG pO2 VBG HCO3 VBG O2 Sat (Jailene) VBG Base Excess Sodium 137 Potassium 4.1 Chloride 102 Carbon Dioxide 27 Anion Gap 9 BUN 29.9 H Creatinine 1.6 H Est GFR (CKD-EPI)AfAm 48.13 Est GFR (CKD-EPI)NonAf 41.53 Random Glucose 88 Lactic Acid Calcium 7.7 L Total Bilirubin 0.7 AST 15 ALT 22 Alkaline Phosphatase 93 Total Protein 6.8 Albumin 2.8 L Urine Color Urine Appearance Urine pH Ur Specific [place] Urine Protein Urine Glucose (UA) Urine Ketones Urine Blood Urine Nitrite Urine Bilirubin Urine Urobilinogen Ur Leukocyte Esterase Vancomycin Pre-Dose 12/20/18 12/21/18 12/22/18 16:30 11:40 07:10 WBC 9.9 RBC 4.61 Hgb 12.7 Hct 38.2 MCV 83.0 MCH 27.6 MCHC 33.3 RDW 17.5 H Plt Count 295 MPV 7.2 L Absolute Neuts (auto) Neutrophils % Lymphocytes % Monocytes % Eosinophils % Basophils % Nucleated RBC % PT with INR 23.50 H INR 1.98 H VBG pH POC VBG pCO2 POC VBG pO2 VBG HCO3 VBG O2 Sat (Jailene) VBG Base Excess Sodium Potassium Chloride Carbon Dioxide Anion Gap BUN Creatinine Est GFR (CKD-EPI)AfAm Est GFR (CKD-EPI)NonAf Random Glucose Lactic Acid Calcium Total Bilirubin AST ALT Alkaline Phosphatase Total Protein Albumin Urine Color Urine Appearance Urine pH Ur Specific [place] Urine Protein Urine Glucose (UA) Urine Ketones Urine Blood Urine Nitrite Urine Bilirubin Urine Urobilinogen Ur Leukocyte Esterase Vancomycin Pre-Dose 17.4 L 12/22/18 12/22/18 12/23/18 07:10 07:10 07:43 WBC RBC Hgb Hct MCV MCH MCHC RDW Plt Count MPV Absolute Neuts (auto) Neutrophils % Lymphocytes % Monocytes % Eosinophils % Basophils % Nucleated RBC % PT with INR 23.20 H 22.20 H INR 1.95 H 1.87 H VBG pH POC VBG pCO2 POC VBG pO2 VBG HCO3 VBG O2 Sat (Jailene) VBG Base Excess Sodium 135 L Potassium 4.3 Chloride 101 Carbon Dioxide 26 Anion Gap 9 BUN 27.1 H Creatinine 1.7 H Est GFR (CKD-EPI)AfAm 44.73 Est GFR (CKD-EPI)NonAf 38.59 Random Glucose 109 H Lactic Acid Calcium 8.1 L Total Bilirubin 0.9 AST 20 ALT 27 Alkaline Phosphatase 93 Total Protein 6.7 Albumin 2.9 L Urine Color Urine Appearance Urine pH Ur Specific [place] Urine Protein Urine Glucose (UA) Urine Ketones Urine Blood Urine Nitrite Urine Bilirubin Urine Urobilinogen Ur Leukocyte Esterase Vancomycin Pre-Dose 12/23/18 12/23/18 12/24/18 07:43 07:43 07:11 WBC 10.9 H RBC 4.79 Hgb 13.2 Hct 40.2 MCV 83.9 MCH 27.6 MCHC 32.9 RDW 17.5 H Plt Count 331 MPV 7.4 L Absolute Neuts (auto) Neutrophils % Lymphocytes % Monocytes % Eosinophils % Basophils % Nucleated RBC % PT with INR 20.40 H INR 1.72 H VBG pH POC VBG pCO2 POC VBG pO2 VBG HCO3 VBG O2 Sat (Jailene) VBG Base Excess Sodium 138 Potassium 4.2 Chloride 101 Carbon Dioxide 25 Anion Gap 12 BUN 25.9 H Creatinine 1.7 H Est GFR (CKD-EPI)AfAm 44.73 Est GFR (CKD-EPI)NonAf 38.59 Random Glucose 101 Lactic Acid Calcium 8.5 Total Bilirubin 0.4 AST 16 ALT 28 Alkaline Phosphatase 96 Total Protein 7.3 Albumin 3.0 L Urine Color Urine Appearance Urine pH Ur Specific [place] Urine Protein Urine Glucose (UA) Urine Ketones Urine Blood Urine Nitrite Urine Bilirubin Urine Urobilinogen Ur Leukocyte Esterase Vancomycin Pre-Dose 12/24/18 12/24/18 07:11 07:11 WBC 8.6 RBC 4.82 Hgb 13.0 Hct 40.7 MCV 84.4 MCH 27.0 MCHC 32.0 RDW 17.6 H Plt Count 283 MPV 7.4 L Absolute Neuts (auto) Neutrophils % Lymphocytes % Monocytes % Eosinophils % Basophils % Nucleated RBC % PT with INR INR VBG pH POC VBG pCO2 POC VBG pO2 VBG HCO3 VBG O2 Sat (Jailene) VBG Base Excess Sodium 136 Potassium 5.0 Chloride 102 Carbon Dioxide 25 Anion Gap 8 BUN 27.8 H Creatinine 1.6 H Est GFR (CKD-EPI)AfAm 48.13 Est GFR (CKD-EPI)NonAf 41.53 Random Glucose 100 Lactic Acid Calcium 8.6 Total Bilirubin 0.4 AST 25 ALT 26 Alkaline Phosphatase 91 Total Protein 7.3 Albumin 2.9 L Urine Color Urine Appearance Urine pH Ur Specific [place] Urine Protein Urine Glucose (UA) Urine Ketones Urine Blood Urine Nitrite Urine Bilirubin Urine Urobilinogen Ur Leukocyte Esterase Vancomycin Pre-Dose Active Medications Generic Name Dose Route Start Last Admin Trade Name Freq PRN Reason Stop Dose Admin Acetaminophen 650 mg 12/16/18 21:02 12/23/18 21:25 Tylenol - PO 650 mg Q4H PRN Administration PAIN LEVEL 1-5 Allopurinol 100 mg 12/17/18 10:00 12/24/18 09:48 Zyloprim - PO 100 mg DAILY ILYA Administration Diltiazem HCl 180 mg 12/17/18 10:00 12/24/18 09:48 Cardizem Cd - PO 180 mg DAILY ILYA Administration Furosemide 40 mg 12/18/18 15:00 12/24/18 09:48 Lasix - PO 40 mg DAILY ILYA Administration Piperacillin Sod/Tazobactam 100 mls @ 200 mls/hr 12/18/18 16:00 12/24/18 09: 48 Sod 4.5 gm/ Dextrose IVPB 200 mls/hr Q8H-IV ILYA Administration Protocol Vancomycin HCl 1,000 mg in 250 mls @ 166.667 mls/hr 12/22/18 17:00 12/23/18 16:54 Vancomycin (Pre-Docked) IVPB 166.667 mls/hr Q24H ILYA Administration Protocol Lactobacillus Acidophilus 1 tab 12/17/18 12:15 12/24/18 09:48 Bacid - PO 1 tab DAILY ILYA Administration Loratadine 10 mg 12/17/18 10:00 12/24/18 09:48 Claritin - PO 10 mg DAILY ILYA Administration Nystatin/Triamcinolone Acetonide 1 applic 12/21/18 10:45 12/24/18 09:50 Mycolog Ii Cream - TP 1 applic BID ILYA Administration Sodium Chloride 2 spray 12/17/18 09:59 12/17/18 10:32 [place] Nasal [place] - NS 2 spray TID PRN Administration NASAL CONGESTION Warfarin Sodium 4 mg 12/17/18 18:00 12/23/18 17:49 Coumadin - PO 4 mg DAILY@1800 ILYA Administration Microbiology 12/16/18 13:45 Blood - Peripheral Venous Blood Culture - Final NO GROWTH AFTER 5 DAYS INCUBATION 12/16/18 13:45 Blood - Peripheral Venous Blood Culture - Final NO GROWTH AFTER 5 DAYS INCUBATION 12/16/18 17:28 Urine - Urine Clean Catch Urine Culture - Final NO GROWTH OBTAINED Constitutional: Yes: No Distress, Calm Eyes: Yes: Conjunctiva Clear HENT: Yes: Atraumatic Cardiovascular: Yes: Regular Rate and Rhythm Respiratory: Yes: Regular, CTA Bilaterally Gastrointestinal: Yes: Normal Bowel Sounds, Soft Musculoskeletal: Yes: WNL Extremities: Yes: WNL Edema: No Neurological: Yes: Alert, Oriented Psychiatric: Yes: Alert, Oriented Labs: CBC, BMP 12/24/18 07:11 12/24/18 07:11 Discharge Summary Problems reviewed: Yes Reason For Visit: CELLULITIS OF FACE Current Active Problems CHF (congestive heart failure) (Acute) CKD (chronic kidney disease) (Acute) Cellulitis of face (Acute) Chronic rhinitis (Acute) Impacted cerumen of both ears (Acute) Tinnitus (Acute) Hospital Course: Patient is a 73 y/o male with past medical history of HTN, A-fib, CHF, and gout. Patient presented to ER with complaints of left facial swelling. Prior coming to ER patient was seen by dentist who prescribed antibiotics and treating patient for abscess. While admitted patient was treated with IV antibiotics and followed by ID and ENT. Patient on discharge will received PO antibiotics and follow up with oral surgeon as outpatient. Condition: Stable - Instructions Diet, Activity, Other Instructions: Follow up with PMD in 1 week of discharge Follow up with collar fuser Dr Rodríguez Follow up with ENT Dr Ray Needs to follow up with Dental surgeon immediately after discharge continue with antibiotics as prescribed returnt to ER if develop chest pain, respiratory distress, fever, AMS Referrals: Hua Rodríguez MD [Staff Physician] - Pradeep Ray MD [Staff Physician] - Disposition: HOME - Home Medications Comprehensive Discharge Medication List: Ambulatory Orders Allopurinol [Zyloprim -] 100 mg PO DAILY #30 tablet 05/26/18 Diltiazem Cd [Cardizem Cd -] 180 mg PO DAILY cap.cd.24h 05/26/18 oxyCODONE HCL [Roxicodone -] 5 mg PO Q6H PRN #20 tablet MDD 4 05/26/18 Furosemide [Lasix] 40 mg PO ASDIR 12/16/18 Warfarin Na [Coumadin -] 4 mg PO ASDIR 12/16/18 Cefuroxime Axetil [Ceftin -] 500 mg PO Q12H #14 tablet 12/24/18 Clindamycin HCl [Cleocin HCl] 300 mg PO TID #21 capsule 12/24/18 Lactobacillus Acidophilus [Bacid -] 1 tab PO DAILY #30 tab 12/24/18 Loratadine [Claritin -] 10 mg PO DAILY #14 tablet 12/24/18 Nystatin/Triamcinolone Top Cr [Mycolog II -] 1 applic TP BID #1 tube 12/24/18 Sodium Chloride Nasal [place] [[place] Nasal [place] -] 2 spray NS TID PRN #1 spray 12/24/18 Warfarin Na [Coumadin -] 4 mg PO DAILY@1800 #60 tablet 12/24/18
[2018-12-24] MEDS: VANCOMYCIN 1 GRAM (PRE-DOCKED) 1,000 MG/250 ML BAG IVPB SCH (16:02)
--- NOTE | 2018-12-24 17:09 | PN ---
Progress Note, Physician History of Present Illness: AWAKE, ALERT OFFERS NO COMPLAINTS OF FACIAL PAIN REPORTS SWELLING MUCH IMPROVED AFEBRILE WBC WNL - Current Medication List Current Medications: Active Medications Acetaminophen (Tylenol -) 650 mg PO Q4H PRN PRN Reason: PAIN LEVEL 1-5 Last Admin: 12/23/18 21:25 Dose: 650 mg Allopurinol (Zyloprim -) 100 mg PO DAILY ILYA Last Admin: 12/24/18 09:48 Dose: 100 mg Diltiazem HCl (Cardizem Cd -) 180 mg PO DAILY ILYA Last Admin: 12/24/18 09:48 Dose: 180 mg Furosemide (Lasix -) 40 mg PO DAILY ILYA Last Admin: 12/24/18 09:48 Dose: 40 mg Piperacillin Sod/Tazobactam (Sod 4.5 gm/ Dextrose) 100 mls @ 200 mls/hr IVPB Q8H-IV ILYA; Protocol Last Admin: 12/24/18 09:48 Dose: 200 mls/hr Vancomycin HCl (Vancomycin (Pre-Docked)) 1,000 mg in 250 mls @ 166.667 mls/hr IVPB Q24H ILYA; Protocol Last Admin: 12/24/18 16:02 Dose: 166.667 mls/hr Lactobacillus Acidophilus (Bacid -) 1 tab PO DAILY ILYA Last Admin: 12/24/18 09:48 Dose: 1 tab Loratadine (Claritin -) 10 mg PO DAILY ILYA Last Admin: 12/24/18 09:48 Dose: 10 mg Nystatin/Triamcinolone Acetonide (Mycolog Ii Cream -) 1 applic TP BID [facility] Last Admin: 12/24/18 09:50 Dose: 1 applic Sodium Chloride ([place] Nasal [place] -) 2 spray NS TID PRN PRN Reason: NASAL CONGESTION Last Admin: 12/17/18 10:32 Dose: 2 spray Warfarin Sodium (Coumadin -) 4 mg PO DAILY@1800 ILYA Last Admin: 12/23/18 17:49 Dose: 4 mg - Objective Vital Signs: Vital Signs Temperature 98.1 F 12/24/18 09:00 Pulse Rate 74 12/24/18 09:00 Respiratory Rate 20 12/24/18 09:00 Blood Pressure 108/73 12/24/18 09:00 O2 Sat by Pulse Oximetry (%) 98 12/24/18 09:00 Constitutional: Yes: No Distress HENT: Yes: Other (MINIMAL L FACIAL SWELLING) Cardiovascular: Yes: Regular Rate and Rhythm, S1, S2 Respiratory: Yes: CTA Bilaterally Gastrointestinal: Yes: Normal Bowel Sounds, Soft. No: Tenderness Labs: CBC, BMP 12/24/18 07:11 12/24/18 07:11 INR, PTT INR 1.72 (0.83-1.09) H 12/24/18 07:11 Assessment/Plan FACIAL CELLULITIS IMPROVED ? DENTAL ABSCESS CONTINUE ALEIDAO / EMILIE FOR DENTAL EVAL THIS WEEK
[2018-12-24] MEDS: WARFARIN NA 2 MG TABLET (UD) PO SCH (18:01)
[2018-12-25] MEDS ORDERED: PIPERACILLIN/TAZOBACTAM 4.5 GM VIAL IVPB ONE ×2 (02:57→09:50)
[2018-12-25] MEDS ORDERED: DEXTROSE 5%-WATER 100 ML IVPB ONE ×2 (02:57→09:50)
[2018-12-25] MEDS: PIPERACILLIN/TAZOB 4.5 GM 4.5 GM in DEXTROSE 5%-WATER 100 ML IVPB SCH ×2 (03:01→10:22)
[2018-12-25 05:43] VITALS: TEMP 98.5
[2018-12-25 08:39] LABS: HEMATOCRIT 39.9 % (35.4-49); HEMOGLOBIN 13.1 GM/dL (11.7-16.9); MCH 27.4 pg (25.7-33.7); MCHC 32.9 g/dl (32.0-35.9); MEAN CELL VOLUME 83.4 fl (80-96); MEAN PLT VOLUME 7.2 fl (7.5-11.1); PLATELET COUNT 294 K/MM3 (134-434); RBC 4.79 M/mm3 (4.00-5.60); RDW 17.8 % (11.9-15.9); WHITE BLOOD COUNT 9.4 K/mm3 (4.0-10.0)
[2018-12-25 09:04] LABS: INR 1.72 (0.83-1.09); PROTHROMBIN TIME (PATIENT) 20.4 SEC (9.7-13.0)
[2018-12-25 09:21] LABS: BILIRUBIN,TOTAL 0.3 mg/dL (0.2-1); CALCIUM 8.5 mg/dL (8.5-10.1); CREATININE 1.8 mg/dL (0.55-1.3); POTASSIUM 4.5 mmol/L (3.5-5.1); TOT PROT 7.2 g/dl (6.4-8.2)
[2018-12-25] MEDS: LORATADINE 10 MG TABLET PO SCH (10:21)
[2018-12-25] MEDS: NYSTATIN/TRIAMCINOLONE TOPICAL CREAM 15 GM TUBE TP SCH (10:21)
[2018-12-25] MEDS: LACTOBACILLUS ACIDOPHILUS 1 TABLET PO SCH (10:21)
[2018-12-25] MEDS: FUROSEMIDE 40 MG TABLET (FP) PO SCH (10:21)
[2018-12-25] MEDS: ALLOPURINOL 100 MG TABLET (FP) PO SCH (10:21)
[2018-12-25 11:15] VITALS: BP 110/59; PULSE 98
--- NOTE | 2018-12-25 11:15 | PN ---
Progress Note, Physician Chief Complaint: Left Facial Cellulitis A-fib History of Present Illness: Previous notes and events reviewed awake and alert NAD facial cellulitis improving no leukocytosis afebrile patient to be discharged today - Current Medication List Current Medications: Active Medications Acetaminophen (Tylenol -) 650 mg PO Q4H PRN PRN Reason: PAIN LEVEL 1-5 Last Admin: 12/23/18 21:25 Dose: 650 mg Allopurinol (Zyloprim -) 100 mg PO DAILY ILYA Last Admin: 12/25/18 10:21 Dose: 100 mg Diltiazem HCl (Cardizem Cd -) 180 mg PO DAILY ILYA Last Admin: 12/25/18 10:20 Dose: 180 mg Furosemide (Lasix -) 40 mg PO DAILY ILYA Last Admin: 12/25/18 10:21 Dose: 40 mg Piperacillin Sod/Tazobactam (Sod 4.5 gm/ Dextrose) 100 mls @ 200 mls/hr IVPB Q8H-IV ILYA; Protocol Last Admin: 12/25/18 10:22 Dose: 200 mls/hr Vancomycin HCl (Vancomycin (Pre-Docked)) 1,000 mg in 250 mls @ 166.667 mls/hr IVPB Q24H ILYA; Protocol Last Admin: 12/24/18 16:02 Dose: 166.667 mls/hr Lactobacillus Acidophilus (Bacid -) 1 tab PO DAILY ILYA Last Admin: 12/25/18 10:21 Dose: 1 tab Loratadine (Claritin -) 10 mg PO DAILY ILYA Last Admin: 12/25/18 10:21 Dose: 10 mg Nystatin/Triamcinolone Acetonide (Mycolog Ii Cream -) 1 applic TP BID ILYA Last Admin: 12/25/18 10:21 Dose: 1 applic Sodium Chloride ([place] Nasal [place] -) 2 spray NS TID PRN PRN Reason: NASAL CONGESTION Last Admin: 12/17/18 10:32 Dose: 2 spray Warfarin Sodium (Coumadin -) 4 mg PO DAILY@1800 ILYA Last Admin: 12/24/18 18:01 Dose: 4 mg - Objective Vital Signs: Vital Signs Temperature 98.5 F 12/25/18 05:42 Pulse Rate 80 12/25/18 05:42 Respiratory Rate 20 12/25/18 05:42 Blood Pressure 120/63 12/25/18 05:42 O2 Sat by Pulse Oximetry (%) 98 12/24/18 09:00 Constitutional: Yes: No Distress, Calm Eyes: Yes: Conjunctiva Clear HENT: Yes: Atraumatic Cardiovascular: Yes: Regular Rate and Rhythm Respiratory: Yes: Regular, CTA Bilaterally Gastrointestinal: Yes: Normal Bowel Sounds, Soft Musculoskeletal: Yes: WNL Extremities: Yes: WNL Edema: No Neurological: Yes: Alert, Oriented Psychiatric: Yes: Alert, Oriented Labs: CBC, BMP 12/25/18 08:15 12/25/18 08:15 INR, PTT INR 1.72 (0.83-1.09) H 12/25/18 08:15 Problem List - Problems (1) CHF (congestive heart failure) Code(s): I50.9 - HEART FAILURE, UNSPECIFIED (2) CKD (chronic kidney disease) Code(s): N18.9 - CHRONIC KIDNEY DISEASE, UNSPECIFIED (3) Cellulitis of face Code(s): L03.211 - CELLULITIS OF FACE (4) Atrial fibrillation Code(s): I48.91 - UNSPECIFIED ATRIAL FIBRILLATION Qualifiers: Atrial fibrillation type: chronic Qualified Code(s): I48.2 - Chronic atrial fibrillation (5) HTN (hypertension) Code(s): I10 - ESSENTIAL (PRIMARY) HYPERTENSION Assessment/Plan see problem list discharge home today, medications sent to pharmacy will need to see oral surgeon ~patient states having appointment tomorrow
== END 2018-12-25 11:43 | disposition home or self-care (01) | DRG 603 ==
LOC: JER 12:11 → JERBED 18:55 → J6S 12-17 00:57
PROVIDERS: ADMIT Internal Medicine; ATTEND Family Medicine
DX: L03.211 Cellulitis of face (principal); N17.9 Acute kidney failure, unspecified; I50.30 Unspecified diastolic (congestive) heart failure; E87.2 Acidosis; I13.0 Hypertensive heart and chronic kidney disease with heart failure and stage 1 through stage 4 chronic kidney disease, or unspecified chronic kidney disease; E78.5 Hyperlipidemia, unspecified; M10.9 Gout, unspecified; J31.0 Chronic rhinitis; H61.23 Impacted cerumen, bilateral; H93.19 Tinnitus, unspecified ear; I48.2 Chronic atrial fibrillation; N18.9 Chronic kidney disease, unspecified; R21 Rash and other nonspecific skin eruption; E66.9 Obesity, unspecified; Z68.30 Body mass index [BMI] 30.0-30.9, adult
CPT/HCPCS: 36415; 70486-TC; 76775-TC; 80048; 80053; 81003; 82803; 83605; 85025; 85027; 85610; 87040; 87086; 99283-25; G0480; J7030

== ENCOUNTER 2022-04-27 17:52 | Emergency (ER) | payer OTHER, BC ==
[2022-04-27 18:10] VITALS: BP 152/84; PULSE 89; RESP 20; TEMP 98; BMI 28.5
== END 2022-04-27 20:17 | disposition home or self-care (01) ==
LOC: JER 17:52
DX: K56.609 Unspecified intestinal obstruction, unspecified as to partial versus complete obstruction (principal)
CPT/HCPCS: 99281-25

== ENCOUNTER 2022-08-02 07:29 | Emergency (ER) | payer OTHER, BC ==
[2022-08-02 07:40] VITALS: BMI 29.3
[2022-08-02 11:25] VITALS: BP 124/63; PULSE 73; RESP 19; TEMP 97.9
== END 2022-08-02 12:46 | disposition home or self-care (01) ==
LOC: JER 07:29
DX: M25.551 Pain in right hip (principal); Z20.822 Contact with and (suspected) exposure to COVID-19
CPT/HCPCS: 73502-TC-RT-FY; 99284-25; C9803-CS; U0003; U0005